=== PATIENT | female | born 1990 | race Caucasian/White ===

== ENCOUNTER 2017-01-25 11:33 | Emergency (ER) | payer OTHER ==
[~2017-01-25] VITALS: Ht 167.6 cm; Wt 68.2 kg
[~2017-01-25 11:33] MED LIST: HYDR-5688 PO; IBUP-1428 PO
[2017-01-25 11:34] VITALS: TEMP 36.7; Ht 167.6 cm; Wt 68.2 kg
[2017-01-25] MEDS ORDERED: OXYC1TAB3 PO (12:01)
[2017-01-25] MEDS ORDERED: CLIN300C2 PO (12:01)
[2017-01-25] MEDS ORDERED: BCPILLS PO (12:06)
--- NOTE | 2017-01-25 12:09 | EMERGENCY ROOM VISIT NOTE ---
History First contact with patient: 11:38 Chief Complaint: DENTAL PAIN Stated Complaint: INFECTION IN UPPER BACK TOOTH Nursing Triage Summary: pt c/o L upper dental pain, appt with dentist, pt states she was given pcn but she was allergic to it so she didnt take it, pt told she needs an abx prior to the tooth being extracted History of Present Illness The patient is a 26 year old female who presents to the Emergency Room with complaints of persistent left upper dental pain. The patient reports she has an appointment Tuesday for a dental extraction. She was seen by her dentist yesterday and provided a prescription for penicillin, although they confirmed in the office that she has an appointment for penicillin. When she tried to call the office today, there was no answer, therefore she came to the emergency department for a new antibiotic prescription. She is also requesting additional pain medication for the next few nights until the antibiotics start to work. She has chronic left upper dental pain in the service after an [facility] dentist accidentally drilled into the tooth. She has had 2 root canals with an option for a third. She has elected to have the tooth extracted. She denies any fevers or chills, sinus congestion or headache. She rates her discomfort an 8 out of 10. Review of Systems 10 system review was performed and was negative except for pertinent positives and negatives as indicated in history of present illness Past Medical/Surgical History Medical Problems: (1) Abdominal pain (2) Acute bacterial conjunctivitis (3) Anxiety (4) Bipolar 1 disorder (5) Bipolar depression (6) Conjunctivitis (7) Conjunctivitis (8) Dehydration (9) Dehydration (10) Depression (11) Herpes genitalia (12) Herpes genitalis in women (13) Herpes labialis (14) Odontalgia (15) Pain, dental (16) Pain, dental (17) Pain, dental (18) Pelvic inflammatory disease (19) Post-operative pain (20) Prescription refill (21) Sore throat (22) Thoracic back pain (23) Thoracic myofascial strain Surgical Problems: (1) H/O wisdom tooth extraction (2) [place] teeth removed Family History FH: heart disease FH: hypertension Hypotension FATHER SISTER Social History Smoking Status: Current Every Day Smoker Alcohol Use: none Drug Use: none Marital Status: Housing Status: lives with significant other Occupation Status: employed Current/Historical Medications Scheduled Clindamycin Hcl (Cleocin), 300 MG PO QID Ibuprofen (Motrin), 800 MG PO Q8H Scheduled PRN Hydrocodone/Acetaminophen 5MG/325MG ([place] 5MG/325MG), 2 TABLETS PO Q4 PRN for Pain Oxycodone Ir (Roxicodone Ir), 1-2 TAB PO Q4H PRN for Pain Physical Exam Vital Signs Date Time Temp Pulse Resp B/P (MAP) Pulse Ox O2 Delivery O2 Flow Rate FiO2 01/25/17 11:34 36.7 74 18 126/81 97 Room Air Physical Exam CONSTITUTIONAL: Healthy and well nourished. Alert and oriented X 3 with positive affect. HEENT: Normocephalic, atraumatic. Pupils equal, round and reactive. No facial edema or erythema noted. OROPHARYNX: No gingival erythema, fluctuance or pointing. The patient has several dental nares. NECK: Full active range of motion without discomfort. INTEGUMENTARY: No rash or other significant dermatologic conditions noted. NEUROLOGIC: Facial sensations are intact. Medical Decision & Procedures ED Course Patient history and physical exam were performed. Nurse's notes were reviewed. Vital signs were reviewed and normal. The patient was provided prescriptions for Cleocin and OxyIR 5 mg. She was also encouraged to alternate ibuprofen and Tylenol for baseline pain relief. She was instructed to follow-up with her dentist for further definitive treatment. The patient was advised that the emergency department does not provide dental services, referrals or chronic dental pain management. The patient was happy with plan of care, voiced understanding of all discharge instructions, refused any analgesics while in the emergency department, and rated her pain a 6 out of 10 at the time of discharge. Medical Decision [place] Drug Monitoring Program Search Results: patient reviewed within database, no issues identified Medication Reconcilliation Current Medication List: was personally reviewed by nc Blood Pressure Screening Patient's blood pressure: Normal blood pressure Impression Primary Impression: Pain, dental Departure Information Dispostion Home / Self-Care Prescriptions Oxycodone Ir (Roxicodone Ir) 5 Mg Tab 1-2 TAB PO Q4H Y for Pain, #15 TAB For Initial Treatment Prov: Leroy Middleton PA 01/25/17 Clindamycin Hcl (CLEOCIN) 300 Mg Cap 300 MG PO QID for 7 Days, #28 CAP Prov: Leroy Middleton PA 01/25/17 Forms HOME CARE DOCUMENTATION FORM, IMPORTANT VISIT INFORMATION Patient Instructions My [facility] Additional Instructions Complete all clindamycin antibiotics as prescribed. Ibuprofen 800 mg and/or Tylenol 1000 mg every 8 hours. You may also alternate these medications for more effective pain relief: Ibuprofen --4 HRS--> Tylenol --4 HRS--> ibuprofen --4 HRS--> Tylenol .... OxyIR if needed for worse pain. Do not drink alcohol or drive while taking OxyIR. Follow-up with your dentist for further management.
[2017-01-25 12:10] VITALS: BP 126/81; PULSE 74; O2SAT 97
== END 2017-01-25 12:10 | disposition home or self-care (01) ==
LOC: C.EDB 11:34 → C.EDD 12:10
DX: K08.89 Other specified disorders of teeth and supporting structures (principal); F17.200 Nicotine dependence, unspecified, uncomplicated; F41.9 Anxiety disorder, unspecified; F31.9 Bipolar disorder, unspecified; Z79.899 Other long term (current) drug therapy

== ENCOUNTER 2017-02-21 13:34 | Emergency (ER) | payer OTHER ==
[~2017-02-21] VITALS: Ht 167.6 cm; Wt 67.5 kg
[~2017-02-21 13:34] MED LIST changes: +BCPILLS PO; -HYDR-5688 PO; +OXYC1TAB3 PO
[2017-02-21 13:39] VITALS: BP 125/79; PULSE 65; TEMP 36.7; O2SAT 99; Ht 167.6 cm; Wt 67.5 kg
== END 2017-02-21 14:05 | disposition left against medical advice (07) ==
LOC: C.EDB 13:36
DX: R10.9 Unspecified abdominal pain (principal)

== ENCOUNTER → 2017-02-22 | Outpatient (CLI) | payer OTHER ==
[~2017-02-22] MED LIST changes: +AMOX875T PO; +HYDR-5688 PO; +PRDXLUD MT
--- NOTE | 2017-02-22 14:09 | DIAGNOSTIC IMAGING REPORT ---
ABDOMEN 2VIEW W/PA CHEST RTN HISTORY: 26 years-old Female Right upper quadrant abdominal pain of unknown etiology COMPARISON: CT abdomen and pelvis 06/26/2013 TECHNIQUE: Frontal view of the chest with erect and supine views of the abdomen FINDINGS: Cardiomediastinal and hilar silhouettes are within normal limits. No pneumothorax, pleural effusion or focal airspace consolidation. Bones of the chest are grossly intact. Radiopaque foci noted within the colon. Bowel gas pattern is nonobstructive. There is mild to moderate stool burden. No urolithiasis identified. Probable phleboliths are seen within the pelvis. No pneumoperitoneum. IMPRESSION: 1. No acute cardiopulmonary process. 2. No bowel obstruction or pneumoperitoneum. 3. Mild to moderate stool burden. The above report was generated using voice recognition software. It may contain grammatical, syntax or spelling errors. Electronically signed by: Neil Peguero M.D. 02/22/2017 2:08 PM Dictated Date/Time: 02/22/2017 2:06 PM
== END | disposition home or self-care (01) ==
LOC: C.RADPV 13:45
PROVIDERS: ATTEND Family Medicine
DX: R10.11 Right upper quadrant pain (principal)

== ENCOUNTER 2017-04-02 08:21 | Emergency (ER) | payer OTHER ==
[~2017-04-02] VITALS: Ht 167.6 cm; Wt 65.5 kg
[~2017-04-02 08:21] MED LIST changes: -AMOX875T PO; -HYDR-5688 PO; -PRDXLUD MT
[2017-04-02 08:26] VITALS: BP 118/74; PULSE 71; TEMP 37; O2SAT 98; Ht 167.6 cm; Wt 65.5 kg
[2017-04-02] MEDS ORDERED: AMOX875T PO (08:53)
[2017-04-02] MEDS ORDERED: PRDXLUD MT (08:53)
[2017-04-02] MEDS ORDERED: HYDR-5688 PO (08:53)
--- NOTE | 2017-04-02 16:11 | EMERGENCY ROOM VISIT NOTE ---
ED Visit Note First contact with patient: 08:30 CHIEF COMPLAINT: Left upper Dental pain HISTORY OF PRESENT ILLNESS: This 26-year-old white female patient has had a progressive toothache for over a month. She denies any trauma. The pain is now steady and severe and radiates to the left cheek. She was previously seen in [place] and had her wisdom teeth extracted. She states that the adjacent molar was damaged and was also removed. Her maxilla require bone grafting. She states it did well until the last month. She now feels as though there is something protruding from the inner aspect of her gumline. It is firm and painful. She has been unable to see a dentist. 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 She has applied through the online portal with the [employer], but has not heard anything back about an upcoming appointment. Denies facial swelling, chills, sweats, or fever. No nausea or vomiting. No foul taste. Pain is 9/10. She has been using ibuprofen without success. REVIEW OF SYSTEMS: Head: No headache, injury or neck pain. Throat: No sore throat, dysphagia, or hoarseness. Neck: No stiffness, or swelling. Respiratory: No cough, change in sputum, wheezes, hemoptysis, shortness of breath, or stridor. PMH: Supplemental sheet was reviewed and signed. Previous Surgeries: [place] tooth extraction and dental bone grafting for the left maxilla Medical history: Significant for anxiety, bipolar disorder, depression, history of bronchitis Family history: Noncontributory. Parents are living. Current medications: Ibuprofen Allergies: Clonazepam, morphine, penicillin, tramadol. She has taken amoxicillin without issue in the past. SOCIAL HISTORY: Patient lives at home with her boyfriend. Employed in the [employer]. Positive tobacco use. No EtOH use. PHYSICAL EXAM: Vital Signs: Afebrile. Reviewed and filed in patient's chart. General: Well-developed, well-nourished, young white female, in no acute distress. She appears in some discomfort. She is sitting on a bed. Alert and oriented. Skin: Warm and dry with good turgor. No rashes or lesions. No ecchymosis or erythema. The patient is not diaphoretic. No abrasions. HEENT : Normocephalic atraumatic. Eyes PERRLA, EOMI. No conjunctiva or scleral injection. Nares patent bilaterally without turbinate enlargement. No significant drainage. No epistaxis. Oropharynx without erythema or exudate. Uvula midline, oral mucosa moist. No lesions present. Teeth #15 and 16 are missing. She has a small firm nodule starting to protrude from the mucosa of the hard palate. It has not erupted through the mucosa yet. It is very tender to touch. Mild edema but no pointing. It is nonfluctuant. Surrounding teeth are not loose. There is no facial swelling, cervical or submandibular lymphadenopathy. DIAGNOSIS: Dental pain DISCHARGE INSTRUCTIONS & TREATMENT: The patient was educated regarding today's findings. Conservative care measures were discussed. I did call Dr. Thurman to discuss the case. He agreed to see the patient in the office this week for further examination. [employer] 5mg every 6 hours if needed for pain. Driving precautions were given. Augmentin 875 mg 2 times a day for 10 days. Add Peridex solution gargles 2 times a day. Continue with ibuprofen 600 mg every 6 hours as needed for discomfort. Saltwater gargles after every meal. Toothache handout was provided. Return to the ED for any other concerns. Avoid smoking if possible. Problem List Medical Problems: (1) Abdominal pain Status: Resolved (2) Acute bacterial conjunctivitis Status: Resolved (3) Anxiety Status: Chronic (4) Bipolar 1 disorder Status: Chronic (5) Bipolar depression Status: Chronic (6) Conjunctivitis Status: Resolved (7) Conjunctivitis Status: Resolved (8) Dehydration Status: Resolved (9) Dehydration Status: Resolved (10) Depression Status: Chronic (11) Herpes genitalia Status: Resolved (12) Herpes genitalis in women Status: Chronic (13) Herpes labialis Status: Chronic (14) Odontalgia Status: Resolved (15) Pain, dental Status: Resolved (16) Pain, dental Status: Resolved (17) Pain, dental Status: Resolved (18) Pelvic inflammatory disease Status: Resolved (19) Post-operative pain Status: Resolved (20) Prescription refill Status: Resolved (21) Sore throat Status: Resolved (22) Thoracic back pain Status: Resolved (23) Thoracic myofascial strain Status: Resolved Surgical Problems: (1) H/O wisdom tooth extraction Status: Resolved (2) [place] teeth removed Status: Resolved Current/Historical Medications Scheduled Amoxicillin & Pot Clavulanate (Augmentin 875-125 mg), 1 TAB PO BID Control Pills ( Control Pills), 1 TAB PO DAILY Chlorhexidine Gluconate (Peridex Oral Soln), 5 ML MT BID Ibuprofen (Motrin), 800 MG PO Q8H Scheduled PRN Hydrocodone/Acetaminophen 5MG/325MG ([employer] 5MG/325MG), 1-2 TABLETS PO Q6 PRN for Pain Allergies Coded Allergies: Penicillins (Verified Allergy, Unknown, itchy, red, 04/02/17) Morphine (Verified Adverse Reaction, Severe, pt reports halluncinations, 04/02/17) Tramadol (Verified Adverse Reaction, Intermediate, SEVERE [place]ENBERG, 04/02/17) Clonazepam (Verified Adverse Reaction, Unknown, BLACK OUTS, 04/02/17) Vital Signs Date Time Temp Pulse Resp B/P (MAP) Pulse Ox O2 Delivery O2 Flow Rate FiO2 04/02/17 08:26 37.0 71 18 118/74 98 Room Air Departure Information Impression Primary Impression: Pain, dental Dispostion Home / Self-Care Condition GOOD Prescriptions Hydrocodone/Acetaminophen 5MG/325MG ([employer] 5MG/325MG) Tab 1-2 TABLETS PO Q6 Y for Pain, #15 TAB PRN PAIN Prov: Ney Wilhelm,P.A. 04/02/17 Chlorhexidine Gluconate (PERIDEX ORAL SOLN) 480 Ml Soln 5 ML MT BID, #1 BTL Prov: Ney Wilhelm,P.A. 04/02/17 Amoxicillin & Pot Clavulanate (Augmentin 875-125 mg) 1 Tab Tab 1 TAB PO BID, #20 TAB Prov: Ney Wilhelm,P.A. 04/02/17 Referrals Chandra Thurman D.D.SZane No Doctor, Assigned Forms HOME CARE DOCUMENTATION FORM, SPECIAL NARCOTICS INSTRUCTIONS, MOTRIN USE, TYLENOL USE, IMPORTANT VISIT INFORMATION Patient Instructions My [facility] Additional Instructions Call Dr. Thurman on Tuesday for follow-up this week Augmentin 1 pill twice a day 10 days Peridex solution-rinse twice a day Tylenol and Motrin every 6 hours as needed for mild to moderate discomfort Substitute [employer] 5 mg every 6 hours as needed for severe pain-no driving Return to the ED for any other concerns
== END 2017-04-02 09:00 | disposition home or self-care (01) ==
LOC: C.EDB 08:23 → C.EDA 09:00
DX: K08.89 Other specified disorders of teeth and supporting structures (principal); F41.9 Anxiety disorder, unspecified; F31.9 Bipolar disorder, unspecified; F32.9 Major depressive disorder, single episode, unspecified; Z72.0 Tobacco use

== ENCOUNTER → 2017-04-19 | Outpatient (CLI) | payer OTHER ==
[~2017-04-19] MED LIST changes: +HYDR-5688 PO; -OXYC1TAB3 PO; +PRDXLUD MT
[2017-04-21 15:03] LABS: CHLAMYDIA TRACH RNA*** NOT DETECTED (NOT DETECTED); GC (NEIS GONORRHOEAE)RNA** NOT DETECTED (NOT DETECTED)
== END | disposition home or self-care (01) ==
LOC: C.LABPVFM 12:39
PROVIDERS: ATTEND Family Medicine
DX: R10.2 Pelvic and perineal pain (principal)

== ENCOUNTER 2017-05-21 08:47 | Emergency (ER) | payer OTHER ==
[~2017-05-21] VITALS: Ht 167.6 cm; Wt 66.5 kg
[2017-05-21 08:50] VITALS: TEMP 36.8; Ht 167.6 cm; Wt 66.5 kg
[2017-05-21] MEDS ORDERED: CLINDAMYCIN HCL 150 MG CAP PO STA (09:19)
--- NOTE | 2017-05-21 09:21 | EMERGENCY ROOM VISIT NOTE ---
History Report prepared by Marilouibjenna: Vidya Arias Under the Supervision of: Dr. Doug Mata M.D. First contact with patient: 09:10 Chief Complaint: DENTAL PAIN Stated Complaint: THROBBING IN GUMS Nursing Triage Summary: left upper dental pain has hx of bone graft there. pain started 3 days ago. has to go through i cannot get appt until jul 04 History of Present Illness The patient is a 26 year old female who presents to the Emergency Room with complaints of persistent dental pain for the past 3 days. She rates her discomfort as an 8/10 in severity. Ibuprofen has provided minimal relief. She notes she has a history of a left upper bone graft that was performed while she was in [employer]. The bone graft was performed at [facility]. The patient states due to insurance issues, and her medical appointments being made through [facility], she cannot get in to see her dentist until July 04, 2017. She also admits to some sinus congestion. Source of History: patient Onset: 3 days EQUIP TECH Position: jaw (left upper dental area) Symptom Intensity: 8/10 Timing: other (persistent) Modifying Factors (Relieving): ibuprofen Note: The patient also complains of sinus congestion. Review of Systems See HPI for pertinent positives & negatives. A total of 10 systems reviewed and were otherwise negative. Past Medical & Surgical Medical Problems: (1) Abdominal pain (2) Acute bacterial conjunctivitis (3) Anxiety (4) Bipolar 1 disorder (5) Bipolar depression (6) Conjunctivitis (7) Conjunctivitis (8) Dehydration (9) Dehydration (10) Depression (11) Herpes genitalia (12) Herpes genitalis in women (13) Herpes labialis (14) Odontalgia (15) Pain, dental (16) Pain, dental (17) Pain, dental (18) Pelvic inflammatory disease (19) Post-operative pain (20) Prescription refill (21) Sore throat (22) Thoracic back pain (23) Thoracic myofascial strain Surgical Problems: (1) H/O wisdom tooth extraction (2) [place] teeth removed Family History FH: heart disease FH: hypertension Hypotension FATHER SISTER Social History Smoking Status: Current Every Day Smoker Alcohol Use: none Drug Use: none Marital Status: Housing Status: lives with significant other Occupation Status: employed Current/Historical Medications Scheduled Control Pills ( Control Pills), 1 TAB PO DAILY Chlorhexidine Gluconate (Peridex Oral Soln), 5 ML MT BID Clindamycin Hcl (Cleocin), 300 MG PO QID Ibuprofen (Motrin), 800 MG PO Q8H Scheduled PRN Oxycodone/Acetaminophen 5MG/325MG (Percocet 5MG/325MG), 1-2 TAB PO Q4H PRN for Pain Allergies Coded Allergies: Penicillins (Verified Allergy, Unknown, itchy, red, 04/02/17) Morphine (Verified Adverse Reaction, Severe, pt reports halluncinations, 05/21/17) Tramadol (Verified Adverse Reaction, Intermediate, [place], 05/21/17) Clonazepam (Verified Adverse Reaction, Unknown, BLACK OUTS, 05/21/17) Physical Exam Vital Signs Date Time Temp Pulse Resp B/P (MAP) Pulse Ox O2 Delivery O2 Flow Rate FiO2 05/21/17 09:40 75 18 131/96 100 05/21/17 08:50 36.8 98 18 127/76 100 Room Air Physical Exam GENERAL: Patient is a healthy-appearing well-nourished 26 year old female. HEAD: Normocephalic atraumatic EYES: Ocular movements intact pupils equal and react to light OROPHARYNX: No evidence of abscess or infection. Tender to the left upper jaw bone. No maxillary tenderness. No evidence of facial cellulitis. No evidence of Jono's angina. Mucous membranes are moist, no exudates present, no erythema or edema present NECK: Supple no nuchal rigidity CHEST: Good equal expansion LUNGS: Clear and equal to auscultation CARDIAC: Normal S1 and S2 ABDOMEN: Soft nontender no guarding BACK: No CVA tenderness EXTREMITIES: No pain upon palpation normal muscle strength in all groups no clubbing cyanosis or edema NEURO: Patient is following commands and answering questions appropriately. Alert and oriented x3 Cranial Nerves 2-12 grossly intact Medical Decision & Procedures Medications Administered Medications (Trade) Dose Ordered Sig/Randy Route Start Time Stop Time Status Last Admin Dose Admin Clindamycin HCl (Cleocin Cap) 300 mg NOW STAT PO 05/21/17 09:19 05/21/17 09:23 DC 05/21/17 09:47 300 MG ED Course 912: Past medical records reviewed. The patient was evaluated in room A2. A complete history and physical examination was performed. 918: Cleocin 300 mg PO. 0930: Percocet 5-325 mg 2 tab PO. 0935: I reevaluated the patient. She is feeling well and resting comfortably. I discussed her discharge instructions and she verbalized complete understanding and agreement. Medical Decision Prior records/ancillary studies reviewed. Triage Nursing notes reviewed. Differential diagnosis: Etiologies such as Jono's angina, tooth abscess, periapical abscess, dental pain and sinusitis. This is a 26-year-old female who presents emergency department complaining of left-sided facial pain. The patient has a history of bone graft and is concerned that there is infection at this point. There is no evidence of facial cellulitis or Jono's angina or abscess on examination. I will place the patient on clindamycin however I stressed the need for follow-up with oral surgery. For this reason I did get case management involved to see if they could assist the patient with her insurance. Patient will return if she develops severe facial pain or fevers. Medication Reconcilliation Current Medication List: was personally reviewed by me Blood Pressure Screening Patient's blood pressure: Normal blood pressure Blood pressure disposition: Did not require urgent referral Impression Primary Impression: Pain, dental Scribe Attestation The scribe's documentation has been prepared under my direction and personally reviewed by me in its entirety. I confirm that the note above accurately reflects all work, treatment, procedures, and medical decision making performed by me. Departure Information Dispostion Home / Self-Care Prescriptions Oxycodone/Acetaminophen 5MG/325MG (PERCOCET 5MG/325MG) Tab 1-2 TAB PO Q4H Y for Pain, #14 TAB Prov: Doug Mata MD 05/21/17 Clindamycin Hcl (CLEOCIN) 150 Mg Cap 300 MG PO QID for 10 Days, #80 CAP Prov: Doug Mata MD 05/21/17 Referrals Reta Mckenzie M.D. (PCP) Patient Instructions ED Tooth Pain, My [facility] [address] Additional Instructions Need follow up with Dentist Return if you develop severe headaches or fevers You received narcotic or benzodiazepene medication while in the emergency room today. This is an addictive medication that may cause drowziness as well as constipation. Do not drive, operate heavy machinery, or drink alcohol under the influence of this medication. Take 800 mg Ibuprofen every 8 hours Take Percocet for breakthrough pain You have been examined and treated today on an emergency basis only. This is not a substitute for, or an effort to provide, complete comprehensive medical care. It is impossible to recognize and treat all injuries or illnesses in a single emergency department visit. It is therefore important that you follow up closely with Dr Mckenzie. Call as soon as possible for an appointment. Thank you for your time and consideration. I look forward to speaking with you again soon. Please don't hesitate to call us if you have any questions.
[2017-05-21] MEDS ORDERED: CLIN150C PO (09:29)
[2017-05-21] MEDS ORDERED: OXYC-57 PO (09:29)
[2017-05-21] MEDS ORDERED: OXYCODONE/ACETAMINOPHEN 5-325 TAB PO ONE (09:30)
[2017-05-21 09:40] VITALS: BP 131/96; PULSE 75; O2SAT 100
== END 2017-05-21 09:45 | disposition home or self-care (01) ==
LOC: C.EDB 08:48 → C.EDA 09:45
DX: K08.89 Other specified disorders of teeth and supporting structures (principal); F17.200 Nicotine dependence, unspecified, uncomplicated; Z98.818 Other dental procedure status; Z98.890 Other specified postprocedural states; Z82.49 Family history of ischemic heart disease and other diseases of the circulatory system

== ENCOUNTER 2017-08-19 12:56 | Emergency (ER) | payer OTHER ==
[~2017-08-19] VITALS: Ht 167.6 cm; Wt 65.0 kg
[~2017-08-19 12:56] MED LIST changes: -HYDR-5688 PO; +OXYC-57 PO
[2017-08-19 13:05] VITALS: BP 136/82; PULSE 77; TEMP 36.7; O2SAT 97; Ht 167.6 cm; Wt 65.0 kg
[2017-08-19] MEDS ORDERED: HYDR-5688 PO (13:29)
[2017-08-19] MEDS ORDERED: PENI500T2 PO (13:29)
--- NOTE | 2017-08-19 20:01 | EMERGENCY ROOM VISIT NOTE ---
ED Visit Note First contact with patient: 13:05 CHIEF COMPLAINT: Gum and tooth pain. HISTORY OF PRESENT ILLNESS: Ms. Sotelo is a 27-year-old white female who ambulates into the ED complaining of maxillary dental pain. Patient reports she is in the . Approximately 1 month ago she had a left maxillary tooth removed. She reports during this procedure she sustained a maxillary bone injury. Since that time she has had 2 grafting surgeries to the area. She reports approximately a week ago she was on leave in the local area and went to see a local oral surgeon who reported a second tooth needed to be removed. That tooth was extricated off the right maxillary area to. Since that time she has been having growing pain over the right maxillary area. She was once again seen by the specialist and reported that she had tooth fragments left in the area of her maxillary fracture. A follow-up appointment with possible surgery was scheduled for the end of August. She reports a progressive dental pain for 3 days over the right maxilla. She reports initially the pain was mild but has gradually increased in severity. She reports it is most severe at nighttime. She describes a combination of sharp and throbbing pain. She currently rates her discomfort mandible. 8/10. She does report her pain initially was controlled with ibuprofen or acetaminophen but over the last 24 hours it was not. Her pain does radiate to the left preauricular area. Her pain worsens with palpation of the right maxilla and with chewing. She has not identified any alleviating factors related to the pain over the last 24 hours the pain is now steady and severe and radiates to the face. Associated with her pain she reports she has been having difficulty sleeping and reports some mild left-sided facial swelling. She denies fevers, chills, sweats, skin eruptions, skin color changes, upper respiratory tract symptoms, sore throat, difficulty swallowing, hearing changes , ear drainage, voice changes, painful talking, drooling, inability to swallow, decreased appetite, nausea/vomiting. REVIEW OF SYSTEMS: As noted above in History of Present Illness. 8 body systems were reviewed with this patient and found to be negative unless noted above otherwise. PMH: As previously noted. CURRENT MEDICATION: control. ALLERGIES TO MEDICATION: Morphine, tramadol, clonazepam. SOCIAL HISTORY: Patient is currently employed; she feels safe in her home environment; she admits to tobacco use and denies alcohol use. PHYSICAL EXAM: Vital Signs: Date Time Temp Pulse Resp B/P (MAP) Pulse Ox O2 Delivery O2 Flow Rate FiO2 08/19/17 13:05 36.7 77 20 136/82 97 Room Air General: 27 year-old female in mild distress due to pain, nontoxic appearing, afebrile and hemodynamically stable. Neurological: Awake, alert and oriented to person, place and time. Answering questions appropriately and following commands. Skin: Warm, dry and pink. HEENT: Atraumatic and normocephalic. Face: Mild swelling over the left maxilla/ mandible area. There is no erythema or warmth in this area. None of the skin appears cellulitic. Oral cavity is moist and pink. Airway is patent. Uvula is midline and no abscesses are seen. Speech is normal. No intraoral trauma is noted. There is mild erythema of the gingiva and the surrounding tissues of her pain with what appears to be tooth fragments. I do not palpate any obvious abscesses. No cervical or submandibular lymphadenopathy. ED COURSE: Patient is assessed as noted above. Patient is educated about her findings and instructed on her treatment plan; she verbalizes understanding and agreement with this plan. CLINIC IMPRESSION: Dental pain. DISPOSITION: Patient discharged home in stable condition; prior to departure she was reassessed and subjectively reported she was feeling better and rated her discomfort 5/10. PLAN: Patient was prescribed Pen-Vee K 500 mg 4 times a day for 10 days. Patient was placed on a sliding pain medication scale of ibuprofen, acetaminophen and Martin; her name was checked on state database and no red flags were noted and she was given instructions for appropriate narcotic precautions. Patient was encouraged to follow-up with her dentistry department for follow-up care and recheck. Patient was encouraged to return to the ED for worsening/uncontrolled pain, fevers, worsening facial swelling or any new/concerning symptoms.
== END 2017-08-19 13:35 | disposition home or self-care (01) ==
LOC: C.EDB 12:57 → C.EDD 13:35
DX: K08.89 Other specified disorders of teeth and supporting structures (principal); Z98.818 Other dental procedure status; Z79.3 Long term (current) use of hormonal contraceptives; Z88.5 Allergy status to narcotic agent; Z88.8 Allergy status to other drugs, medicaments and biological substances; Z72.0 Tobacco use

== ENCOUNTER 2017-09-13 09:33 | Emergency (ER) | payer OTHER ==
[~2017-09-13] VITALS: Ht 167.6 cm; Wt 67.1 kg
[~2017-09-13 09:33] MED LIST changes: +HYDR-5688 PO; -IBUP-1428 PO; -OXYC-57 PO; -PRDXLUD MT
[2017-09-13 09:38] VITALS: TEMP 36.8; Ht 167.6 cm; Wt 67.1 kg
[2017-09-13] MEDS ORDERED: OXYC1TAB3 PO (10:24)
[2017-09-13] MEDS ORDERED: AMOX500C3 PO (10:24)
--- NOTE | 2017-09-13 10:33 | EMERGENCY ROOM VISIT NOTE ---
History Report prepared by Nancie: Narciso Childers Under the Supervision of: Dr. Alo Cueva M.D. First contact with patient: 10:10 Chief Complaint: FACIAL PAIN/INJURY Stated Complaint: BONE SPLINTERS IN MOUTH AND SWELLING History of Present Illness The patient is a 27 year old female who presents to the Emergency Room with complaints of worsening left sided facial pain and swelling beginning a month ago. 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 She states that she can feel three bone splinters on her upper left jaw which appear to be growing in size. She also complains of occasional shortness of breath (but feels this may be related to smoking). The patient denies any fevers or abdominal pain. She denies difficulty swallowing. She denies chance of . Source of History: patient Onset: A month ago Position: head (left face) Quality: other (pain and swelling) Timing: worsening Associated Symptoms: + SOB (occasional), No fevers, No abdominal pain Review of Systems See HPI for pertinent positives & negatives. A total of 10 systems reviewed and were otherwise negative. Past Medical & Surgical Medical Problems: (1) Abdominal pain (2) Acute bacterial conjunctivitis (3) Anxiety (4) Bipolar 1 disorder (5) Bipolar depression (6) Conjunctivitis (7) Conjunctivitis (8) Dehydration (9) Dehydration (10) Depression (11) Herpes genitalia (12) Herpes genitalis in women (13) Herpes labialis (14) Odontalgia (15) Pain, dental (16) Pain, dental (17) Pain, dental (18) Pelvic inflammatory disease (19) Post-operative pain (20) Prescription refill (21) Sore throat (22) Thoracic back pain (23) Thoracic myofascial strain Surgical Problems: (1) H/O wisdom tooth extraction (2) [place] teeth removed Old medical records were reviewed. Nurse's notes were reviewed and I agree with. Family History FH: heart disease FH: hypertension Hypotension FATHER SISTER Social History Smoking Status: Current Every Day Smoker Alcohol Use: none Drug Use: none Marital Status: Housing Status: lives with significant other Occupation Status: employed Current/Historical Medications Scheduled Amoxicillin (Amoxil), 500 MG PO TID Control Pills ( Control Pills), 1 TAB PO DAILY Scheduled PRN Hydrocodone/Acetaminophen 5MG/325MG ([place] 5MG/325MG), 1-2 TABLET PO Q6H PRN for Pain Oxycodone Immediate Rel Tab (Roxicodone Ir), 1-2 TAB PO Q4H PRN for Severe Pain Allergies Coded Allergies: Penicillins (Verified Allergy, Unknown, itchy, red, 04/02/17) Morphine (Verified Adverse Reaction, Severe, pt reports halluncinations, ) Tramadol (Verified Adverse Reaction, Intermediate, SEVERE ROSENBERG, 08/19/17) Clonazepam (Verified Adverse Reaction, Unknown, BLACK OUTS, 08/19/17) Physical Exam Vital Signs Date Time Temp Pulse Resp B/P (MAP) Pulse Ox O2 Delivery O2 Flow Rate FiO2 09/13/17 10:48 78 16 124/72 98 09/13/17 09:38 36.8 79 20 128/69 100 Room Air Physical Exam General: Non-ill appearing young female in no acute distress. HEENT: Normal cephalic atraumatic. No facial swelling. Mild tenderness to the left upper jaw where teeth have been removed. No fluctuance or abscess. Two small bumps felt. Oropharynx is pink with moist mucous membranes. No swelling of the mouth lips or tongue. Pupils are equal round and reactive to light. Extraocular movements are intact. Neck: Supple with a midline trachea. No meningeal signs or stiffness, no JVD or bruits. No Stridor. Chest: Clear to auscultation bilaterally. No wheezes or rhonchi. No increased work of breathing. Heart: regular rate and rhythm. Abdomen: Soft nontender, nondistended without rebound guarding or rigidity. Extremities: No cyanosis clubbing or edema. No calf tenderness or assymetry Spine/Back. Non tender to palpation. No CVA tenderness Skin: Good turgor without rashes. Neurologic exam: Cranial nerves two through 12 are intact. Motor and sensation are intact and symmetrical throughout. Medical Decision & Procedures ED Course 1011: Past medical records reviewed. The patient was evaluated in room C4, and a complete history and physical examination were performed. 1025: Upon reevaluation, the patient is resting comfortably. I discussed the results and treatment plan with her. She verbalized agreement of the treatment plan. The patient was discharged home. Medical Decision Differentials include, but are not limited to; abscess, tooth ache, and jaw pain. Patient comes in as described above she has been having left jaw pain t she has some chronic issues with this after having a fracture and reconstructive surgery . she scheduled to see a oral facial surgeon in the near future. On exam, she is afebrile and has no evidence to suggest abscess or Jono's angina. At this point, I think she needs antibiotics and pain management. She has no evidence of any airway compromise. Her father is at the bedside and driving. She was given amoxicillin 500 mg 3 times a day as well as a small prescription for OxyIR to get her through until she can see the oral facial surgeon. She should return if: increasing pain, worsening of symptoms, fever chills, any new problems or concerns. She is happy the plan and discharged to home. [place] Drug Monitoring Program Search Results: patient reviewed within database, no issues identified Medication Reconcilliation Current Medication List: was personally reviewed by me Blood Pressure Screening Patient's blood pressure: Normal blood pressure Blood pressure disposition: Did not require urgent referral Impression Primary Impression: Jaw pain Scribe Attestation The scribe's documentation has been prepared under my direction and personally reviewed by me in its entirety. I confirm that the note above accurately reflects all work, treatment, procedures, and medical decision making performed by me. Departure Information Dispostion Home / Self-Care Prescriptions Oxycodone Immediate Rel Tab (ROXICODONE IR) 5 Mg Tab 1-2 TAB PO Q4H Y for Severe Pain, #24 TAB Prov: Alo Cueva M.D. 09/13/17 Amoxicillin (AMOXIL) 500 Mg Cap 500 MG PO TID, #30 CAP Prov: Alo Cueva M.D. 09/13/17 Referrals Reta Mckenzie M.D. (PCP) Forms HOME CARE DOCUMENTATION FORM, IMPORTANT VISIT INFORMATION Patient Instructions My [facility] Additional Instructions Rest. Drink plenty of fluids. Use amoxicillin 500 mg 3 times a day for 10 daysantibiotic For pain, use ibuprofen 400 mg every 6 hours, take with food For more severe pain, may use OxyIR 5 mg, 1 or 2 pills every 4-6 hours as needed OxyIR may make you drowsy do not take before drinking, driving, working Return if: Increasing pain, facial swelling, fever or chills, worsening symptoms , any new problems or concerns Up with the oral surgeon this week for recheck and definitive care
[2017-09-13 10:48] VITALS: BP 124/72; PULSE 78; O2SAT 98
== END 2017-09-13 10:48 | disposition home or self-care (01) ==
LOC: C.EDB 09:35 → C.EDC 10:48
DX: R68.84 Jaw pain (principal); F17.210 Nicotine dependence, cigarettes, uncomplicated; Z88.0 Allergy status to penicillin; Z88.8 Allergy status to other drugs, medicaments and biological substances; Z87.81 Personal history of (healed) traumatic fracture

== ENCOUNTER 2017-11-11 07:19 | Emergency (ER) | payer OTHER ==
[~2017-11-11] VITALS: Ht 167.6 cm; Wt 68.1 kg
[~2017-11-11 07:19] MED LIST changes: +OXYC1TAB3 PO
[2017-11-11 07:20] VITALS: BP 109/66; PULSE 71; TEMP 36.7; O2SAT 98; Ht 167.6 cm; Wt 68.1 kg
[2017-11-11] MEDS ORDERED: OXYC1TAB3 PO (07:36)
[2017-11-11] MEDS ORDERED: CEPH500C2 PO (07:36)
--- NOTE | 2017-11-11 07:43 | EMERGENCY ROOM VISIT NOTE ---
History Report prepared by Nancie: Singh Morgan Under the Supervision of: Dr. Phani Alba D.O. First contact with patient: 07:26 Chief Complaint: FACIAL PAIN/INJURY Stated Complaint: PAIN IN MOUTH,POSSIBLY INFECTED,HAD SOME SWELLING History of Present Illness The patient is a 27 year old female who presents to the Emergency Room with complaints of worsening pain in the left side of her face. She describes the sensation as "a golf ball throbbing" in her face. The patient has a history of complications to the right side of the face/mouth. 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 Since the fracture she has had 2 bone grafts, and two additional surgery in the past month. She is currently following with Facial Surgery at [place] who has told her that she has " bone" in the cheek that needs to be removed. She is currently in the process of setting this appointment up, but notes that the pain has acutely worsened over the past day. The patient is an everyday smoker Source of History: patient Onset: Past day Position: head (Left face) Quality: other (Throbbing) Timing: worsening Note: Patient notes swelling. Review of Systems See HPI for pertinent positives & negatives. A total of 10 systems reviewed and were otherwise negative. Past Medical & Surgical Medical Problems: (1) Abdominal pain (2) Acute bacterial conjunctivitis (3) Anxiety (4) Bipolar 1 disorder (5) Bipolar depression (6) Conjunctivitis (7) Conjunctivitis (8) Dehydration (9) Dehydration (10) Depression (11) Herpes genitalia (12) Herpes genitalis in women (13) Herpes labialis (14) Odontalgia (15) Pain, dental (16) Pain, dental (17) Pain, dental (18) Pelvic inflammatory disease (19) Post-operative pain (20) Prescription refill (21) Sore throat (22) Thoracic back pain (23) Thoracic myofascial strain Surgical Problems: (1) H/O wisdom tooth extraction (2) [place] teeth removed Family History FH: heart disease FH: hypertension Hypotension FATHER SISTER Social History Smoking Status: Current Every Day Smoker Alcohol Use: none Drug Use: none Marital Status: Housing Status: lives with significant other Occupation Status: employed Current/Historical Medications Scheduled Control Pills ( Control Pills), 1 TAB PO DAILY Cephalexin Monohydrate (Keflex), 500 MG PO QID Scheduled PRN Oxycodone Immediate Rel Tab (Roxicodone Ir), 1-2 TAB PO Q4H PRN for Severe Pain Allergies Coded Allergies: Penicillins (Verified Allergy, Unknown, itchy, red, 11/11/17) Morphine (Verified Adverse Reaction, Severe, pt reports halluncinations, ) Tramadol (Verified Adverse Reaction, Intermediate, SEVERE ROSENBERG, 11/11/17) Clonazepam (Verified Adverse Reaction, Unknown, BLACK OUTS, 11/11/17) Physical Exam Vital Signs Date Time Temp Pulse Resp B/P (MAP) Pulse Ox O2 Delivery O2 Flow Rate FiO2 11/11/17 07:20 36.7 71 18 109/66 98 Room Air Physical Exam GENERAL: Patient is awake, alert, and in no acute distress. Patient is resting comfortably and showing no signs of anxiety EYES: The conjunctivae are clear. The pupils are round and reactive. EARS, NOSE, MOUTH AND THROAT: The nose is without any evidence of any deformity. Mucous membranes are moist tongue is midline. There is no trismus. There is mild swelling and tenderness over the left cheek. No erythema appreciated. There was left upper gumline tenderness and a site of previous extraction. No drainage, fluctuance, or erythema noted. NECK: The neck is nontender and supple. RESPIRATORY: Normal respiratory effort is noted there is no evidence of wheezing rhonchi or rales CARDIOVASCULAR: Regular rate and rhythm noted there no murmurs rubs or gallops normal S1 normal S2 GASTROINTESTINAL: The abdomen is soft. Bowel sounds are present in all quadrants. Abdomen is nontender MUSCULOSKELETAL/EXTREMITIES: There is no evidence of gross deformity full range of motion is noted in the hips and shoulders SKIN: There is no obvious evidence of any rash. There are no petechiae, pallor or cyanosis noted. NEUROLOGIC: Patient is awake alert and oriented x3 strength is symmetric patellar reflexes are 2+ bilaterally Medical Decision & Procedures ED Course 728: The patient was evaluated in room B2. A complete history and physical examination were performed. After discussion with the patient at bedside, she is in agreement with the treatment plan. The patient will be discharged home. Medical Decision Differential Diagnosis includes; dental abscess, dental infection, dental carries, post operative infection, facial cellulitis as well as others were entertained. Nursing notes reviewed. The patient is a 27-year-old female who presented to the emergency department for an evaluation of facial pain. The patient has a history of a previous surgery which she states has known to have some failure because of bone grafting in the left cheek. She does have a follow-up appointment with her oral surgeon. She started having pain at the end of her shift last evening and came to the emergency department for an evaluation. The patient has had similar episodes in the past. I discussed follow-up with the patient and recommended that she call her oral surgeon today. She has no trismus she has no fever she does not have significant swelling over the area. She does have an area of a previous extraction which could have retained roots but there is no area that appeared to be consistent with an abscess at this time. The patient was encouraged to continue using Motrin and Tylenol for pain. She is also encouraged to follow-up with her oral surgeon as soon as possible. She was also encouraged to return the emergency department immediately if symptoms change worsen or the need arises. Medication Reconcilliation Current Medication List: was personally reviewed by me Blood Pressure Screening Patient's blood pressure: Normal blood pressure Impression Primary Impression: Pain, dental Additional Impression: Dental infection Scribe Attestation The scribe's documentation has been prepared under my direction and personally reviewed by me in its entirety. I confirm that the note above accurately reflects all work, treatment, procedures, and medical decision making performed by me. Departure Information Dispostion Home / Self-Care Prescriptions Cephalexin Monohydrate (KEFLEX) 500 Mg Cap 500 MG PO QID, #28 CAP Prov: Phani Alba, 11/11/17 Oxycodone Immediate Rel Tab (ROXICODONE IR) 5 Mg Tab 1-2 TAB PO Q4H Y for Severe Pain, #20 TAB Prov: Phani Alba, 11/11/17 Referrals No Doctor, Assigned (PCP) Forms HOME CARE DOCUMENTATION FORM, IMPORTANT VISIT INFORMATION Patient Instructions My [facility] Additional Instructions Call your oral surgeon today to schedule a follow-up appointment for within the next 5 days. Continue all medications as prescribed. Continue using Motrin and Tylenol as directed for mild pain. Return to the emergency department immediately if symptoms change worsen or the need arises. Problem Qualifiers
== END 2017-11-11 07:51 | disposition home or self-care (01) ==
LOC: C.EDB 07:20
DX: K08.89 Other specified disorders of teeth and supporting structures (principal); K04.7 Periapical abscess without sinus; F31.9 Bipolar disorder, unspecified; F41.9 Anxiety disorder, unspecified; F32.9 Major depressive disorder, single episode, unspecified; F17.200 Nicotine dependence, unspecified, uncomplicated; Z88.0 Allergy status to penicillin; Z88.5 Allergy status to narcotic agent; Z88.8 Allergy status to other drugs, medicaments and biological substances

== ENCOUNTER 2018-02-19 09:24 | Emergency (ER) | payer SELFPAY ==
[~2018-02-19] VITALS: Ht 167.6 cm; Wt 63.0 kg
[~2018-02-19 09:24] MED LIST changes: +AMOX500T PO; -BCPILLS PO; -HYDR-5688 PO; +IBUP-1428 PO; +OXYC-737 PO; -OXYC1TAB3 PO
[2018-02-19 09:31] VITALS: Ht 167.6 cm; Wt 63.0 kg
[2018-02-19 09:42] VITALS: TEMP 36.5
[2018-02-19] MEDS ORDERED: ONDANSETRON INJ 2 MG/ML 2 ML VIAL IV STA ×2 (09:53→10:54)
[2018-02-19] MEDS ORDERED: ONDANSETRON INJ 2 MG/ML 2 ML VIAL ONE (09:55)
[2018-02-19] MEDS ORDERED: SODIUM CHLORIDE 0.9% 1000ML 1,000 ML IV ONE (10:04)
[2018-02-19] MEDS ORDERED: SODIUM CHLORIDE 0.9% 1000ML 1,000 ML IV STA ×2 (10:04→11:39)
--- NOTE | 2018-02-19 10:04 | EMERGENCY ROOM VISIT NOTE ---
History Report prepared by Nancie: Nallely Fischer Under the Supervision of: Dr. Alo Cueva M.D. First contact with patient: 09:58 Chief Complaint: VOMITING Stated Complaint: THROWING UP FOR 6 HOURS Nursing Triage Summary: Pt reports nausea and vomiting since 1230. Pt took 4mg zofran otd at 0730 without relief. Pt states that she doesn't remember what she had for dinner last night. History of Present Illness The patient is a 27 year old female who presents to the Emergency Room with complaints of persistent vomiting beginning at 0030 this morning. She approximates that she has vomited 50 times and she notes that her vomit has been a yellow mucus. She states that she's "uncomfortable all together," noting that she believes her symptoms to be from a sinus infection. The patient states the she also has had SOB and a cough lately. She also complains of being thirsty , and notes that she has abdominal pain when vomiting. She denies any diarrhea, dysuria, hematuria, fever, and chest pain. The patient takes no regular medication, and she denies any chance of . The patient has no known sick contacts. Source of History: patient Onset: 1230 Position: abdomen Quality: other (vomiting) Timing: other (persistant) Associated Symptoms: + cough, + SOB, + abdominal pain, No fevers, No chest pain, No diarrhea, No urinary symptoms Note: The patient also complains of being thirsty. Review of Systems As above. All other systems reviewed were negative unless otherwise stated in history. At least 10 were reviewed Past Medical & Surgical Medical Problems: (1) Abdominal pain (2) Acute bacterial conjunctivitis (3) Anxiety (4) Bipolar 1 disorder (5) Bipolar depression (6) Conjunctivitis (7) Conjunctivitis (8) Dehydration (9) Dehydration (10) Depression (11) Herpes genitalia (12) Herpes genitalis in women (13) Herpes labialis (14) Odontalgia (15) Pain, dental (16) Pain, dental (17) Pain, dental (18) Pelvic inflammatory disease (19) Post-operative pain (20) Prescription refill (21) Sore throat (22) Thoracic back pain (23) Thoracic myofascial strain Surgical Problems: (1) H/O wisdom tooth extraction (2) [place] teeth removed Old medical records were reviewed. Nurse's notes were reviewed and I agree with. Family History FH: heart disease FH: hypertension Hypotension FATHER SISTER Social History Smoking Status: Current Every Day Smoker Alcohol Use: none Drug Use: none Marital Status: Housing Status: lives with family Occupation Status: employed Current/Historical Medications Scheduled Control Pills ( Control Pills), 1 TAB PO DAILY Ondasetron Odt (Zofran Odt), 4 MG SL Q6H Allergies Coded Allergies: Penicillins (Verified Allergy, Unknown, itchy, red, 01/13/18) Morphine (Verified Adverse Reaction, Severe, pt reports halluncinations, ) Tramadol (Verified Adverse Reaction, Intermediate, SEVERE [place]EN[place], 01/13/18) Clonazepam (Verified Adverse Reaction, Unknown, BLACK OUTS, 01/13/18) Physical Exam Vital Signs Date Time Temp Pulse Resp B/P (MAP) Pulse Ox O2 Delivery O2 Flow Rate FiO2 02/19/18 14:37 67 14 96/61 100 Room Air 02/19/18 12:32 65 22 101/59 99 Room Air 02/19/18 10:59 57 16 96/53 99 Room Air 02/19/18 09:50 76 02/19/18 09:42 36.5 02/19/18 09:31 73 20 117/81 100 Room Air Physical Exam General: Mildly ill appearing young female in no acute distress. Complains of feeling nauseous. HEENT: Normal cephalic atraumatic. Pupils are equal round and reactive to light. Extraocular movements are intact. Oropharynx is pink with moist mucous membranes. No swelling of the mouth lips or tongue. Neck: Supple with a midline trachea. No meningeal signs or stiffness, no JVD or bruits. No Stridor. Chest: Clear to auscultation bilaterally. No wheezes or rhonchi. No increased work of breathing. Heart: regular rate and rhythm. Abdomen: Soft nontender, nondistended without rebound guarding or rigidity. Extremities: No cyanosis clubbing or edema. No calf tenderness or assymetry Spine/Back. Non tender to palpation. No CVA tenderness Skin: Good turgor without rashes. Neurologic exam: Cranial nerves two through 12 are intact. Motor and sensation are intact and symmetrical throughout. Medical Decision & Procedures ER Provider Diagnostic Interpretation: Radiology results as stated below per my review and radiologist interpretation: ABDOMEN AND PELVIS CT WITH IV CONTRAST CT DOSE: 279.36 mGy.cm HISTORY: Acute generalized abdominal pain with nausea and vomiting eval for obst, intraabd pathology TECHNIQUE: Multiaxial CT images of the abdomen and pelvis were performed following the use of intravenous contrast. A dose lowering technique was utilized adhering to the principles of ALARA. COMPARISON STUDY: CT abdomen and pelvis 06/26/2013 FINDINGS: Testicular motion limits evaluation of the lung bases. Lung bases appear generally clear. No pneumatosis or pneumoperitoneum. Study is mildly motion degraded. Imaged inferior cardiac chambers are unremarkable. Mild periportal edema. Liver is otherwise unremarkable. No intrahepatic biliary ductal dilation. The gallbladder, spleen, pancreas and adrenal glands are unremarkable. Kidneys, ureters and bladder are unremarkable. Uterus and right adnexum are within normal limits. Peripherally enhancing cystic focus about the left adnexum measures 1.9 x 1.3 cm. Mild left adnexal and dependent pelvis free fluid. Aorta and IVC are within normal limits. Patent portal vein. No pathologically enlarged lymph nodes. No bowel obstruction or focal bowel wall thickening identified. Visualized appendix appears unremarkable. Tubular structure within the abdominal right lower quadrant which is partially air-filled suggests a normal appendix, not definitively seen into the entirety. No right lower quadrant inflammatory changes identified. Soft tissues are within normal limits. Subcentimeter bone mild of the right femoral head. Incomplete bony fusion involves the posterior elements of S1. IMPRESSION: 1. Involuting follicle of the left ovary measures 1.9 cm. Mild left adnexal and dependent free pelvic fluid is likely reactive. 2. No bowel obstruction or focal bowel wall thickening. No definite evidence of acute appendicitis. 3. Mildly motion degraded exam. Electronically signed by: Neil Peguero M.D. 02/19/2018 1:19 PM CHEST ONE VIEW PORTABLE HISTORY: 27 years-old Female CHEST PAIN acute atypical chest pain COMPARISON: Acute abdominal series radiographs 02/22/2017 TECHNIQUE: Portable AP view of the chest FINDINGS: The cardiomediastinal and hilar silhouettes are within normal limits. No pneumothorax, pleural effusion, focal airspace consolidation or overt pulmonary edema. Bones of the chest appear grossly intact. IMPRESSION: No acute process. The above report was generated using voice recognition software. It may contain grammatical, syntax or spelling errors. Electronically signed by: Neil Peguero M.D. 02/19/2018 10:43 AM Laboratory Results 02/19/18 09:43 Red Blood Count 5.20, Mean Corpuscular Volume 90.0, Mean Corpuscular Hemoglobin 32.1, Mean Corpuscular Hemoglobin Concent 35.7, Mean Platelet Volume 11.5, Neutrophils (%) (Auto) 88.9, Lymphocytes (%) (Auto) 5.4, Monocytes (%) (Auto) 5.3, Eosinophils (%) (Auto) 0.0, Basophils (%) (Auto) 0.2, Neutrophils # (Auto) 11.09, Lymphocytes # (Auto) 0.67, Monocytes # (Auto) 0.66, Eosinophils # (Auto) 0.00, Basophils # (Auto) 0.02 02/19/18 09:43 Test 02/19/18 09:43 02/19/18 13:10 White Blood Count 12.46 K/uL (4.8-10.8) Red Blood Count 5.20 M/uL (4.2-5.4) Hemoglobin 16.7 g/dL (12.0-16.0) Hematocrit 46.8 % (37-47) Mean Corpuscular Volume 90.0 fL (80-100) Mean Corpuscular Hemoglobin 32.1 pg (25-34) Mean Corpuscular Hemoglobin Concent 35.7 g/dl (32-36) Platelet Count 256 K/uL (130-400) Mean Platelet Volume 11.5 fL (7.4-10.4) Neutrophils (%) (Auto) 88.9 % Lymphocytes (%) (Auto) 5.4 % Monocytes (%) (Auto) 5.3 % Eosinophils (%) (Auto) 0.0 % Basophils (%) (Auto) 0.2 % Neutrophils # (Auto) 11.09 K/uL (1.4-6.5) Lymphocytes # (Auto) 0.67 K/uL (1.2-3.4) Monocytes # (Auto) 0.66 K/uL (0.11-0.59) Eosinophils # (Auto) 0.00 K/uL (0-0.5) Basophils # (Auto) 0.02 K/uL (0-0.2) RDW Standard Deviation 41.3 fL (36.4-46.3) RDW Coefficient of Variation 12.6 % (11.5-14.5) Immature Granulocyte % (Auto) 0.2 % Immature Granulocyte # (Auto) 0.02 K/uL (0.00-0.02) Anion Gap 11.0 mmol/L (3-11) Est Creatinine Clear Calc Drug Dose 66.5 ml/min Estimated GFR () 72.2 Estimated GFR (Non- 62.3 BUN/Creatinine Ratio 14.3 (10-20) Calcium Level 9.7 mg/dl (8.5-10.1) Total Bilirubin 1.2 mg/dl (0.2-1) Direct Bilirubin 0.3 mg/dl (0-0.2) Aspartate Amino Transf (AST/SGOT) 38 U/L (15-37) Alanine Aminotransferase (ALT/SGPT) 45 U/L (12-78) Alkaline Phosphatase 53 U/L (45-117) Total Protein 9.2 gm/dl (6.4-8.2) Albumin 4.9 gm/dl (3.4-5.0) Lipase 80 U/L (73-393) Human Chorionic Gonadotropin, Qual NEG (NEG) Urine Color YELLOW Urine Appearance CLEAR (CLEAR) Urine pH 6.5 (4.5-7.5) Urine Specific [place] 1.023 (1.000-1.030) Urine Protein TRACE (NEG) Urine Glucose (UA) NEG (NEG) Urine Ketones 2+ (NEG) Urine Occult Blood NEG (NEG) Urine Nitrite NEG (NEG) Urine Bilirubin NEG (NEG) Urine Urobilinogen NEG (NEG) Urine Leukocyte Esterase NEG (NEG) Urine WBC (Auto) 0 /hpf (0-5) Urine RBC (Auto) 0-4 /hpf (0-4) Urine Hyaline Casts (Auto) 1-5 /lpf (0-5) Urine Epithelial Cells (Auto) 10-20 /lpf (0-5) Urine Bacteria (Auto) NEG (NEG) Laboratory studies as stated above per my review. Medications Administered Medications (Trade) Dose Ordered Sig/Randy Route Start Time Stop Time Status Last Admin Dose Admin Ondansetron HCl (Zofran Inj) 4 mg STK-MED ONCE .ROUTE 02/19/18 09:55 02/19/18 09:56 DC 02/19/18 09:56 4 MG Sodium Chloride 1,000 ml @ 999 mls/hr Q1H1M STAT IV 02/19/18 10:04 02/19/18 11:04 DC 02/19/18 10:15 999 MLS/HR Sodium Chloride 1,000 ml @ 200 mls/hr Q5H ONCE IV 02/19/18 10:04 02/19/18 15:03 DC 02/19/18 11:30 999 MLS/HR Ondansetron HCl (Zofran Inj) 4 mg NOW STAT IV 02/19/18 10:54 02/19/18 10:55 DC 02/19/18 10:57 4 MG Sodium Chloride 1,000 ml @ 999 mls/hr Q1H1M STAT IV 02/19/18 11:39 02/19/18 12:39 DC 02/19/18 12:47 999 MLS/HR Ketorolac Tromethamine (Toradol Inj) 30 mg NOW STAT IV 02/19/18 12:38 02/19/18 12:39 DC 02/19/18 12:47 30 MG Promethazine HCl 12.5 mg/Sodium Chloride 50.5 ml @ 204 mls/hr NOW STAT IV 02/19/18 12:38 02/19/18 12:52 DC 02/19/18 13:12 204 MLS/HR Promethazine HCl (Phenergan Inj) 12.5 mg NOW STAT IM 02/19/18 14:23 02/19/18 14:25 DC 02/19/18 14:29 12.5 MG ECG Per My Interpretation Indication: vomiting Rate (beats per minute): 58 Rhythm: sinus bradycardia Findings: other (Nonspecific T wave, short GA) Comparison ECG Date: no prior available ED Course 0958: Past medical records reviewed. The patient was evaluated in room B4, and a complete history and physical examination were performed. 0955: Ondansetron HCl 4mg IV. 1004: Sodium Chloride 1000 ml @ 200 mls/hour IV x2 1054: Zofran 4 mg IV 1139: Sodium Chloride 1000 ml @ 999 mls/hr, IV 1238: Promethazine HCl 12.5/Sodium Chloride 50.5 ml @ 204 mls/hr IV, Toradol 30 mg IV 1423: Phenergan 12.5mg IM 1139: I reevaluated the patient. Her abdomen is minimally diffusely tender, and denies a CT scan. 1241: I rechecked the patient. She was vomiting again. I orders more medications and a CT scan. 1422: I reevaluated and updated the patient. She looks better. Her CT scan was unremarkable. 1544: I reevaluated the patient. She still feels nauseated, but she is good enough to go home. I offered for her to stay, but she declines. 1545: Ondansetron HCl 1 homepack PO Medical Decision Differential Diagnoses Include: Dehydration, electrolyte or metabolic abnormality, infection, cardiac disease, . This patient comes in as described above. She has had multiple episodes of vomiting since midnight or so. She appears mildly ill but nontoxic she has stable vital signs. Her abdomen is benign. She has no headache meningeal signs or stiffness. She is in no respiratory distress. IV access established she was given IV Zofran as well as IV fluids multiple blood testing was obtained she was reassessed frequently. She received over 2 L IV normal saline. She received several doses of Zofran as well as 2 doses of Phenergan and IV Toradol. She said she was feeling better and would have intermittent nausea still, I did do a CAT scan of her abdomen it was unremarkable for any acute findings her test is negative. She has no significant electrolyte or metabolic abnormalities. She has nothing to suggest pancreatitis. There is nothing surgical at this point. She does use marijuana recreationally and it could be related to that potentially. She wants to go home. I offered her admission but she declined. she feels she is okay to go home. I gave her Zofran home pack as well as a small prescription. She was encouraged to return the ER if worsening symptoms, fever chills, not tolerating fluids, any new problems or concerns. He is happy the plan and discharged home and she should o follow-up with her doctor this week. Medication Reconcilliation Current Medication List: was personally reviewed by me Blood Pressure Screening Patient's blood pressure: Normal blood pressure Blood pressure disposition: Did not require urgent referral Impression Primary Impression: Vomiting Scribe Attestation The scribe's documentation has been prepared under my direction and personally reviewed by me in its entirety. I confirm that the note above accurately reflects all work, treatment, procedures, and medical decision making performed by me. Departure Information Dispostion Home / Self-Care Prescriptions Ondasetron Odt (ZOFRAN ODT) 4 Mg Tab 4 MG SL Q6H for Nausea, #10 TAB Prov: Alo Cueva M.D. 02/19/18 Referrals Reta Mckenzie M.D. (PCP) Forms HOME CARE DOCUMENTATION FORM, IMPORTANT VISIT INFORMATION Patient Instructions My [facility] Additional Instructions Rest Drink plenty of fluids. Mild diet. Slowly advance. For nausea or vomiting, may use Zofran 4 mg every 6 hours Return if: Worsening of symptoms, fever or chills, increasing pain, any new problems or concerns
[2018-02-19 10:22] LABS: BASO % 0.2 %; BASO ABS # 0.02 K/uL (0-0.2); HEMATOCRIT 46.8 % (37-47); HEMOGLOBIN 16.7 g/dL (12.0-16.0); IG# 0.02 K/uL (0.00-0.02); LYMPH % 5.4 %; LYMPH ABS # 0.67 K/uL (1.2-3.4); MEAN CORPUSCULAR HEMOGLOBIN 32.1 pg (25-34); MEAN CORPUSCULAR HGB CONC 35.7 g/dl (32-36); MEAN PLATELET VOLUME 11.5 fL (7.4-10.4); MONO % 5.3 %; MONO ABS # 0.66 K/uL (0.11-0.59); NEUT % 88.9 %; NEUT ABS # 11.09 K/uL (1.4-6.5); PLATELET COUNT 256 K/uL (130-400); RED CELL DISTRIBUTION WIDTH CV 12.6 % (11.5-14.5); RED CELL DISTRIBUTION WIDTH SD 41.3 fL (36.4-46.3); WHITE BLOOD COUNT 12.46 K/uL (4.8-10.8)
[2018-02-19 10:32] LABS: ALBUMIN 4.9 gm/dl (3.4-5.0); CALCIUM 9.7 mg/dl (8.5-10.1); CREATININE 1.2 mg/dl (0.60-1.20); TOTAL PROTEIN 9.2 gm/dl (6.4-8.2)
[2018-02-19] MEDS ORDERED: BCPILLS PO (10:43)
--- NOTE | 2018-02-19 10:44 | DIAGNOSTIC IMAGING REPORT ---
CHEST ONE VIEW PORTABLE HISTORY: 27 years-old Female CHEST PAIN acute atypical chest pain COMPARISON: Acute abdominal series radiographs 02/22/2017 TECHNIQUE: Portable AP view of the chest FINDINGS: The cardiomediastinal and hilar silhouettes are within normal limits. No pneumothorax, pleural effusion, focal airspace consolidation or overt pulmonary edema. Bones of the chest appear grossly intact. IMPRESSION: No acute process. The above report was generated using voice recognition software. It may contain grammatical, syntax or spelling errors. Electronically signed by: Neil Peguero M.D. 02/19/2018 10:43 AM Dictated Date/Time: 02/19/2018 10:42 AM
[2018-02-19] MEDS ORDERED: KETOROLAC TROMETHAMINE 30 MG/ML VIAL IV STA (12:38)
[2018-02-19] MEDS ORDERED: PROMETHAZINE HCL INJ 12.5 MG in SODIUM CHLORIDE 0.9% 50ML 50 ML IV STA (12:38)
[2018-02-19] MEDS ORDERED: OPTIRAY 320 IV PRN (12:45)
--- NOTE | 2018-02-19 13:21 | DIAGNOSTIC IMAGING REPORT ---
ABDOMEN AND PELVIS CT WITH IV CONTRAST CT DOSE: 279.36 mGy.cm HISTORY: Acute generalized abdominal pain with nausea and vomiting eval for obst, intraabd pathology TECHNIQUE: Multiaxial CT images of the abdomen and pelvis were performed following the use of intravenous contrast. A dose lowering technique was utilized adhering to the principles of ALARA. COMPARISON STUDY: CT abdomen and pelvis 06/26/2013 FINDINGS: Testicular motion limits evaluation of the lung bases. Lung bases appear generally clear. No pneumatosis or pneumoperitoneum. Study is mildly motion degraded. Imaged inferior cardiac chambers are unremarkable. Mild periportal edema. Liver is otherwise unremarkable. No intrahepatic biliary ductal dilation. The gallbladder, spleen, pancreas and adrenal glands are unremarkable. Kidneys, ureters and bladder are unremarkable. Uterus and right adnexum are within normal limits. Peripherally enhancing cystic focus about the left adnexum measures 1.9 x 1.3 cm. Mild left adnexal and dependent pelvis free fluid. Aorta and IVC are within normal limits. Patent portal vein. No pathologically enlarged lymph nodes. No bowel obstruction or focal bowel wall thickening identified. Visualized appendix appears unremarkable. Tubular structure within the abdominal right lower quadrant which is partially air-filled suggests a normal appendix, not definitively seen into the entirety. No right lower quadrant inflammatory changes identified. Soft tissues are within normal limits. Subcentimeter bone mild of the right femoral head. Incomplete bony fusion involves the posterior elements of S1. IMPRESSION: 1. Involuting follicle of the left ovary measures 1.9 cm. Mild left adnexal and dependent free pelvic fluid is likely reactive. 2. No bowel obstruction or focal bowel wall thickening. No definite evidence of acute appendicitis. 3. Mildly motion degraded exam. Electronically signed by: Neil Peguero M.D. 02/19/2018 1:19 PM Dictated Date/Time: 02/19/2018 1:12 PM
[2018-02-19] MEDS ORDERED: PROMETHAZINE HCL INJ 25 MG/ML 1 ML VIAL IM STA (14:23)
[2018-02-19] MEDS ORDERED: ONDANSETRON HOME PACK 4MG OD TAB PO ONE (15:45)
[2018-02-19] MEDS ORDERED: ONDA4TAB10 SL (15:46)
[2018-02-19 16:35] VITALS: BP 104/67; PULSE 55; O2SAT 99
== END 2018-02-19 16:35 | disposition home or self-care (01) ==
LOC: C.EDB 09:27
DX: R11.2 Nausea with vomiting, unspecified (principal); Z79.3 Long term (current) use of hormonal contraceptives; F17.200 Nicotine dependence, unspecified, uncomplicated; Z88.0 Allergy status to penicillin; Z88.5 Allergy status to narcotic agent; Z88.6 Allergy status to analgesic agent; Z88.8 Allergy status to other drugs, medicaments and biological substances

== ENCOUNTER 2023-05-16 13:25 | Inpatient (IN) ==
[2023-05-16] MEDS ORDERED: OXYTOCIN 30 UNITS/NSS 30 UNITS/500 ML BAG IV PRN ×2 (14:34→20:08)
[2023-05-16] MEDS ORDERED: LIDOCAINE 1% LOCAL 20 ML VIAL INFIL PRN (14:34)
[2023-05-16] MEDS ORDERED: miSOPROStoL 50 MCG TAB PO ONE (14:39)
--- NOTE | 2023-05-16 14:45 | Obstetrical Progress Note ---
Date of Service May 16, 2023 Assessment & Plan (1) PROM (premature rupture of membranes): Plan: 32 yo g1 at 39.6 weeks seen in office today for PNC pt reported ?SROM on Tuesday. On arrival to L&d, there is no gross pooling. neg Nitrazine, AmniSure is however +ve FHR; CAT1 Ctx; Minimal Bedside sono; Vt V:. No gross pooling, cervix is th/cl/post EFW; 8lbs Plan: admit and start labor augmentation Results & Data Vital Signs (Past 12 Hours) Vital Signs Temp Pulse Resp BP 05/16/23 13:32 36.7 C 83 16 120/73 05/16/23 13:31 83 120/73
[2023-05-16 15:23] LABS: Hematocrit (blood only) 30.4 % (37.0-47.0); Hemoglobin 10.1 g/dl (12.0-16.0); Mean Corpuscular Hemoglobin 35.7 pg (25.0-34.0); Mean Corpuscular Hgb Conc 33.2 g/dL (32.0-36.0); Mean Corpuscular Volume 107.4 fL (80.0-100.0); Mean Platelet Volume 11.8 fL (9.4-12.4); Platelet Count 264 K/uL (130-400); RDW Coefficient of Variation 14.3 % (11.5-14.5); RDW Standard Deviation 55.7 fL (36.4-46.3); Red Blood Count 2.83 M/uL (4.20-5.40); White Blood Count 11.58 K/ul (4.8-10.8)
[2023-05-16] MEDS: LACTATED RINGER'S 1,000 ML IV PRN ×2 (19:30→20:41)
--- OUTSIDE RECORDS SUMMARY | 2023-05-16 19:45 | External Medical Summary ---
Author Name Unknown Address Unknown Organization [id number] [address] [place] [id number] Laboratory Report Ordering Provider Test Date Status ORAL MCINTYRE 05/16/2023 12:08:14 Final Observation Date Value Abnormality Reference (Units ) Status Premature Rupture Membrane risk 05/16/2023 12:08:14 Positive Abnormal Negative Final Performing Location [facility] [address] [place] [id number]
--- OUTSIDE RECORDS SUMMARY | 2023-05-16 19:45 | External Medical Summary | Summary of Care ---
Author Name Unknown Organization [facility] Address [address] [place] [address] Phone [phone] Care Team Providers Care Lining Stitcher Name Role Phone Unavailable Primary Care Provider Unavailabl e Encounter Details Date Type Department Care Team (Late st Contact Info) Description 05/13/2023 10:00 AM EST Nurse Only Gynecology/Obstetrics [facility] 132 [facility] [place] [address] Gw, Nurse Obgyn Injection 132 [place] [address] Allergies Active Allergy Reactions Criticality Noted Date Comments Clonazepam Other (Please comment) 12/12/2014 Patient has syncopey from medication Morphine Other (Please comment) 12/12/2014 Patient state she Hallucinates when taking the medication Tramadol Other (Please comment) 12/12/2014 Migrans documented as of this encounter (statuses as of 05/13/2023) Medications Medication Sig Dispensed Refills Start Date End Date Status /Folic Acid Oral Tablet Take by mouth. 0 Active Vitamin B-12 1000 MCG Sublingual Tablet SublingualIndications: Antepartum anemia complicating Place 1 Tablet under the tongue in the morning. 90 Tablet 3 03/25/2023 Active documented as of this encounter (statuses as of 05/13/2023) Active Problems Problem Noted Date Diagnosed Date Health counseling 04/19/2023 Overview: Problem Action Taken Date entered Entered by Date resolved Current needs or questions Patient denies having any current needs or questions 04/19/2023 Martha Villegas RN 04/19/23 Problem Action Taken Date entered Entered by Date resolved Current needs or questions Patient denies having any current needs or questions 04/26/2023 Geraldine Gonzalez RN 04/26/2023 Problem Action Taken Date entered Entered by Date resolved Current needs or questions Patient denies having any current needs or questions 05/10/2023 Martha Villegas RN 05/10/2023 Antepartum anemia complicating 023 Overview: Hgb 11.2 at 28w, added oral iron. Hgb 9.8 at 32w. Blood management referral Per blood management- not candidate for IV iron d/t elevated ferritin. Recommend hematology referral, placed. Medical marijuana use 03/08/2023 Overview: Not with Supervision of other normal , antepartu m 10/05/2022 Last Assessment & Plan: Problem Action Taken Date entered Entered by Date resolved Current needs or questions Has baby supplies. Getting room ready Patient denies having any current needs or questions 04/05/2023 Martha Villegas RN 04/05/2023 Asthma with severity to be determined 01/22/2008 Overview: ICD-10 update of inactive term ADVANCE DIRECTIVE INFORMATION 04/23/2005 Overview: Not applicable (under age of 18) Estimated Date of Delivery Comme nts Yes 05/17/2023 Based on last me nstrual period of 08/10/2022 documented as of this encounter (statuses as of 05/13/2023) Immunizations Name Administration Dates Next Due HPV Vaccine, 4-Valent 01/22/2008,10/23/2007 PPD 04/15/2015 SEASONAL INFLUENZA, PF, 6 M & Above, IM , (FLULAVAL or FLUZONE) 03/08/2023 TDAP (age 10 and older)(Boostrix) 02/22/2023 documented as of this encounter Social History Tobacco Use Types Packs/Day Years Used Date Smoking Tobacco: Former Vaporizer Comments:1 pack of cigarette s a day for about 3 in half years. Stopped smoking cigarettes in May 2022, has cut back from 5% nicotine vaping to 1.8%. Alcohol Use Standard Drinks/Week Comments No 0 (1 standard drink = 0.6 oz pur e alcohol) Hunger Vital Sign Answer Date Recorded Within the past 12 months, y ou worried that your food would run out before you got the money to buy more. Never true 01/19/20 Within the past 12 months, t he food you bought just didn't last and you didn't have money to get more. Never true 01/18/2023 [place] Depression Scale Answer Date Recorded [place] Depression Scale Total 0 03/28/2023 The thought of harming myself has occurred to me . Never 03/28/2023 Estimated Date of Delivery Comme nts Yes 05/17/2023 Based on last me nstrual period of 08/10/2022 Sex and Gender Information Value Date Recorded Sex Assigned at Female 10/05/2022 1:32 PM EDT Gender Identity Female 10/05/2022 1:32 PM EDT Sexual Orientation Straight 10/05/2022 1: 32 PM EDT Job Start Date Occupation Industry Not on file Not on file Not on file documented as of this encounter Last Filed Vital Signs Vital Sign Reading Time Taken Comments Blood Pressure 110/78 05/13/2023 9:57 AM EST Pulse - - Temperature - - Respiratory Rate - - Oxygen Saturation - - Inhaled Oxygen Concentration - - Weight 88.8 kg (195 lb 11.2 oz) 05/13/2023 9:57 AM EST Height - - Body Mass Index 31.59 05/03/2023 8:44 AM EST documented in this encounter Nursing Notes * Geraldine Gonzalez RN - 05/13/2023 9:51 AM EST Patient here for nurse BP check and Urine dip. Patient has b/l LE swelling Slight ROSENBERG No blurry vision No RUQ pain + FM Urine negative Patient BP normal. Swelling is releived if she elevated legs at home. Advised patient to call in with any new / worsening symptoms, DFM. Given labor sx precautions as well. documented in this encounter Miscellaneous Notes * Addendum Note - Geraldine Gonzalez RN - 05/13/2023 12:25 PM ESTAddended by: GERALDINE GONZALEZ on: 05/13/2023 12:25 PM Modules accepted: Orders documented in this encounter Plan of Treatment Upcoming Encounters Date Type Department Care Team (Late st Contact Info) Description 05/17/2023 8:00 AM EST Office Visit Gynecology/Obstetrics [facility] [address] [place] [address] Kiya Crocker CRNP [address] [place] [address] 06/02/2023 8:00 AM EST Laboratory Laboratory, [facility] [place] [phone] [facility] [address] [place] [address] 06/08/2023 10:30 AM EST Telemedicine Gynecology/Obstetrics [facility] [address] [place] [address] Gillian Jalloh CRNP [address] [place] [address] 06/09/2023 4:30 PM EST Telemedicine Hematology/Oncology [facility] 200 [facility] [address] Chloé Salgado CRNP [address] [place] [address] 06/28/2023 10:30 AM EST Office Visit Gynecology/Obstetrics [facility] [address] [place] [address] Vanessa Barbosa, [facility] [address] [place] [address] Health Maintenance Due Date Last Done Comments Hepatitis B (1 of 3 - 3-dose series) 1991 Pneumococcal Vaccine: Pediatrics (0 to 5 Years) and At-Risk Patients (6 to 64 Years) (1 - PCV) 1997 Depression Screening 2003 GARDASIL-HPV IMMUNIZATION SERIES (3 - 3-dose series) 04/23/2008 01/22/2008, 10/23/2007 Pap Smear 2012 Cervical Cancer Screening 2021 HPV/Co-Test 2021 COVID-19 Vaccine (2 - 2022-2 4 season) 2023 05/27/2021 DTaP,Tdap,and Td Vaccines (2 - Td or Tdap) 02/22/2033 02/22/2023 MENINGOCOCCAL (MENACTRA/MENVEO) Aged Out 04/23/2016 No longer eligible b ased on patient's age to complete this topic Influenza Vaccine (FLU shot) Completed 05/2023, 08/17/2017, 04/23/2016 documented as of this encounter Medical Devices Not on filedocumented as of this encounter Procedures Procedure Name Priority Date/Time Associated Diagnosis Comments URINALYSIS, POINT OF CARE (ENTER/EDIT) Routine 05/13/2023 Headache in documented in this encounter Results * URINALYSIS, POINT OF CARE (ENTER/EDIT) (05/13/2023) Color, Urine Yellow Yellow or Light Yellow Clarity, Urine Clear Clear Glucose, Urine Negative Negative mg/dL Bilirubin, Urine Negative Negative Ketone, Urine Negative Negative mg/dL Specific [place], Urine 1.010 1.003 - 1.030 Blood, Urine Negative Negative pH, Urine 7.0 5.0 - 7.5 units Protein, Urine Negative Negative mg/dL Urobilinogen, Urine 0.2 0.2 - 1.0 mg/dL Nitrite, Urine Negative Negative Esterase, Urine Negative Negative Urine 05/13/2023 Pk Reza MD LAB POINT OF CARE TE ST ENTER/EDIT ORDERABLES documented in this encounter Visit Diagnoses Diagnosis Headache in - Primary Other specified complication of , unspecified as to episode of care documented in this encounter
--- OUTSIDE RECORDS SUMMARY | 2023-05-16 19:45 | External Medical Summary | Summary of Care ---
Author Name Unknown Organization [facility] Address [address] [place] [address] Phone [phone] Care Team Providers Care Manager Training Name Role Phone Unavailable Primary Care Provider Unavailabl e Encounter Details Date Type Department Care Team (Late st Contact Info) Description 05/13/2023 10:00 AM EST Nurse Only Gynecology/Obstetrics [facility] 132 [facility] [place] [address] Gw, Nurse Obgyn Injection 132 [place] [address] Arrived Allergies Active Allergy Reactions Criticality Noted Date [...] having any current needs or questions 04/26/2023 Brianna Gonzalez RN 04/26/2023 Problem Action Taken Date [...] money to get more. Never true 01/18/2023 [place] Depression Scale Answer Date Recorded [place] Depression Scale Total 0 03/28/2023 The thought [...] documented in this encounter Nursing Notes * Brianna Gonzalez RN - 05/13/2023 9:51 AM EST [...] precautions as well. documented in this encounter Plan of Treatment Upcoming Encounters Date Type Department Care Team (Late st Contact Info) Description 05/17/2023 8:00 AM EST Office Visit Gynecology/Obstetrics [facility] [address] [facility] [place] [address] Kiya Crocker CRNP [address] [place] [address] 06/02/2023 8:00 AM EST Laboratory Laboratory, [facility] 132 [facility] [place] [phone] [facility] [address] [facility] [place] [address] 06/08/2023 10:30 AM EST Telemedicine Gynecology/Obstetrics [facility] [address] [facility] [place] [address] Gillian Jalloh CRNP [address] [place] [address] 06/09/2023 4:30 PM EST Telemedicine Hematology/Oncology [facility] 200 [place] [address] Chloé Salgado CRNP [address] [place] [address] [place] [address] 06/28/2023 10:30 AM EST Office Visit Gynecology/Obstetrics [facility] 132 [facility] [place] [address] Vanessa Barbosa CNM [address] [place] [address] Health Maintenance Due Date Last Done Comments [...]
--- OUTSIDE RECORDS SUMMARY | 2023-05-16 19:46 | External Medical Summary | Summary of Care ---
Author Name Unknown Organization [facility] Address [address] [place] [address] Phone [phone] Care Team Providers Care Scorer Helper Name Role Phone Unavailable Primary Care Provider Unavailabl e Reason for Visit * Reason Comments Return Visit Encounter Details Date Type Department Care Team (Late st Contact Info) Description 05/10/2023 8:00 AM EST Office Visit Gynecology/Obstetric s [facility] [address] [place] [address] Kiya Crocker CRNP [address] [place] [address] Supervision of other normal , antepartum*; Antepartum anemia complicating ; Health counseling Allergies Active Allergy Reactions Criticality Noted Date Comments Clonazepam Other (Please comment) 12/12/2014 Patient has syncopey from medication Morphine Other (Please comment) 12/12/2014 Patient state she Hallucinates when taking the medication Tramadol Other (Please comment) 12/12/2014 Migrans documented as of this encounter (statuses as of 05/10/2023) Medications Medication Sig Dispensed Refills Start Date End Date Status /Folic Acid Oral Tablet Take by mouth. 0 Active Vitamin B-12 1000 MCG Sublingual Tablet SublingualIndications: Antepartum anemia complicating Place 1 Tablet under the tongue in the morning. 90 Tablet 3 03/25/2023 Active documented as of this encounter (statuses as of 05/10/2023) Active Problems Problem Noted Date Diagnosed Date Health counseling 04/19/2023 Overview: Problem Action Taken Date entered Entered by Date resolved Current needs or questions Patient denies having any current needs or questions 04/19/2023 Martha Villegas RN 04/19/23 Problem Action Taken Date entered Entered by Date resolved Current needs or questions Patient denies having any current needs or questions 04/26/2023 Brianna Gonzalez RN 04/26/2023 Antepartum anemia complicating 023 Overview: Hgb 11.2 [...] as of this encounter (statuses as of 05/10/2023) Immunizations Name Administration Dates Next Due HPV [...] money to buy more. Never true 01/19/20 23 Within the past 12 months, t he food you bought just didn't last and you didn't have money to get more. Never true 01/18/2023 [place] Depression Scale Answer Date Recorded [place] Depression Scale Total 0 03/28/2023 The thought [...] Sign Reading Time Taken Comments Blood Pressure 108/64 05/10/2023 7:54 AM EST Pulse - - Temperature - - Respiratory Rate - - Oxygen Saturation - - Inhaled Oxygen Concentration - - Weight 88.7 kg (195 lb 9.6 oz) 05/10/2023 7:54 A M EST Height - - Body Mass Index 31.57 05/03/2023 8:44 AM EST documented in this encounter Progress Notes * Kiya Crocker CRNP - 05/10/2023 8:16 AM EST 39w Noticed some spotting with wiping at 0300 today, none since. ?BH contractions, nothing timeable. Baby is active. No LOF. IOL scheduled, only reasonable day available with her EDC is 05/20. Nuclear Auxiliary Operator Documentation Provider requested high school learning support teacher. Name of high school learning support teacher: Dea documented in this encounter Nursing Notes * Martha Villegas, RN - 05/10/2023 7:55 AM EST Cramping overnight. Char[place] spotting overnight. Nothing further. No intercourse. C/o right arm pain for past 3 weeks. Tried heat/ massage/ tylenol with no relief documented in this encounter Plan of Treatment Upcoming Encounters Date Type Department Care Team (Late st Contact Info) Description 05/10/2023 8:40 AM EST Laboratory Laboratory, [facility] [address] [place] [phone] Jonah Adams [address] [place] [address] Antepartum anemia complicating 05/17/2023 8:00 AM EST Office Visit Gynecology/Obstetric s [facility] [address] [place] [address] Kiya Crocker CRNP [address] [place] [address] 06/02/2023 8:00 AM EST Laboratory Laboratory, [facility] [address] [place] [phone] Jonah Adams [address] [place] [address] 06/08/2023 10:30 AM EST Telemedicine Gynecology/Obstetric s [facility] [address] [place] [address] Gillian Jalloh CRNP [address] [place] [address] 06/09/2023 4:30 PM EST Telemedicine Hematology/Oncology [facility] 200 [facility], [place] [address] Chloé Salgado CRNP [address] [place] [address] 06/28/2023 10:30 AM EST Office Visit Gynecology/Obstetric s [facility] 132 [facility] [place] [address] Vanessa Barbosa CNM [address] [place] [address] Health Maintenance Due Date Last Done Comments [...] Not on filedocumented as of this encounter Visit Diagnoses Diagnosis Supervision of other normal , antepartum- Primary Antepartum anemia complicating Anemia, antepartum Health counseling Other specified counseling Antepartum anemia complicating Anemia, antepartum documented in this encounter
--- OUTSIDE RECORDS SUMMARY | 2023-05-16 19:46 | External Medical Summary ---
Author Name Unknown Address Unknown Organization [facility] [place] [address] Laboratory Report Ordering Provider Test Date Status DOV GUERRERO 04/26/2023 08:36:08 Final Observation Date Value Abnormality Reference (Units ) Status SYNC LEUKOCYTES IN BLOOD BY AUTOMATED COUNT 04/26/2023 08:36:08 11.35 Above high normal 4.00-10.80 (K/uL) Final Segs 04/26/2023 08:36:08 74.7 40.0-75.0 (%) Final Lymphs % 04/26/2023 08:36:08 17.7 Below low normal 18.0-42.0 (%) Final Monos 04/26/2023 08:36:08 6.3 1.0-11.0 (%) Final Eosinophils 04/26/2023 08:36:08 1.0 0.0-6.0 (%) Final Basos 04/26/2023 08:36:08 0.3 0.0-2.0 (%) Final Absolute Segs 04/26/2023 08:36:08 8.48 Above high normal 1.80-7.70 (K/uL) Final Lymphs, absolute 04/26/2023 08:36:08 2.01 1.00-4.80 (K/ul) Final Monos, Abs 04/26/2023 08:36:08 0.72 0.00-1.10 (K/uL) Final Eos, Abs 04/26/2023 08:36:08 0.11 0.00-0.70 (K/uL) Final Basos, Abs 04/26/2023 08:36:08 0.03 0.00-0.20 (K/uL) Final Performing Location [facility] [address] - [address] [place] [address]
--- OUTSIDE RECORDS SUMMARY | 2023-05-16 19:46 | External Medical Summary ---
Author Name Unknown Address Unknown Organization [facility] [address] [place] [address] Laboratory Report Ordering Provider Test Date Status YOLANDADOV 04/26/2023 08:36:08 Final Observation Date Value Abnormality Reference (Units ) Status Haptoglobin 04/26/2023 08:36:08 93 30-200 ( mg/dL) Final Performing Location [facility] - [address] [place] [address]
--- OUTSIDE RECORDS SUMMARY | 2023-05-16 19:46 | External Medical Summary ---
Author Name Unknown Address Unknown Organization [facility] [address] [place] [address] Laboratory Report Ordering Provider Test Date Status YOLANDA,DOV 04/26/2023 08:36:08 Final Observation Date Value Abnormality Reference (Units ) Status Ferritin 04/26/2023 08:36:08 214 Above high normal 13 -150 (ng/mL) Final Performing Location [facility] - [address] [place] [address]
--- OUTSIDE RECORDS SUMMARY | 2023-05-16 19:46 | External Medical Summary | Summary of Care ---
Author Name Unknown Organization [facility] Address [address] [place] [address] Phone [phone] Care Team Providers Care Product Tester Fiberglass Name Role Phone Unavailable Primary Care Provider Unavailabl e Reason for Visit * Reason Comments Return Visit Encounter Details Date Type Department Care Team (Late st Contact Info) Description 05/10/2023 8:00 AM EST Office Visit Gynecology/Obstetric s [facility] [address] [place] [address] Kiya Crocker CRNP [address] [facility] [place] [address] Supervision of other normal , antepartum*; Antepartum [...] any current needs or questions 04/05/2023 Martha iVllegas RN 04/05/2023 Asthma with severity to be [...] money to get more. Never true 01/18/2023 [place] Depression Scale Answer Date Recorded [place] Depression Scale Total 0 03/28/2023 The thought [...] day available with her EDC is 05/20. Network Project Manager Documentation Provider requested trade economist. Name of trade economist: Dea documented in this encounter Nursing Notes * Martha Villegas RN - 05/10/2023 8:52 AM EST Patient seen by [facility]ister Doffer. * Martha Villegas RN - 05/10/2023 7:55 AM EST Cramping overnight. [place] spotting overnight. Nothing further. No intercourse. C/o right arm pain for past 3 weeks. Tried heat/ massage/ tylenol with no relief documented in this encounter Plan of Treatment Upcoming Encounters Date Type Department Care Team (Late st Contact Info) Description 05/17/2023 8:00 AM EST Office Visit [facility]necology[facility] [address] [place] [address] Kiya Crocker CRNP [address] [place] [address] 06/02/2023 8:00 AM EST [facility] [address] [place] [phone] [facility] [address] [place] [address] 06/08/2023 10:30 AM EST Telemedicine Gynecology/Obstetrics [facility] [address] [place] [address] [place], RAMONA Pace [address] [place] [address] 06/09/2023 4:30 PM EST Telemedicine Hematology/Oncology Tory Villegas [place] [address] [facility] [place] [address] Chloé Salgado CRNP [address] [place] [phone] 06/28/2023 10:30 AM EST Office Visit Gynecology/Obstetrics [facility] [address] [facility] [place] [address] Vanessa Barbosa CNM [address] [place] [phone] Health Maintenance Due Date Last Done Comments [...] Anemia, antepartum Health counseling Other specified counseling documented in this encounter
--- OUTSIDE RECORDS SUMMARY | 2023-05-16 19:46 | External Medical Summary | Summary of Care ---
Author Name Unknown Organization [facility] Address [address] [place] [address] Phone [phone] Care Team Providers Care Refrigerator Repairman Name Role Phone Unavailable Primary Care Provider Unavailabl e Reason for Visit * Reason Comments Return Visit Encounter Details Date Type Department Care Team (Late st Contact Info) Description 05/03/2023 8:45 AM EST Office Visit Gynecology/[facility]stetric s [facility] [place] [address] Pk Reza MD [address] [place] [address] Supervision of other normal , antepartum*; Antepartum anemia complicating ; Health counseling Allergies Active Allergy Reactions Criticality Noted Date Comments Clonazepam Other (Please comment) 12/12/2014 Patient has syncopey from medication Morphine Other (Please comment) 12/12/2014 Patient state she Hallucinates when taking the medication Tramadol Other (Please comment) 12/12/2014 Migrans documented as of this encounter (statuses as of 05/08/2023) Medications Medication Sig Dispensed Refills Start Date End Date Status /Folic Acid Oral Tablet Take by mouth. 0 Active Vitamin B-12 1000 MCG Sublingual Tablet SublingualIndicatio ns:Antepartum anemia complicating Place 1 Tablet under the tongue in the morning. 90 Tablet 3 03/25/2023 Active Ferrous Sulfate 325 (65 Fe) MG Oral Tablet (Feosol) Take 1 Tablet by mouth in the morning. 30 Tablet 12 02/23/2023 05/03/2023 Discontinued (Medication List Clean Up) documented as of this encounter (statuses as of 05/08/2023) Active Problems Problem Noted Date Diagnosed Date [...] as of this encounter (statuses as of 05/08/2023) Immunizations Name Administration Dates Next Due HPV [...] money to get more. Never true 01/18/2023 [place] Depression Scale Answer Date Recorded [place] Depression Scale Total 0 03/28/2023 The thought [...] Reading Time Taken Comments Blood Pressure 108/64 05/03/2023 8:44 AM EST Pulse - - Temperature - - Respiratory Rate - - Oxygen Saturation - - Inhaled Oxygen Concentration - - Weight 87.1 kg (192 lb) 05/03/2023 8:44 AM EST Height 167.6 cm (5' 6") 05/03/2023 8:44 AM EST Body Mass Index 30.99 05/03/2023 8:44 AM EST documented in this encounter Progress Notes * Pk Reza MD - 05/03/2023 8:53 AM EST Pt doing well No comaplaints VE; ft/thick/post * Pat Howe LPN - 05/03/2023 8:44 AM EST 38w0d Would like cervix checked documented in this encounter Plan of Treatment Upcoming Encounters Date Type Department Care Team (Late st Contact Info) Description 05/10/2023 8:00 AM EST Office Visit Gynecology/Obstetrics [facility] [address] [place] [address] Kiya Crocker CRNP [address] [place], [place] [address] 05/17/2023 8:00 AM EST Office Visit Gynecology/Obstetrics [facility] [address] [place] [address] Kiya Crocker CRNP [address] [place], [place] [address] 06/02/2023 8:00 AM EST Laboratory Laboratory, [facility] [place], [place] [address] [facility] [address] [place] [address] 06/08/2023 10:30 AM EST Telemedicine Gynecology/Obstetrics [facility] [address] [place], [place] [address] Gillian Jalloh CRNP [address] [place], [place] [address] 06/09/2023 4:30 PM EST Telemedicine Hematology/Oncology [facility] [address] [place] [address] Chloé Salgado CRNP [address] [place] [address] [place] [address] 06/28/2023 10:30 AM EST Office Visit Gynecology/Obstetrics [facility] [address] [place] [address] Vanessa Barbosa CNM [address] [place] [phone] Health Maintenance Due Date Last Done Comments [...] (2 - Td or Tdap) 02/22/2033 02/22/2023 Influenza Vaccine (FLU shot) Completed 05/2023, 08/17/2017, 04/23/2016 MENINGOCOCCAL (MENACTRA/MENVEO) Aged Out No longer eligible b ased on patient's age to complete this topic documented as of this encounter Medical Devices Not on filedocumented as of this encounter Visit Diagnoses Diagnosis Supervision of other normal , antepartum- Primary Antepartum anemia complicating Anemia, antepartum Health counseling Other specified counseling documented in this encounter
--- OUTSIDE RECORDS SUMMARY | 2023-05-16 19:46 | External Medical Summary | Summary of Care ---
Author Name Unknown Organization [facility] Address [address] [place] [address] Phone [phone] Care Team Providers Care Working Manager Name Role Phone Unavailable Primary Care Provider Unavailabl e Reason for Visit * Reason Comments Outpatient Testing Encounter Details Date Type Department Care Team (Late st Contact Info) Description 05/10/2023 8:40 AM EST Laboratory [facility], [facility] [address] [place] [phone] [facility] [address] [place] [address] Antepartum anemia complicating Allergies Active Allergy Reactions Criticality Noted Date [...] money to get more. Never true 01/18/2023 [place] Depression Scale Answer Date Recorded [place] Depression Scale Total 0 03/28/2023 The thought [...] on file documented as of this encounter Plan of Treatment Upcoming Encounters Date Type Department Care Team (Late st Contact Info) Description 05/17/2023 8:00 AM EST Office Visit Gynecology/Obstetrics [facility] [place] [address] Kiya Crocker CRNP 132 [facility] [place] [address] 06/02/2023 8:00 AM EST Laboratory Laboratory, [facility] [address] [place] [phone] [facility] [address] [place] [address] 06/08/2023 10:30 AM EST Telemedicine Gynecology/Obstetrics [facility] [address] [place] [address] Gillian Jalloh CRNP [address] [place] [address] 06/09/2023 4:30 PM EST Telemedicine [facility]ology[facility] [address] [facility], [place] [address] Chloé Salgado CRNP [address] [place], [place] [id number] 06/28/2023 10:30 AM EST Office Visit Gynecology/Obstetrics [facility] [address] [place] [address] Vanessa Barbosa CNM [address] [place] [address] Pending Results Name Type Priority Associated Diagnoses Date /Time FERRITIN Lab STAT Antepartum anemia complicating 05/10/2023 8:27 AM EST IRON SCREEN, INCLUDING TIBC Lab STAT Antepartum anemia complicating 05/10/2023 8:27 AM EST CBC WITH WBC DIFFERENTIAL Lab STAT Antepartum anemia complicating 05/10/2023 8:27 AM EST RETICULOCYTE PANEL Lab STAT Antepartum anemia complicating 05/10/2023 8:27 AM EST CBC Lab STAT Antepartum anemia complicating 05/10/2023 8:27 AM EST DIFFERENTIAL, AUTOMATED Lab STAT Antepartum anemia complicating 05/10/2023 8:27 AM EST Health Maintenance Due Date Last Done Comments [...] as of this encounter Visit Diagnoses Diagnosis Antepartum anemia complicating Anemia, antepartum documented in this encounter
--- OUTSIDE RECORDS SUMMARY | 2023-05-16 19:46 | External Medical Summary | Summary of Care ---
Author Name Unknown Organization [facility] Address [address] [place] [address] Phone [phone] Care Team Providers Care Grocery Manager Name Role Phone Unavailable Primary Care Provider Unavailabl e Encounter Details Date Type Department Care Team (Late st Contact Info) Description 04/26/2023 Orders Only Hematology/Oncology [facility] [place] 200 [facility] [place] [address] Chloé Salgado CRNP [address] [place] [address] Antepartum anemia complicating * Allergies Active Allergy Reactions Criticality Noted Date Comments Clonazepam Other (Please comment) 12/12/2014 Patient has syncopey from medication Morphine Other (Please comment) 12/12/2014 Patient state she Hallucinates when taking the medication Tramadol Other (Please comment) 12/12/2014 Migrans documented as of this encounter (statuses as of 04/26/2023) Medications Medication Sig Dispensed Refills Start Date End Date Status /Folic Acid Oral Tablet Take by mouth. 0 Active Ferrous Sulfate 325 (65 Fe) MG Oral Tablet (Feosol) Take 1 Tablet by mouth in the morning. 30 Tablet 12 02/23/2023 Active Vitamin B-12 1000 MCG Sublingual Tablet SublingualIndications: Antepartum anemia complicating Place 1 Tablet under the tongue in the morning. 90 Tablet 3 03/25/2023 Active documented as of this encounter (statuses as of 04/26/2023) Active Problems Problem Noted Date Diagnosed Date [...] as of this encounter (statuses as of 04/26/2023) Immunizations Name Administration Dates Next Due HPV [...] money to get more. Never true 01/18/2023 [place] Depression Scale Answer Date Recorded [place] Depression Scale Total 0 03/28/2023 The thought [...] Care Team (Late st Contact Info) Description 04/26/2023 5:00 PM EDT Telemedicine Hematology/Oncology [facility]legas [place] [address] [facility] [address] Chloé Salgado CRNP [address] [place] [address] 05/03/2023 8:45 AM EST Office Visit Gynecology/Obstetrics [facility] [address] [place] [address] Pk Reza MD 132 [place] [address] 05/10/2023 8:00 AM EST Office Visit Gynecology/Obstetrics [facility] [address] [facility] [place] [address] Kiya Crocker CRNP [address] [place] [address] 05/17/2023 8:00 AM EST Office Visit Gynecology/Obstetrics [facility] [address] [facility] [place], [place] [address] Kiya Crocker CRNP [address] [place], [place] [address] 06/08/2023 10:30 AM EST Telemedicine Gynecology/Obstetrics [facility] [address] [facility] [place], [place] [address] Gillian Jalloh CRNP [address] [place], [place] [address] 06/28/2023 10:30 AM EST Office Visit Gynecology/Obstetrics [facility] 132 [facility] [place], [place] [address] Vanessa Barbosa, [address] [address] Pending Results Name Type Priority Associated Diagnoses Date /Time HAPTOGLOBIN Lab STAT Antepartum anemia complicating 04/26/2023 8:36 AM EDT LD Lab STAT Antepartum anemia complicating 04/26/2023 8:36 AM EDT Health Maintenance Due Date Last Done Comments Hepatitis B (1 of 3 - 3-dose series) 1991 Pneumococcal Vaccine: Pediatrics (0 to 5 Years) and At-Risk Patients (6 to 64 Years) (1 - PCV) 1997 Depression Screening 2003 GARDASIL-HPV IMMUNIZATION SERIES (3 - 3-dose series) 04/23/2008 01/22/2008, 10/23/2007 Pap Smear 2012 Cervical Cancer Screening 2021 HPV/Co-Test 2021 COVID-19 Vaccine (2022-2 4 season) 2023 05/27/2021 DTaP,Tdap,and Td Vaccines (2 - Td or Tdap) 02/22/2033 02/22/2023 Influenza Vaccine (FLU shot) Completed 05/2023, 08/17/2017, 04/23/2016 MENINGOCOCCAL (MENACTRA/MENVEO) Aged Out No longer eligible b ased on patient's age to complete this topic documented as of this encounter Medical Devices Not on filedocumented as of this encounter Visit Diagnoses Diagnosis Antepartum anemia complicating - Primary Anemia, antepartum documented in this encounter
--- OUTSIDE RECORDS SUMMARY | 2023-05-16 19:46 | External Medical Summary ---
Author Name Unknown Address Unknown Organization [id number]:[facility] - [address] [place] [address] Laboratory Report Ordering Provider Test Date Status DOV GUERRERO 05/10/2023 08:27:37 Final Observation Date Value Abnormality Reference (Units ) Status WBC, Total 05/10/2023 08:27:37 10.76 4.00-10.8 0 (K/uL) Final RBC 05/10/2023 08:27:37 2.93 3.85-5.15 (M/uL) Final Hemoglobin 05/10/2023 08:27:37 10.3 Below low normal 12 .0-15.3 (g/dL) Final HCT 05/10/2023 08:27:37 32.3 Below low normal 36. 0-45.2 (%) Final MCV 05/10/2023 08:27:37 110.2 81.5-97.5 (fL) Final MCH 05/10/2023 08:27:37 35.2 27.0-34.0 (pg) Final MCHC 05/10/2023 08:27:37 31.9 32.0-36.0 (g/dL) Final RDW 05/10/2023 08:27:37 14.9 11.5-15.5 (%) Final Platelets 05/10/2023 08:27:37 299 140-400 (K /uL) Final MPV 05/10/2023 08:27:37 11.4 6.6-11.1 ( fL) Final Performing Location [facility] 0 - [address] [place] [address]
--- OUTSIDE RECORDS SUMMARY | 2023-05-16 19:46 | External Medical Summary ---
Author Name Unknown Address Unknown Organization K01:[facility] [address] [place] [address] Laboratory Report Ordering Provider Test Date Status DOV GUERRERO 04/26/2023 08:36:08 Final Observation Date Value Abnormality Reference (Units ) Status LDH 04/26/2023 08:36:08 232 <=250 (U/L ) Final Performing Location [facility] - [address] [place] [address]
--- OUTSIDE RECORDS SUMMARY | 2023-05-16 19:46 | External Medical Summary ---
Author Name Unknown Address Unknown Organization [id number]:[facility] - [address] [place] [address] Laboratory Report Ordering Provider Test Date Status DOV GUERRERO 05/10/2023 08:27:37 Final Observation Date Value Abnormality Reference (Units ) Status SYNC LEUKOCYTES IN BLOOD BY AUTOMATED COUNT 05/10/2023 08:27:37 10.76 4.00-10.80 (K/uL) Final Segs 05/10/2023 08:27:37 70.2 40.0-75.0 (%) Final Lymphs % 05/10/2023 08:27:37 20.4 18.0-42.0 (%) Final Monos 05/10/2023 08:27:37 7.4 1.0-11.0 (%) Final Eosinophils 05/10/2023 08:27:37 1.7 0.0-6.0 (%) Final Basos 05/10/2023 08:27:37 0.3 0.0-2.0 (%) Final Absolute Segs 05/10/2023 08:27:37 7.55 1.80-7.70 (K/uL) Final Lymphs, absolute 05/10/2023 08:27:37 2.20 1.00-4.80 (K/ul) Final Monos, Abs 05/10/2023 08:27:37 0.80 0.00-1.10 (K/uL) Final Eos, Abs 05/10/2023 08:27:37 0.18 0.00-0.70 (K/uL) Final Basos, Abs 05/10/2023 08:27:37 0.03 0.00-0.20 (K/uL) Final Performing Location [facility] 0 - [address] [place] [address]
--- OUTSIDE RECORDS SUMMARY | 2023-05-16 19:46 | External Medical Summary | Summary of Care ---
Author Name Unknown Organization [facility] Address [address] [place] [address] Phone [phone] Care Team Providers Care Scout Sniper Name Role Phone Unavailable Primary Care Provider Unavailabl e Reason for Visit * Reason Comments Return Visit Encounter Details Date Type Department Care Team (Late st Contact Info) Description 04/26/2023 9:00 AM EDT Office Visit Gynecology/Obstetric s [facility] [address] [place] [address] Kiay Crocker CRNP [address] [place] [address] Supervision of other normal , antepartum*; Antepartum [...] money to get more. Never true 01/18/2023 [place] Depression Scale Answer Date Recorded [place] Depression Scale Total 0 03/28/2023 The thought [...] Sign Reading Time Taken Comments Blood Pressure 112/68 04/26/2023 8:38 AM EDT Pulse - - Temperature - - Respiratory Rate - - Oxygen Saturation - - Inhaled Oxygen Concentration - - Weight 86.5 kg (190 lb 9.6 oz) 04/26/2023 8:38 A M EDT Height - - Body Mass Index 30.76 04/19/2023 7:48 AM EDT documented in this encounter Progress Notes * Kiya Crocker CRNP - 04/26/2023 8:54 AM EDT 37w0d Complaints: none Feeling well overall. Decreased her hours at work, sitting more at work and feeling a bit better. Has f/u with hematology regarding her anemia. Good FM. No contractions, bleeding, or LOF. Would like cervical check today. Instructional Interventionist Documentation Provider requested thread singer. Name of thread singer: RAMONA Johnson * Marlene Delgado LPN - 04/26/2023 8:38 AM EDT 37w0d Denies vaginal bleeding/rom + movement Having some contractions and cramping- nothing consistent Requesting cervical check today No new concerns documented in this encounter Nursing Notes * Brianna Gonzalez RN - 04/26/2023 8:43 AM EDT Patient seen by [facility] Towel Inspector. Patient denies any questions or concerns. documented in this encounter Plan of Treatment Upcoming Encounters Date Type Department Care Team (Late st Contact Info) Description 04/26/2023 5:00 PM EDT Telemedicine Hematology/Oncology [facility] [place] [address] [facility] [address] Chloé Salgado CRNP [address] [facility] [place] [address] 05/03/2023 8:45 AM EST Office Visit Gynecology/Obstetrics [facility] [place] [address] [place] [address] Pk Reza MD [address] [place] [address] 05/10/2023 8:00 AM EST Office Visit Gynecology/Obstetrics [facility] [place] [address] [place] [address] Kiya Crocker CRNP [address] [place] [address] 05/17/2023 8:00 AM EST Office Visit Gynecology/Obstetrics [facility] [address] [place], [place] [address] Kiya Crocker CRNP [address] [place] [address] 06/08/2023 10:30 AM EST Office Visit Gynecology/Obstetrics [facility] [address] [place] [address] Gillian Jalloh CRNP [address] [place] [address] 06/28/2023 10:30 AM EST Office Visit Gynecology/Obstetrics [facility] 132 [facility], [place] [address] Vanessa Barbosa, [address] [place] [address] Health Maintenance Due Date Last Done Comments [...]
--- OUTSIDE RECORDS SUMMARY | 2023-05-16 19:46 | External Medical Summary ---
Author Name Unknown Address Unknown Organization K01:[facility] - [address] [place] [address] Laboratory Report Ordering Provider Test Date Status YOLANDA,DOV 05/10/2023 08:27:37 Final Observation Date Value Abnormality Reference (Units ) Status Ferritin 05/10/2023 08:27:37 176 Above high normal 13 -150 (ng/mL) Final Performing Location [facility] - [address] [place] [address]
--- OUTSIDE RECORDS SUMMARY | 2023-05-16 19:46 | External Medical Summary | Summary of Care ---
Author Name Unknown Organization [facility] Address [address] [place] [address] Phone [phone] Care Team Providers Care University Controller Name Role Phone Unavailable Primary Care Provider Unavailabl e Reason for Visit * Reason Comments Outpatient Testing Encounter Details Date Type Department Care Team (Late st Contact Info) Description 04/26/2023 8:40 AM EDT Laboratory Laboratory, [facility] [address] [place] [address] [facility] [address] [place] [address] Antepartum anemia complicating Allergies Active Allergy Reactions [...] money to get more. Never true 01/18/2023 [place] Depression Scale Answer Date Recorded [place] Depression Scale Total 0 03/28/2023 The thought [...] Visit Gynecology/Obstetric s [facility] [address] [place] [address] Kiya Crocker CRNP [address] [place] [address] Supervision of other normal , antepartum*; Antepartum anemia complicating ; Health counseling 04/26/2023 5:00 PM EDT Telemedicine Hematology/Oncology [facility] Villegas [place] 200 [facility] [place] [address] Chloé Salgado CRNP [address] [place] [address] 05/03/2023 8:45 AM EST Office Visit Gynecology/Obstetric s [facility] [address] [place] [address] Pk Reza MD [address] [place] [address] 05/10/2023 8:00 AM EST Office Visit Gynecology/Obstetric [facility] [address] [place] [address] Kiya Crocker CRNP [address] [place] [address] 05/17/2023 8:00 AM EST Office Visit Gynecology/Obstetric [facility] [address] [place] [address] Kiya Crocker CRNP [address] [place] [address] 06/08/2023 10:30 AM EST Office Visit Gynecology/Obstetric [facility] [address] [place] [address] Gillian Jalloh CRNP [address] [place] [address] 06/28/2023 10:30 AM EST Office Visit Gynecology/Obstetric [facility] [address] [place] [address] Vanessa Barbosa, [address] [place] [address] Pending Results Name Type Priority Associated Diagnoses Date /Time FERRITIN Lab STAT Antepartum anemia complicating 04/26/2023 8:36 AM EDT IRON SCREEN, INCLUDING TIBC Lab STAT Antepartum anemia complicating 04/26/2023 8:36 AM EDT RETICULOCYTE PANEL Lab STAT Antepartum anemia complicating 04/26/2023 8:36 [...] Procedure Name Priority Date/Time Associated Diagnosis Comments DIFFERENTIAL, AUTOMATED STAT 04/26/2023 8:36 AM EDT Antepartum anemia complicating CBC STAT 04/26/2023 8:36 AM EDT Antepartum anemia complicating CBC STAT 04/26/2023 8:36 AM EDT Antepartum anemia complicating documented in this encounter Results * (ABNORMAL) DIFFERENTIAL, AUTOMATED (04/26/2023 8:36 AM EDT) WBC 11.35(H) 4.00 - 10.80 K/uL 04/26/2023 8:40 AM EDT [facility] [place] [facility] Neutrophils % 74.7 40.0 - 75.0 % 04/26/2023 8:40 AM EDT [facility] [place] [facility] Lymphocytes % 17.7(L) 18.0 - 42.0 % 04/26/2023 8:40 AM EDT [facility] [place] [facility] Monocytes % 6.3 1.0 - 11.0 % 04/26/2023 8:40 AM EDT [facility] [place] [facility] Eosinophils % 1.0 0.0 - 6.0 % 04/26/2023 8:40 AM EDT [facility] [place] [facility] Basophils % 0.3 0.0 - 2.0 % 04/26/2023 8:40 AM EDT [facility] [place] [facility] Absolute Neutrophils 8.48(H) 1.80 - 7.70 K/uL 04/26/2023 8:40 AM EDT [facility] [place] [facility] Absolute Lymphocytes 2.01 1.00 - 4.80 K/ul 04/26/2023 8:40 AM EDT [facility] [place] [facility] Absolute Monocytes 0.72 0.00 - 1.10 K/uL 04/26/2023 8:40 AM EDT [facility] [place] [facility] Absolute Eosinophils 0.11 0.00 - 0.70 K/uL 04/26/2023 8:40 AM EDT [facility] [place] [facility] Absolute Basophils 0.03 0.00 - 0.20 K/uL 04/26/2023 8:40 AM EDT [facility] [place] [facility] Blood Venous blood specimen / Unknown Venipuncture / Unknown 04/26/2023 8:36 AM EDT 04/26/2023 8:36 AM EDT Chloé GREENE LAB BLOOD ORDER [facility] [place] [facility] [place] [address] * (ABNORMAL) CBC (04/26/2023 8:36 AM EDT) WBC 11.35(H) 4.00 - 10.80 K/uL 04/26/2023 8:40 AM EDT [facility] [place] [facility] RBC 2.77 3.85 - 5.15 M/uL 04/26/2023 8:40 AM EDT [facility] [place] [facility] HGB 9.8(L) 12.0 - 15.3 g/dL 04/26/2023 8:40 AM EDT [facility] [place] [facility] HCT 30.6(L) 36.0 - 45.2 % 04/26/2023 8:40 AM EDT [facility] [place] [facility] MCV 110.5 81.5 - 97.5 fL 04/26/2023 8:40 AM EDT [facility] [place] [facility] MCH 35.4 27.0 - 34.0 pg 04/26/2023 8:40 AM EDT [facility] [place] [facility] MCHC 32.0 32.0 - 36.0 g/dL 04/26/2023 8:40 AM EDT [facility] [place] [facility] RDW 15.2 11.5 - 15.5 % 04/26/2023 8:40 AM EDT [facility] [place] [facility] PLT 287 140 - 400 K/uL 04/26/2023 8:40 AM EDT [facility] [place] [facility] MPV 10.8 6.6 - 11.1 fL 04/26/2023 8:40 AM EDT [facility] [place] [facility] Blood Venous blood specimen / Unknown Venipuncture / Unknown 04/26/2023 8:36 AM EDT 04/26/2023 8:36 AM EDT Chloé GREENE LAB BLOOD ORDER [place] [facility] [place] [facility] [place] [address] documented in this encounter Visit Diagnoses Diagnosis Supervision of other normal , antepartum- Primary Antepartum anemia complicating Anemia, antepartum Health counseling Other specified counseling Antepartum anemia complicating Anemia, antepartum documented in this encounter
--- OUTSIDE RECORDS SUMMARY | 2023-05-16 19:46 | External Medical Summary ---
Author Name Unknown Address Unknown Organization [id number]:[facility] [address] [facility] [address] Laboratory Report Ordering Provider Test Date Status DOV GUERRERO 05/10/2023 08:27:37 Final Observation Date Value Abnormality Reference (Units ) Status Retic, % (auto) 05/10/2023 08:27:37 10.30 Above high normal 0.80-1.90 (%) Final Reticulocytes, Absolute 05/10/2023 08:27:37 298.7 Above high normal 31.3-100.1 (K/uL) Final Reticulocyte fraction, immature 05/10/2023 08:27:37 39.2 Above high normal 2.5-20.6 (%) Final Reticulocyte HGB 05/10/2023 08:27:37 35.5 29.7-37.4 (pg) Final Performing Location [facility] [address] [facility] [address]
--- OUTSIDE RECORDS SUMMARY | 2023-05-16 19:46 | External Medical Summary ---
Author Name Unknown Address Unknown Organization [id number]:LABORATORY [facility] [place] - [address] [place] [address] Laboratory Report Ordering Provider Test Date Status DOV GUERRERO 04/26/2023 08:36:08 Final Observation Date Value Abnormality Reference (Units ) Status Retic, % (auto) 04/26/2023 08:36:08 12.07 Above high normal 0.80-1.90 (%) Final Reticulocytes, Absolute 04/26/2023 08:36:08 339.2 Above high normal 31.3-100.1 (K/uL) Final Reticulocyte fraction, immature 04/26/2023 08:36:08 38.1 Above high normal 2.5-20.6 (%) Final Reticulocyte HGB 04/26/2023 08:36:08 35.6 29.7-37.4 (pg) Final Performing Location LABORATORY [facility] - [address] [place] [address]
--- OUTSIDE RECORDS SUMMARY | 2023-05-16 19:46 | External Medical Summary ---
Author Name Unknown Address Unknown Organization [id number]:LABORATORY [place] [facility] - [address] [place] [address] Laboratory Report Ordering Provider Test Date Status DOV GUERRERO 04/26/2023 08:36:08 Final Observation Date Value Abnormality Reference (Units ) Status WBC, Total 04/26/2023 08:36:08 11.35 Above high normal 4 .00-10.80 (K/uL) Final RBC 04/26/2023 08:36:08 2.77 3.85-5.15 (M/uL) Final Hemoglobin 04/26/2023 08:36:08 9.8 Below low normal 12 .0-15.3 (g/dL) Final HCT 04/26/2023 08:36:08 30.6 Below low normal 36. 0-45.2 (%) Final MCV 04/26/2023 08:36:08 110.5 81.5-97.5 (fL) Final MCH 04/26/2023 08:36:08 35.4 27.0-34.0 (pg) Final MCHC 04/26/2023 08:36:08 32.0 32.0-36.0 (g/dL) Final RDW 04/26/2023 08:36:08 15.2 11.5-15.5 (%) Final Platelets 04/26/2023 08:36:08 287 140-400 (K /uL) Final MPV 04/26/2023 08:36:08 10.8 6.6-11.1 ( fL) Final Performing Location LAB[facility]ATORY [place] [facility] 0 - [address] [place] [address]
--- OUTSIDE RECORDS SUMMARY | 2023-05-16 19:47 | External Medical Summary | Summary of Care ---
Author Name Unknown Organization [facility] Address [address] [place] [address] Phone [phone] Care Team Providers Care Top Spotter Name Role Phone Unavailable Primary Care Provider Unavailabl e Reason for Visit * Reason Comments Outpatient Testing Encounter Details Date Type Department Care Team Description 04/12/2023 Laboratory Laboratory, [facility] [address] [place] [id number] [facility] [address] [place] [address] Antepartum anemia complicating Allergies Active Allergy Reactions Severity Noted Date Comments Clonazepam Other (Please comment) 12/12/2014 Patient has syncopey from medication Morphine Other (Please comment) 12/12/2014 Patient state she Hallucinates when taking the medication Tramadol Other (Please comment) 12/12/2014 Migrans documented as of this encounter (statuses as of 04/12/2023) Medications Medication Sig Dispensed Refills Start Date [...] as of this encounter (statuses as of 04/12/2023) Active Problems Problem Noted Date Antepartum anemia complicating 03/22/2023 Overview: Hgb 11.2 at 28w, added oral iron. Hgb 9.8 at 32w. Blood management referral Per blood management- not candidate for IV iron d/t elevated ferritin. Recommend hematology referral, placed. Medical marijuana use 03/08/2023 Overview: Not with Supervision of other normal , a ntepartum 10/05/2022 Last Assessment & Plan: Problem Action Taken Date entered Entered by Date resolved Current needs or questions Has baby supplies. Getting room ready Patient denies having any current needs or questions 04/05/2023 Martha Villegas RN 04/05/2023 Asthma with severity to be determined Overview: ICD-10 update of inactive term ADVANCE DIRECTIVE INFORMATION 04/23/2005 Overview: Not applicable (under age of 18) Estimated Date of Delivery Comme nts Yes 05/17/2023 Based on last me nstrual period of 08/10/2022 documented as of this encounter (statuses as of 04/12/2023) Immunizations Name Administration Dates Next Due HPV [...] drink = 0.6 oz pur e alcohol) Food Insecurity Answer Date Recorded Within the past 12 months, y ou worried that your food would run out before you got money to buy more. Never true 01/18/2023 Within the past 12 months, t he food you bought just didn't last and you didn't have money to get more. Never true 01/18/2023 Estimated Date of Delivery Comme nts Yes 05/17/2023 Based on last me nstrual period of 08/10/2022 Sex Assigned at Date Recorded Female 10/05/2022 1:32 PM E DT Job Start Date Occupation Industry Not on file Not on file Not on file documented as of this encounter Plan of Treatment Upcoming Encounters Date Type Specialty Care Team Description 04/19/2023 Office Visit Gynecology Obstetrics Kiya Crocker CRNP [address] [place] [address] 04/26/2023 Office Visit Gynecology Obstetrics Kiya Crocker CRNP [address] [address] 04/29/2023 Office Visit Hematology Oncology Chloé Salgado CRNP [address] [place] [address] 05/03/2023 Office Visit Gynecology Obstetrics Pk Reza MD [address] [place] [address] 05/10/2023 Office Visit Gynecology Obstetrics Kiya Crocker CRNP [address] [place] [address] 05/17/2023 Office Visit Gynecology Obstetrics Kiya Crocker CRNP [address] [place] [address] Pending Results Name Type Priority Associated Diagnoses Date /Time FERRITIN Lab STAT Antepartum anemia complicating 04/12/2023 10:22 AM EDT IRON SCREEN, INCLUDING TIBC Lab STAT Antepartum anemia complicating 04/12/2023 10:22 AM EDT RETICULOCYTE PANEL Lab STAT Antepartum anemia complicating 04/12/2023 10:22 AM EDT Health Maintenance Due Date Last Done Comments Hepatitis B (1 of 3 - 3-dose series) 1991 Pneumococcal Vaccine: Pediatrics (0 to 5 Years) and At-Risk Patients (6 to 64 Years) (1 - PCV) 1997 Depression Screening 2003 GARDASIL-HPV IMMUNIZATION SERIES (3 - 3-dose series) 05/24/2008 01/22/2008, 10/23/2007 Pap Smear 2012 Cervical Cancer [...] Date/Time Associated Diagnosis Comments DIFFERENTIAL, AUTOMATED STAT 04/12/2023 10:22 AM EDT Antepartum anemia complicating CBC STAT 04/12/2023 10:22 AM EDT Antepartum anemia complicating CBC STAT 04/12/2023 10:22 AM EDT Antepartum anemia complicating documented in this encounter Results * (ABNORMAL) DIFFERENTIAL, AUTOMATED (04/12/2023 10:22 AM EDT) WBC 10.34 4.00 - 10.80 K/uL 04/12/2023 10:32 AM EDT LAB[facility] [place] [facility] Neutrophils % 78.1(H) 40.0 - 75.0 % 04/12/2023 10:32 AM EDT LAB[facility] [place] [facility] Lymphocytes % 13.9(L) 18.0 - 42.0 % 04/12/2023 10:32 AM EDT LAB[facility] [place] [facility] Monocytes % 6.7 1.0 - 11.0 % 04/12/2023 10:32 AM EDT LAB[facility] [place] [facility] Eosinophils % 1.0 0.0 - 6.0 % 04/12/2023 10:32 AM EDT LAB[facility] [place] [facility] Basophils % 0.3 0.0 - 2.0 % 04/12/2023 10:32 AM EDT LAB[facility] [place] [facility] Absolute Neutrophils 8.08(H) 1.80 - 7.70 K/uL 04/12/2023 10:32 AM EDT LAB[facility] [place] [facility] Absolute Lymphocytes 1.44 1.00 - 4.80 K/ul 04/12/2023 10:32 AM EDT LAB[facility] [place] [facility] Absolute Monocytes 0.69 0.00 - 1.10 K/uL 04/12/2023 10:32 AM EDT [facility] [place] [facility] Absolute Eosinophils 0.10 0.00 - 0.70 K/uL 04/12/2023 10:32 AM EDT [facility] [place] [facility] Absolute Basophils 0.03 0.00 - 0.20 K/uL 04/12/2023 10:32 AM EDT LAB[facility] [place] [facility] Blood Venous blood specimen / Unknown Venipuncture / Unknown 04/12/2023 10:22 AM EDT 04/12/2023 10:22 AM EDT Chloé GREENE LAB BLOOD ORDER [facility]NE LAB[facility] [place] [facility] [address] [place] [address] * (ABNORMAL) CBC (04/12/2023 10:22 AM EDT) [facility] WBC 10.34 4.00 - 10.80 K/uL 04/12/2023 10:32 AM EDT LAB[facility] [place] [facility] RBC 2.76 3.85 - 5.15 M/uL 04/12/2023 10:32 AM EDT LAB[facility] [place] [facility] HGB 9.8(L) 12.0 - 15.3 g/dL 04/12/2023 10:32 AM EDT [facility] [place] [facility] HCT 29.5(L) 36.0 - 45.2 % 04/12/2023 10:32 AM EDT [facility] [place] [facility] MCV 106.9 81.5 - 97.5 fL 04/12/2023 10:32 AM EDT [facility] [place] [facility] MCH 35.5 27.0 - 34.0 pg 04/12/2023 10:32 AM EDT LAB[facility] [place] [facility] MCHC 33.2 32.0 - 36.0 g/dL 04/12/2023 10:32 AM EDT LAB[facility]ORY [facility] [place] [facility] RDW 14.6 11.5 - 15.5 % 04/12/2023 10:32 AM EDT [facility] [place] [facility] PLT 289 140 - 400 K/uL 04/12/2023 10:32 AM EDT LAB[facility] [place] [facility] MPV 10.1 6.6 - 11.1 fL 04/12/2023 10:32 AM EDT LAB[facility] [place] [facility] Blood Venous blood specimen / Unknown Venipuncture / Unknown 04/12/2023 10:22 AM EDT 04/12/2023 10:22 AM EDT Chloé GREENE LAB BLOOD ORDER SHYANNE [facility] [place] [facility] [address] [facility] [place] [address] documented in this encounter Visit Diagnoses Diagnosis Antepartum anemia complicating Anemia, antepartum documented in this encounter
--- OUTSIDE RECORDS SUMMARY | 2023-05-16 19:47 | External Medical Summary | Summary of Care ---
Author Name Unknown Organization [facility] Address [address] [place] [address] Phone [phone] Care Team Providers Care Associate Field Service Engineer Name Role Phone Unavailable Primary Care Provider Unavailabl e Reason for Visit * Reason Comments Return Visit Encounter Details Date Type Department Care Team (Late st Contact Info) Description 04/19/2023 8:00 AM EDT Office Visit Gynecology/Obstetric s Emmett Hiness [address] [facility] [place] [address] Kiya Crocker CRNP [address] [facility] [place] [address] Supervision of other normal , antepartum*; Antepartum anemia complicating Allergies Active Allergy Reactions Criticality Noted Date Comments Clonazepam Other (Please comment) 12/12/2014 Patient has syncopey from medication Morphine Other (Please comment) 12/12/2014 Patient state she Hallucinates when taking the medication Tramadol Other (Please comment) 12/12/2014 Migrans documented as of this encounter (statuses as of 04/19/2023) Medications Medication Sig Dispensed Refills Start Date [...] as of this encounter (statuses as of 04/19/2023) Active Problems Problem Noted Date Diagnosed Date Antepartum anemia complicating 023 Overview: Hgb 11.2 [...] as of this encounter (statuses as of 04/19/2023) Immunizations Name Administration Dates Next Due HPV [...] money to get more. Never true 01/18/2023 [place] Depression Scale Answer Date Recorded [place] Depression Scale Total 0 03/28/2023 The thought [...] Sign Reading Time Taken Comments Blood Pressure 108/70 04/19/2023 7:48 AM EDT Pulse - - Temperature - - Respiratory Rate - - Oxygen Saturation - - Inhaled Oxygen Concentration - - Weight 84.9 kg (187 lb 3.2 oz) 04/19/2023 7:48 A M EDT Height 167.6 cm (5' 6") 04/19/2023 7:48 AM EDT Body Mass Index 30.21 04/19/2023 7:48 AM EDT documented in this encounter Progress Notes * RAMONA Brannon - 04/19/2023 8:09 AM EDT 36w No concerns. Baby is active. No contractions or bleeding, no LOF. Trace pedal edema. GBS today. Demolition Specialist Documentation Provider requested train driver. Name of train driver: Dea * Dea Murray LPN - 04/19/2023 7:54 AM EDT 36w0d GBS today, pt denies any concerns. Desires cervical check today documented in this encounter Plan of Treatment Upcoming Encounters Date Type Department Care Team (Late st Contact Info) Description 04/26/2023 9:00 AM EDT Office Visit Gynecology/Obstetrics [facility] [address] [place] [address] Kiya Crocker CRNP [address] [place] [address] 04/29/2023 3:00 PM EDT Office Visit Hematology/Oncology [facility] [address] [place] [address] Chloé Salgado CRNP [address] [place] [address] 05/03/2023 8:45 AM EST [facility] [address] [place] [address] Pk Reza MD [address] [place] [address] 05/10/2023 8:00 AM EST [facility] [address] [place] [address] Kiya Crocker CRNP [address] [place] [address] 05/17/2023 8:00 AM EST [facility] [address] [place] [address] Kiya Crocker CRNP [address] [place] [address] Pending Results Name Type Priority Associated Diagnoses Date /Time GROUP B STREP CULTURE/PCR Lab Routine Supervision of other normal , antepartum 04/19/2023 8:13 AM EDT Health Maintenance Due Date Last [...] antepartum- Primary Antepartum anemia complicating Anemia, antepartum documented in this encounter
--- OUTSIDE RECORDS SUMMARY | 2023-05-16 19:47 | External Medical Summary | Summary of Care ---
Author Name Unknown Organization [facility] Address [address] [place] [address] Phone [phone] Care Team Providers Care Solid Waste Disposal Manager Name Role Phone Unavailable Primary Care Provider Unavailabl e Reason for Visit * Reason Comments Outpatient Testing Encounter Details Date Type Department Care Team Description 03/25/2023 Laboratory Laboratory [address] [place] [address] [place] [id number] [place], Lab [facility]en[facility] [address] [place] [address] Antepartum anemia complicating Allergies Active Allergy Reactions Severity Noted Date Comments Clonazepam Other (Please comment) 12/12/2014 Patient has syncopey from medication Morphine Other (Please comment) 12/12/2014 Patient state she Hallucinates when taking the medication Tramadol Other (Please comment) 12/12/2014 Migrans documented as of this encounter (statuses as of 03/25/2023) Medications Medication Sig Dispensed Refills Start Date [...] as of this encounter (statuses as of 03/25/2023) Active Problems Problem Noted Date Antepartum anemia complicating 03/22/2023 Overview: Hgb 11.2 at 28w, added oral iron. Hgb 9.8 at 32w. Blood management referral Per blood management- not candidate for IV iron d/t elevated ferritin. Recommend hematology referral, placed. Medical marijuana use 03/08/2023 Overview: Not with Supervision of other normal , a ntepartum 10/05/2022 Asthma with severity to be determined Overview: ICD-10 update of inactive term ADVANCE DIRECTIVE INFORMATION 04/23/2005 Overview: Not applicable (under age of 18) Estimated Date of Delivery Comme nts Yes 05/17/2023 Based on last me nstrual period of 08/10/2022 documented as of this encounter (statuses as of 03/25/2023) Immunizations Name Administration Dates Next Due HPV [...] Encounters Date Type Specialty Care Team Description 04/05/2023 Office Visit Gynecology Obstetrics Kiya Crocker CRNP [address] [place] [address] 04/19/2023 Office Visit Gynecology Obstetrics Kiya Crocker CRNP [address] [place] [address] 04/26/2023 Office Visit Gynecology Obstetrics Kiya Crocker CRNP [address] [place] [address] 04/29/2023 Office Visit Hematology Oncology Chloé Salgado CRNP [address] [place], [place] [address] [address] 05/03/2023 Office Visit Gynecology Obstetrics Pk Reza MD [address] [place] [address] 05/10/2023 Office Visit Gynecology Obstetrics Kiya Crocker CRNP [address] [place] [address] 05/17/2023 Office Visit Gynecology Obstetrics Kiya Crocker CRNP [address] [place] [address] Pending Results Name Type Priority Associated Diagnoses Date /Time CBC WITH WBC DIFFERENTIAL Lab Routine Antepartum anemia complicating 03/25/2023 1:31 PM EDT COMPREHENSIVE METABOLIC PANEL Lab Routine Antepartum anemia complicating 03/25/2023 1:31 PM EDT RETICULOCYTE PANEL Lab Routine Antepartum anemia complicating 03/25/2023 1:31 PM EDT LD Lab Routine Antepartum anemia complicating 03/25/2023 1:31 PM EDT HAPTOGLOBIN Lab Routine Antepartum anemia complicating 03/25/2023 1:31 PM EDT DIRECT TOMÁS Lab Routine Antepartum anemia complicating 03/25/2023 1:31 PM EDT CBC Lab Routine Antepartum anemia complicating 03/25/2023 1:31 PM EDT DIFFERENTIAL, AUTOMATED Lab Routine Antepartum anemia complicating 03/25/2023 1:31 PM EDT Health Maintenance Due Date Last Done Comments Hepatitis B (1 of 3 - 3-dose series) 1991 Pneumococcal Vaccine: Pediatrics (0 to 5 Years) and At-Risk Patients (6 to 64 Years) (1 - PCV) 1997 Depression Screening 2003 GARDASIL-HPV IMMUNIZATION SERIES (3 - 3-dose series) 05/24/2008 01/22/2008, 10/23/2007 Pap Smear 2012 COVID-19 Vaccine (2 - Pfizer series) 07/22/2021 05/27/2021 Cervical Cancer Screening 2021 HPV/Co-Test 2021 DTaP,Tdap,and Td Vaccines (2 - Td or [...]
--- OUTSIDE RECORDS SUMMARY | 2023-05-16 19:47 | External Medical Summary ---
Author Name Unknown Address Unknown Organization [id number]:[facility] - [address] [place] [address] Laboratory Report Ordering Provider Test Date Status DOV GUERRERO 04/05/2023 07:08:20 Final Observation Date Value Abnormality Reference (Units ) Status Ferritin 04/05/2023 07:08:20 162 Above high normal 13 -150 (ng/mL) Final Performing Location [facility] - [address] [place] [address]
--- OUTSIDE RECORDS SUMMARY | 2023-05-16 19:47 | External Medical Summary ---
Author Name Unknown Address Unknown Organization [id number]:LABORATORY [facility] [place] - [address] [facility] [address] Laboratory Report Ordering Provider Test Date Status DOV GUERRERO 04/19/2023 07:22:50 Final Observation Date Value Abnormality Reference (Units ) Status Retic, % (auto) 04/19/2023 07:22:50 10.70 Above high normal 0.80-1.90 (%) Final Reticulocytes, Absolute 04/19/2023 07:22:50 292.1 Above high normal 31.3-100.1 (K/uL) Final Reticulocyte fraction, immature 04/19/2023 07:22:50 37.7 Above high normal 2.5-20.6 (%) Final Reticulocyte HGB 04/19/2023 07:22:50 33.2 29.7-37.4 (pg) Final Performing Location LABORATORY [facility] - [address] [facility] [address]
--- OUTSIDE RECORDS SUMMARY | 2023-05-16 19:47 | External Medical Summary ---
Author Name Unknown Address Unknown Organization [id number]:LABORATORY [place] [facility] - [address] [place] [address] Laboratory Report Ordering Provider Test Date Status DOV GUERRERO 04/12/2023 10:22:45 Final Observation Date Value Abnormality Reference (Units ) Status SYNC LEUKOCYTES IN BLOOD BY AUTOMATED COUNT 04/12/2023 10:22:45 10.34 4.00-10.80 (K/uL) Final Segs 04/12/2023 10:22:45 78.1 Above high normal 40.0-75.0 (%) Final Lymphs % 04/12/2023 10:22:45 13.9 Below low normal 18.0-42.0 (%) Final Monos 04/12/2023 10:22:45 6.7 1.0-11.0 (%) Final Eosinophils 04/12/2023 10:22:45 1.0 0.0-6.0 (%) Final Basos 04/12/2023 10:22:45 0.3 0.0-2.0 (%) Final Absolute Segs 04/12/2023 10:22:45 8.08 Above high normal 1.80-7.70 (K/uL) Final Lymphs, absolute 04/12/2023 10:22:45 1.44 1.00-4.80 (K/ul) Final Monos, Abs 04/12/2023 10:22:45 0.69 0.00-1.10 (K/uL) Final Eos, Abs 04/12/2023 10:22:45 0.10 0.00-0.70 (K/uL) Final Basos, Abs 04/12/2023 10:22:45 0.03 0.00-0.20 (K/uL) Final Performing Location LABORATORY [place] [facility] 0 - [address] [place] [address]
--- OUTSIDE RECORDS SUMMARY | 2023-05-16 19:47 | External Medical Summary ---
Author Name Unknown Address Unknown Organization [id number]:[facility] - [address] [place] [address] Laboratory Report Ordering Provider Test Date Status YOLANDADOV 04/12/2023 10:22:45 Final Observation Date Value Abnormality Reference (Units ) Status Ferritin 04/12/2023 10:22:45 206 Above high normal 13 -150 (ng/mL) Final Performing Location [facility] - [address] [place] [address]
--- OUTSIDE RECORDS SUMMARY | 2023-05-16 19:47 | External Medical Summary | Summary of Care ---
Author Name Unknown Organization [facility] Address [address] [place] [address] Phone [phone] Care Team Providers Care Developer Prover Upholstering Name Role Phone Unavailable Primary Care Provider Unavailabl e Reason for Visit * Reason Comments Outpatient Testing Encounter Details Date Type Department Care Team (Late st Contact Info) Description 04/19/2023 7:20 AM EDT Laboratory Laboratory, [facility] [address] [place] [id number] [facility] [address] [place] [address] Antepartum anemia complicating Allergies Active Allergy Reactions Criticality Noted Date Comments Clonazepam Other (Please comment) 12/12/2014 Patient has syncopey from medication Morphine Other (Please comment) 12/12/2014 Patient state she Hallucinates when taking the medication Tramadol Other (Please comment) 12/12/2014 Migrans documented as of this encounter (statuses as of 04/20/2023) Medications Medication Sig Dispensed Refills Start Date [...] as of this encounter (statuses as of 04/20/2023) Active Problems Problem Noted Date Diagnosed Date Health counseling 04/19/2023 Overview: Problem Action Taken Date entered Entered by Date resolved Current needs or questions Patient denies having any current needs or questions 04/19/2023 Martha Villegas RN 04/19/23 Antepartum anemia complicating 023 Overview: Hgb 11.2 [...] as of this encounter (statuses as of 04/20/2023) Immunizations Name Administration Dates Next Due HPV [...] money to get more. Never true 01/18/2023 [place] Depression Scale Answer Date Recorded [place] Depression Scale Total 0 03/28/2023 The thought [...] 9:00 AM EDT Office Visit Gynecology/Obstetrics V[facility]ith [facility] [address] [place] [address] Kiya Crocker CRNP [address] [facility] [place] [address] 04/29/2023 3:00 PM EDT Office Visit Hematology/Oncology Tory [facility]legas [place] [facility] [address] Chloé Salgado CRNP [address] [place] [address] 05/03/2023 8:45 AM EST [facility] [place] [address] Pk Reza MD [address] [place] [address] 05/10/2023 8:00 AM EST Office Visit Gynecology/Obstetrics [facility] [address] [place] [address] Kiya Crocker CRNP [address] [place] [address] 05/17/2023 8:00 AM EST Office Visit Gynecology/Obstetrics [facility] [address] [place] [address] Kiya Crocker CRNP [address] [place] [address] Pending Results Name Type Priority Associated Diagnoses Date /Time SCHISTOCYTES, TECHNOLOGIST REVIEW Lab Routine Antepartum anemia complicating 04/19/2023 7:23 AM EDT SCHISTOCYTES, TECHNOLOGIST REVIEW Lab Routine Antepartum anemia complicating 04/19/2023 7:23 AM EDT DIFFERENTIAL, AUTOMATED Lab Routine Antepartum anemia complicating 04/19/2023 7:23 AM EDT Health Maintenance Due Date Last [...] Procedure Name Priority Date/Time Associated Diagnosis Comments CBC Routine 04/19/2023 7:23 AM EDT Antepartum anemia complicating DIFFERENTIAL, AUTOMATED STAT 04/19/2023 7:22 AM EDT Antepartum anemia complicating RETICULOCYTE PANEL STAT 04/19/2023 7: 22 AM EDT Antepartum anemia complicating IRON SCREEN, INCLUDING TIBC STAT 04/19/2023 7:22 AM EDT Antepartum anemia complicating CBC STAT 04/19/2023 7:22 AM EDT Antepartum anemia complicating CBC STAT 04/19/2023 7:22 AM EDT Antepartum anemia complicating FERRITIN STAT 04/19/2023 7:22 AM EDT Antepartum anemia complicating documented in this encounter Results * (ABNORMAL) CBC (04/19/2023 7:23 AM EDT) WBC 9.99 4.00 - 10.80 K/uL 04/19/2023 7:47 AM EDT [facility] [place] 57-10 RBC 2.70 3.85 - 5.15 M/uL 04/19/2023 7:47 AM EDT [facility] [place] 57-10 HGB 9.5(L) 12.0 - 15.3 g/dL 04/19/2023 7:47 AM EDT [facility] [place] 57[facility]10 HCT 29.7(L) 36.0 - 45.2 % 04/19/2023 7:47 AM EDT [facility] [place] 57-10 MCV 110.0 81.5 - 97.5 fL 04/19/2023 7:47 AM EDT [facility] [place] 57[facility]10 MCH 35.2 27.0 - 34.0 pg 04/19/2023 7:47 AM EDT LAB[facility] [place] 57-10 MCHC 32.0 32.0 - 36.0 g/dL 04/19/2023 7:47 AM EDT [facility] [place] 57-10 RDW 15.1 11.5 - 15.5 % 04/19/2023 7:47 AM EDT LAB[facility] [place] 57-10 PLT 285 140 - 400 K/uL 04/19/2023 7:47 AM EDT [facility] [place] 57-10 MPV 10.8 6.6 - 11.1 fL 04/19/2023 7:47 AM EDT [facility] Blood Venous blood specimen / Unknown Venipuncture / Unknown 04/19/2023 7:23 AM EDT 04/19/2023 7:23 AM EDT Chloé GREENE LAB BLOOD ORDER [place] Performing Organization Address City/State/[facility] Co de Phone Number LAB[facility]ATORY [facility] [place] [address] [place] [address] * (ABNORMAL) RETICULOCYTE PANEL (04/19/2023 7:22 AM EDT) Pathologist [facility] Reticulocyte Percent 10.70(H) 0.80 - 1.90 % 04/19/2023 12:32 PM EDT [facility] Absolute Reticulocyte 292.1(H) 31.3 - 100.1 K/uL 04/19/2023 12:32 PM EDT [facility] Immature Reticuloctye Fraction 37.7(H) 2.5 - 20.6 % 04/19/2023 12:32 PM EDT [facility] Reticulocyte Hemoglobin 33.2 29.7 - 37.4 pg 04/19/2023 12:32 PM EDT [facility] Blood Venous blood specimen / Unknown Venipuncture / Unknown 04/19/2023 7:22 AM EDT 04/19/2023 7:22 AM EDT Chloé GREENE LAB BLOOD ORDER SHYANNE LAB[facility]ATORY [facility] [address] [place] [address] * DIFFERENTIAL, AUTOMATED (04/19/2023 7:22 AM EDT) WBC 9.99 4.00 - 10.80 K/uL 04/19/2023 7:33 AM EDT [facility] [place] 57-10 Neutrophils % 73.7 40.0 - 75.0 % 04/19/2023 7:33 AM EDT [facility] [place] 57-10 Lymphocytes % 18.4 18.0 - 42.0 % 04/19/2023 7:33 AM EDT [facility] [place] 57[facility]10 Monocytes % 6.2 1.0 - 11.0 % 04/19/2023 7:33 AM EDT [facility] [place] 57[facility]10 Eosinophils % 1.5 0.0 - 6.0 % 04/19/2023 7:33 AM EDT [facility] [place] 57-10 Basophils % 0.2 0.0 - 2.0 % 04/19/2023 7:33 AM EDT [facility] [place] 57-10 Absolute Neutrophils 7.36 1.80 - 7.70 K/uL 04/19/2023 7:33 AM EDT [facility] [place] 57[facility]10 Absolute Lymphocytes 1.84 1.00 - 4.80 K/ul 04/19/2023 7:33 AM EDT [facility] [place] 57[facility]10 Absolute Monocytes 0.62 0.00 - 1.10 K/uL 04/19/2023 7:33 AM EDT [facility] [place] 57-10 Absolute Eosinophils 0.15 0.00 - 0.70 K/uL 04/19/2023 7:33 AM EDT [facility] [place] 57[facility]10 Absolute Basophils 0.02 0.00 - 0.20 K/uL 04/19/2023 7:33 AM EDT [facility] [place] 57-10 Blood Venous blood specimen / Unknown Venipuncture / Unknown 04/19/2023 7:22 AM EDT 04/19/2023 7:22 AM EDT Chloé GREENE LAB BLOOD ORDER SHYANNE [facility] [place] 57[facility]10 [address] [place] [address] * (ABNORMAL) CBC (04/19/2023 7:22 AM EDT) [facility] WBC 9.99 4.00 - 10.80 K/uL 04/19/2023 7:33 AM EDT [facility] [place] [facility]10 RBC 2.70 3.85 - 5.15 M/uL 04/19/2023 7:33 AM EDT [facility] [place] 57[facility]10 HGB 9.5(L) 12.0 - 15.3 g/dL 04/19/2023 7:33 AM EDT [facility] [place] 57[facility]10 HCT 29.7(L) 36.0 - 45.2 % 04/19/2023 7:33 AM EDT [facility] [place] 57[facility]10 MCV 110.0 81.5 - 97.5 fL 04/19/2023 7:33 AM EDT [facility] [place] 57[facility]10 MCH 35.2 27.0 - 34.0 pg 04/19/2023 7:33 AM EDT [facility] [place] 57[facility]10 MCHC 32.0 32.0 - 36.0 g/dL 04/19/2023 7:33 AM EDT [facility] [place] 57[facility]10 RDW 15.1 11.5 - 15.5 % 04/19/2023 7:33 AM EDT [facility] [place] 57[facility]10 PLT 285 140 - 400 K/uL 04/19/2023 7:33 AM EDT [facility] [place] 57[facility]10 MPV 10.8 6.6 - 11.1 fL 04/19/2023 7:33 AM EDT [facility] [place] 57-10 Blood Venous blood specimen / Unknown Venipuncture / Unknown 04/19/2023 7:22 AM EDT 04/19/2023 7:22 AM EDT Chloé GREENE LAB BLOOD ORDER SHYANNE [facility] [place] [facility]10 [address] [place] [address] * (ABNORMAL) IRON SCREEN, INCLUDING TIBC (04/19/2023 7:22 AM EDT) Iron 356(H) 33 - 151 ug/dL 04/19/2023 12:31 PM EDT [facility] Iron Binding Capacity 405 250 - 425 ug/dL 04/19/2023 12:31 PM EDT [facility] Transferrin Saturation Percent 88(H) 15 - 55 % 04/19/2023 12:31 PM EDT [facility] Blood Venous blood specimen / Unknown Venipuncture / Unknown 04/19/2023 7:22 AM EDT 04/19/2023 7:22 AM EDT Chloé GREENE LAB BLOOD ORDER SHYANNE Performing Organization Address City/[facility]/ZIP Co de Phone Number LABORATORY [facility] [address] [place] [address] * (ABNORMAL) FERRITIN (04/19/2023 7:22 AM EDT) Ferritin 212(H) 13 - 150 ng/mL 04/19/2023 1:04 PM EDT [facility] Blood Venous blood specimen / Unknown Venipuncture / Unknown 04/19/2023 7:22 AM EDT 04/19/2023 7:22 AM EDT Chloé GREENE LAB BLOOD ORDER SHYANNE [facility] [address] [place] [address] documented in this encounter Visit Diagnoses Diagnosis Antepartum anemia complicating Anemia, antepartum documented in this encounter
--- OUTSIDE RECORDS SUMMARY | 2023-05-16 19:47 | External Medical Summary | Summary of Care ---
Author Name Unknown Organization [facility] Address [address] [place] [address] Phone [phone] Care Team Providers Care Canteen Attendant Name Role Phone Unavailable Primary Care Provider Unavailabl e Reason for Visit * Reason Comments Return Visit Encounter Details Date Type Department Care Team (Late st Contact Info) Description 04/19/2023 8:00 AM EDT Office Visit Gynecology/Obstetric s Emmett Hiness [address] [place] [address] Kiya Crocker CRNP [address] [facility] [place] [address] Supervision of other normal , antepartum*; Antepartum [...] money to get more. Never true 01/18/2023 [place] Depression Scale Answer Date Recorded [place] Depression Scale Total 0 03/28/2023 The thought [...] no LOF. Trace pedal edema. GBS today. Chief Librarian Work With Blind Documentation Provider requested bridal consultant. Name of bridal consultant: Dea * Dea Murray LPN - 04/19/2023 7:54 AM EDT 36w0d GBS today, pt denies any concerns. Desires cervical check today documented in this encounter Plan of Treatment Upcoming Encounters Date Type Department Care Team (Late st Contact Info) Description 04/26/2023 9:00 AM EDT Office Visit Gynecology/Obstetrics [facility] [address] [place] [address] Kiya Crocker CRNP [address] [place] [address] 04/29/2023 3:00 PM EDT Office Visit Hematology/Oncology [facility] [place] [address] [place] [address] Chloé Salgado CRNP [address] [place] [address] 05/03/2023 8:45 AM EST [facility] [address] [place] [address] Pk Reza MD [address] [place] [address] 05/10/2023 8:00 AM EST [facility] [address] [place] [address] Kiya Crocker CRNP [address] [place] [address] 05/17/2023 8:00 AM EST [facility] [address] [place] [address] Kiya Crocker CRNP [address] [place] [address] Pending Results Name Type Priority Associated Diagnoses [...]
--- OUTSIDE RECORDS SUMMARY | 2023-05-16 19:47 | External Medical Summary | Summary of Care ---
Author Name Unknown Organization [facility] Address [address] [place] [address] Phone [phone] Care Team Providers Care Dust Collector Treater Name Role Phone Unavailable Primary Care Provider Unavailabl e Reason for Visit * Reason Comments Return Visit Encounter Details Date Type Department Care Team Description 04/05/2023 Office Visit Gynecology/Obstetrics [facility] [address] [facility] [place] [address] Kiya Crocker CRNP [address] [place] [address] Supervision of other normal , antepartum*; Antepartum anemia complicating Allergies Active Allergy Reactions Severity Noted Date Comments Clonazepam Other (Please comment) 12/12/2014 Patient has syncopey from medication Morphine Other (Please comment) 12/12/2014 Patient state she Hallucinates when taking the medication Tramadol Other (Please comment) 12/12/2014 Migrans documented as of this encounter (statuses as of 04/05/2023) Medications Medication Sig Dispensed Refills Start Date [...] as of this encounter (statuses as of 04/05/2023) Active Problems Problem Noted Date Antepartum anemia [...] as of this encounter (statuses as of 04/05/2023) Immunizations Name Administration Dates Next Due HPV [...] Sign Reading Time Taken Comments Blood Pressure 100/60 04/05/2023 7:43 AM EDT Pulse - - Temperature - - Respiratory Rate - - Oxygen Saturation - - Inhaled Oxygen Concentration - - Weight 83 kg (183 lb) 04/05/2023 7:43 AM EDT Height 167.6 cm (5' 6") 04/05/2023 7:43 AM EDT Body Mass Index 29.54 04/05/2023 7:43 AM EDT documented in this encounter Progress Notes * RAMONA Brannon - 04/05/2023 8:10 AM EDT 34w No concerns. Following with hematology for anemia, had labs drawn in follow up this morning. Takingmeds as prescribed. Baby is moving well. Occasional contractions, nothing regular or timeable. No bleeding or LOF. Growth u/s ordered. RAMONA Brannon * Dea Murray LPN - 04/05/2023 7:49 AM EDT 34w0d Labor instructions given. Pt denies any concerns. documented in this encounter Miscellaneous Notes * Assessment & Plan Note - Martha Villegas RN - 04/05/2023 8:03 AM EDTAssociated Problem(s): Supervision of other normal , antepartum Problem Action Taken Date entered Entered by Date resolved Current needs or questions Has baby supplies. Getting room ready Patient denies having any current needs or questions 04/05/2023 Martha Villegas RN 04/05/2023 documented in this encounter Plan of Treatment Upcoming Encounters Date Type Specialty Care Team Description 04/12/2023 Imaging Radiology 04/19/2023 Office Visit Gynecology Obstetrics Kiya Crocker CRNP [address] [place] [address] 04/26/2023 Office Visit Gynecology Obstetrics Kiya Crocker CRNP [address] [place] [address] 04/29/2023 Office Visit Hematology Oncology Chloé Salgado CRNP [address] [place] [address] 05/03/2023 Office Visit Gynecology Obstetrics Pk Reza MD [address] [place] [address] 05/10/2023 Office Visit Gynecology Obstetrics Kiya Crocker CRNP [address] [place] [address] 05/17/2023 Office Visit Gynecology Obstetrics Kiya Crocker CRNP [address] [place] [address] Scheduled Orders Name Type Priority Associated Diagnoses Orde r Schedule US PREG FOLLOW-UP EACH FETUS Medical Imaging Routine Supervision of other normal , antepartum Antepartum anemia complicating Expected: 04/05/2023 (Approximate), Expires: 05/06/2024 Health Maintenance Due Date Last Done Comments [...]
--- OUTSIDE RECORDS SUMMARY | 2023-05-16 19:47 | External Medical Summary ---
Author Name Unknown Address Unknown Organization [id number]:[facility] [place] [facility] - [address] [place] [address] Laboratory Report Ordering Provider Test Date Status DOV GUERRERO 04/05/2023 07:08:20 Final Observation Date Value Abnormality Reference (Units ) Status SYNC LEUKOCYTES IN BLOOD BY AUTOMATED COUNT 04/05/2023 07:08:20 10.48 4.00-10.80 (K/uL) Final Segs 04/05/2023 07:08:20 76.2 Above high normal 40.0-75.0 (%) Final Lymphs % 04/05/2023 07:08:20 16.6 Below low normal 18.0-42.0 (%) Final Monos 04/05/2023 07:08:20 5.6 1.0-11.0 (%) Final Eosinophils 04/05/2023 07:08:20 1.4 0.0-6.0 (%) Final Basos 04/05/2023 07:08:20 0.2 0.0-2.0 (%) Final Absolute Segs 04/05/2023 07:08:20 7.98 Above high normal 1.80-7.70 (K/uL) Final Lymphs, absolute 04/05/2023 07:08:20 1.74 1.00-4.80 (K/ul) Final Monos, Abs 04/05/2023 07:08:20 0.59 0.00-1.10 (K/uL) Final Eos, Abs 04/05/2023 07:08:20 0.15 0.00-0.70 (K/uL) Final Basos, Abs 04/05/2023 07:08:20 0.02 0.00-0.20 (K/uL) Final Performing Location [facility]1 0 - [address] [place] [address]
--- OUTSIDE RECORDS SUMMARY | 2023-05-16 19:47 | External Medical Summary ---
Author Name Unknown Address Unknown Organization [id number]:[facility] [place] 56-02 - [address] [place] [address] Laboratory Report Ordering Provider Test Date Status DOV GUERRERO 03/25/2023 13:31:21 Final Observation Date Value Abnormality Reference (Units ) Status BUN 03/25/2023 13:31:21 9 6-20 (mg/dL) Final Creatinine 03/25/2023 13:31:21 0.8 0.5-1.0 (mg/dL) Final Glomerular filtration rate/1.73 sq M.predicted [Volume Rate/Area] in Serum, Plasma or Blood by Creatinine-based formula (CKD-EPI) 03/25/2023 13:31:21 >90 >=60 (mL/min) Final eGFR is calculated based on the CKD-EPI 2020 equation SODIUM 03/25/2023 13:31:21 138 135-146 (m mol/L) Final Potassium 03/25/2023 13:31:21 4.3 3.5-5.1 (m mol/L) Final Cl 03/25/2023 13:31:21 103 98-107 (mm ol/L) Final CO2 03/25/2023 13:31:21 25 22-32 (mmo l/L) Final Anion gap 03/25/2023 13:31:21 10 7-15 (mmol /L) Final Glucose 03/25/2023 13:31:21 76 70-120 (mg /dL) Final Albumin 03/25/2023 13:31:21 3.8 3.8-5.0 (g /dL) Final AST (Aspartate aminotransferase) 03/25/2023 13:31:21 21 10-35 (U/L) Final Alk Phos 03/25/2023 13:31:21 76 35-130 (U/ L) Final Bilirubin, Total 03/25/2023 13:31:21 0.7 <=1 .2 (mg/dL) Final Calcium 03/25/2023 13:31:21 9.1 8.4-10.2 ( mg/dL) Final Protein 03/25/2023 13:31:21 6.0 6.0-8.3 (g /dL) Final ALT (Alanine aminotransferase) 03/25/2023 13:31:21 23 10-35 (U/L) Final Performing Location [facility] [place] [facility] [place] [address]
--- OUTSIDE RECORDS SUMMARY | 2023-05-16 19:47 | External Medical Summary ---
Author Name Unknown Address Unknown Organization [id number]:[facility] [place] 57-10 - [address] [place] [address] Laboratory Report Ordering Provider Test Date Status DOV GUERRERO 04/19/2023 07:23:00 Correction Please assess for any RBC ab normalities of hemolysis. Observation Date Value Abnormality Reference (Units ) Status WBC, Total 04/19/2023 07:23:00 9.99 4.00-10.8 0 (K/uL) Final RBC 04/19/2023 07:23:00 2.70 3.85-5.15 (M/uL) Final Hemoglobin 04/19/2023 07:23:00 9.5 Below low normal 12 .0-15.3 (g/dL) Final HCT 04/19/2023 07:23:00 29.7 Below low normal 36. 0-45.2 (%) Final MCV 04/19/2023 07:23:00 110.0 81.5-97.5 (fL) Final MCH 04/19/2023 07:23:00 35.2 27.0-34.0 (pg) Final MCHC 04/19/2023 07:23:00 32.0 32.0-36.0 (g/dL) Final RDW 04/19/2023 07:23:00 15.1 11.5-15.5 (%) Final Platelets 04/19/2023 07:23:00 285 140-400 (K /uL) Final MPV 04/19/2023 07:23:00 10.8 6.6-11.1 ( fL) Final Performing Location [facility] 0 - [address] [place] [address]
--- OUTSIDE RECORDS SUMMARY | 2023-05-16 19:47 | External Medical Summary ---
Author Name Unknown Address Unknown Organization [id number]:[facility]ATORY [facility] [place] - [address] [place] [address] Laboratory Report Ordering Provider Test Date Status DOV GUERRERO 04/05/2023 07:08:20 Final Observation Date Value Abnormality Reference (Units ) Status Iron 04/05/2023 07:08:20 208 Above high normal 33-151 (ug/dL) Final Iron-binding capacity 04/05/2023 07:08:20 431 Above high normal 250-425 (ug/dL) Final Transferrin Sat % 04/05/2023 07:08:20 48 15-55 (%) Final Performing Location [facility]ORY [facility] [place] - [address] [place] [address]
--- OUTSIDE RECORDS SUMMARY | 2023-05-16 19:47 | External Medical Summary ---
Author Name Unknown Address Unknown Organization [id number]:[facility]ATORY [facility] [place] - [address] [place] [id number] Laboratory Report Ordering Provider Test Date Status CARLOS DIALLO 03/28/2023 12:41:33 Final Observation Date Value Abnormality Reference (Units) Status Bacteria identified in Specimen by Culture 03/28/2023 12:41:33 No significant growth Final Test: Culture, Urine, Quanti tative
Specimen Source: Urine, Clean Catch
Specimen Type: Urine
Specimen Date: 03/28/2023 12:41 PM
Result Date: 03/29/2023 12:37 PM
Result Status: Final result
Resulting Lab: [facility]
[address]
[place] [address]

CULTURE

No significant growth

null Performing Location [facility]ATORY [facility] [place] - [address] [facility] [address]
--- OUTSIDE RECORDS SUMMARY | 2023-05-16 19:47 | External Medical Summary ---
Author Name Unknown Address Unknown Organization [id number]:LABORATORY [facility] [place] - [address] [facility] [address] Laboratory Report Ordering Provider Test Date Status LEENA KUMAR 04/19/2023 08:13:09 Final Observation Date Value Abnormality Reference (Units ) Status Streptococcus agalactiae DNA [Presence] in Specimen by DAYO with probe detection 04/19/2023 08:13:09 Negative Negative Final No Group B Streptococcus det ected by culture-enhanced PCR (amplified probe).
The collection of vaginal/rectal swab specimen combinations (FDA approved specimen type) is optimal for the detection of Group B Streptococcus. Single source collection (vaginal only or rectal only) or alternate specimen sources may lead to false negative results. Performing Location LABORATORY [facility] - [address] [place] [address]
--- OUTSIDE RECORDS SUMMARY | 2023-05-16 19:47 | External Medical Summary ---
Author Name Unknown Address Unknown Organization K01:[facility] - [address] [place] [address] Laboratory Report Ordering Provider Test Date Status YOLANDA,DOV 04/19/2023 07:22:28 Final Observation Date Value Abnormality Reference (Units ) Status Ferritin 04/19/2023 07:22:28 212 Above high normal 13 -150 (ng/mL) Final Performing Location [facility] - [address] [place] [address]
--- OUTSIDE RECORDS SUMMARY | 2023-05-16 19:47 | External Medical Summary | Summary of Care ---
Author Name Unknown Organization [facility] Address [address] [place] [address] Phone [phone] Care Team Providers Care Cable Testers Helper Name Role Phone Unavailable Primary Care Provider Unavailabl e Reason for Visit * Reason Comments Outpatient Testing Encounter Details Date Type Department Care Team (Late st Contact Info) Description 04/19/2023 7:20 AM EDT Laboratory Laboratory, [facility] [address] [place] [phone] [facility] [address] [place] [address] Antepartum anemia complicating Allergies Active Allergy Reactions [...] money to get more. Never true 01/18/2023 [place] Depression Scale Answer Date Recorded [place] Depression Scale Total 0 03/28/2023 The [...] Description 04/19/2023 8:00 AM EDT Office Visit Gynecology/Obstetrics [facility] [address] [place] [address] Kiya Crocker CRNP [address] [place] [address] Arrived 04/26/2023 9:00 AM EDT Office Visit Gynecology/Obstetrics [facility] [address] [place] [address] Kiya Crocker CRNP [address] [place] [address] 04/29/2023 3:00 PM EDT Office Visit Hematology/Oncology Tory Villegas [place] [address] [facility] [address] Chloé Salgado CRNP [address] [place] [address] 05/03/2023 8:45 AM EST Office Visit Gynecology/Obstetrics [facility] [address] [place] [address] Pk Reza MD [address] [place] [address] 05/10/2023 8:00 AM EST Office Visit Gynecology/Obstetrics [facility] [address] [place] [address] Kiya Crocker CRNP [address] [place] [address] 05/17/2023 8:00 AM EST Office Visit Gynecology/Obstetrics [facility] [address] [place] [address] Kiya Crocker CRNP [address] [place] [address] Pending Results Name Type Priority Associated Diagnoses Date /Time FERRITIN Lab STAT Antepartum anemia complicating 04/19/2023 7:22 AM EDT IRON SCREEN, INCLUDING TIBC Lab STAT Antepartum anemia complicating 04/19/2023 7:22 AM EDT RETICULOCYTE PANEL Lab STAT Antepartum anemia complicating 04/19/2023 7:22 AM EDT SCHISTOCYTES, TECHNOLOGIST REVIEW Lab Routine Antepartum anemia complicating 04/19/2023 7:23 AM EDT SCHISTOCYTES, TECHNOLOGIST REVIEW Lab Routine Antepartum anemia complicating 04/19/2023 7:23 AM EDT CBC Lab Routine Antepartum anemia complicating 04/19/2023 7:23 [...] Date/Time Associated Diagnosis Comments DIFFERENTIAL, AUTOMATED STAT 04/19/2023 7:22 AM EDT Antepartum anemia complicating CBC STAT 04/19/2023 7:22 AM EDT Antepartum anemia complicating CBC STAT 04/19/2023 7:22 AM EDT Antepartum anemia complicating documented in this encounter Results * DIFFERENTIAL, AUTOMATED (04/19/2023 7:22 AM EDT) [...] 7.70 K/uL 04/19/2023 7:33 AM EDT [facility] Absolute Lymphocytes 1.84 1.00 - 4.80 K/ul 04/19/2023 7:33 AM EDT LAB[facility]ATORY [facility] 57-10 Absolute Monocytes 0.62 0.00 - 1.10 K/uL 04/19/2023 7:33 AM EDT LAB[facility]ATORY [facility] 57-10 Absolute Eosinophils 0.15 0.00 - 0.70 K/uL 04/19/2023 7:33 AM EDT LABORATORY [facility] 57-10 Absolute Basophils 0.02 0.00 - 0.20 K/uL 04/19/2023 7:33 AM EDT LABORATORY [facility] 57-10 Blood Venous blood specimen / Unknown Venipuncture / Unknown 04/19/2023 7:22 AM EDT 04/19/2023 7:22 AM EDT Chloé GREENE LAB BLOOD ORDER SHYANNE LABORATORY [facility] 57-10 [address] [place] [address] * (ABNORMAL) CBC (04/19/2023 7:22 AM EDT) WBC 9.99 4.00 - 10.80 K/uL 04/19/2023 7:33 AM EDT LABORATORY [facility] 57-10 RBC 2.70 3.85 - 5.15 M/uL 04/19/2023 7:33 AM EDT LABORATORY [facility] 57-10 HGB 9.5(L) 12.0 - 15.3 g/dL 04/19/2023 7:33 AM EDT LABORATORY [facility] 57-10 HCT 29.7(L) 36.0 - 45.2 % 04/19/2023 7:33 AM EDT LABORATORY [facility] 57-10 MCV 110.0 81.5 - 97.5 fL 04/19/2023 7:33 AM EDT LABORATORY [facility] 57-10 MCH 35.2 27.0 - 34.0 pg 04/19/2023 7:33 AM EDT LABORATORY [facility] 57-10 MCHC 32.0 32.0 - 36.0 g/dL 04/19/2023 7:33 AM EDT [facility]10 RDW 15.1 11.5 - 15.5 % 04/19/2023 7:33 AM EDT [facility]10 PLT 285 140 - 400 K/uL 04/19/2023 7:33 AM EDT [facility]10 MPV 10.8 6.6 - 11.1 fL 04/19/2023 7:33 AM EDT [facility]10 Blood Venous blood specimen / Unknown Venipuncture / Unknown 04/19/2023 7:22 AM EDT 04/19/2023 7:22 AM EDT Chloé GREENE LAB BLOOD ORDER SHYANNE LABORATORY [facility] 57-10 132 [facility] [place] [address] documented in this encounter Visit Diagnoses Diagnosis Antepartum anemia complicating Anemia, antepartum documented in this encounter
--- OUTSIDE RECORDS SUMMARY | 2023-05-16 19:47 | External Medical Summary ---
Author Name Unknown Address Unknown Organization [id number]:LABORATORY [facility] 57-10 - [address] [place] [address] Laboratory Report Ordering Provider Test Date Status DOV GUERRERO 04/19/2023 07:22:28 Final Observation Date Value Abnormality Reference (Units ) Status WBC, Total 04/19/2023 07:22:28 9.99 4.00-10.8 0 (K/uL) Final RBC 04/19/2023 07:22:28 2.70 3.85-5.15 (M/uL) Final Hemoglobin 04/19/2023 07:22:28 9.5 Below low normal 12 .0-15.3 (g/dL) Final HCT 04/19/2023 07:22:28 29.7 Below low normal 36. 0-45.2 (%) Final MCV 04/19/2023 07:22:28 110.0 81.5-97.5 (fL) Final MCH 04/19/2023 07:22:28 35.2 27.0-34.0 (pg) Final MCHC 04/19/2023 07:22:28 32.0 32.0-36.0 (g/dL) Final RDW 04/19/2023 07:22:28 15.1 11.5-15.5 (%) Final Platelets 04/19/2023 07:22:28 285 140-400 (K /uL) Final MPV 04/19/2023 07:22:28 10.8 6.6-11.1 ( fL) Final Performing Location LABORATORY [facility] 57-1 0 - [address] [place] [address]
--- OUTSIDE RECORDS SUMMARY | 2023-05-16 19:47 | External Medical Summary | Summary of Care ---
Author Name Unknown Organization [facility] Address [address] [place] [address] Phone [phone] Care Team Providers Care Technician Test Systems Name Role Phone Unavailable Primary Care Provider Unavailabl e Reason for Visit * Reason Comments Outpatient Testing Encounter Details Date Type Department Care Team (Late st Contact Info) Description 04/19/2023 7:20 AM EDT Laboratory Laboratory, [facility] [address] [place] [phone] [facility] [address] [place] [address] Antepartum anemia complicating Allergies Active Allergy Reactions [...] money to get more. Never true 01/18/2023 [place] Depression Scale Answer Date Recorded [place] Depression Scale Total 0 03/28/2023 The thought [...] Gynecology/Obstetrics Vinnykeith Adams [address] [place] [address] Kiya Crocker CRNP 132 [facility] [place] [address] 04/29/2023 3:00 PM EDT Office Visit Hematology/Oncology Tory Villegas [place] 200 [facility] [address] Chloé Salgado CRNP [address] [place] [address] 05/03/2023 8:45 AM EST [facility] [address] [facility] [place] [address] Pk Reza MD [address] [place] [address] 05/10/2023 8:00 AM EST Office Visit Gynecology/Obstetrics [facility] [address] [place] [address] Kiya Crocker CRNP [address] [place] [address] 05/17/2023 8:00 AM EST Office Visit Gynecology/Obstetrics [facility] [address] [place] [address] Kiya Crocker CRNP [address] [place] [address] Pending Results Name Type Priority Associated Diagnoses [...] documented in this encounter Results * (ABNORMAL) RETICULOCYTE PANEL (04/19/2023 7:22 AM EDT) Reticulocyte Percent 10.70(H) 0.80 - 1.90 % [...] AM EDT 04/19/2023 7:22 AM EDT Chloé Greenmaria alejandra GREENE LAB BLOOD ORDER SHYANNE LABORATORY [facility] [address] [place] [address] * DIFFERENTIAL, AUTOMATED (04/19/2023 7:22 AM EDT) [facility] WBC 9.99 4.00 - 10.80 K/uL 04/19/2023 [...] LAB BLOOD ORDER SHYANNE Performing Organization Address City/State/[facility] Co de Phone Number LABORATORY [facility] 57-10 [address] [place] [address] * (ABNORMAL) CBC (04/19/2023 7:22 AM EDT) [...] Chloé GREENE LAB BLOOD ORDER SHYANNE [facility]10 [address] [place] [address] * (ABNORMAL) IRON SCREEN, INCLUDING TIBC (04/19/2023 [...] LAB BLOOD ORDER SHYANNE Performing Organization Address City/[facility]/ZIP Co de Phone Number [facility]ORY [facility] [address] [place] [address] * (ABNORMAL) FERRITIN (04/19/2023 7:22 AM EDT) Ferritin 212(H) 13 - 150 ng/mL 04/19/2023 1:04 PM EDT [facility]ORY [facility] Blood Venous blood specimen / Unknown Venipuncture / Unknown 04/19/2023 7:22 AM EDT 04/19/2023 7:22 AM EDT Chloé GREENE LAB BLOOD ORDER SHYANNE LAB[facility] [address] [place] [address] documented in this encounter Visit Diagnoses Diagnosis Antepartum anemia complicating Anemia, antepartum documented in this encounter
--- OUTSIDE RECORDS SUMMARY | 2023-05-16 19:47 | External Medical Summary ---
Author Name Unknown Address Unknown Organization [id number]:LABORATORY [place] 57-10 - [address] [facility] [address] Laboratory Report Ordering Provider Test Date Status DOV GUERRERO 04/19/2023 07:23:00 Correction Please assess for any RBC ab normalities of hemolysis.

This is a modified report. Previous result was Auto diff on 04/19/2023 at 0747 EDT Observation Date Value Abnormality Reference (Units ) Status SYNC LEUKOCYTES IN BLOOD BY AUTOMATED COUNT 04/19/2023 07:23:00 9.99 4.00-10.80 (K/uL) Final Segs 04/19/2023 07:23:00 73.7 40.0-75.0 (%) Final Lymphs % 04/19/2023 07:23:00 18.4 18.0-42.0 (%) Final Monos 04/19/2023 07:23:00 6.2 1.0-11.0 (%) Final Eosinophils 04/19/2023 07:23:00 1.5 0.0-6.0 (%) Final Basos 04/19/2023 07:23:00 0.2 0.0-2.0 (%) Final Absolute Segs 04/19/2023 07:23:00 7.36 1.80-7.70 (K/uL) Final Lymphs, absolute 04/19/2023 07:23:00 1.84 1.00-4.80 (K/ul) Final Monos, Abs 04/19/2023 07:23:00 0.62 0.00-1.10 (K/uL) Final Eos, Abs 04/19/2023 07:23:00 0.15 0.00-0.70 (K/uL) Final Basos, Abs 04/19/2023 07:23:00 0.02 0.00-0.20 (K/uL) Final Performing Location LABORATORY [place] 57-1 0 - [address] [facility] [address]
--- OUTSIDE RECORDS SUMMARY | 2023-05-16 19:47 | External Medical Summary ---
Author Name Unknown Address Unknown Organization [id number]:LABORATORY [facility] - [address] [place] [facility] [place] [address] Laboratory Report Ordering Provider Test Date Status DOV GUERRERO 03/25/2023 13:31:21 Final Observation Date Value Abnormality Reference (Units ) Status SYNC LEUKOCYTES IN BLOOD BY AUTOMATED COUNT 03/25/2023 13:31:21 12.00 Above high normal 4.00-10.80 (K/uL) Final Segs 03/25/2023 13:31:21 76.3 Above high normal 40.0-75.0 (%) Final Lymphs % 03/25/2023 13:31:21 13.7 Below low normal 18.0-42.0 (%) Final Monos 03/25/2023 13:31:21 7.8 1.0-11.0 (%) Final Eosinophils 03/25/2023 13:31:21 1.0 0.0-6.0 (%) Final Basos 03/25/2023 13:31:21 0.3 0.0-2.0 (%) Final Immature Granulocyte, Percent 03/25/2023 13:31:21 0.9 0.0-2.0 (%) Final Absolute Segs 03/25/2023 13:31:21 9.17 Above high normal 1.80-7.70 (K/uL) Final Lymphs, absolute 03/25/2023 13:31:21 1.64 1.00-4.80 (K/ul) Final Monos, Abs 03/25/2023 13:31:21 0.93 0.00-1.10 (K/uL) Final Eos, Abs 03/25/2023 13:31:21 0.12 0.00-0.70 (K/uL) Final Basos, Abs 03/25/2023 13:31:21 0.03 0.00-0.20 (K/uL) Final Immature Granulocytes, Number 03/25/2023 13:31:21 0.11 0.00-0.20 (K/uL) Final Performing Location LABORATORY [facility] - [facility] [place] [address]
--- OUTSIDE RECORDS SUMMARY | 2023-05-16 19:47 | External Medical Summary | Summary of Care ---
Author Name Unknown Organization [facility] Address [address] [place] [address] Phone [phone] Care Team Providers Care Email Marketer Name Role Phone Unavailable Primary Care Provider Unavailabl e Reason for Visit * Reason Comments Outpatient Testing Encounter Details Date Type Department Care Team Description 04/05/2023 Laboratory Laboratory, [facility] 132 [place] [phone] [facility] 132 [place] [address] Antepartum anemia complicating Allergies Active Allergy Reactions [...] Crocker CRNP [address] [place] [address] Arrived 04/19/2023 Office Visit Gynecology Obstetrics Kiya Crocker CRNP [address] [place] [address] 04/26/2023 Office Visit Gynecology Obstetrics Kiya Crocker CRNP [address] [place] [address] 04/29/2023 Office Visit Hematology Oncology Chloé Salgado CRNP [address] [place] [address] 05/03/2023 Office Visit Gynecology Obstetrics Pk Reza MD [address] [place] [address] 05/10/2023 Office Visit Gynecology Obstetrics Kiya Crocker CRNP [address] [place] [address] 05/17/2023 Office Visit Gynecology Obstetrics Kiya Crocker CRNP [address] [place] [address] Pending Results Name Type Priority Associated Diagnoses Date /Time FERRITIN Lab STAT Antepartum anemia complicating 04/05/2023 7:08 AM EDT IRON SCREEN, INCLUDING TIBC Lab STAT Antepartum anemia complicating 04/05/2023 7:08 AM EDT Health Maintenance Due Date Last [...] Date/Time Associated Diagnosis Comments DIFFERENTIAL, AUTOMATED STAT 04/05/2023 7:08 AM EDT Antepartum anemia complicating CBC STAT 04/05/2023 7:08 AM EDT Antepartum anemia complicating CBC STAT 04/05/2023 7:08 AM EDT Antepartum anemia complicating documented in this encounter Results * (ABNORMAL) DIFFERENTIAL, AUTOMATED (04/05/2023 7:08 AM EDT) WBC 10.48 4.00 - 10.80 K/uL 04/05/2023 7:22 AM EDT LABORATORY [facility] 57-10 Neutrophils % 76.2(H) 40.0 - 75.0 % 04/05/2023 7:22 AM EDT LAB[facility]ATORY [place] [facility] 57-10 Lymphocytes % 16.6(L) 18.0 - 42.0 % 04/05/2023 7:22 AM EDT LAB[facility]ORY [facility] 57-10 Monocytes % 5.6 1.0 - 11.0 % 04/05/2023 7:22 AM EDT LAB[facility]ORY [facility] 57-10 Eosinophils % 1.4 0.0 - 6.0 % 04/05/2023 7:22 AM EDT LAB[facility]ORY [facility] 57-10 Basophils % 0.2 0.0 - 2.0 % 04/05/2023 7:22 AM EDT LAB[facility]ORY [facility] 57-10 Absolute Neutrophils 7.98(H) 1.80 - 7.70 K/uL 04/05/2023 7:22 AM EDT LAB[facility]ORY [facility] 57-10 Absolute Lymphocytes 1.74 1.00 - 4.80 K/ul 04/05/2023 7:22 AM EDT LAB[facility]ORY [facility] 57-10 Absolute Monocytes 0.59 0.00 - 1.10 K/uL 04/05/2023 7:22 AM EDT LAB[facility]ORY [facility] 57-10 Absolute Eosinophils 0.15 0.00 - 0.70 K/uL 04/05/2023 7:22 AM EDT LAB[facility]ORY [facility] 57-10 Absolute Basophils 0.02 0.00 - 0.20 K/uL 04/05/2023 7:22 AM EDT LAB[facility]ORY [facility] 57-10 Blood Venous blood specimen / Unknown Venipuncture / Unknown 04/05/2023 7:08 AM EDT 04/05/2023 7:08 AM EDT Chloé GREENE LAB BLOOD ORDER SHAYNNE LABORATORY [facility] 57-[address] [place] [address] * (ABNORMAL) CBC (04/05/2023 7:08 AM EDT) [facility] Signature WBC 10.48 4.00 - 10.80 K/uL 04/05/2023 7:22 AM EDT LABORATORY [facility] 57-10 RBC 2.72 3.85 - 5.15 M/uL 04/05/2023 7:22 AM EDT LAB[facility]ORY [facility] 57-10 HGB 9.4(L) 12.0 - 15.3 g/dL 04/05/2023 7:22 AM EDT LABORATORY [facility] 57-10 HCT 28.8(L) 36.0 - 45.2 % 04/05/2023 7:22 AM EDT [facility]10 MCV 105.9 81.5 - 97.5 fL 04/05/2023 7:22 AM EDT LABORATORY [facility] 57-10 MCH 34.6 27.0 - 34.0 pg 04/05/2023 7:22 AM EDT [facility] MCHC 32.6 32.0 - 36.0 g/dL 04/05/2023 7:22 AM EDT [facility]ORY [facility] 57[facility]10 RDW 15.0 11.5 - 15.5 % 04/05/2023 7:22 AM EDT [facility] 57[facility]10 PLT 268 140 - 400 K/uL 04/05/2023 7:22 AM EDT LABORATORY [facility] 57-10 MPV 10.2 6.6 - 11.1 fL 04/05/2023 7:22 AM EDT [facility]10 Blood Venous blood specimen / Unknown Venipuncture / Unknown 04/05/2023 7:08 AM EDT 04/05/2023 7:08 AM EDT Chloé GREENE LAB BLOOD ORDER SHYANNE LAB[facility]ORY [facility]-[address] [place] [address] [place] [address] documented in this encounter Visit Diagnoses Diagnosis Antepartum anemia complicating Anemia, antepartum documented in this encounter
--- OUTSIDE RECORDS SUMMARY | 2023-05-16 19:47 | External Medical Summary ---
Author Name Unknown Address Unknown Organization [id number]:LABORATORY [facility] - [address] [facility] [address] Laboratory Report Ordering Provider Test Date Status DOV GUERRERO 04/19/2023 07:23:00 Final Please assess for any RBC ab normalities of hemolysis. Observation Date Value Abnormality Reference (Units) Status Pathologist review of results 04/19/2023 07:23:00 Blood smear: Final Pathologist review of results 04/19/2023 07:23:00 - Macrocytic anemia with moderate polychromasia. Final Pathologist review of results 04/19/2023 07:23:00 Final Pathologist review of results 04/19/2023 07:23:00 COMMENT: Macrocytic anemia can be due to certain drugs, nutritional deficiencies (e.g. vitamin B12, folate, copper), alcohol use, toxic exposures, liver disease, hypothyroidism and bone marrow disorders among other causes. However, the reticulocyte production index is consistent with a hyperproliferative anemia, which may suggest peripheral consumption with appropriate marrow response. Clinical correlation required. Final Pathologist review of results 04/19/2023 07:23:00 Final Pathologist review of results 04/19/2023 07:23:00 RBC MORPHOLOGY: decreased in number; macrocytic including moderate polychromasia; no significant anisopoikilocytosis. No schistocytosis. Final Pathologist review of results 04/19/2023 07:23:00 WBC MORPHOLOGY: normal total white blood cell count; normal white blood cell morphology. Final Pathologist review of results 04/19/2023 07:23:00 PLT MORPHOLOGY: adequate in number; occasional large platelets. Final Performing Location [facility]ATORY [facility] - [address] [facility] [address]
--- OUTSIDE RECORDS SUMMARY | 2023-05-16 19:47 | External Medical Summary | Summary of Care ---
Author Name Unknown Organization [facility] Address [address] [place] [address] Phone [phone] Care Team Providers Care Associate Professor Of Musicology Name Role Phone Unavailable Primary Care Provider Unavailabl e Reason for Visit * Reason Comments Outpatient Testing Encounter Details Date Type Department Care Team (Late st Contact Info) Description 04/19/2023 7:20 AM EDT Laboratory Laboratory, [facility] [address] [place] [address] [facility] [address] [place] [address] Antepartum anemia complicating Allergies Active Allergy Reactions [...] money to get more. Never true 01/18/2023 [place] Depression Scale Answer Date Recorded [place] Depression Scale Total 0 03/28/2023 The thought [...] Gynecology/Obstetrics Vinnykeith Adams [address] [place] [address] Kiya Crocker CRNP 132 [facility] [place] [address] 04/29/2023 3:00 PM EDT Office Visit Hematology/Oncology Tory Villegas [place] [facility] [address] Chloé Salgado CRNP [address] [place] [address] 05/03/2023 8:45 AM EST [facility] 132 [facility] [place] [address] Pk Reza MD [address] [place] [address] 05/10/2023 8:00 AM EST Office Visit Gynecology/Obstetrics [facility] [address] [place] [address] Kiya Crocker CRNP [address] [place] [address] 05/17/2023 8:00 AM EST Office Visit Gynecology/Obstetrics [facility] [address] [place] [address] Kiya Crocker CRNP [address] [place] [address] Pending Results Name Type Priority Associated Diagnoses [...] alejandra GREENE LAB BLOOD ORDER SHYANNE LABORATORY [facility] 100 [place] [address] * DIFFERENTIAL, AUTOMATED (04/19/2023 7:22 AM EDT) [facility] WBC 9.99 4.00 - 10.80 K/uL [...] LAB BLOOD ORDER SHYANNE Performing Organization Address City/State/[facility] Co de Phone Number LABORATORY [place] 57-10 [address] [place] [address] * (ABNORMAL) CBC (04/19/2023 7:22 AM EDT) [...] Chloé GREENE LAB BLOOD ORDER SHYANNE [facility]10 [address] [place] [address] * (ABNORMAL) IRON SCREEN, INCLUDING TIBC (04/19/2023 [...] LAB BLOOD ORDER SHYANNE Performing Organization Address City/[facility]/ZIP Co de Phone Number LAB[facility]ATORY [facility] [address] [place] [address] * (ABNORMAL) FERRITIN (04/19/2023 7:22 AM EDT) Ferritin 212(H) 13 - 150 ng/mL 04/19/2023 1:04 PM EDT LAB[facility]ORY [facility] Blood Venous blood specimen / Unknown Venipuncture / Unknown 04/19/2023 7:22 AM EDT 04/19/2023 7:22 AM EDT Chloé GREENE LAB BLOOD ORDER SHYANNE LABORATORY [facility] [address] [place] [address] documented in this encounter Visit Diagnoses Diagnosis Antepartum anemia complicating Anemia, antepartum documented in this encounter
--- OUTSIDE RECORDS SUMMARY | 2023-05-16 19:47 | External Medical Summary ---
Author Name Unknown Address Unknown Organization [id number]:LABORATORY [facility] - [address] [place] [address] Laboratory Report Ordering Provider Test Date Status DOV GUERRERO 04/12/2023 10:22:45 Final Observation Date Value Abnormality Reference (Units ) Status Iron 04/12/2023 10:22:45 279 Above high normal 33-151 (ug/dL) Final Iron-binding capacity 04/12/2023 10:22:45 419 250-425 (ug/dL) Final Transferrin Sat % 04/12/2023 10:22:45 67 Above high normal 15-55 (%) Final Performing Location LABORATORY C - [address] [place] [address]
--- OUTSIDE RECORDS SUMMARY | 2023-05-16 19:47 | External Medical Summary | Summary of Care ---
Author Name Unknown Organization [facility] Address [address] [place] [address] Phone [phone] Care Team Providers Care Traffic Supervisor Name Role Phone Unavailable Primary Care Provider Unavailabl e Reason for Visit * Reason Comments Return Visit Encounter Details Date Type Department Care Team Description 03/28/2023 Office Visit Gynecology/Obstetrics [facility] [address] [place] [address] Vanessa Barbosa, [facility] [address] [place] [address] Supervision of other normal , antepartum*; Antepartum anemia complicating Allergies Active Allergy Reactions Severity Noted Date Comments Clonazepam Other (Please comment) 12/12/2014 Patient has syncopey from medication Morphine Other (Please comment) 12/12/2014 Patient state she Hallucinates when taking the medication Tramadol Other (Please comment) 12/12/2014 Migrans documented as of this encounter (statuses as of 03/28/2023) Medications Medication Sig Dispensed Refills Start Date [...] as of this encounter (statuses as of 03/28/2023) Active Problems Problem Noted Date Antepartum anemia [...] as of this encounter (statuses as of 03/28/2023) Immunizations Name Administration Dates Next Due HPV [...] Sign Reading Time Taken Comments Blood Pressure 100/62 03/28/2023 11:39 AM EDT Pulse - - Temperature - - Respiratory Rate - - Oxygen Saturation - - Inhaled Oxygen Concentration - - Weight 83 kg (183 lb) 03/28/2023 11:39 AM EDT Height - - Body Mass Index 29.54 03/25/2023 12:53 PM EDT documented in this encounter Progress Notes * Brianna Gonzalez RN - 03/28/2023 12:23 PM EDT Patient here to enroll in the [employer] program. Forms completed and intake assessment form completed. have you cut down with your smokingyes have you quit yes have you seen a bar manager no have you seen a dialysis social worker no are you receiving counseling no have you received dental care during your no are you enrolled in WIC yes do you receive food stamps or lipscomb assistance yes Brianna Gonzalez RN * Vanessa Barbosa CNM - 03/28/2023 11:54 AM EDT Candelaria Fall is a 32 year old female here for an acute OB appointment at 32w6d Her Estimated Date of Delivery: 05/17/23 REVIEW OF SYSTEMS: She affirms movement. Denies fevers, chills, vaginal bleeding, LOF, contractions, N/V, headaches, vision changes, and RUQpain. She had one episode of severe back and abdominal pain on Tuesday03/27/23 at 9:00am lasting about 1 minute. Pain resolved after hydrating and laying on her left side. She was seen at [facility] and states they noted uterine irritability. States she was discharged after 45 minutes and states she did not see a provider. Records unavailable. She has had no more contractions or abdominal pain since then. Feels slight low back pain at this time but not as strong as yesterday. Lives [place] [address] from [facility]. She has a headache this morning and took tylenol before her appointment. Drinks 6-7 water bottles daily. 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 Patient denies marijuana use at this time. PHYSICAL EXAM: Filed Vitals: 03/28/23 1139 BP: 100/62 Weight: 83 kg (183 lb) +FHT 140-150bpm Fundal height: 32cm No CVA tenderness noted. ASSESSMENT/PLAN: (O99.019) Antepartum anemia complicating Plan: -Managed by hematology -Patient to begin vitamin B12 per hematology and follow up with filer and sander regarding whether she should continue iron supplementation (Z34.80) Supervision of other normal , antepartum (primary encounter diagnosis) Plan: CULTURE, URINE, QUANTITATIVE - urine culture collected to rule out UTI - encouraged hydration - patient to notify provider if ongoing contractions, back pain, or headaches - labor precautions and kick counts reviewed - RTO in 1 week as scheduled Vanessa Barbosa CNM documented in this encounter Nursing Notes * Becky Maldonado LPN - 03/28/2023 11:34 AM EDT Pt is currently 32w6d with an Estimated Date of Delivery: 05/17/23 - Saw hematology due to anemia not being iron deficient. Questions if she should cont iron, has not heard from hematology yet. Pt on L&D over the weekend due to pain and ? Contractions. Told she had uterine irritability and should follow up with us in the office this week. Pain is in the back, feels contraction like and is coming and going since the end of last week. Occurs 5 or so times a day. Does a lot walking for work. documented in this encounter Plan of Treatment Upcoming Encounters Date Type Specialty Care Team Description 04/05/2023 Office Visit Gynecology Obstetrics Kiya Crocker CRNP [address] [place], [place] [address] 04/19/2023 Office Visit Gynecology Obstetrics Kiya Crocker CRNP [address] [place], [place] [address] 04/26/2023 Office Visit Gynecology Obstetrics Kiya Crocker CRNP [address] [place] [address] 04/29/2023 Office Visit Hematology Oncology Chloé Salgado CRNP [address] [place] [address] [place] [address] 05/03/2023 Office Visit Gynecology Obstetrics Pk Reza MD [address] [place], [place] [address] 05/10/2023 Office Visit Gynecology Obstetrics Kiya Crocker CRNP [address] [place], [place] [address] 05/17/2023 Office Visit Gynecology Obstetrics Kiya Crocker CRNP [address] [place], [place] [address] Pending Results Name Type Priority Associated Diagnoses Date /Time CULTURE, URINE, QUANTITATIVE Lab Routine Supervision of other normal , antepartum 03/28/2023 12:41 PM EDT Health Maintenance Due Date Last [...]
--- OUTSIDE RECORDS SUMMARY | 2023-05-16 19:47 | External Medical Summary ---
Author Name Unknown Address Unknown Organization [id number][place] [place] [address] [facility] [address] Laboratory Report Ordering Provider Test Date Status DOV GUERRERO 04/12/2023 10:22:45 Final Observation Date Value Abnormality Reference (Units ) Status Retic, % (auto) 04/12/2023 10:22:45 10.75 Above high normal 0.80-1.90 (%) Final Reticulocytes, Absolute 04/12/2023 10:22:45 298.9 Above high normal 31.3-100.1 (K/uL) Final Reticulocyte fraction, immature 04/12/2023 10:22:45 35.7 Above high normal 2.5-20.6 (%) Final Reticulocyte HGB 04/12/2023 10:22:45 36.7 29.7-37.4 (pg) Final Performing Location [facility] [place] [address] [facility] [address]
--- OUTSIDE RECORDS SUMMARY | 2023-05-16 19:47 | External Medical Summary ---
Author Name Unknown Address Unknown Organization [id number]:[facility] [place] [address] [place] [address] Laboratory Report Ordering Provider Test Date Status DOV GUERRERO 04/19/2023 07:22:28 Final Observation Date Value Abnormality Reference (Units ) Status Iron 04/19/2023 07:22:28 356 Above high normal 33-151 (ug/dL) Final Iron-binding capacity 04/19/2023 07:22:28 405 250-425 (ug/dL) Final Transferrin Sat % 04/19/2023 07:22:28 88 Above high normal 15-55 (%) Final Performing Location LAB[facility]ATORY C - [address] [place] [address]
--- OUTSIDE RECORDS SUMMARY | 2023-05-16 19:47 | External Medical Summary | Summary of Care ---
Author Name Unknown Organization [facility] Address [address] [place] [address] Phone [phone] Care Team Providers Care Progressive Assembler And Fitter Name Role Phone Unavailable Primary Care Provider Unavailabl e Reason for Visit * Reason Comments Return Visit Encounter Details Date Type Department Care Team (Late st Contact Info) Description 04/19/2023 8:00 AM EDT Office Visit Gynecology/Obstetric s Emmett Hiness [address] [facility] [place] [address] Kiya Crocker CRNP [address] [place] [address] Supervision of other normal , antepartum*; Antepartum [...] money to get more. Never true 01/18/2023 Lucas Depression Scale Answer Date Recorded Lucas Depression Scale Total 0 03/28/2023 The thought [...] no LOF. Trace pedal edema. GBS today. Float Tender Documentation Provider requested elevator repair mechanic. Name of elevator repair mechanic: Dea * Dea Murray LPN - 04/19/2023 7:54 AM EDT 36w0d GBS today, pt denies any concerns. Desires cervical check today documented in this encounter Plan of Treatment Upcoming Encounters Date Type Department Care Team (Late st Contact Info) Description 04/26/2023 9:00 AM EDT Office Visit Gynecology/Obstetrics [facility] [address] [place] [address] Kiya Crocker CRNP [address] [place] [address] 04/29/2023 3:00 PM EDT Office Visit Hematology/Oncology [facility] [address] [facility], [place] [address] Chloé Salgado CRNP [address] [place] [address] 05/03/2023 8:45 AM EST Office Visit Gynecology/Obstetrics [facility] [address] [place], [place] [address] Pk Reza MD [address] [place] [address] 05/10/2023 8:00 AM EST Office Visit Gynecology/Obstetrics [facility] [address] [place] [address] Kiya Crocker CRNP [address] [place] [address] 05/17/2023 8:00 AM EST Office Visit Gynecology/Obstetrics [facility] [address] [place] [address] Kiya Crocker CRNP [address] [place], [place] [address] Pending Results Name Type Priority Associated Diagnoses [...]
--- OUTSIDE RECORDS SUMMARY | 2023-05-16 19:47 | External Medical Summary ---
Author Name Unknown Address Unknown Organization K0G:[facility] - [address] [place] [address] Laboratory Report Ordering Provider Test Date Status DOV GUERRERO 04/12/2023 10:22:45 Final Observation Date Value Abnormality Reference (Units ) Status WBC, Total 04/12/2023 10:22:45 10.34 4.00-10.8 0 (K/uL) Final RBC 04/12/2023 10:22:45 2.76 3.85-5.15 (M/uL) Final Hemoglobin 04/12/2023 10:22:45 9.8 Below low normal 12 .0-15.3 (g/dL) Final HCT 04/12/2023 10:22:45 29.5 Below low normal 36. 0-45.2 (%) Final MCV 04/12/2023 10:22:45 106.9 81.5-97.5 (fL) Final MCH 04/12/2023 10:22:45 35.5 27.0-34.0 (pg) Final MCHC 04/12/2023 10:22:45 33.2 32.0-36.0 (g/dL) Final RDW 04/12/2023 10:22:45 14.6 11.5-15.5 (%) Final Platelets 04/12/2023 10:22:45 289 140-400 (K /uL) Final MPV 04/12/2023 10:22:45 10.1 6.6-11.1 ( fL) Final Performing Location [facility] [place] - [address] [place] [address]
--- OUTSIDE RECORDS SUMMARY | 2023-05-16 19:47 | External Medical Summary | Summary of Care ---
Author Name Unknown Organization [facility] Address [address] [place] [address] Phone [phone] Care Team Providers Care Underwriting Sales Representative Name Role Phone Unavailable Primary Care Provider Unavailabl e Reason for Visit * Reason Comments Consultation Anemia * Evaluate & Treat - Unlimited Visits (Within 10 days (routine)) - Authorized Specialty Diagnoses / Procedures Referred By Nico wayne Referred To Contact Hematology/Oncology / Hematology Oncology Diagnoses Antepartum anemia complicating Kiya Crocker CRNP [address] [place] [address] Referral ID Status Reason Start Date Expiration Date Visits Requested Visits Authorized [id number] Authorized Specialty Services Required 03/24/2023 999 999 Encounter Details Date Type Department Care Team Description 03/25/2023 Office Visit [facility]ematology/Oncology [place] [facility] [place] [facility] [address] Chloé Salgado CRNP [address] [place] [address] Antepartum anemia complicating * Allergies Active Allergy Reactions Severity Noted Date Comments Clonazepam Other (Please comment) 12/12/2014 Patient has syncopey from medication Morphine Other (Please comment) 12/12/2014 Patient state she Hallucinates when taking the medication Tramadol Other (Please comment) 12/12/2014 Migrans documented as of this encounter (statuses as of 04/01/2023) Medications Medication Sig Dispensed Refills Start Date [...] as of this encounter (statuses as of 04/01/2023) Active Problems Problem Noted Date Antepartum anemia [...] as of this encounter (statuses as of 04/01/2023) Immunizations Name Administration Dates Next Due HPV Vaccine, 4-Valent 01/22/2008,10/23/2007 PPD 04/15/2015 SEASONAL INFLUENZA, PF, 6 M & Above, IM , (FLULAVAL or FLUZONE) 03/08/2023 TDAP (age 10 and older)(Boostrix) 02/22/2023 documented as of this encounter Social History Tobacco Use Types Packs/Day Years Used Date Smoking Tobacco: Former Vaporizer Tobacco Cessation:Counseling Given: Not Answered Comments:1 pack of cigarettes a day for about 3 in half [...] Sign Reading Time Taken Comments Blood Pressure 106/69 03/25/2023 12:53 PM EDT Pulse 99 03/25/2023 12:53 PM EDT Temperature 37.1 C (98.7 F) 03/25/2023 12:53 PM E DT Respiratory Rate 16 03/25/2023 12:53 PM EDT Oxygen Saturation 98% 03/25/2023 12:53 PM EDT Inhaled Oxygen Concentration - - Weight 82.2 kg (181 lb 4.8 oz) 03/25/2023 12:53 PM EDT Height 167.6 cm (5' 6") 03/25/2023 12:53 PM EDT Body Mass Index 29.26 03/25/2023 12:53 PM EDT documented in this encounter Progress Notes * RAMONA Mcmahon - 03/25/2023 12:54 PM EDT Hematology/Oncology Outpatient Clinic note [facility] [address] [place] [address] [place] [address] Name: Candelaria Fall Date: 03/25/2023 REFERRED BY: RAMONA Brannon CHIEF COMPLAINT: Candelaria Fall is a 32 year old female here today for new consultation for anemia in . HISTORY OF PRESENT ILLNESS: Currently 32 weeks SILVA 05/17/23 Component Latest Ref Rng 10/05/2022 02/22/2023 03/22/2023 WBC 4.00 - 10.80 K/uL 8.82 9.67 10.46 RBC 3.85 - 5.15 M/uL 4.41 3.38 2.87 HGB 12.0 - 15.3 g/dL 13.5 11.2 (L) 9.8 (L) HCT 36.0 - 45.2 % 40.6 35.2 (L) 29.5 (L) MCV 81.5 - 97.5 fL 92.1 104.1 102.8 MCH 27.0 - 34.0 pg 30.6 33.1 34.1 MCHC 32.0 - 36.0 g/dL 33.3 31.8 33.2 RDW 11.5 - 15.5 % 12.4 13.8 14.5 PLT 140 - 400 K/uL 286 285 280 MPV 6.6 - 11.1 fL 11.4 11.0 10.3 Patient's biggest complaint is fatigue today. Getting worse since about 28-29 weeks. Feels weaker than her normal. Gets leg cramps at times. Denies any signs of blood loss. Had a couple dizzy spells but this is not frequent. Is getting SOB when she is walking. Does not take long into her work day, 30 min, will have to stopand take a break to catch her breath. Stamina is poor. Will recover after about 10 minutes. Works at [employer] for [employer]. Tasking PNV and iron supplement once a day. No issues with her BP. No swelling in her lower extremities. Sister has a vitamin b12 deficiency. Patient's past medical history, social history, and family history were reviewed and updated. Past Medical History: Diagnosis Date Anxiety Asthma, allergic Medical marijuana use 03/08/2023 Not with PTSD (post-traumatic stress disorder) Family History Problem Relation Age of Onset Stroke Father X3 Supraventricular tachycardia Sister Breast Cancer Grandmother (Paternal) 84 Colon cancer Grandfather (Paternal) 86 Social History Socioeconomic History Marital status: Spouse name: Not on file Number of children: Not on file Years of education: Not on file Highest education level: Not on file Occupational History Not on file Tobacco Use Smoking status: Former Types: Vaporizer Smokeless tobacco: Not on file Tobacco comments: 1 pack of cigarettes a day for about 3 in half years. Stopped smoking cigarettes in May 2022, has cut back from 5% nicotine vaping to 1.8%. Vaping Use Vaping Use: Former Substance and Sexual Activity Alcohol use: No Drug use: Not Currently Types: Marijuana Comment: medical marujuana, not currently using Sexual activity: Yes Partners: Male Other Topics Concern Not on file Social History Narrative Not on file Social Determinants of Health Financial Resource Strain: Not on file Food Insecurity: No Food Insecurity Worried About Running Out of Food in the Last Year: Never true Ran Out of Food in the Last Year: Never true Transportation Needs: Not on file Physical Activity: Not on file Stress: Not on file Social Connections: Not on file Intimate Partner Violence: Not on file Housing Stability: Not on file Review of patient's allergies indicates: Allergen Reactions Clonazepam Other (Please comment) Patient has syncopey from medication Morphine Other (Please comment) Patient state she Hallucinates when taking the medication Tramadol Other (Please comment) Migrans Current Outpatient Medications Medication Sig Dispense Refill /Folic Acid Oral Tablet Take by mouth. Ferrous Sulfate 325 (65 Fe) MG Oral Tablet (Feosol) Take 1 Tablet by mouth in the morning. 30 Tablet 12 No current facility-administered medications for this visit. REVIEW OF SYSTEMS: SEE HPI - otherwise negative OBJECTIVE: Filed Vitals: 03/25/23 1253 BP: 106/69 Pulse: 99 Resp: 16 Temp: 37.1 C (98.7 F) TempSrc: Tympanic SpO2: 98% Weight: 82.2 kg (181 lb 4.8 oz) Height: 1.676 m (5' 6") Wt Readings from Last 5 Encounters: 03/25/23 82.2 kg (181 lb 4.8 oz) 03/22/23 81.5 kg (179 lb 9.6 oz) 03/08/23 79.4 kg (175 lb) 02/22/23 77.6 kg (171 lb) 02/01/23 75.3 kg (166 lb) PHYSICAL EXAM: Constitutional: no acute distress Neuro: alert, oriented to person, place, and time, gait normal HEENT: normal: normocephalic, atraumatic; neck with no masses or tenderness; no cervical/supraclavicular lymphadenopathy CV: normal rate and rhythm, no murmur Chest: normal respiratory effort, lungs clear to auscultation Extremities: no edema Skin: warm and dry LABS: Results for orders placed or performed in visit on 03/23/23 FERRITIN Result Value Ref Range Ferritin 168 (H) 13 - 150 ng/mL IMPRESSION: Anemia in : Currently 32 weeks SILVA 05/17/23 First noted to be anemic one month prior with Hgb of 11.2 Repeated one month later on 03/22/23 and Hgb had dropped to 9.8. Macrocytic indices noted. No abnormalities in other cell lines. No iron or folic acid deficiency noted on chart review. Vitamin B12 at low end of normal at 371. TSH WNL. Normal renal function. Patient's biggest complaint is fatigue today. Getting worse since about 28-29 weeks. Feels weaker than her normal. Gets leg cramps at times. Denies any signs of blood loss. Had a couple dizzy spells but this is not frequent. Is getting SOB when she is walking. Does not take long into her work day, 30 min, will have to stopand take a break to catch her breath. Stamina is poor. Will recover after about 10 minutes. Works at [employer] for [employer]. Tasking PNV and iron supplement once a day. No issues with her BP. No swelling in her lower extremities. Sister has a vitamin b12 deficiency. PLAN: Etiology of anemia currently unclear. More than would be expected for dilutional anemia related to . Will rule out hemolysis with cbc/diff, CMP, retic panel, ldh, haptoglobin, and direct dian. Recommended patient start sublingual vitamin b12 1,000 mcg daily. Prescription sent. Continue PNV and ferrous sulfate one tablet daily as currently taking. Further recommendations based on results of above. RTC in 4 weeks with provider with cbc/diff RAMONA Mccormack documented in this encounter Nursing Notes * Brenda Rojo CMA - 03/25/2023 12:54 PM EDT Patient identifed by name and birthdate Do you have any concerns about pain management for today's visit? No Living Will or Advance Directive for Health Care as noted on the problem list. [facility] is a way you can talk to your provider on line through e-mail. Would you like to sign up? I can activate it for you? ALREADY ACTIVE Filed Vitals: 03/25/23 1253 BP: 106/69 Pulse: 99 Resp: 16 Temp: 37.1 C (98.7 F) TempSrc: Tympanic SpO2: 98% Weight: 82.2 kg (181 lb 4.8 oz) Height: 1.676 m (5' 6") Patient was instructed to not get up on the exam table/exam chair until directed and assisted by their provider; patient is to remain seated in the chair/ wheelchair/ exam table/ exam chair for fall prevention and safety reasons. Patient is aware to have assistance to step down off exam table/exam chair with personnel. Patient voiced full comprehension of instructions. documented in this encounter Plan of Treatment Upcoming Encounters Date Type Specialty Care Team Description 04/05/2023 Laboratory Laboratory [facility] [address] [place] [place] [address] 04/05/2023 Office Visit Gynecology Obstetrics Kiya Crocker CRNP [address] [place] [address] 04/19/2023 Office Visit Gynecology Obstetrics Kiya Crocker CRNP [address] [place] [address] 04/26/2023 Office Visit Gynecology Obstetrics Kiya Crocker CRNP [address] [place] [address] 04/29/2023 Office Visit Hematology Oncology Damian, RAMONA Melgoza [address] [place] [address] 05/03/2023 Office Visit Gynecology Obstetrics Pk Reza MD [address] [place] [address] 05/10/2023 Office Visit Gynecology Obstetrics Kiya Crocker CRNP [address] [place] [address] 05/17/2023 Office Visit Gynecology Obstetrics Kiya Crocker CRNP [address] [place] [address] Health Maintenance Due Date Last Done Comments [...] Not on filedocumented as of this encounter Results * DIRECT DIAN (03/25/2023 1:31 PM EDT) Pathologist [facility] [place] Direct Dian Negative 03/25/2023 10:26 PM EDT [facility] [place] [facility] Blood Venous blood specimen / Unknown Venipuncture / Unknown 03/25/2023 1:31 PM EDT 03/25/2023 1:31 PM EDT Chloé GREENE LAB BLOOD BANK TEST ORDERABLES [facility] [address] [place] [address] * HAPTOGLOBIN (03/25/2023 1:31 PM EDT) [facility] Haptoglobin 80 30 - 200 mg/dL 03/26/2023 3:05 PM EDT [facility] Blood Venous blood specimen / Unknown Venipuncture / Unknown 03/25/2023 1:31 PM EDT 03/25/2023 1:31 PM EDT Chloé GREENE LAB BLOOD ORDER SHYANNE Performing Organization Address City/[facility]/ZIP Co de Phone Number [facility] [address] [place] [address] * LD (03/25/2023 1:31 PM EDT) [facility] LD 217 <=250 U/L 03/26/2023 7:1 0 AM EDT [facility] Blood Venous blood specimen / Unknown Venipuncture / Unknown 03/25/2023 1:31 PM EDT 03/25/2023 1:31 PM EDT Chloé GREENE LAB BLOOD ORDER SHYANNE Performing Organization Address City/[facility]/ZIP Co de Phone Number [facility] [address] [place] [address] * (ABNORMAL) RETICULOCYTE PANEL (03/25/2023 1:31 PM EDT) Pathologist [facility] [place] Reticulocyte Percent 8.68(H) 0.80 - 1.90 % 03/25/2023 11:43 PM EDT [facility] Absolute Reticulocyte 243.0(H) 31.3 - 100.1 K/uL 03/25/2023 11:43 PM EDT [facility] Immature Reticuloctye Fraction 36.1(H) 2.5 - 20.6 % 03/25/2023 11:43 PM EDT [facility] Reticulocyte Hemoglobin 35.7 29.7 - 37.4 pg 03/25/2023 11:43 PM EDT [facility] Blood Venous blood specimen / Unknown Venipuncture / Unknown 03/25/2023 1:31 PM EDT 03/25/2023 1:31 PM EDT Chloé GREENE LAB BLOOD ORDER SHYANNE [facility] [address] [place] [address] * COMPREHENSIVE METABOLIC PANEL (03/25/2023 1:31 PM EDT) [facility] BUN 9 6 - 20 mg/dL 03/25/2023 2:27 PM EDT [facility] 56 Creatinine 0.8 0.5 - 1.0 mg/dL 03/25/2023 2:27 PM EDT [facility] 56 Estimated Glomerular Filtration Rate >90 >=60 mL/min 03/25/2023 2:27 PM EDT [facility] 56- Comment:eGFR is calculated b ased on the CKD-EPI 2020 equation Sodium 138 135 - 146 mmol/L 03/25/2023 2:27 PM EDT [facility] 56- Potassium 4.3 3.5 - 5.1 mmol/L 03/25/2023 2:27 PM EDT [facility] 56- Chloride 103 98 - 107 mmol/L 03/25/2023 2:27 PM EDT [facility] 56- CO2 25 22 - 32 mmol/L 03/25/2023 2:27 PM EDT [facility] 56- Anion Gap 10 7 - 15 mmol/L 03/25/2023 2:27 PM EDT [facility] 56- Glucose 76 70 - 120 mg/dL 03/25/2023 2:27 PM EDT [facility] 56- Albumin 3.8 3.8 - 5.0 g/dL 03/25/2023 2:27 PM EDT [facility] 56- AST 21 10 - 35 U/L 03/25/2023 2:27 PM EDT [facility] 56 Alkaline Phosphatase 76 35 - 130 U/L 03/25/2023 2:27 PM EDT [facility] 56 Bilirubin, Total 0.7 <=1.2 mg/dL 03/25/2023 2:27 PM EDT [facility] 56 Calcium 9.1 8.4 - 10.2 mg/dL 03/25/2023 2:27 PM EDT [facility] 56 Protein 6.0 6.0 - 8.3 g/dL 03/25/2023 2:27 PM EDT [facility] 56 ALT 23 10 - 35 U/L 03/25/2023 2:27 PM EDT [facility] 56 Blood Venous blood specimen / Unknown Venipuncture / Unknown 03/25/2023 1:31 PM EDT 03/25/2023 1:31 PM EDT Chloé GREENE LAB BLOOD ORDER SHYANNE [facility] 56- [address] [place] [address] documented in this encounter Visit Diagnoses Diagnosis Antepartum anemia complicating - Primary Anemia, antepartum documented in this encounter
--- OUTSIDE RECORDS SUMMARY | 2023-05-16 19:48 | External Medical Summary ---
Author Name Unknown Address Unknown Organization [id number]:[facility] [address] [place] [address] Laboratory Report Ordering Provider Test Date Status YOLANDADOV 03/25/2023 13:31:21 Final Observation Date Value Abnormality Reference (Units ) Status Haptoglobin 03/25/2023 13:31:21 80 30-200 ( mg/dL) Final Performing Location [facility] [address] [place] [address]
--- OUTSIDE RECORDS SUMMARY | 2023-05-16 19:48 | External Medical Summary ---
Author Name Unknown Address Unknown Organization [id number]:[facility] [place] [address] [address] Laboratory Report Ordering Provider Test Date Status DOV GUERRERO 03/25/2023 13:31:21 Final Observation Date Value Abnormality Reference (Units ) Status Retic, % (auto) 03/25/2023 13:31:21 8.68 Above high normal 0.80-1.90 (%) Final Reticulocytes, Absolute 03/25/2023 13:31:21 243.0 Above high normal 31.3-100.1 (K/uL) Final Reticulocyte fraction, immature 03/25/2023 13:31:21 36.1 Above high normal 2.5-20.6 (%) Final Reticulocyte HGB 03/25/2023 13:31:21 35.7 29.7-37.4 (pg) Final Performing Location [facility] [place] [address] [address]
--- OUTSIDE RECORDS SUMMARY | 2023-05-16 19:48 | External Medical Summary | Summary of Care ---
Author Name Unknown Organization [facility] Address [address] [place] [address] Phone [phone] Care Team Providers Care Wildlife Conservationist Name Role Phone Unavailable Primary Care Provider Unavailabl e Reason for Visit * Reason Onset Date Comments Return Visit Medication Administration 03/08/2023 Flu an d/or Pneumo Inj Encounter Details Date Type Department Care Team Description 03/08/2023 Office Visit Gynecology/Obstetrics [facility] [address] [place] [address] Gillian Jalloh CRNP [address] [facility] [place] [address] Supervision of other normal , antepartum*; Need for prophylactic vaccination and inoculation against influenza Allergies Active Allergy Reactions Severity Noted Date Comments Clonazepam Other (Please comment) 12/12/2014 Patient has syncopey from medication Morphine Other (Please comment) 12/12/2014 Patient state she Hallucinates when taking the medication Tramadol Other (Please comment) 12/12/2014 Migrans documented as of this encounter (statuses as of 03/08/2023) Medications Medication Sig Dispensed Refills Start Date End Date Status /Folic Acid Oral Tablet Take by mouth. 0 Active Ferrous Sulfate 325 (65 Fe) MG Oral Tablet (Feosol) Take 1 Tablet by mouth in the morning. 30 Tablet 12 02/23/2023 Active Albuterol Sulfate HFA 108 (90 Base) MCG/ACT Inhalation Aerosol Solution Inhale 2 Puffs by mouth every 4 hours as needed. 0 08/21/2021 03/08/2023 Discontinued( Medication List Clean Up) documented as of this encounter (statuses as of 03/08/2023) Active Problems Problem Noted Date Medical marijuana use 03/08/2023 Overview: Not with Supervision of other normal , a ntepartum 10/05/2022 Asthma with severity to be determined Overview: ICD-10 update of inactive term ADVANCE DIRECTIVE INFORMATION 04/23/2005 Overview: Not applicable (under age of 18) Estimated Date of Delivery Comme nts Yes 05/17/2023 Based on last me nstrual period of 08/10/2022 documented as of this encounter (statuses as of 03/08/2023) Immunizations Name Administration Dates Next Due HPV Vaccine, 4-Valent 01/22/2008,10/23/2007 PPD 04/15/2015 Seasonal Influenza, PF, 6 mo ns & Above, IM , (Flulaval) 03/08/2023 TDAP (age 10 and older)(Boostrix) 02/22/2023 [...] Sign Reading Time Taken Comments Blood Pressure 104/62 03/08/2023 2:20 PM EDT Pulse - - Temperature - - Respiratory Rate - - Oxygen Saturation - - Inhaled Oxygen Concentration - - Weight 79.4 kg (175 lb) 03/08/2023 2:20 PM EDT Height 167.6 cm (5' 6") 03/08/2023 2:20 PM EDT Body Mass Index 28.25 03/08/2023 2:20 PM EDT documented in this encounter Progress Notes * Ligia Tinoco LPN - 03/08/2023 2:23 PM EDT 30w0d Denies concerns. * RAMONA Mendez - 03/08/2023 2:23 PM EDT 30 wks No concerns. Baby is moving well. No ctx/leaking/bleeding. Discussed choosing peds. Tolerating iron supplement, feeling more energetic. Will repeat CBC at next visit. Flu shot today. 2 week return. RAMONA Nash documented in this encounter Nursing Notes * Ligia Tinoco LPN - 03/08/2023 2:33 PM EDT Patient here for flu injection. Patient doing well no complaints. Injection given IM as ordered. Patient tolerated well. Patient to follow up as directed. Patient instructed to call if any complications. Patient verbalized understanding of instructions given and her follow up appt for JUNI. Injection site: Left Deltoid Medication Source: Dispensed stock medication documented in this encounter Plan of Treatment Upcoming Encounters Date Type Specialty Care Team Description 03/22/2023 [facility] [address] [place] [address] 04/05/2023 Office Visit Gynecology Obstetrics [place] RAMONA Poon [address] [place] [address] 04/19/2023 Office Visit Gynecology Obstetrics [place] RAMONA Poon [address] [place] [address] 04/26/2023 Office Visit Gynecology Obstetrics [place] RAMONA Poon [address] [place] [address] 05/03/2023 Office Visit Gynecology Obstetrics Pk Reza MD [address] [place] [address] 05/10/2023 Office Visit Gynecology Obstetrics [place] RAMONA Poon [address] [place] [address] 05/17/2023 Office Visit Gynecology Obstetrics [place] RAMONA Poon [address] [place] [address] Health Maintenance Due Date Last Done Comments [...] (2 - Td or Tdap) 02/22/2033 02/22/2023 Hepatitis C Screening Completed 10/05/2022 , 10/05/2022, 10/05/2022 Influenza Vaccine (FLU shot) Completed 05/2023, 08/17/2017, 04/23/2016 MENINGOCOCCAL (MENACTRA/MENVEO) Aged Out No longer eligible b ased on patient's age to complete this topic documented as of this encounter Medical Devices Not on filedocumented as of this encounter Visit Diagnoses Diagnosis Supervision of other normal , antepartum- Primary Need for prophylactic vaccination and inoculation against influenza documented in this encounter
--- OUTSIDE RECORDS SUMMARY | 2023-05-16 19:48 | External Medical Summary ---
Author Name Unknown Address Unknown Organization [id number]:[facility] [address] [place] [address] Laboratory Report Ordering Provider Test Date Status LEENA KUMAR 03/23/2023 10:54:33 Final Observation Date Value Abnormality Reference (Units ) Status Ferritin 03/23/2023 10:54:33 168 Above high normal 13 -150 (ng/mL) Final Performing Location [facility] - [address] [place] [address]
--- OUTSIDE RECORDS SUMMARY | 2023-05-16 19:48 | External Medical Summary ---
Author Name Unknown Address Unknown Organization [id number]:[facility] - [address] [place] [address] Laboratory Report Ordering Provider Test Date Status LEENA KUMAR 03/22/2023 09:16:07 Final Observation Date Value Abnormality Reference (Units ) Status WBC, Total 03/22/2023 09:16:07 10.46 4.00-10.8 0 (K/uL) Final RBC 03/22/2023 09:16:07 2.87 3.85-5.15 (M/uL) Final Hemoglobin 03/22/2023 09:16:07 9.8 Below low normal 12 .0-15.3 (g/dL) Final HCT 03/22/2023 09:16:07 29.5 Below low normal 36. 0-45.2 (%) Final MCV 03/22/2023 09:16:07 102.8 81.5-97.5 (fL) Final MCH 03/22/2023 09:16:07 34.1 27.0-34.0 (pg) Final MCHC 03/22/2023 09:16:07 33.2 32.0-36.0 (g/dL) Final RDW 03/22/2023 09:16:07 14.5 11.5-15.5 (%) Final Platelets 03/22/2023 09:16:07 280 140-400 (K /uL) Final MPV 03/22/2023 09:16:07 10.3 6.6-11.1 ( fL) Final Performing Location [facility] [place] [facility] [address] [place] [address]
--- OUTSIDE RECORDS SUMMARY | 2023-05-16 19:48 | External Medical Summary | Summary of Care ---
Author Name Unknown Organization [facility] Address [address] [place] [address] Phone [phone] Care Team Providers Care Picker Operator Name Role Phone Unavailable Primary Care Provider Unavailabl e Reason for Visit * Reason Comments Return Visit Encounter Details Date Type Department Care Team Description 03/22/2023 Office Visit Gynecology/Obstetrics [facility] [address] [facility] [address] Kiya Crocker CRNP [address] [place] [address] Supervision of other normal , antepartum*; Antepartum anemia complicating Allergies Active Allergy Reactions Severity Noted Date Comments Clonazepam Other (Please comment) 12/12/2014 Patient has syncopey from medication Morphine Other (Please comment) 12/12/2014 Patient state she Hallucinates when taking the medication Tramadol Other (Please comment) 12/12/2014 Migrans documented as of this encounter (statuses as of 03/22/2023) Medications Medication Sig Dispensed Refills Start Date End Date Status /Folic Acid Oral Tablet Take by mouth. 0 Active Ferrous Sulfate 325 (65 Fe) MG Oral Tablet (Feosol) Take 1 Tablet by mouth in the morning. 30 Tablet 12 02/23/2023 Active documented as of this encounter (statuses as of 03/22/2023) Active Problems Problem Noted Date Medical marijuana [...] as of this encounter (statuses as of 03/22/2023) Immunizations Name Administration Dates Next Due HPV [...] Reading Time Taken Comments Blood Pressure 100/62 03/22/2023 8:38 AM EDT Pulse - - Temperature - - Respiratory Rate - - Oxygen Saturation - - Inhaled Oxygen Concentration - - Weight 81.5 kg (179 lb 9.6 oz) 03/22/2023 8:38 A M EDT Height 167.6 cm (5' 6") 03/22/2023 8:38 AM EDT Body Mass Index 28.99 03/22/2023 8:38 AM EDT documented in this encounter Progress Notes * RAMONA Brannon - 03/22/2023 9:01 AM EDT 32w No concerns. Taking iron as directed, feeling more energy. Will repeat CBC today. Some BH contractions, not regular, less than 4 a day. No bleeding or LOF. RAMONA Brannon * Dea Murray LPN - 03/22/2023 8:42 AM EDT 32w0d Pt denies any concerns. documented in this encounter Plan of Treatment Upcoming Encounters Date Type Specialty Care Team Description 03/22/2023 Laboratory Laboratory Jonah Adams [address] [place] [address] Antepartum anemia complicating 04/05/2023 Office Visit Gynecology Obstetrics Kiya Crocker CRNP [address] [place] [address] 04/19/2023 Office Visit Gynecology Obstetrics Kiya Crocker CRNP [address] [place] [address] 04/26/2023 Office Visit Gynecology Obstetrics Kiya Crocker CRNP [address] [place] [address] 05/03/2023 Office Visit Gynecology Obstetrics Pk Reza MD [address] [place] [address] 05/10/2023 Office Visit Gynecology Obstetrics Kiya Crocker CRNP [address] [place] [address] 05/17/2023 Office Visit Gynecology Obstetrics Kiya Crocker CRNP [address] [place] [address] Pending Results Name Type Priority Associated Diagnoses Date /Time CBC Lab Routine Antepartum anemia complicating 03/22/2023 9:16 AM EDT Scheduled Orders Name Type Priority Associated Diagnoses Orde r Schedule CBC Lab Routine Antepartum anemia complicating Expected: 03/22/2023 (Approximate), Expires: 03/22/2024 Health Maintenance Due Date Last Done Comments [...] antepartum- Primary Antepartum anemia complicating Anemia, antepartum Antepartum anemia complicating Anemia, antepartum documented in this encounter
--- OUTSIDE RECORDS SUMMARY | 2023-05-16 19:48 | External Medical Summary | Summary of Care ---
Author Name Unknown Organization [facility] Address [address] [place] [address] Phone [phone] Care Team Providers Care Supervisor Dog License Officer Name Role Phone Unavailable Primary Care Provider Unavailabl e Reason for Referral * (Within 10 days (routine)) Specialty Diagnoses / Procedures Referred By Nico wayne Referred To Contact Kiya Crocker CRNP [address] [place] [address] Referral ID Status Reason Start Date Expiration Date Visits Re quested Visits Authorized Question Answer Referral Priority Within 10 days (routine) Encounter Details Date Type Department Care Team Description 03/22/2023 Telephone Gynecology/Obstetrics [facility] [address] [facility] [place] [address] Kiya Crocker CRNP [address] [place] [address] Allergies Active Allergy Reactions Severity Noted Date [...] of 03/22/2023) Active Problems Problem Noted Date Antepartum anemia complicating 03/22/2023 Overview: Hgb 11.2 at 28w, added oral iron. Hgb 9.8 at 32w. Blood management referral Medical marijuana use 03/08/2023 Overview: Not with [...] on file documented as of this encounter Miscellaneous Notes * Telephone Encounter - Becky Maldonado LPN - 03/22/2023 12:51 PM EDT Patient notified and agreeable * Telephone Encounter - RAMONA Brannon - 03/22/2023 12:46 PM EDT Per blood management, need a ferritin level. Can't give IV iron with ferritin >100. She needs tohold her iron supplements for 24 hours before getting it drawn. I placed an order. * Telephone Encounter - RAMONA Brannon - 03/22/2023 10:47 AM EDT Referral placed. * Telephone Encounter - Becky Maldonado LPN - 03/22/2023 10:21 AM EDT Pt agreeable. * Telephone Encounter - RAMONA Brannon - 03/22/2023 10:11 AM EDT Hgb down to 9.8. recommend referral to blood management. If agreeable, please route back and I'll place referral. They will likely need additional labs as well, but I did not place these yet. documented in this encounter Plan of Treatment Upcoming Encounters Date Type Specialty Care Team Description 04/05/2023 Office Visit Gynecology Obstetrics Kiya Crocker CRNP [address] [place] [address] 04/19/2023 Office Visit Gynecology Obstetrics Kiya Crocker CRNP [address] [place] [address] 04/26/2023 Office Visit Gynecology Obstetrics Kiya Crocker CRNP [address] [place] [address] 05/03/2023 Office Visit Gynecology Obstetrics Pk Reza MD [address] [place] [address] 05/10/2023 Office Visit Gynecology Obstetrics Kiya Crocker CRNP [address] [place] [address] 05/17/2023 Office Visit Gynecology Obstetrics Kiya Crocker CRNP [address] [place] [address] Scheduled Orders Name Type Priority Associated Diagnoses Orde r Schedule FERRITIN Lab Routine Antepartum anemia complicating Expected: 03/23/2023 (Approximate), Expires: 03/22/2024 Scheduled Referrals Name Type Priority Associated Diagnoses Orde r Schedule BLOOD MANAGEMENT REFERRAL Referral Within 10 days (routine) Antepartum anemia complicating Ordered: 03/22/2023 Health Maintenance Due Date Last Done Comments [...]
--- OUTSIDE RECORDS SUMMARY | 2023-05-16 19:48 | External Medical Summary ---
Author Name Unknown Address Unknown Organization K01:[facility] [address] [place] [address] Laboratory Report Ordering Provider Test Date Status DOV GUERRERO 03/25/2023 13:31:21 Final Observation Date Value Abnormality Reference (Units ) Status LDH 03/25/2023 13:31:21 217 <=250 (U/L ) Final Performing Location [facility] - [address] [place] [address]
--- OUTSIDE RECORDS SUMMARY | 2023-05-16 19:48 | External Medical Summary | Summary of Care ---
Author Name Unknown Organization [facility] Address [address] [place] [address] Phone [phone] Care Team Providers Care Disc Pad Plate Filler Name Role Phone Unavailable Primary Care Provider Unavailabl e Reason for Visit * Reason Comments Outpatient Testing Encounter Details Date Type Department Care Team Description 02/22/2023 Laboratory Laboratory, [facility] [address] [place] [address] [facility] [address] [place] [address] Supervision of other normal , antepartum Allergies Active Allergy Reactions Severity Noted Date Comments Clonazepam Other (Please comment) 12/12/2014 Patient has syncopey from medication Morphine Other (Please comment) 12/12/2014 Patient state she Hallucinates when taking the medication Tramadol Other (Please comment) 12/12/2014 Migrans documented as of this encounter (statuses as of 02/22/2023) Medications Medication Sig Dispensed Refills Start Date End Date Status /Folic Acid Oral Tablet Take by mouth. 0 Active Albuterol Sulfate HFA 108 (90 Base) MCG/ACT Inhalation Aerosol Solution Inhale 2 Puffs by mouth every 4 hours as needed. 0 08/21/2021 08/21/2023 Active documented as of this encounter (statuses as of 02/22/2023) Active Problems Problem Noted Date Supervision of other normal , a ntepartum 10/05/2022 Asthma with severity to be determined Overview: ICD-10 update of inactive term ADVANCE DIRECTIVE INFORMATION 04/23/2005 Overview: Not applicable (under age of 18) Estimated Date of Delivery Comme nts Yes 05/17/2023 Based on last me nstrual period of 08/10/2022 documented as of this encounter (statuses as of 02/22/2023) Immunizations Name Administration Dates Next Due HPV Vaccine, 4-Valent 01/22/2008,10/23/2007 PPD 04/15/2015 TDAP (age 10 and older)(Boostrix) 02/22/2023 documented [...] Encounters Date Type Specialty Care Team Description 03/08/2023 Office Visit Gynecology Obstetrics Gillian Jalloh CRNP [address] [place] [address] 03/22/2023 Office Visit Gynecology Obstetrics Kiya Crocker CRNP [address] [place] [address] 04/05/2023 Office Visit Gynecology Obstetrics Valerie Crockerdy DenniseRAMONA [address] [place] [address] 04/19/2023 Office Visit Gynecology Obstetrics Lizzette RAMONA Poon [address] [place] [address] 04/26/2023 Office Visit Gynecology Obstetrics Lizzette RAMONA Poon [address] [place] [address] 05/03/2023 Office Visit Gynecology Obstetrics Pk Reza MD [address] [place] [address] 05/10/2023 Office Visit Gynecology Obstetrics Valerie CrockerRAMONA Floyd [address] [place] [address] 05/17/2023 [facility] [address] [place] [address] Pending Results Name Type Priority Associated Diagnoses Date /Time SYPHILIS ANTIBODY SCREEN WITH REFLEX TO RPR Lab Routine Supervision of other normal , antepartum 02/22/2023 9:18 AM EDT CBC WITH WBC DIFFERENTIAL AND ANEMIA REFLEX WORKUP Lab Routine Supervision of other normal , antepartum 02/22/2023 9:18 AM EDT 50-G GESTATIONAL GLUCOSE, 1 HOUR Lab Routine Supervision of other normal , antepartum 02/22/2023 9:18 AM EDT SYPHILIS ANTIBODY SCREEN Lab Routine Supervision of other normal , antepartum 02/22/2023 9:18 AM EDT ANEMIA CBC Lab Routine Supervision of other normal , antepartum 02/22/2023 9:18 AM EDT DIFFERENTIAL, AUTOMATED Lab Routine Supervision of other normal , antepartum 02/22/2023 9:18 AM EDT ANEMIA REFLEX CHEMISTRY HOLD Lab Routine Supervision of other normal , antepartum 02/22/2023 9:18 AM EDT Health Maintenance Due Date Last Done Comments Hepatitis B (1 of 3 - 3-dose series) 1991 Pneumococcal Vaccine: Pediatrics (0 to 5 Years) and At-Risk Patients (6 to 64 Years) (1 - PCV) 1997 Depression Screening, Annual for Pts 12 and Over 2003 GARDASIL-HPV IMMUNIZATION SERIES (3 - 3-dose series) 05/24/2008 01/22/2008, 10/23/2007 Pap Smear 2012 COVID-19 Vaccine (2 - Pfizer series) 07/22/2021 05/27/2021 Cervical Cancer Screening 2021 HPV/Co-Test 2021 Influenza Vaccine (FLU shot) (#1) 2023 08/17/2017, 04/23/2016 DTaP,Tdap,and Td Vaccines (2 - Td or Tdap) 02/22/2033 02/22/2023 Hepatitis C Screening Completed 10/05/2022 , 10/05/2022, 10/05/2022 MENINGOCOCCAL (MENACTRA/MENVEO) Aged Out No longer eligible b ased on patient's age to complete this topic documented as of this encounter Medical Devices Not on filedocumented as of this encounter Visit Diagnoses Diagnosis Supervision of other normal , antepartum documented in this encounter
--- OUTSIDE RECORDS SUMMARY | 2023-05-16 19:48 | External Medical Summary | Summary of Care ---
Author Name Unknown Organization [facility] Address [address] [place] [address] Phone [phone] Care Team Providers Care Car Shunter Name Role Phone Unavailable Primary Care Provider Unavailabl e Reason for Visit * Reason Comments Outpatient Testing Encounter Details Date Type Department Care Team Description 03/22/2023 Laboratory Laboratory, [facility] [address] [place] [address] [facility] [address] [place] [address] Antepartum anemia complicating Allergies Active Allergy Reactions [...] Crocker CRNP [address] [place] [address] 04/19/2023 Office Visit Gynecology Obstetrics Kiya Crocker CRNP [address] [place] [address] 04/26/2023 Office Visit Gynecology Obstetrics Kiya Crocker CRNP [address] [place] [address] 05/03/2023 Office Visit Gynecology Obstetrics Pk Reza MD [address] [place] [address] 05/10/2023 Office Visit Gynecology Obstetrics Kiya Crocker CRNP [address] [place] [address] 05/17/2023 Office Visit Gynecology Obstetrics Kiya Crocker CRNP [address] [place] [address] Health Maintenance Due Date Last Done Comments [...] Priority Date/Time Associated Diagnosis Comments CBC Routine 03/22/2023 9:16 AM EDT Antepartum anemia complicating documented in this encounter Results * (ABNORMAL) CBC (03/22/2023 9:16 AM EDT) WBC 10.46 4.00 - 10.80 K/uL 03/22/2023 9:30 AM EDT [facility] [place] [facility]10 RBC 2.87 3.85 - 5.15 M/uL 03/22/2023 9:30 AM EDT [facility] [place] 57-10 HGB 9.8(L) 12.0 - 15.3 g/dL 03/22/2023 9:30 AM EDT [facility] [place] 57-10 HCT 29.5(L) 36.0 - 45.2 % 03/22/2023 9:30 AM EDT [facility] [place] 57-10 MCV 102.8 81.5 - 97.5 fL 03/22/2023 9:30 AM EDT [facility] [place] 57-10 MCH 34.1 27.0 - 34.0 pg 03/22/2023 9:30 AM EDT [facility] [place] 57-10 MCHC 33.2 32.0 - 36.0 g/dL 03/22/2023 9:30 AM EDT [facility] [place] [facility]-10 RDW 14.5 11.5 - 15.5 % 03/22/2023 9:30 AM EDT [facility] [place] 57-10 PLT 280 140 - 400 K/uL 03/22/2023 9:30 AM EDT [facility] [place] 57[facility]10 MPV 10.3 6.6 - 11.1 fL 03/22/2023 9:30 AM EDT [facility] [place] 57-10 Blood Venous blood specimen / Unknown Venipuncture / Unknown 03/22/2023 9:16 AM EDT 03/22/2023 9:16 AM EDT Kiya L McHail PROTECTIVE SIGNAL REPAIRER LAB BLOOD ORDERABLES [facility]10 [address] [facility] [place] [address] documented in this encounter Visit Diagnoses Diagnosis Antepartum anemia complicating Anemia, antepartum documented in this encounter
--- OUTSIDE RECORDS SUMMARY | 2023-05-16 19:48 | External Medical Summary | Summary of Care ---
Author Name Unknown Organization [facility] Address [address] [place] [address] Phone [phone] Care Team Providers Care Fire Crew Specialist Name Role Phone Unavailable Primary Care Provider Unavailabl e Reason for Visit * Reason Onset Date Comments NEW PATIENT 03/24/2023 FOSTER SEEN SOONER Encounter Details Date Type Department Care Team Description 03/24/2023 Telephone Hematology/Oncology [facility] [address] [place] [address] Chloé Salgado CRNP [address] [place] [address] NEW PATIENT (FOSTER SEEN SOONER) Allergies Active Allergy Reactions Severity Noted Date Comments Clonazepam Other (Please comment) 12/12/2014 Patient has syncopey from medication Morphine Other (Please comment) 12/12/2014 Patient state she Hallucinates when taking the medication Tramadol Other (Please comment) 12/12/2014 Migrans documented as of this encounter (statuses as of 03/24/2023) Medications Medication Sig Dispensed Refills Start Date End Date Status /Folic Acid Oral Tablet Take by mouth. 0 Active Ferrous Sulfate 325 (65 Fe) MG Oral Tablet (Feosol) Take 1 Tablet by mouth in the morning. 30 Tablet 12 02/23/2023 Active documented as of this encounter (statuses as of 03/24/2023) Active Problems Problem Noted Date Antepartum anemia [...] as of this encounter (statuses as of 03/24/2023) Immunizations Name Administration Dates Next Due HPV [...] encounter Miscellaneous Notes * Telephone Encounter - Brenda Rojo CMA - 03/24/2023 1:24 PM EDT Referral received for patient to be seen for New Hematology Consult due to Hemoglobin 9.8. Called patient cell could not leave message stated voicemail was full. Scheduled patient for 03/25 at 1pm with RAMONA Mensah Sent [employer] patient portal message with the above information and advised to contact our office as soon as possible to confirm or reschedule. documented in this encounter Plan of Treatment Upcoming Encounters Date Type Specialty Care Team Description 03/25/2023 Office Visit Hematology Oncology Chloé Salgado CRNP [address] [place] [address] [place] [address] 04/05/2023 Office Visit Gynecology Obstetrics Kiya Crocker CRNP [address] [place] [address] 04/19/2023 Office Visit Gynecology Obstetrics Kiya Crocker CRNP [address] [place] [address] 04/26/2023 Office Visit Gynecology Obstetrics Kiya Crocker CRNP [address] [place] [address] 05/03/2023 Office Visit Gynecology Obstetrics Pk Reza MD [address] [place] [address] 05/10/2023 Office Visit Gynecology Obstetrics Kiya Crocker CRNP [address] [place] [address] 05/17/2023 Office Visit Gynecology Obstetrics Kiya Crocker CRNP [address] [place] [address] Health Maintenance Due Date Last Done Comments [...]
--- OUTSIDE RECORDS SUMMARY | 2023-05-16 19:48 | External Medical Summary | Summary of Care ---
Author Name Unknown Organization [facility] Address [address] [place] [address] Phone [phone] Care Team Providers Care Respiratory Equipment Assistant Name Role Phone Unavailable Primary Care Provider Unavailabl e Encounter Details Date Type Department Care Team Description 03/08/2023 Telephone Gynecology/Obstetrics [facility] [address] [place] [address] Kiya Crocker CRNP [address] [place] [address] Allergies Active Allergy Reactions Severity Noted Date [...] encounter Miscellaneous Notes * Telephone Encounter - Dea Murray LPN - 03/08/2023 2:50 PM EDT Breast pump order signed by provider, faxed, placed in scan bin. documented in this encounter Plan of Treatment Upcoming Encounters Date Type Specialty Care Team Description 03/22/2023 Office Visit Gynecology Obstetrics Kiya Crocker CRNP [address] [place], [place] [address] 04/05/2023 Office Visit Gynecology Obstetrics Kiya Crocker CRNP [address] [place] [address] 04/19/2023 Office Visit Gynecology Obstetrics Kiya Crocker CRNP [address] [place] [address] 04/26/2023 Office Visit Gynecology Obstetrics Kiya Crocker CRNP [address] [place] [address] 05/03/2023 Office Visit Gynecology Obstetrics Pk Reza MD [address] [place] [address] 05/10/2023 Office Visit Gynecology Obstetrics Kiya Crocker CRNP [address] [place] [address] 05/17/2023 Office Visit Gynecology Obstetrics Kiya Crocker CRNP [address] [place] [address] Health Maintenance Due Date Last Done Comments [...]
--- OUTSIDE RECORDS SUMMARY | 2023-05-16 19:48 | External Medical Summary | Summary of Care ---
Author Name Unknown Organization [facility] Address [address] [place] [address] Phone [phone] Care Team Providers Care Supervisor Coin Machine Name Role Phone Unavailable Primary Care Provider Unavailabl e Reason for Visit * Reason Comments Outpatient Testing Encounter Details Date Type Department Care Team Description 03/23/2023 Laboratory Laboratory, [facility] [address] [place] [address] [facility] [address] [place] [address] Antepartum anemia complicating Allergies Active Allergy Reactions Severity Noted Date Comments Clonazepam Other (Please comment) 12/12/2014 Patient has syncopey from medication Morphine Other (Please comment) 12/12/2014 Patient state she Hallucinates when taking the medication Tramadol Other (Please comment) 12/12/2014 Migrans documented as of this encounter (statuses as of 03/23/2023) Medications Medication Sig Dispensed Refills Start Date End Date Status /Folic Acid Oral Tablet Take by mouth. 0 Active Ferrous Sulfate 325 (65 Fe) MG Oral Tablet (Feosol) Take 1 Tablet by mouth in the morning. 30 Tablet 12 02/23/2023 Active documented as of this encounter (statuses as of 03/23/2023) Active Problems Problem Noted Date Antepartum anemia [...] as of this encounter (statuses as of 03/23/2023) Immunizations Name Administration Dates Next Due HPV [...] Obstetrics Kiya Crocker CRNP [address] [place] [address] 04/19/2023 Office Visit Gynecology Obstetrics Kiya Crocker CRNP [address] [place] [address] 04/26/2023 Office Visit Gynecology Obstetrics Kiya Crocker CRNP [address] [place] [address] 05/03/2023 Office Visit Gynecology Obstetrics Pk Reza MD [address] [place] [address] 05/10/2023 Office Visit Gynecology Obstetrics Kiya Crocker CRNP [address] [place] [address] 05/17/2023 Office Visit Gynecology Obstetrics Kiya Crocker CRNP [address] [place] [address] Pending Results Name Type Priority Associated Diagnoses Date /Time FERRITIN Lab Routine Antepartum anemia complicating 03/23/2023 10:54 AM EDT Health Maintenance Due Date Last [...]
--- OUTSIDE RECORDS SUMMARY | 2023-05-16 19:48 | External Medical Summary ---
Author Name Unknown Address Unknown Organization K01:[facility] [place] [facility] [address] [facility] [address] Laboratory Report Ordering Provider Test Date Status DOV GUERRERO 03/25/2023 13:31:21 Final Observation Date Value Abnormality Reference (Units ) Status WBC, Total 03/25/2023 13:31:21 12.00 Above high normal 4.00-10.80 (K/uL) Final RBC 03/25/2023 13:31:21 2.80 3.85-5.15 (M/uL) Final Hemoglobin 03/25/2023 13:31:21 9.6 Below low normal 12.0-15.3 (g/dL) Final HCT 03/25/2023 13:31:21 30.7 Below low normal 36.0-45.2 (%) Final MCV 03/25/2023 13:31:21 109.6 81.5-97.5 (fL) Final MCH 03/25/2023 13:31:21 34.3 27.0-34.0 (pg) Final MCHC 03/25/2023 13:31:21 31.3 32.0-36.0 (g/dL) Final RDW 03/25/2023 13:31:21 14.4 11.5-15.5 (%) Final Platelets 03/25/2023 13:31:21 306 140-400 (K/uL) Final MPV 03/25/2023 13:31:21 11.0 6.6-11.1 (fL) Final Nucleated erythrocytes/100 leukocytes [Ratio] in Blood by Automated count 03/25/2023 13:31:21 0 <=0 (/100 WBCs) Final Performing Location [facility] [place] - [address] [facility] [address]
--- OUTSIDE RECORDS SUMMARY | 2023-05-16 19:48 | External Medical Summary | Summary of Care ---
Author Name Unknown Organization [facility] Address [address] [place] [address] Phone [phone] Care Team Providers Care Business Performance Specialist Name Role Phone Unavailable Primary Care Provider Unavailabl e Encounter Details Date Type Department Care Team Description 03/22/2023 Documentation Patient Blood Management, [place] [address] [place] [id number] Joni Wheeler RN Allergies Active Allergy Reactions Severity Noted Date [...] on file documented as of this encounter Progress Notes * Joni Wheeler RN - 03/22/2023 11:44 AM EDT REFERRAL - Patient Blood Management Name: Candelaria Cassie Fall REQUESTING SERVICE: Mary Ann Adams OB REASON FOR REFERRAL: new evaluation outpatient, anemia in [place]: 05/17/23 Anemia Evaluation: Latest Reference Range & Units 02/22/23 09:18 03/22/23 09:16 HGB 12.0 - 15.3 g/dL 11.2 (L) 9.8 (L) HCT 36.0 - 45.2 % 35.2 (L) 29.5 (L) Iron 33 - 151 ug/dL 153 (H) Iron Binding Capacity 250 - 425 ug/dL 482 (H) Transferrin Saturation Percent 15 - 55 % 32 Ferritin 13 - 150 ng/mL 112 Vitamin B12 232 - 1,245 pg/mL 371 Folic Acid >4.5 ng/mL >20.0 Immature Reticuloctye Fraction 2.5 - 20.6 % 31.9 (H) Reticulocyte Hemoglobin 29.7 - 37.4 pg 36.0 (L): Data is abnormally low (H): Data is abnormally high Current Patient Medications: Medications that may impair hemostasis: none Medications that may impair iron absorption: none Patient Refused Blood Transfusion? (e.g. Presybeterian): no Possible Contributing Factors: iron deficiency Treatment Recommendations: Recheck ferritin If ferritin < 100 IV iron per OB MTM protocol 03/22 - need ferritin redraw. OB referring provider made aware. 03/24 - Latest Reference Range & Units 03/23/23 10:54 Ferritin 13 - 150 ng/mL 168 (H) (H): Data is abnormally high Recommend Heme referral. Patient and provider aware. Thank you for allowing Blood Management to participate in the care of this patient. documented in this encounter Plan of Treatment Upcoming Encounters Date Type Specialty Care Team Description 04/05/2023 Office Visit Gynecology Obstetrics Kiya Crocker CRNP [address] [place] [phone] 04/19/2023 Office Visit Gynecology Obstetrics Kiya Crocker CRNP [address] [place] [address] 04/26/2023 Office Visit Gynecology Obstetrics Kiya Crocker CRNP [address] [place] [address] 05/03/2023 Office Visit Gynecology Obstetrics Pk Reza MD [address] [place] [address] 05/10/2023 Office Visit Gynecology Obstetrics Kiya Crocker CRNP [address] [place] [address] 05/17/2023 Office Visit Gynecology Obstetrics Kiya Crocker CRNP [address] [place] [address] Health Maintenance Due Date Last Done Comments [...]
--- OUTSIDE RECORDS SUMMARY | 2023-05-16 19:48 | External Medical Summary ---
Author Name Unknown Address Unknown Organization [id number]:LABORATORY [facility] [place] [facility] - [address] [place] [address] Laboratory Report Ordering Provider Test Date Status DOV GUERRERO 03/25/2023 13:31:21 Final Observation Date Value Abnormality Reference (Units ) Status DIRECT TOMÁS 03/25/2023 13:31:21 Negative Final Performing Location LABORATORY [facility] - [address] [place] [address]
--- OUTSIDE RECORDS SUMMARY | 2023-05-16 19:49 | External Medical Summary ---
Author Name Unknown Address Unknown Organization [id number]:LABORATORY [facility] [place] - [address] [facility] [address] Laboratory Report Ordering Provider Test Date Status NAMAN DUBON 12/11/2022 08:51:20 Final For PreSurgery, Procedure, O B Admit, or Surveillance testing - Nasal Turbinate source preferred.

For Symptomatic testing - Nasopharyngeal source preferred.
null Observation Date Value Abnormality Reference (Units ) Status SARS Coronavirus 2 12/11/2022 08:51:20 Negative N egative Final 2018 Novel Coronavirus not d etected.

This automated test was developed and its performance characteristics determined by [facility]. It has not been cleared or approved by the U.S. Food and Drug Administration (FDA). FDA does not require this test to go thru premarket FDA review. This test is used for clinical purposes. It should not be regarded as investigational or for research. This laboratory is certified under the Clinical Laboratory Improvement Amendments (CLIA) as qualified to perform high complexity clinical laboratory testing.

This test is a nucleic acid amplification test (NAAT), a reverse transcriptase polymerase chain reaction (RT-PCR) test, or a Centers for Disease Control-acceptable equivalent. The test is performed in a high complexity Clinical Laboratory Improvement Amendments-(CLIA) certified laboratory. The test is acceptable for SARS-CoV-2 diagnosis, surveillance, and travel within the [place] and to most countries. Please check with local testing authorities about requirements before travel. Performing Location LABORATORY [facility] [place] - [address] [facility] [address]
--- OUTSIDE RECORDS SUMMARY | 2023-05-16 19:49 | External Medical Summary | Summary of Care ---
Author Name Unknown Organization [facility] Address [address] [place] [address] Phone [phone] Care Team Providers Care Vamp Cut Out Worker Name Role Phone Unavailable Primary Care Provider Unavailabl e Reason for Visit * Reason Comments Flu Encounter Details Date Type Department Care Team Description 12/11/2022 Convenient Care Visit [facility] [address] [address] Marilyn Zelaya PA-C [address] [phone] Viral respiratory illness* Allergies Active Allergy Reactions Severity Noted Date Comments Clonazepam Other (Please comment) 12/12/2014 Patient has syncopey from medication Morphine Other (Please comment) 12/12/2014 Patient state she Hallucinates when taking the medication Tramadol Other (Please comment) 12/12/2014 Migrans documented as of this encounter (statuses as of 12/11/2022) Medications Medication Sig Dispensed Refills Start Date End Date Status /Folic Acid Oral Tablet Take by mouth. 0 Active Ondansetron HCl 8 MG Oral Tablet Take 1 Tablet by mouth in the morning and 1 Tablet at noon and 1 Tablet before bedtime. 20 Tablet 2 10/28/2022 Active Docusate Sodium 100 MG Oral Capsule Take 1 Capsule by mouth in the morning and 1 Capsule before bedtime. 0 Active Albuterol Sulfate HFA 108 (90 Base) MCG/ACT Inhalation Aerosol Solution Inhale 2 Puffs by mouth every 4 hours as needed. 0 08/21/2021 08/21/2023 Active documented as of this encounter (statuses as of 12/11/2022) Active Problems Problem Noted Date Supervision of other normal , a ntepartum 10/05/2022 Asthma with severity to be determined Overview: ICD-10 update of inactive term ADVANCE DIRECTIVE INFORMATION 04/23/2005 Overview: Not applicable (under age of 18) Estimated Date of Delivery Comme nts Yes 05/17/2023 Based on last me nstrual period of 08/10/2022 documented as of this encounter (statuses as of 12/11/2022) Immunizations Name Administration Dates Next Due HPV Vaccine, 4-Valent 01/22/2008,10/23/2007 PPD 04/15/2015 documented as of this encounter Social History [...] got money to buy more. Never true 10/05/2022 Within the past 12 months, t he food you bought just didn't last and you didn't have money to get more. Never true 10/05/2022 Estimated Date of Delivery Comme nts Yes 05/17/2023 Based on last me nstrual period of 08/10/2022 Sex Assigned at Date Recorded Female 10/05/2022 1:32 PM E DT Job Start Date Occupation Industry Not on file Not on file Not on file documented as of this encounter Last Filed Vital Signs Vital Sign Reading Time Taken Comments Blood Pressure 104/52 12/11/2022 8:26 AM EDT Pulse 78 12/11/2022 8:26 AM EDT Temperature 36.1 C (97 F) 12/11/2022 8:26 AM EDT Respiratory Rate 16 12/11/2022 8:26 AM EDT Oxygen Saturation 99% 12/11/2022 8:26 AM EDT Inhaled Oxygen Concentration - - Weight - - Height - - Body Mass Index - - documented in this encounter Progress Notes * Marilyn Zelaya PA-C - 12/11/2022 8:30 AM EDT Candelaria Fall is a 32 year old female who presents with: Nursing Notes: Chloécaro Marin, VINITA 12/11/22 0828 Sign at exiting of workspace Candelaria Fall is a 32 year old female who presents to walk-in clinic today complaining of Chief Complaint Patient presents with Flu Main Symptoms:2 days go she had a bad headache, yesterday she woke up with a sore throat, fatigue. This morning she still had a sore throat, fatigue. Had to call off work today. Also started with a dry last night. No known fever. Cause: unknown How lon days Tried: albuterol inhaler, sudafed PE Pt accompanied by: self Patient is currently . HPI Pt here c/o sore throat, fatigue, ROSENBERG and cough. Started 2 days ago with a bad ROSENBERG. [place] like it was a Migraine. Yesterday had fatigue and sore throat. Last night started with some cough, dry. She is asthmatic. Using her albuterol inhaler some. Pt is currently . Called off work today. She was able to bring mucus out of her throat today and throat is feeling improved some now. Left ear was feeling clogged previously, improved currently. Not much head congestion. [place] feverish yesterday, none today. Body aches yesterday, not as much today. Denies NVD. Severity of Symptoms: Moderate Modifying Factors (what was done since onset of symptoms): albuterol, sudafed PE ROS See HPI for pertinent positives and negatives. Patient denies addtional complaints. HISTORY Past Medical History: Diagnosis Date Anxiety Asthma, allergic PTSD (post-traumatic stress disorder) No past surgical history on file. Social History Tobacco Use Smoking status: Former Types: Vaporizer Smokeless tobacco: Not on file Tobacco comments: 1 pack of cigarettes a day for about 3 in half years. Stopped smoking cigarettes in May 2022, has cut back from 5% nicotine vaping to 1.8%. Substance Use Topics Alcohol use: No Vaping/E-Cigarette Use Vaping/E-Cigarette Use Former User Vaping/E-Cigarette Substances Vaping/E-Cigarette Devices Current Outpatient Medications Medication Sig Dispense Refill /Folic Acid Oral Tablet Take by mouth. Ondansetron HCl 8 MG Oral Tablet Take 1 Tablet by mouth in the morning and 1 Tablet at noon and1 Tablet before bedtime. 20 Tablet 2 Docusate Sodium 100 MG Oral Capsule Take 1 Capsule by mouth in the morning and 1 Capsule beforebedtime. Albuterol Sulfate HFA 108 (90 Base) MCG/ACT Inhalation Aerosol Solution Inhale 2 Puffs by mouthevery 4 hours as needed. No current facility-administered medications for this visit. Review of patient's allergies indicates: Allergen Reactions Clonazepam Other (Please comment) Patient has syncopey from medication Morphine Other (Please comment) Patient state she Hallucinates when taking the medication Tramadol Other (Please comment) Migrans OBJECTIVE BP 104/52 | Pulse 78 | Temp 36.1 C (97 F) (Tympanic) | Resp 16 | LMP 08/10/2022 | SpO2 99% Wt Readings from Last 1 Encounters: 12/01/22 67.9 kg (149 lb 9.6 oz) General Appearance: awake, alert, no apparent distress HEENT: perrl and eomi TMs intact clear, normal light reflex, no erythema oral pharynx clear, mucus membranes moist No sinus tenderness or facial pain to percussion Very minimal clear nasal discharge noted. No turbinate engorgement. Neck: normal, supple, no adenopathy Respiratory: clear to auscultation, no rhonchi, no wheezes and no crackles Heart: regular rate, regular rhythm, no murmurs , no rubs and no gallops Skin: skin color, texture, turgor are normal, no rashes or significant lesions ASSESSMENT AND PLAN Viral respiratory illness (Primary) - SARS-COV-2 (COVID-19), NAAT - RETURN TO WORK OR SCHOOL Likely acute viral URI. Less likely influenza. COVID testing done, can give results via myG once finalized. Deferred strep testing today given exam, discussed can consider if symptoms worsen or fail to improve. Pt agreeable. Pt currently . Discussed supportive measures as reviewed. Rest, fluids, vaporizer, salt water gargles, tylenol. Follow up with PCP for failure to improve or acute worsening. Patient goals for plan of care were discussed Marilyn Zelaya PA-C [address] [place] [address] documented in this encounter Nursing Notes * Chloé Marin LPN - 12/11/2022 8:23 AM EDT Candelaria Fall is a 32 year old female who presents to walk-in clinic today complaining of Chief Complaint Patient presents with Flu Main Symptoms:2 days go she had a bad headache, yesterday she woke up with a sore throat, fatigue. This morning she still had a sore throat, fatigue. Had to call off work today. Also started with a dry last night. No known fever. Cause: unknown How lon days Tried: albuterol inhaler, sudafed PE Pt accompanied by: self Patient is currently . documented in this encounter Plan of Treatment Upcoming Encounters Date Type Specialty Care Team Description 12/31/2022 Imaging Radiology 12/31/2022 Office Visit Gynecology Obstetrics Kiya Crocker CRNP [address] [place] [address] Pending Results Name Type Priority Associated Diagnoses Date /Time SARS-COV-2 (COVID-19), NAAT Lab Routine Viral respiratory illness 12/11/2022 8:51 AM EDT Health Maintenance Due Date Last Done Comments DISCUSS TOBACCO CESSATION (REFER TO SMARTSET #2666) 1991 Hepatitis B (1 of 3 - 3-dose series) 1991 Pneumococcal Vaccine: Pediatrics (0 to 5 Years) and At-Risk Patients (6 to 64 Years) (1 - PCV) 1997 Depression Screening, Annual for Pts 12 and Over 2003 GARDASIL-HPV IMMUNIZATION SERIES (3 - 3-dose series) 05/24/2008 01/22/2008, 10/23/2007 DTaP,Tdap,and Td Vaccines (1 - Tdap) 2010 COVID-19 Vaccine (2 - Pfizer series) 07/22/2021 05/27/2021 Pap Smear 2021 Influenza Vaccine (FLU shot) (Season Ended) 2023 08/17/2017, 04/23/2016 Hepatitis C Screening Completed 10/05/2022 , 10/05/2022, 10/05/2022 MENINGOCOCCAL (MENACTRA/MENVEO) Aged Out No longer eligible b ased on patient's age to complete this topic documented as of this encounter Medical Devices Not on filedocumented as of this encounter Visit Diagnoses Diagnosis Viral respiratory illness- Primary Unspecified viral infection, in conditions classified elsewhere and of unspecified site documented in this encounter"
--- OUTSIDE RECORDS SUMMARY | 2023-05-16 19:49 | External Medical Summary | Summary of Care ---
Author Name Unknown Organization [facility] Address [address] [place] [address] Phone [phone] Care Team Providers Care Supervisor Dumping Name Role Phone Unavailable Primary Care Provider Unavailabl e Reason for Visit * Reason Onset Date Comments Medication Refill 01/08/2023 Encounter Details Date Type Department Care Team Description 01/08/2023 Telephone Family Practice [facility] [address] [place] [address] Latasha Angulo PA-C [address] [place] [address] Medication Refill Allergies Active Allergy Reactions Severity Noted Date Comments Clonazepam Other (Please comment) 12/12/2014 Patient has syncopey from medication Morphine Other (Please comment) 12/12/2014 Patient state she Hallucinates when taking the medication Tramadol Other (Please comment) 12/12/2014 Migrans documented as of this encounter (statuses as of 01/11/2023) Medications Medication Sig Dispensed Refills Start Date [...] hours as needed. 0 08/21/2021 08/21/2023 Active Levocetirizine Dihydrochloride 5 MG Oral Tablet (Xyzal Allergy 24HR)Indications:Dysf unction of both eustachian tubes Take 1 Tablet by mouth every evening. 30 Tablet 5 12/13/2022 Active Triamcinolone Acetonide 55 MCG/ACT Nasal Aerosol (Nasacort Allergy 24HR)Indications:Dysf unction of both eustachian tubes Administer 2 Sprays into each nostril in the morning. 6.8 mL 5 12/13/2022 Active Fluticasone-Salmetero l 250-50 MCG/ACT Inhalation Aerosol Powder Breath Activated (Advair Diskus) Inhale 1 Puff by mouth in the morning and 1 Puff before bedtime. 60 Each 1 12/14/2022 Active documented as of this encounter (statuses as of 01/11/2023) Active Problems Problem Noted Date Supervision of other normal , a ntepartum 10/05/2022 Asthma with severity to be determined Overview: ICD-10 update of inactive term ADVANCE DIRECTIVE INFORMATION 04/23/2005 Overview: Not applicable (under age of 18) Estimated Date of Delivery Comme nts Yes 05/17/2023 Based on last me nstrual period of 08/10/2022 documented as of this encounter (statuses as of 01/11/2023) Immunizations Name Administration Dates Next Due HPV [...] encounter Miscellaneous Notes * Telephone Encounter - Chloé Marin LPN - 01/11/2023 9:05 AM EDT Provider to address: n/a Reason for Call: Medication Refill Contact: Telephone Call Contact Type: Medication Outcome: please see encounter dated 12/13/22. Medication was switched to Advair. Total Time including non face to face (minutes): 5 * Telephone Encounter - JONO Gonzalez - 01/08/2023 11:03 AM EDT Received request from Pharmacy for Dulera [id number] Not on med list Needs prior authorization is required Ref [id number] documented in this encounter Plan of Treatment Upcoming Encounters Date Type Specialty Care Team Description 01/14/2023 Imaging Radiology 02/01/2023 Office Visit Gynecology Obstetrics Kiya Crocker CRNP [address] [place] [phone] 03/01/2023 Office Visit Gynecology Obstetrics Vanessa Barbosa CNM [address] [facility] [place] [address] Health Maintenance Due Date Last Done Comments [...] Pap Smear 2021 Influenza Vaccine (FLU shot) (#1) 2023 08/17/2017, 04/23/2016 Hepatitis C Screening Completed 10/05/2022 , 10/05/2022, 10/05/2022 MENINGOCOCCAL (MENACTRA/MENVEO) Aged Out No longer eligible b ased on patient's age to complete this topic documented as of this encounter Medical Devices Not on filedocumented as of this encounter
--- OUTSIDE RECORDS SUMMARY | 2023-05-16 19:49 | External Medical Summary ---
Author Name Unknown Address Unknown Organization K01:[facility]ORY [facility] [place] [address] [place] [address] Laboratory Report Ordering Provider Test Date Status RANDAL KUMARISABELA 02/22/2023 09:18:28 Final Observation Date Value Abnormality Reference (Units ) Status Retic, % (auto) 02/22/2023 09:18:28 5.81 Above high normal 0.80-1.90 (%) Final Reticulocytes, Absolute 02/22/2023 09:18:28 192.3 Above high normal 31.3-100.1 (K/uL) Final Reticulocyte fraction, immature 02/22/2023 09:18:28 31.9 Above high normal 2.5-20.6 (%) Final Reticulocyte HGB 02/22/2023 09:18:28 36.0 29.7-37.4 (pg) Final Performing Location [facility] [place] [facility] [address] [facility] [address]
--- OUTSIDE RECORDS SUMMARY | 2023-05-16 19:49 | External Medical Summary ---
Author Name Unknown Address Unknown Organization K01:LABORATORY [facility] - [address] [place] [address] Laboratory Report Ordering Provider Test Date Status LEENA KUMAR 02/22/2023 09:18:28 Final Observation Date Value Abnormality Reference (Units ) Status Vitamin B12 02/22/2023 09:18:28 [phone] (pg/mL) Final Performing Location LABORATORY [facility] - [address] [place] [address]
--- OUTSIDE RECORDS SUMMARY | 2023-05-16 19:49 | External Medical Summary | Summary of Care ---
Author Name Unknown Organization [facility] Address [address] [place] [address] Phone [phone] Care Team Providers Care Crew Boat Operator Name Role Phone Unavailable Primary Care Provider Unavailabl e Reason for Visit * Reason Comments Flu Encounter Details Date Type Department Care Team Description 12/11/2022 Convenient Care Visit [facility] [address] [address] Marilyn Zelaya PA-C [address] [phone] Viral respiratory illness* Allergies Active Allergy Reactions [...] documented in this encounter Progress Notes * Mairlyn Zelaya PA-C - 12/11/2022 8:30 AM EDT [...] 2 days ago with a bad ROSENBERG. [place] like it was a Migraine. Yesterday had [...] previously, improved currently. Not much head congestion. [place] feverish yesterday, none today. Body aches yesterday, [...] of care were discussed Marilyn Zelaya PA-C [address] [place] [address] documented in this encounter Nursing Notes * [...] Kiya Crocker CRNP [address] [place] [address] Pending Results Name Type Priority Associated Diagnoses Date /Time SARS-COV-2 (COVID-19), NAAT Lab Routine Viral respiratory illness 12/11/2022 8:51 AM EDT Health Maintenance Due Date Last Done Comments DISCUSS TOBACCO CESSATION (REFER TO SMARTSET #1834) 1991 Hepatitis B (1 of 3 - [...]
--- OUTSIDE RECORDS SUMMARY | 2023-05-16 19:49 | External Medical Summary ---
Author Name Unknown Address Unknown Organization K01:LABORATORY [facility] [place] - [address] [place] [facility] [place] [address] Laboratory Report Ordering Provider Test Date Status LEENA KUMAR 02/22/2023 09:18:28 Final Observation Date Value Abnormality Reference (Units ) Status SYNC LEUKOCYTES IN BLOOD BY AUTOMATED COUNT 02/22/2023 09:18:28 9.67 4.00-10.80 (K/uL) Final Segs 02/22/2023 09:18:28 73.4 40.0-75.0 (%) Final Lymphs % 02/22/2023 09:18:28 16.1 Below low normal 18.0-42.0 (%) Final Monos 02/22/2023 09:18:28 7.4 1.0-11.0 (%) Final Eosinophils 02/22/2023 09:18:28 1.9 0.0-6.0 (%) Final Basos 02/22/2023 09:18:28 0.4 0.0-2.0 (%) Final Immature Granulocyte, Percent 02/22/2023 09:18:28 0.8 0.0-2.0 (%) Final Absolute Segs 02/22/2023 09:18:28 7.09 1.80-7.70 (K/uL) Final Lymphs, absolute 02/22/2023 09:18:28 1.56 1.00-4.80 (K/ul) Final Monos, Abs 02/22/2023 09:18:28 0.72 0.00-1.10 (K/uL) Final Eos, Abs 02/22/2023 09:18:28 0.18 0.00-0.70 (K/uL) Final Basos, Abs 02/22/2023 09:18:28 0.04 0.00-0.20 (K/uL) Final Immature Granulocytes, Number 02/22/2023 09:18:28 0.08 0.00-0.20 (K/uL) Final Performing Location LABORATORY [facility] [place] - [address] [facility] [address]
--- OUTSIDE RECORDS SUMMARY | 2023-05-16 19:49 | External Medical Summary ---
Author Name Unknown Address Unknown Organization : Laboratory Report Ordering Provider Test Date Status LEENA KUMAR 12/01/2022 11:10:31 Final Observation Date Value Abnormality Reference (Units ) Status INTERPRETATION 12/01/2022 11:10:31 SEE BELOW Final Screen negative for open NTD . RISK FOR ONTD 12/01/2022 11:10:31 <1:5000 Final CALC'D GESTATIONAL AGE 0612/01/2022 11:10:31 16.1 Final AFP, SERUM 12/01/2022 11:10:31 35.4 (ng/mL) Final AFP MOM 12/01/2022 11:10:31 1.03 Final Reference Range:
NTD < 2.50
IDD <1.90
TWINS <4.00
TWINS IDD <3.50
TRIPLETS <4.50
The AFP test result indicates that this patient is
screen negative for open NTD. It should be noted
that normal test results can never guarantee the
of a normal baby and that 2-3% of newborns
have some type of physical or mental defect, many
of which are undetectable through any known
diagnostic technique.
This is a screening test, not a diagnostic test.
This risk assessment report is based in part on
demographic data provided by the ordering
physician. Please notify the laboratory promptly
if any data are incorrect. For assistance with
recalculations, please call your local [facility] laboratory. For assistance with
interpretation of these results, please contact
your Local [facility] genetic counselor or
call [phone] ([phone]).
Interpretive Cutoffs
Screen Positive for Open NTD:
> or = 2.50 adjusted MOM
> or = 1.90 adjusted MOM for insulin- dependent diabetics
> or = 4.00 adjusted MOM for twins
> or = 3.50 adjusted MOM for twins insulin-dependent diabetics
> or = 4.50 adjusted MOM for triplets
For additional information, please refer to
[email or web address]/[email or web address]
(This link is being provided for
informational/educational purposes only.) DATE OF 12/01/2022 11:10:31 1990 Final COLLECTION DATE 12/01/2022 11:10:31 12/01/2022 Final MATERNAL WEIGHT 12/01/2022 11:10:31 149 (lbs ) Final EST'D DATE OF DELIVERY 12/01/2022 11:10:31 05/17/2023 Final SILVA DETERMINED BY 12/01/2022 11:10:31 LMP Final MOTHER'S ETHNIC ORIGIN 12/01/2022 11:10:31 WHITE Final NUMBER OF FETUSES 12/01/2022 11:10:31 1 Final INSULIN DEPEND DIABETIC 12/01/2022 11:10:31 NO Final REPEAT SPECIMEN 12/01/2022 11:10:31 NO Final HX OF NEURAL TUBE DEFECTS 12/01/2022 11:10:31 NO Final PREV DOWN SYND 12/01/2022 11:10:31 NO Final DONOR EGG 12/01/2022 11:10:31 NO Final DONOR AGE: EGG RETRIEVAL 12/01/2022 11:10:31 NOT GIVEN Final Test performed by [facility]
[address],
[place] [address]

Patient Support Tech: Lottie Moya MD,PHD,SHABBIR
[facility] by [facility],
[facility],
[address] [place], [place]
Jaden Mo M.D., Ph.D., Director of Laboratories
, CLIA [id number] Performing Location
--- OUTSIDE RECORDS SUMMARY | 2023-05-16 19:49 | External Medical Summary ---
Author Name Unknown Address Unknown Organization K01:[facility] [address] [place] [address] Laboratory Report Ordering Provider Test Date Status LEENA KUMAR 02/22/2023 09:18:28 Final Observation Date Value Abnormality Reference (Units ) Status Ferritin 02/22/2023 09:18:28 112 13-150 (ng /mL) Final Performing Location [facility] [address] [place] [address]
--- OUTSIDE RECORDS SUMMARY | 2023-05-16 19:49 | External Medical Summary ---
Author Name Unknown Address Unknown Organization K01:[facility] [address] [place] [address] Laboratory Report Ordering Provider Test Date Status LEENA KUMAR 02/22/2023 09:18:28 Final Observation Date Value Abnormality Reference (Units ) Status Folic Acid 02/22/2023 09:18:28 >20.0 >4.5 (ng/ mL) Final Performing Location [facility] [address] [place] [address]
--- OUTSIDE RECORDS SUMMARY | 2023-05-16 19:49 | External Medical Summary ---
Author Name Unknown Address Unknown Organization K01:[facility] [address] [place] [address] Laboratory Report Ordering Provider Test Date Status LEENA KUMAR 02/22/2023 09:18:28 Final Observation Date Value Abnormality Reference (Units ) Status TSH 02/22/2023 09:18:28 1.73 0.27-4.20 (uIU/mL) Final Performing Location [facility] - [address] [place] [address]
--- OUTSIDE RECORDS SUMMARY | 2023-05-16 19:49 | External Medical Summary ---
Author Name Unknown Address Unknown Organization K01:[facility] - [address] [place] [address] Laboratory Report Ordering Provider Test Date Status LEENA KUMAR 02/22/2023 09:18:28 Final Observation Date Value Abnormality Reference (Units ) Status Iron 02/22/2023 09:18:28 153 Above high normal 33-151 (ug/dL) Final Iron-binding capacity 02/22/2023 09:18:28 482 Above high normal 250-425 (ug/dL) Final Transferrin Sat % 02/22/2023 09:18:28 32 15-55 (%) Final Performing Location LAB[facility]ATORY [facility] - [address] [place] [address]
--- OUTSIDE RECORDS SUMMARY | 2023-05-16 19:49 | External Medical Summary | Summary of Care ---
Author Name Unknown Organization [facility] Address [address] [place] [address] Phone [phone] Care Team Providers Care Agitator Operator Name Role Phone Unavailable Primary Care Provider Unavailabl e Reason for Visit * Reason Comments Return Visit Encounter Details Date Type Department Care Team Description 02/22/2023 Office Visit Gynecology/Obstetrics [facility] [address] [facility] [place] [address] Gillian Jalloh CRNP [address] [facility] [place] [address] Supervision of other normal , antepartum*; Need for prophylactic vaccination with combined jjdqvrwypz-axfekfv-xvo tussis (DTP) vaccine Allergies Active Allergy Reactions Severity Noted Date [...] every 4 hours as needed. 0 08/21/2021 4 Active Ondansetron HCl 8 MG Oral Tablet Take 1 Tablet by mouth in the morning and 1 Tablet at noon and 1 Tablet before bedtime. 20 Tablet 2 10/28/2022 3 Discontinue d(Medicatio n List Clean Up) Docusate Sodium 100 MG Oral Capsule Take 1 Capsule by mouth in the morning and 1 Capsule before bedtime. 0 3 Discontinue d(Medicatio n List Clean Up) Levocetirizine Dihydrochloride 5 MG Oral Tablet (Xyzal Allergy 24HR)Indications:Dys function of both eustachian tubes Take 1 Tablet by mouth every evening. 30 Tablet 5 12/13/2022 3 Discontinue d(Medicatio n List Clean Up) Triamcinolone Acetonide 55 MCG/ACT Nasal Aerosol (Nasacort Allergy 24HR)Indications:Dys function of both eustachian tubes Administer 2 Sprays into each nostril in the morning. 6.8 mL 5 12/13/2022 3 Discontinue d(Medicatio n List Clean Up) Fluticasone-Salmeter ol 250-50 MCG/ACT Inhalation Aerosol Powder Breath Activated (Advair Diskus) Inhale 1 Puff by mouth in the morning and 1 Puff before bedtime. 60 Each 1 12/14/2022 3 Discontinue d(Medicatio n List Clean Up) documented as of this [...] Sign Reading Time Taken Comments Blood Pressure 102/58 02/22/2023 8:21 AM EDT Pulse - - Temperature - - Respiratory Rate - - Oxygen Saturation - - Inhaled Oxygen Concentration - - Weight 77.6 kg (171 lb) 02/22/2023 8:21 AM EDT Height - - Body Mass Index 27.6 02/01/2023 1:34 PM EDT documented in this encounter Patient Instructions * Patient Instructions* RAMONA Mendez - 02/22/2023 8:36 AM EDT Round Ligament Pain: Causes and Treatment Round ligament pain is most common during the 2nd and 3rd trimesters. Women may have a sharp pain in their abdomen or hip area that is either on one side or both. Some women even report pain that extends into the groin area. Round ligament pain is considered a normal part of as your body goes through many different changes. What causes round ligament pain? The round ligament supports the uterus and stretches during . It connects the front portion of the uterus to the groin. These ligaments contract and relax like muscles, but much more slowly. Any movement (including going from a sitting to standing position quickly, laughing, or coughing) that stretches these ligaments by making them contract quickly, can cause a woman to experience pain.Round ligament pain should only last for a few seconds. Stretching is the best way to loosen things up and prevent round ligament pain. Here are our top round ligament pain stretches to get you started: #1 CAT-COW Start on your hands and knees, shoulders above wrists and hips above knees. Breathe in and drop your stomach down, arching your back and looking upward. Then, breathe out and round your upper back toward the ceiling, allowing your head to drop and face your stomach. #2 HIP FLEXOR STRETCH In all fours position with your arm resting on a chair or birthing ball, bring the right leg forward while extending/straightening the left leg back until you feel a stretch in the front of the left thigh. Hold the position for 5-10 seconds. Repeat on the opposite side. #3 SIDE LYING SAVASANA Lie on your left side in a position, tuck your left arm beneath your head, and place a pillowbetween your legs to relieve pressure on your lower back. Flex your hips and remain in this position for several minutes. Inhale deeply as you stretch. #4 THE PELVIC CLOCK Sit on a birthing ball or chair with your feet flat on the floor. Bring your hands to your hips so you can feel the movement in your pelvis as you stretch. Now, imagine a clock resting on your pelvis--with your navel at 12 oclock and pubic bone at 6 oclock. Engage your abs and lengthen your spine. Inhale and tilt your pelvis toward a 3 oclock position. Continue on the inhale and move around the clock, creating a small arch in your lower back. Exhale and bring your pelvis to 9 oclock. Continue your exhale until you reach a neutral 12 oclock position. #5 BUTTERFLY STRETCH Sit upright on a firm surface. Place the soles of your feet together and pulse your legs up and down, like the wings of a butterfly. You should feel a stretch in your inner thighs. For an even deeperstretch, place your hands on your knees for resistance. Other Ways to Relieve Round Ligament Pain While round ligament pain stretches are the best way to reduce pain, there are a few other things you can try to alleviate the discomfort : A belly band to give your bump some extra support Hydration to improve circulation to your growing tissue Rest to allow your muscles to recover from any movement Massage to give that area some extra TLC Acetaminophen to get some medicated pain relief documented in this encounter Progress Notes * RAMONA Mendez - 02/22/2023 8:28 AM EDT 28 wks Labs and Tdap today. + movement. No ctx, leaking, bleeding. Requested a breast pump through insurance; given Juliana Rae's contact info for BF classes. Discussed [facility] and to call with decreased FM, <10 movements in 2 hrs. 2 week return RAMONA Nash * Marlene Delgado LPN - 02/22/2023 8:23 AM EDT 28w0d Denies vaginal bleeding/rom + movement Lower back pain documented in this encounter Nursing Notes * Marlene Delgado LPN - 02/22/2023 9:05 AM EDT Patient here for tdap injection. Patient doing well no complaints. Injection given IM as ordered. Patient tolerated well. Patient to follow up as directed. Patient instructed to call if any complications. Patient verbalized understanding of instructions given. Injection site: Left Deltoid Medication Source: Dispensed stock medication documented in this encounter Plan of Treatment Upcoming Encounters Date Type Specialty Care Team Description 03/22/2023 Office Visit Gynecology Obstetrics Kiya Crocker CRNP [address] [place] [id number] 04/05/2023 Office Visit Gynecology Obstetrics Kiya Crocker CRNP [address] [place] [address] 04/19/2023 Office Visit Gynecology Obstetrics Kiya Crocker CRNP [address] [place] [address] 04/26/2023 Office Visit Gynecology Obstetrics Kiya Crocker CRNP [address] [place] [address] 05/03/2023 Office Visit Gynecology Obstetrics Pk Reza MD [address] [place] [address] 05/10/2023 Office Visit Gynecology Obstetrics Kiya Crocker CRNP [address] [place] [address] 05/17/2023 Office Visit Gynecology Obstetrics Kiya Crocker CRNP [address] [place] [address] Health Maintenance Due Date Last Done Comments [...] , antepartum- Primary Need for prophylactic vaccination with combined fduzwffjwr-orodgvo-urnnjrpsd (DTP) vaccine documented in this encounter
--- OUTSIDE RECORDS SUMMARY | 2023-05-16 19:49 | External Medical Summary | Summary of Care ---
Author Name Unknown Organization [facility] Address [address] [place] [address] Phone [phone] Care Team Providers Care Director Of Workforce Development Name Role Phone Unavailable Primary Care Provider Unavailabl e Reason for Visit * Reason Comments Return Visit Encounter Details Date Type Department Care Team Description 12/01/2022 Office Visit Gynecology/Obstetrics [facility] [address] [place] [address] Kiya Crocker CRNP [address] [facility] [place] [address] Supervision of other normal , antepartum* Allergies Active Allergy Reactions Severity Noted Date Comments Clonazepam Other (Please comment) 12/12/2014 Patient has syncopey from medication Morphine Other (Please comment) 12/12/2014 Patient state she Hallucinates when taking the medication Tramadol Other (Please comment) 12/12/2014 Migrans documented as of this encounter (statuses as of 12/01/2022) Medications Medication Sig Dispensed Refills Start Date End Date Status /Folic Acid Oral Tablet Take by mouth. 0 Active Ondansetron HCl 8 MG Oral Tablet Take 1 Tablet by mouth in the morning and 1 Tablet at noon and 1 Tablet before bedtime. 20 Tablet 2 10/28/2022 Active Additional Information Patient not taking.Reported on 12/01/2022 Docusate Sodium 100 MG Oral Capsule (Stool Softener) Take 1 Capsule by mouth in the morning and 1 Capsule before bedtime. 0 Active documented as of this encounter (statuses as of 12/01/2022) Active Problems Problem Noted Date Supervision of other normal , a ntepartum 10/05/2022 Asthma with severity to be determined Overview: ICD-10 update of inactive term ADVANCE DIRECTIVE INFORMATION 04/23/2005 Overview: Not applicable (under age of 18) Estimated Date of Delivery Comme nts Yes 05/17/2023 Based on last me nstrual period of 08/10/2022 documented as of this encounter (statuses as of 12/01/2022) Immunizations Name Administration Dates Next Due HPV Vaccine, 4-Valent 01/22/2008,10/23/2007 PPD 04/15/2015 documented as of this encounter Social History Tobacco Use Types Packs/Day Years Used Date Smoking Tobacco: Some Days Vaporizer Comments:1 pack of cigarette s a [...] Sign Reading Time Taken Comments Blood Pressure 98/50 12/01/2022 10:36 AM EDT Pulse - - Temperature - - Respiratory Rate - - Oxygen Saturation - - Inhaled Oxygen Concentration - - Weight 67.9 kg (149 lb 9.6 oz) 12/01/2022 10:36 AM EDT Height 167.6 cm (5' 6") 12/01/2022 10:36 AM EDT Body Mass Index 24.15 12/01/2022 10:36 AM EDT documented in this encounter Progress Notes * RAMONA Brannon - 12/01/2022 10:55 AM EDT 16w1d Reports constipation. No other concerns. Low risk Qnatal, desires MSAFP today. Anatomy u/s with next visit. RAMONA Brannon documented in this encounter Nursing Notes * GERARDO Lee - 12/01/2022 10:40 AM EDT 16w1d Pt denies any concerns documented in this encounter Plan of Treatment Upcoming Encounters Date Type Specialty Care Team Description 12/01/2022 Laboratory [facility] [address] [place] [address] Arrived 12/31/2022 Imaging Radiology 12/31/2022 Office Visit Gynecology Obstetrics Kiya Crocker CRNP [address] [place] [phone] Pending Results Name Type Priority Associated Diagnoses Date /Time MATERNAL SERUM AFP Lab Routine Supervision of other normal , antepartum 12/01/2022 11:10 AM EDT Scheduled Orders Name Type Priority Associated Diagnoses Orde r Schedule US PREG SINGLE/1ST GEST, 14 WEEKS OR LATER Medical Imaging Routine Supervision of other normal , antepartum Expected: 12/31/2022 (Approximate), Expires: 01/01/2024 Health Maintenance Due Date Last Done Comments DISCUSS TOBACCO CESSATION (REFER TO SMARTSET #[id number]) 1991 Hepatitis B (1 of 3 - 3-dose series) 1991 Pneumococcal Vaccine: Pediatrics (0 to 5 Years) and At-Risk Patients (6 to 64 Years) (1 - PCV) 1997 Depression Screening, Annual for Pts 12 and Over 2003 DTaP,Tdap,and Td Vaccines (1 - Tdap) 2010 COVID-19 Vaccine (2 - Pfizer series) 07/22/2021 05/27/2021 Pap Smear 2021 Influenza Vaccine (FLU shot) (Season Ended) 2023 08/17/2017, 04/23/2016 GARDASIL-HPV IMMUNIZATION SERIES Aged Out 01/22/2008, 10/23/2007 No longer eligible based on patient's age to complete this topic Hepatitis C Screening Completed 10/05/2022 , 10/05/2022, 10/05/2022 MENINGOCOCCAL (MENACTRA/MENVEO) Aged Out No longer eligible b ased on patient's age to complete this topic documented as of this encounter Medical Devices Not on filedocumented as of this encounter Visit Diagnoses Diagnosis Supervision of other normal , antepartum- Primary documented in this encounter
--- OUTSIDE RECORDS SUMMARY | 2023-05-16 19:49 | External Medical Summary | Summary of Care ---
Author Name Unknown Organization [facility] Address [address] [place] [address] Phone [phone] Care Team Providers Care Public Relations Supervisor Name Role Phone Unavailable Primary Care Provider Unavailabl e Reason for Visit * Reason Onset Date Comments Medication Pre-auth 12/13/2022 Mometasone F uro-Formoterol Fum 100-5 MCG/ACT Inhalation Aerosol (Dulera) Encounter Details Date Type Department Care Team Description 12/13/2022 Refill Family Practice [facility] [address] [facility] [place] [address] Latasha Angulo PA-C [address] [facility] [place] [address] Allergies Active Allergy Reactions Severity Noted Date Comments Clonazepam Other (Please comment) 12/12/2014 Patient has syncopey from medication Morphine Other (Please comment) 12/12/2014 Patient state she Hallucinates when taking the medication Tramadol Other (Please comment) 12/12/2014 Migrans documented as of this encounter (statuses as of 12/14/2022) Medications Medication Sig Dispensed Refills Start Date End Date Status /Folic Acid Oral Tablet Take by mouth. 0 Active Ondansetron HCl 8 MG Oral Tablet Take 1 Tablet by mouth in the morning and 1 Tablet at noon and 1 Tablet before bedtime. 20 Tablet 2 3 Active Docusate Sodium 100 MG Oral Capsule Take 1 Capsule by mouth in the morning and 1 Capsule before bedtime. 0 Active Albuterol Sulfate HFA 108 (90 Base) MCG/ACT Inhalation Aerosol Solution Inhale 2 Puffs by mouth every 4 hours as needed. 0 2 08/21/19 24 Active Levocetirizine Dihydrochloride 5 MG Oral Tablet (Xyzal Allergy 24HR)Indications:Dys function of both eustachian tubes Take 1 Tablet by mouth every evening. 30 Tablet 5 3 Active Triamcinolone Acetonide 55 MCG/ACT Nasal Aerosol (Nasacort Allergy 24HR)Indications:Dys function of both eustachian tubes Administer 2 Sprays into each nostril in the morning. 6.8 mL 5 3 Active Budesonide-Formotero l Fumarate 160-4.5 MCG/ACT Inhalation Aerosol (Symbicort) Inhale 2 Puffs by mouth in the morning and 2 Puffs before bedtime. 10.2 g 1 3 Active Mometasone Furo-Formoterol Fum 100-5 MCG/ACT Inhalation Aerosol (Dulera)Indications: Exacerbation of asthma, unspecified asthma severity, unspecified whether persistent Inhale 2 Puffs by mouth in the morning and 2 Puffs before bedtime. 13 g 1 3 12/14/19 23 Discontinued documented as of this encounter (statuses as of 12/14/2022) Active Problems Problem Noted Date Supervision of other normal , a ntepartum 10/05/2022 Asthma with severity to be determined Overview: ICD-10 update of inactive term ADVANCE DIRECTIVE INFORMATION 04/23/2005 Overview: Not applicable (under age of 18) Estimated Date of Delivery Comme nts Yes 05/17/2023 Based on last me nstrual period of 08/10/2022 documented as of this encounter (statuses as of 12/14/2022) Immunizations Name Administration Dates Next Due HPV [...] as of this encounter Miscellaneous Notes * Addendum Note - Irina Joe RPh - 12/14/2022 10:33 AM EDTAddended by: IRINA JOE on: 12/14/2022 10:33 AM Modules accepted: Orders * Telephone Encounter - Irina Joe RPh - 12/14/2022 10:29 AM EDT Pt sent myG message regarding Symbicort that was sent as alternate. Hi Al the simbicort sent to the pharmacy for me yesterday by Latasha Angulo is way out of my jenkins range its even $100 is there anything more affordable for me that can be sent in? PC to [facility] and pharmacist confirmed symbicort was $94 on insurance. Other alternative covered would be Breo or Advair. Pharmacist ran test claim for Advair and copay came back as $34. Rx pended Pending Prescriptions: Disp Refills Fluticasone-Salmeterol 250-50 MCG/ACT Inh*60 Each1 Sig: Inhale 1 Puff by mouth in the morning and 1 Puff before bedtime. Please approve if appropriate to change due to high copay on Symbicort and Dulera not on formulary Thanks, Irina Scavone, PharmD Clinical Pharmacist [facility] ([facility]) (formerly [employer]) [phone] 12/14/2022 10:32 AM * Telephone Encounter - Irina Joe [facility] - 12/13/2022 3:00 PM EDT PC to patient to advise of medication change MB full. Sent myG to advise of change Irina Brizuela PharmD Clinical Pharmacist [facility] ([facility]) (formerly [employer]) [phone] 12/13/2022 3:03 PM * Telephone Encounter - Latasha Angulo PA-C - 12/13/2022 2:56 PM EDT Signed Prescriptions: Disp Refills Budesonide-Formoterol Fumarate 160-4.5 MCG*10.2 g 1 Sig: Inhale 2 Puffs by mouth in the morning and 2 Puffs before bedtime. Authorizing Provider: LATASHA ANGULO * Telephone Encounter - Irina Joe RP - 12/13/2022 12:28 PM EDT Rx is pended for alternative medication that is covered (insurance does not cover DULERA). Please sign if agreeable and route back to me so I can advise patient. Pending Prescriptions: Disp Refills Budesonide-Formoterol Fumarate 160-4.5 MC*10.2 g 1 Sig: Inhale 2 Puffs by mouth in the morning and 2 Puffs before bedtime. Thanks, Irina Joe, PharmD Clinical Pharmacist [facility] ([facility]) (formerly [facility]) [phone] 12/13/2022 12:29 PM * Telephone Encounter - Arthur Ureña CPhT - 12/13/2022 11:44 AM EDT This is a new [place] request. Upon review of this prior authorization request, I verified this request is appropriate. This is prescribed by a department for which [facility] is authorized to review prior authorizations This is not a duplicate encounter regarding the same prior authorization The patient is planning to use insurance The insurance information listed in previous note is correct and the plan that is requiring prior authorization The insurance does not cover either brand or generic forms of this script as written without prior authorization The insurance does not cover any NDCs of this script without prior authorization Pharmacy benefits are not in chart (unable to verify coverage via RX Estimate tool) Of note, there is nothing currently pending in [facility] for this request. Please advise how to proceed. Thank you, Eliazar Ureña ([facility]) Asbestos Brake Lining Finisher III [facility] ([facility]) (formerly [facility]) 12/13/2022, 11:44 AM * Telephone Encounter - Sandra Hancock CPhT - 12/13/2022 11:04 AM EDT Pharmacy calling to inform doctor that the patient's insurance will not pay for this medication without a completed prior authorization. Did confirm this information with the pharmacy. Pt's current insurance information is as follows: Patient name: Candelaria Fall ID number: [id number] BIN number: [id number] PCN number: ADV Group number: [id number] Subscriber name: Candelaria Fall Primary or Secondary Insurance:Primary Medication: Mometasone Furo-Formoterol Fum 100-5 MCG/ACT Inhalation Aerosol (Dulera) Reason for Request: not on formulary Pharmacy and phone number: [facility] [phone] Rx plan and phone number: darek bobo What alternative medications does the pharmacy have in stock?: Symbicort, advair, breo Requesting high priority as this was sent for acute issue. Thank you, Sandra Hancock Product Distribution Specialist [facility] ([facility]) (Formerly [facility]) 12/13/2022,11:05 AM documented in this encounter Plan of Treatment Upcoming Encounters Date Type Specialty Care Team Description 12/31/2022 Imaging Radiology 12/31/2022 Office Visit Gynecology Obstetrics Kiya Crocker CRNP [address] [place] [address] Health Maintenance Due Date Last Done Comments [...]
--- OUTSIDE RECORDS SUMMARY | 2023-05-16 19:49 | External Medical Summary ---
Author Name Unknown Address Unknown Organization K01:LAB[facility]ATORY [facility] [place] - [facility] [address] [address] Laboratory Report Ordering Provider Test Date Status LEENA KUMAR 02/22/2023 09:18:28 Final Observation Date Value Abnormality Reference (Units ) Status Creatinine 02/22/2023 09:18:28 0.6 0.5-1.0 (mg/dL) Final Glomerular filtration rate/1.73 sq M.predicted [Volume Rate/Area] in Serum, Plasma or Blood by Creatinine-based formula (CKD-EPI) 02/22/2023 09:18:28 >90 >=60 (mL/min) Final eGFR is calculated based on the CKD-EPI 2020 equation Performing Location LABORATORY [facility] - [address] [address]
--- OUTSIDE RECORDS SUMMARY | 2023-05-16 19:49 | External Medical Summary ---
Author Name Unknown Address Unknown Organization K01:[facility] [place] [address] [address] Laboratory Report Ordering Provider Test Date Status STACYLEENA 02/22/2023 09:18:28 Final Observation Date Value Abnormality Reference (Units ) Status Glucose [Moles/volume] in Serum or Plasma --1 hour post 50 g glucose PO 02/22/2023 09:18:28 79 70-129 (mg/dL) Final Performing Location [facility] [place] [address] [address]
--- OUTSIDE RECORDS SUMMARY | 2023-05-16 19:49 | External Medical Summary | Summary of Care ---
Author Name Unknown Organization [facility] Address [address] [place] [address] Phone [phone] Care Team Providers Care Scalp Treatment Operator Name Role Phone Unavailable Primary Care Provider Unavailabl e Reason for Visit * Reason Comments Outpatient Testing Encounter Details Date Type Department Care Team Description 12/01/2022 Laboratory Laboratory, [facility] [address] [place] [address] [facility] [address] [place] [address] Arrived Allergies Active Allergy Reactions Severity Noted Date [...] Crocker CRNP [address] [place] [phone] Health Maintenance Due Date Last Done Comments DISCUSS TOBACCO CESSATION (REFER TO SMARTSET #2611) 1990 Hepatitis B (1 of 3 - [...]
--- OUTSIDE RECORDS SUMMARY | 2023-05-16 19:49 | External Medical Summary ---
Author Name Unknown Address Unknown Organization K01:[facility] [place] [address] [place] [address] Laboratory Report Ordering Provider Test Date Status LEENA KUMAR 02/22/2023 09:18:28 Final Observation Date Value Abnormality Reference (Units ) Status Treponema pallidum Ab [Presence] in Serum by Immunoassay 02/22/2023 09:18:28 Nonreactive Nonreactive Final No serologic evidence of syp hilis. No additional testing clinicially indicated at this time. Consider repeat testing in 2-4 weeks if acute or primary syphilis is suspected. Performing Location LABORATORY [facility] - [address] [place] [address]
--- OUTSIDE RECORDS SUMMARY | 2023-05-16 19:49 | External Medical Summary | Summary of Care ---
Author Name Unknown Organization [facility] Address [address] [place] [address] Phone [phone] Care Team Providers Care Fashion Styling Intern Name Role Phone Unavailable Primary Care Provider Unavailabl e Reason for Visit * Reason Onset Date Comments Medication Pre-auth 12/13/2022 Mometasone F uro-Formoterol Fum 100-5 MCG/ACT Inhalation Aerosol (Dulera) Encounter Details Date Type Department Care Team Description 12/13/2022 Refill Family Practice [facility] [address] [facility] [place] [address] Mary Angulo PA-C [address] [facility] [place] [address] Allergies Active Allergy Reactions Severity Noted Date Comments Clonazepam Other (Please comment) 12/12/2014 Patient has syncopey from medication Morphine Other (Please comment) 12/12/2014 Patient state she Hallucinates when taking the medication Tramadol Other (Please comment) 12/12/2014 Migrans documented as of this encounter (statuses as of 12/13/2022) Medications Medication Sig Dispensed Refills Start Date [...] as of this encounter (statuses as of 12/13/2022) Active Problems Problem Noted Date Supervision of other normal , a ntepartum 10/05/2022 Asthma with severity to be determined Overview: ICD-10 update of inactive term ADVANCE DIRECTIVE INFORMATION 04/23/2005 Overview: Not applicable (under age of 18) Estimated Date of Delivery Comme nts Yes 05/17/2023 Based on last me nstrual period of 08/10/2022 documented as of this encounter (statuses as of 12/13/2022) Immunizations Name Administration Dates Next Due HPV [...] encounter Miscellaneous Notes * Telephone Encounter - Latasha Joe RPh - 12/13/2022 3:00 PM EDT PC to patient to advise of medication change MB full. Sent myG to advise of change Latasha Brizuela, PharmD Clinical Pharmacist [facility] ([facility]) (formerly [facility]) [phone] 12/13/2022 3:03 PM * Telephone Encounter - Mary Angulo PA-C - 12/13/2022 2:56 PM EDT Signed Prescriptions: Disp Refills Budesonide-Formoterol Fumarate 160-4.5 MCG*10.2 g 1 Sig: Inhale 2 Puffs by mouth in the morning and 2 Puffs before bedtime. Authorizing Provider: MARY ANGULO * Telephone Encounter - Latasha Joe RP - 12/13/2022 12:28 PM EDT Rx is pended for alternative medication that is covered (insurance does not cover DULERA). Please sign if agreeable and route back to me so I can advise patient. Pending Prescriptions: Disp Refills Budesonide-Formoterol Fumarate 160-4.5 MC*10.2 g 1 Sig: Inhale 2 Puffs by mouth in the morning and 2 Puffs before bedtime. Thanks, Latasha Joe, PharmD Clinical Pharmacist [facility] ([facility]) (formerly [facility]) [phone] 12/13/2022 12:29 PM * Telephone Encounter - Arthur Ureña CPhT - 12/13/2022 11:44 AM EDT This is a new [place] request. Upon review of this prior authorization request, I verified this request is appropriate. This is prescribed by a department for which [facility] is authorized to review prior authorizations This [...] note, there is nothing currently pending in [facility] for this request. Please advise how to proceed. Thank you, Eliazar Ureña ([facility]) Dental Hygiene Professor III [facility] ([facility]) (formerly [facility]) 12/13/2022, 11:44 AM * Telephone Encounter - Sandra Hancock CPhT - 12/13/2022 11:04 AM EDT Pharmacy calling to inform doctor that the patient's insurance will not pay for this medication without a completed prior authorization. Did confirm this information with the pharmacy. Pt's current insurance information is as follows: Patient name: Candelaria Fall ID number: [id number] BIN number: [id number] PCN number: ADV Group number: [id number] Subscriber name: Candelaria Fall Primary or Secondary Insurance:Primary Medication: Mometasone Furo-Formoterol Fum 100-5 MCG/ACT Inhalation Aerosol (Dulera) Reason for Request: not on formulary Pharmacy and phone number: [facility] [address] [place] Rx plan and phone number: darek bobo What alternative medications does the pharmacy have in stock?: Symbicort, advair, breo Requesting high priority as this was sent for acute issue. Thank you, Sandra Hancock Group Fitness Instructor [facility] ([facility]) (Formerly [facility]) 12/13/2022,11:05 AM documented in this encounter Plan of Treatment Upcoming Encounters Date Type Specialty Care Team Description 12/31/2022 Imaging Radiology 12/31/2022 Office Visit Gynecology Obstetrics Kiya Crocker CRNP [address] [place] [address] Health Maintenance Due Date Last Done Comments [...]
--- OUTSIDE RECORDS SUMMARY | 2023-05-16 19:49 | External Medical Summary | Summary of Care ---
Author Name Unknown Organization [facility] Address [address] [place] [address] Phone [phone] Care Team Providers Care Technical Service Rep Name Role Phone Unavailable Primary Care Provider Unavailabl e Reason for Visit * Reason Onset Date Comments Medication Pre-auth 12/13/2022 Mometasone F uro-Formoterol Fum 100-5 MCG/ACT Inhalation Aerosol (Dulera) Encounter Details Date Type Department Care Team Description 12/13/2022 Refill Family Practice [facility] [address] [place] [address] Mary Angulo PA-C [address] [facility] [place] [address] Allergies Active Allergy Reactions Severity Noted Date [...] Dihydrochloride 5 MG Oral Tablet (Xyzal Allergy 24HR)Indications:Dy sfunction of both eustachian tubes Take 1 Tablet by mouth every evening. 30 Tablet 5 3 Active Triamcinolone Acetonide 55 MCG/ACT Nasal Aerosol (Nasacort Allergy 24HR)Indications:Dy sfunction of both eustachian tubes Administer 2 Sprays into each nostril in the morning. 6.8 mL 5 3 Active Fluticasone-Salmete rol 250-50 MCG/ACT Inhalation Aerosol Powder Breath Activated (Advair Diskus) Inhale 1 Puff by mouth in the morning and 1 Puff before bedtime. 60 Each 1 3 Active Mometasone Furo-Formoterol Fum 100-5 MCG/ACT Inhalation Aerosol (Dulera)Indications :Exacerbation of asthma, unspecified asthma severity, unspecified whether persistent Inhale 2 Puffs by mouth in the morning and 2 Puffs before bedtime. 13 g 1 3 12/14/19 23 Discontinued Budesonide-Formoter ol Fumarate 160-4.5 MCG/ACT Inhalation Aerosol (Symbicort) Inhale 2 Puffs by mouth in the morning and 2 Puffs before bedtime. 10.2 g 1 3 12/15/19 23 Discontinued(Fo rmulary/Cost) documented as of this encounter (statuses as [...] Note - Irina Joe RPh - 12/14/2022 11:11 AM EDTAddended by: IRINA JOE on: 12/14/2022 11:11 AM Modules accepted: Orders * Telephone Encounter - Mary Angulo PA-C - 12/14/2022 10:59 AM EDT Signed Prescriptions: Disp Refills Budesonide-Formoterol Fumarate 160-4.5 MCG*10.2 g 1 Sig: Inhale2 Puffs by mouth in the morning and 2 Puffs before bedtime.Authorizing Provider: MARY ANGULO Fluticasone-Salmeterol 250-50 MCG/ACT Inha*60 Each1 Sig: Inhale 1 Puff by mouth in the morning and 1 Puff before bedtime.Authorizing Provider: MARY ANGULO * Addendum Note - Irina Joe [facility] - 12/14/2022 10:33 AM EDTAddended by: IRINA JOE on: 12/14/2022 10:33 AM Modules accepted: Orders * Telephone Encounter - Irina Joe [facility] - 12/14/2022 10:29 AM EDT Pt sent myG message regarding Symbicort that was sent as alternate. Hi Al the simbicort sent to the pharmacy for me yesterday by Mary Angulo is way out of my jenkins range its even $100 is there anything more affordable for me that can be sent in? PC to [facility] and pharmacist confirmed symbicort was $94 on [...] and Dulera not on formulary Thanks, Irina Joe, PharmD Clinical Pharmacist [facility] ([facility]) ([facility] [phone] 12/14/2022 10:32 AM * Telephone Encounter - Irina Joe RPh - 12/13/2022 3:00 PM EDT PC to patient to advise of medication change MB full. Sent myG to advise of change Thanks, Irina Joe PharmD Clinical Pharmacist [facility] ([facility]) (formerly [employer]) [phone] 12/13/2022 3:03 PM * Telephone Encounter - Mary Angulo PA-C - 12/13/2022 2:56 PM EDT Signed Prescriptions: Disp Refills Budesonide-Formoterol Fumarate 160-4.5 MCG*10.2 g 1 Sig: Inhale 2 Puffs by mouth in the morning and 2 Puffs before bedtime. Authorizing Provider: MARY ANGULO * Telephone Encounter - Irina Joe RPh - 12/13/2022 12:28 PM EDT Rx is pended for alternative medication that is covered (insurance does not cover DULERA). Please sign if agreeable and route back to me so I can advise patient. Pending Prescriptions: Disp Refills Budesonide-Formoterol Fumarate 160-4.5 MC*10.2 g 1 Sig: Inhale 2 Puffs by mouth in the morning and 2 Puffs before bedtime. Thanks, Irina Joe PharmD Clinical Pharmacist [facility] ([facility]) (formerly [employer]) [phone] 12/13/2022 12:29 PM * Telephone Encounter - Arthur Ureña CPhT - 12/13/2022 11:44 AM EDT This is a new [place] request. Upon review of this prior authorization request, I verified this request is appropriate. This is prescribed by a department for which [facility] is authorized to review prior authorizations This [...] is nothing currently pending in [facility] for this request. Please advise how to proceed. Thank you, Eliazar Ureña ([facility]) House Mover Helper III [facility] ([facility]) (formerly [facility]) 12/13/2022, 11:44 AM * Telephone Encounter - Sandra Hancock CPhT - 12/13/2022 11:04 AM EDT Pharmacy calling to inform doctor that the patient's insurance will not pay for this medication without a completed prior authorization. Did confirm this information with the pharmacy. Pt's current insurance information is as follows: Patient name: Candelaria Fall ID number: [id number] BIN number: [id number] PCN number: ADV Group number: [id number] Subscriber name: Candelaria Fall Primary or Secondary Insurance:Primary Medication: Mometasone Furo-Formoterol Fum 100-5 MCG/ACT Inhalation Aerosol (Dulera) Reason for Request: not on formulary Pharmacy and phone number: [facility] [address] Rx plan and phone number: darek bobo What alternative medications does the pharmacy have in stock?: Symbicort, advair, breo Requesting high priority as this was sent for acute issue. Thank you, Sandra Hancock Gas Appliance Mechanic [facility] ([facility]) (Formerly [facility]) 12/13/2022,11:05 AM documented in this encounter Plan of Treatment Upcoming Encounters Date Type Specialty Care Team Description 12/31/2022 Imaging Radiology 12/31/2022 Office Visit Gynecology Obstetrics Kiya Crocker CRNP [address] [place] [address] Health Maintenance Due Date Last Done Comments [...]
--- OUTSIDE RECORDS SUMMARY | 2023-05-16 19:49 | External Medical Summary ---
Author Name Unknown Address Unknown Organization K01:LABORATORY [facility] [place] - [address] [place] [address] Laboratory Report Ordering Provider Test Date Status RANDAL KUMARAIL 02/22/2023 09:18:28 Final Observation Date Value Abnormality Reference (Units ) Status WBC, Total 02/22/2023 09:18:28 9.67 4.00-10.8 0 (K/uL) Final RBC 02/22/2023 09:18:28 3.38 3.85-5.15 (M/uL) Final Hemoglobin 02/22/2023 09:18:28 11.2 Below low normal 12 .0-15.3 (g/dL) Final Anemia reflex testing trigge rs on a HGB < 12.0 for Females and HGB < 13.0 for Males in accordance with the WHO Anemia Guidelines
Anemia reflex testing triggers on a HGB < 12.0 for Females and HGB < 13.0 for Males in accordance with the WHO Anemia Guidelines HCT 02/22/2023 09:18:28 35.2 Below low normal 36. 0-45.2 (%) Final MCV 02/22/2023 09:18:28 104.1 81.5-97.5 (fL) Final MCH 02/22/2023 09:18:28 33.1 27.0-34.0 (pg) Final MCHC 02/22/2023 09:18:28 31.8 32.0-36.0 (g/dL) Final RDW 02/22/2023 09:18:28 13.8 11.5-15.5 (%) Final Platelets 02/22/2023 09:18:28 285 140-400 (K /uL) Final MPV 02/22/2023 09:18:28 11.0 6.6-11.1 ( fL) Final Nucleated erythrocytes/100 leukocytes [Ratio] in Blood by Automated count 02/22/2023 09:18:28 0 <=0 (/100 WBCs) [facility] Performing Location LABORATORY [facility] - [address] [facility] [address]
--- OUTSIDE RECORDS SUMMARY | 2023-05-16 19:49 | External Medical Summary | Summary of Care ---
Author Name Unknown Organization [facility] Address [address] [facility] [place] [address] Phone [phone] Care Team Providers Care Dinkey Driver Name Role Phone Unavailable Primary Care Provider Unavailabl e Reason for Visit * Reason Comments Return Visit Encounter Details Date Type Department Care Team Description 02/01/2023 Office Visit Gynecology/Obstetrics [facility] [address] [place] [id number] Kiya Crocker CRNP [address] [place] [id number] Supervision of other normal , antepartum* Allergies Active Allergy Reactions Severity Noted Date Comments Clonazepam Other (Please comment) 12/12/2014 Patient has syncopey from medication Morphine Other (Please comment) 12/12/2014 Patient state she Hallucinates when taking the medication Tramadol Other (Please comment) 12/12/2014 Migrans documented as of this encounter (statuses as of 02/01/2023) Medications Medication Sig Dispensed Refills Start Date [...] as of this encounter (statuses as of 02/01/2023) Active Problems Problem Noted Date Supervision of other normal , a ntepartum 10/05/2022 Asthma with severity to be determined Overview: ICD-10 update of inactive term ADVANCE DIRECTIVE INFORMATION 04/23/2005 Overview: Not applicable (under age of 18) Estimated Date of Delivery Comme nts Yes 05/17/2023 Based on last me nstrual period of 08/10/2022 documented as of this encounter (statuses as of 02/01/2023) Immunizations Name Administration Dates Next Due HPV [...] Sign Reading Time Taken Comments Blood Pressure 100/52 02/01/2023 1:34 PM EDT Pulse - - Temperature - - Respiratory Rate - - Oxygen Saturation - - Inhaled Oxygen Concentration - - Weight 75.3 kg (166 lb) 02/01/2023 1:34 PM EDT Height 167.6 cm (5' 6") 02/01/2023 1:34 PM EDT Body Mass Index 26.79 02/01/2023 1:34 PM EDT documented in this encounter Progress Notes * RAMONA Brannon - 02/01/2023 2:14 PM EDT 25w Fell about 2 weeks ago, went to hospital for evaluation and was OK. Started a new job, walking about 6 miles a day. Feeling good walking this much. Stopped using her vape, no more nicotine. Congratulated her on this. Baby moving a lot. No bleeding or LOF. Glucola with next visit. RAMONA Brannon documented in this encounter Nursing Notes * GERARDO Lee - 02/01/2023 1:52 PM EDT 25w0d Pt had fall about 2 weeks ago, was seen in ER for lower right back pain, ER said it was sciatic pain, pt reports wearing back brace at works seems to help. 28wk packet provided documented in this encounter Plan of Treatment Upcoming Encounters Date Type Specialty Care Team Description 02/22/2023 Laboratory Laboratory [facility] [address] [place] [id number] 02/22/2023 Office Visit Gynecology Obstetrics Backer, Gillian CatesRAMONA uriarte [address] [place] [phone] Scheduled Orders Name Type Priority Associated Diagnoses Orde r Schedule SYPHILIS ANTIBODY SCREEN WITH REFLEX TO RPR Lab Routine Supervision of other normal , antepartum Expected: 03/04/2023 (Approximate), Expires: 02/02/2024 CBC WITH WBC DIFFERENTIAL AND ANEMIA REFLEX WORKUP Lab Routine Supervision of other normal , antepartum Expected: 03/04/2023 (Approximate), Expires: 02/02/2024 50-G GESTATIONAL GLUCOSE, 1 HOUR Lab Routine Supervision of other normal , antepartum Expected: 03/04/2023 (Approximate), Expires: 02/02/2024 Health Maintenance Due Date Last Done Comments Hepatitis B (1 of 3 - 3-dose series) 1991 Pneumococcal Vaccine: Pediatrics (0 to 5 Years) and At-Risk Patients (6 to 64 Years) (1 - PCV) 1997 Depression Screening, Annual for Pts 12 and Over 2003 GARDASIL-HPV IMMUNIZATION SERIES (3 - 3-dose series) 05/24/2008 01/22/2008, 10/23/2007 DTaP,Tdap,and Td Vaccines (1 - Tdap) 2010 Pap Smear 2012 COVID-19 Vaccine (2 - [...]
--- OUTSIDE RECORDS SUMMARY | 2023-05-16 19:49 | External Medical Summary | Summary of Care ---
Author Name Unknown Organization [facility] Address [address] [place] [address] Phone [phone] Care Team Providers Care Sanding Machine Tender Name Role Phone Unavailable Primary Care Provider Unavailabl e Reason for Visit * Reason Comments Acute The pt stated she parker s had a sore throat and sinus congestion since last 12/09/2022. Encounter Details Date Type Department Care Team Description 12/13/2022 Office Visit Family Practice [facility] [address] [facility] [place] [address] Latasha Angulo PA-C [address] [facility] [place] [address] Exacerbation of asthma, unspecified asthma severity, unspecified whether persistent*; Dysfunction of both eustachian tubes Allergies Active Allergy Reactions Severity Noted Date [...] hours as needed. 0 08/21/2021 08/21/2023 Active Mometasone Furo-Formoterol Fum 100-5 MCG/ACT Inhalation Aerosol (Dulera)Indications:E xacerbation of asthma, unspecified asthma severity, unspecified whether persistent Inhale 2 Puffs by mouth in the morning and 2 Puffs before bedtime. 13 g 1 12/13/2022 Active Levocetirizine Dihydrochloride 5 MG Oral Tablet (Xyzal Allergy 24HR)Indications:Dysf unction of both eustachian tubes Take 1 Tablet by mouth every evening. 30 Tablet 5 12/13/2022 Active Triamcinolone Acetonide 55 MCG/ACT Nasal Aerosol (Nasacort Allergy 24HR)Indications:Dysf unction of both eustachian tubes Administer 2 Sprays into each nostril in the morning. 6.8 mL 5 12/13/2022 Active documented as of this encounter (statuses [...] Sign Reading Time Taken Comments Blood Pressure 102/64 12/13/2022 8:51 AM EDT Pulse 80 12/13/2022 8:51 AM EDT Temperature 36.7 C (98 F) 12/13/2022 8:51 AM EDT Respiratory Rate - - Oxygen Saturation 99% 12/13/2022 8:51 AM EDT Inhaled Oxygen Concentration - - Weight 68.9 kg (151 lb 12.8 oz) 12/13/2022 8:51 AM EDT Height - - Body Mass Index 24.5 12/01/2022 10:36 AM EDT documented in this encounter Patient Instructions * Patient Instructions* Latasha Angulo PA-C - 12/13/2022 9:20 AM EDT Mucinex (plain) Delsym (plain) Benadryl OR Unisom Guaiphenesin Dextromethorphan Diphenhydramine OR doxylamine AVOID PHENYLEPHRINE AND PSEUDOEPHEDRINE documented in this encounter Progress Notes * Latasha Angulo PA-C - 12/13/2022 9:54 AM EDT Subjective Candelaria Fall is a 32 year old female that presents for Acute (The pt stated she has had a sorethroat and sinus congestion since last 12/09/2022.) Pt presents c/o congestion, cough, chest tightness x 5 days. Pt [facility], told it was viral. She is 18 weeks and started taking OTC Sudafed PE to help with symptoms. She has a hx of asthma and has been using her rescue inhaler, which provides minimal relief.Had COVID test and it was negative. She notes overall doesn't feel well and wants to make sure she doesn't need any other medication. She denies fevers, chills, chest pain, nausea, vomiting, diarrhea. Allergies and medications reviewed. Objective BP 102/64 | Pulse 80 | Temp 36.7 C (98 F) | Wt 68.9 kg (151 lb 12.8 oz) | LMP 08/10/2022 | FiB840% | BMI 24.50 kg/m | BSA 1.79 m Body mass index is 24.5 kg/m. BP Readings from Last 3 Encounters: 12/13/22 102/64 12/11/22 104/52 12/01/22 98/50 Wt Readings from Last 3 Encounters: 12/13/22 68.9 kg (151 lb 12.8 oz) 12/01/22 67.9 kg (149 lb 9.6 oz) 11/03/22 65.4 kg (144 lb 3.2 oz) Physical Exam Vitals and nursing note reviewed. Constitutional: General: She is not in acute distress. Appearance: Normal appearance. HENT: Head: Normocephalic and atraumatic. Right Ear: Ear canal and external ear normal. Left Ear: Ear canal and external ear normal. Ears: Comments: bilat TMs bulging with air-fluid bubbles Nose: Congestion present. Mouth/Throat: Mouth: Mucous membranes are moist. Pharynx: No oropharyngeal exudate or posterior oropharyngeal erythema. Eyes: General: No scleral icterus. Extraocular Movements: Extraocular movements intact. Conjunctiva/sclera: Conjunctivae normal. Pupils: Pupils are equal, round, and reactive to light. Cardiovascular: Rate and Rhythm: Normal rate and regular rhythm. Heart sounds: No murmur heard. No friction rub. No gallop. Pulmonary: Effort: Pulmonary effort is normal. Breath sounds: Normal breath sounds. No stridor. No wheezing, rhonchi or rales. Musculoskeletal: Cervical back: Neck supple. Lymphadenopathy: Cervical: No cervical adenopathy. Skin: General: Skin is warm and dry. Findings: No rash. Neurological: General: No focal deficit present. Mental Status: She is alert and oriented to person, place, and time. Psychiatric: Mood and Affect: Mood normal. Behavior: Behavior normal. Assessment and plan 1. Exacerbation of asthma, unspecified asthma severity, unspecified whether persistent - Mometasone Furo-Formoterol Fum 100-5 MCG/ACT Inhalation Aerosol (Dulera); Inhale 2 Puffs by mouthin the morning and 2 Puffs before bedtime. Dispense: 13 g; Refill: 1 - RETURN TO WORK OR SCHOOL 2. Dysfunction of both eustachian tubes - Levocetirizine Dihydrochloride 5 MG Oral Tablet (Xyzal Allergy 24HR); Take 1 Tablet by mouth every evening. Dispense: 30 Tablet; Refill: 5 - Triamcinolone Acetonide 55 MCG/ACT Nasal Aerosol (Nasacort Allergy 24HR); Administer 2 Sprays into each nostril in the morning. Dispense: 6.8 mL; Refill: 5 - RETURN TO WORK OR SCHOOL -stop Sudafed PE -OK to use Mucinex, Delsym, benadryl or doxylamine -start dulera inhaler to help with lungs -continue albuterol PRN -xyzal and nasocort to help with ETD -if no improvement by the end of this week can consider adding antibiotic -to ER with acute worsening symptoms Follow up Follow Up: Return if symptoms worsen or fail to improve. Total time today including reviewing chart before the visit, pertinent labs, imaging reports, face to face time, and documentation time was 20 minutes. The above was discussed and understanding was expressed. Latasha Angulo PA-C documented in this encounter Nursing Notes * Daniel Trujillo LPN - 12/13/2022 8:50 AM EDT Chief Complaint Patient presents with Acute The pt stated she has had a sore throat and sinus congestion since last 12/09/2022. documented in this encounter Plan of Treatment Upcoming Encounters Date Type Specialty Care Team Description 12/31/2022 Imaging Radiology 12/31/2022 Office Visit Gynecology Obstetrics Kiya Crocker CRNP [address] [place] [id number] Health Maintenance Due Date Last Done Comments [...] as of this encounter Visit Diagnoses Diagnosis Exacerbation of asthma, unspecified asthma severity, unspecified whether persistent- Primary Dysfunction of both eustachian tubes Dysfunction of Eustachian tube documented in this encounter"
--- OUTSIDE RECORDS SUMMARY | 2023-05-16 19:49 | External Medical Summary | Summary of Care ---
Author Name Unknown Organization [facility] Address [address] [place] [address] Phone [phone] Care Team Providers Care Otm Consultant Name Role Phone Unavailable Primary Care Provider Unavailabl e Reason for Visit * Reason Comments Return Visit Encounter Details Date Type Department Care Team Description 12/31/2022 Office Visit Gynecology/Obstetrics [facility] [address] [place] [address] Kiya Crocker CRNP [address] [place] [address] Supervision of other normal , antepartum*; Encounter for follow-up ultrasound of anatomy Allergies Active Allergy Reactions Severity Noted Date Comments Clonazepam Other (Please comment) 12/12/2014 Patient has syncopey from medication Morphine Other (Please comment) 12/12/2014 Patient state she Hallucinates when taking the medication Tramadol Other (Please comment) 12/12/2014 Migrans documented as of this encounter (statuses as of 12/31/2022) Medications Medication Sig Dispensed Refills Start Date [...] as of this encounter (statuses as of 12/31/2022) Active Problems Problem Noted Date Supervision of other normal , a ntepartum 10/05/2022 Asthma with severity to be determined Overview: ICD-10 update of inactive term ADVANCE DIRECTIVE INFORMATION 04/23/2005 Overview: Not applicable (under age of 18) Estimated Date of Delivery Comme nts Yes 05/17/2023 Based on last me nstrual period of 08/10/2022 documented as of this encounter (statuses as of 12/31/2022) Immunizations Name Administration Dates Next Due HPV [...] Reading Time Taken Comments Blood Pressure 100/60 12/31/2022 1:57 PM EDT Pulse - - Temperature - - Respiratory Rate - - Oxygen Saturation - - Inhaled Oxygen Concentration - - Weight 71.9 kg (158 lb 9.6 oz) 12/31/2022 1:57 P M EDT Height 167.6 cm (5' 6") 12/31/2022 1:57 PM EDT Body Mass Index 25.6 12/31/2022 1:57 PM EDT documented in this encounter Progress Notes * RAMONA Brannon - 12/31/2022 2:31 PM EDT 20w3d No concerns. Feeling great. Feeling a little bit of FM, has anterior placenta. No bleeding or LOF. Anatomy u/s today, needs missed anatomy views in 2 weeks, order placed. Starting a new job on Tuesday, excited for this. RAMONA Brannon documented in this encounter Nursing Notes * GERARDO Lee - 12/31/2022 2:05 PM EDT 20w3d Pt denies any concerns documented in this encounter Plan of Treatment Upcoming Encounters Date Type Specialty Care Team Description 01/14/2023 Imaging Radiology 02/01/2023 Office Visit Gynecology Obstetrics Kiya Crocker CRNP [address] [place] [address] 03/01/2023 Office Visit Gynecology Obstetrics Vanessa Barbosa, [facility] [address] [place] [address] Scheduled Orders Name Type Priority Associated Diagnoses Orde r Schedule US PREG FOLLOW-UP EACH FETUS Medical Imaging Routine Encounter for follow-up ultrasound of anatomy Expected: 01/14/2023 (Approximate), Expires: 02/01/2024 Health Maintenance Due Date Last Done Comments [...] Supervision of other normal , antepartum- Primary Encounter for follow-up ultrasound of anatomy documented in this encounter
[2023-05-16] MEDS ORDERED: fentaNYL citrate PF 100 MCG/2 ML VIAL ONE (20:22)
[2023-05-16] MEDS ORDERED: LIDOCAINE 2%/EPINEPHRINE 1:200,000 20 ML PF ONE (20:23)
[2023-05-16] MEDS ORDERED: SODIUM CHLORIDE 0.9% PF INJ 10 ML VIAL ONE (20:23)
[2023-05-16] MEDS ORDERED: fentANYL 2 MCG/ML BUPIVacaine 0.125%-NSS 100ML BAG ONE (20:23)
[2023-05-16] MEDS ORDERED: BUPIVACAINE 0.25% PF 30 ML VIAL ONE (20:23)
[2023-05-16] MEDS ORDERED: ePHEDrine sulfate 50 MG/ML AMP ONE (20:23)
[2023-05-16] MEDS ORDERED: ePHEDrine sulfate 50 MG/ML AMP IV PRN (21:03)
[2023-05-16] MEDS ORDERED: BUPIVACAINE 0.25% PF 30 ML VIAL EPI STA (21:03)
[2023-05-16] MEDS ORDERED: fentaNYL citrate PF 100 MCG/2 ML VIAL EPI STA (21:03)
[2023-05-16] MEDS ORDERED: LIDOCAINE 2%/EPINEPHRINE 1:200,000 20 ML PF EPI STA (21:03)
[2023-05-16] MEDS ORDERED: NALBUPHINE HCL 5 MG in SYRINGE 0 ML IV PRN (21:03)
[2023-05-16] MEDS ORDERED: NALOXONE HCL 0.4 MG/1 ML VIAL/CARP IV PRN (21:03)
[2023-05-16] MEDS ORDERED: SODIUM CHLORIDE 0.9% PF INJ 10 ML VIAL EPI PRN (21:03)
[2023-05-16] MEDS ORDERED: fentaNYL citrate PF 100 MCG/2 ML VIAL EPI PRN (21:03)
[2023-05-16] MEDS ORDERED: SODIUM CHLORIDE 0.9% PF INJ 10 ML VIAL EPI STA (21:03)
[2023-05-16] MEDS ORDERED: ROPIVACAINE 0.5% PF 5 MG/ML 20 ML VIAL EPI PRN (21:03)
[2023-05-16] MEDS ORDERED: BUPIVACAINE 0.25% PF 30 ML VIAL EPI PRN (21:03)
[2023-05-16] MEDS ORDERED: ONDANSETRON INJ 2 MG/ML 2 ML VIAL IV PRN (21:03)
[2023-05-16] MEDS ORDERED: diphenhydrAMINE 50 MG/ML VIAL IV PRN (21:03)
[2023-05-16] MEDS ORDERED: NALOXONE HCL 1 MG in SODIUM CHLORIDE 0.9% 1,000 ML IV PRN (21:03)
[2023-05-16] MEDS ORDERED: LIDOCAINE 2% MPF LOCAL 5 ML VIAL EPI PRN (21:03)
--- NOTE | 2023-05-16 21:03 | Anesthesiology Consultation ---
Date of Service May 16, 2023 Assessment & Plan Chart Review Chart Review: Patient NOT seen in Pre Admission Testing and Acceptable Risk for Labor Epidural Consults Requested none ASA ASA2 Proposed Anesthesia Anesthesia Type: Labor Epidural Risk / Benefits Reviewed With: PT / POA / Parent / Guardian, Accepts Plan and Informed Consent Obtained History Height/Weight Height: 5 ft 6 in Weight: 89.358 kg Allergies Allergy/AdvReac Type Severity Reaction Status Date / Time morphine AdvReac Severe pt reports Verified 12/03/22 14:50 halluncinations clonazepam AdvReac Intermediate BLACK OUTS Verified 12/03/22 14:50 tramadol AdvReac Intermediate SEVERE ROSENBERG Verified 12/03/22 14:50 Medications Home Medications Medication Instructions Recorded Confirmed Last Taken albuterol sulfate 90 mcg/actuation 2 puff inhalation QID PRN 06/29/22 05/16/23 1 Month Ago aerosol inhaler shortness of breath or wheezing ~12/22/22 #8.5 grams PNV 153-FA 400 mcg-om3 35 mg-dha 2 tab PO DAILY 01/21/23 05/16/23 03/27/23 06:30 25 mg-epa 5 mg-fish oil chew tablet ( Gummies) Active Medications Generic Name Dose Route Start Last Admin Trade Name Freq PRN Reason Stop Dose Admin Lactated Ringer's 1,000 mls @ 125 mls/hr 05/16/23 14:34 05/16/23 20:41 Lr IV 05/18/23 14:33 125 mls/hr .Q8H PRN Administration L&D Protocol Protocol Past Medical History Medical History history Asthma Bronchitis Elective Herpes genitalia Ovarian cyst PID (acute pelvic inflammatory disease) Exercise / Class Metabolic Activity II 4-5 Yardwork/Stairs/Walk up hill Past Family History Family History Sister Diabetes Tachycardia Father Hypertension Stroke Hyperlipidemia Myocardial infarction Mother Alcoholism Grandmother (Paternal) Breast cancer Other Colorectal cancer Endometriosis Kidney disease Ovarian cancer Uterine cancer Denies family history of Prostate cancer Past Surgical History Surgical History History of mandibular surgery [place] teeth removed Past Anesthesia History No Hx of Anesthesia Complications and No Family Hx of Anesthesia Complications History of PONV No Hx of PONV and No Hx of Motion Sickness Social History Smoking Status: Never smoker tobacco type: cigarettes and e-cigarettes Smoking cigarettes per day: vapes 3 times per month Do You Dip or Chew Tobacco: No Hx Alcohol Use: No Hx Substance Use: Yes (medical marijuana card) substance use type: marijuana 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 Last Used Substance Other:: 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
[2023-05-17] MEDS: LACTATED RINGER'S 1,000 ML IV PRN ×2 (04:25→13:00)
[2023-05-17] MEDS: fentANYL 2 MCG/ML BUPIVacaine 0.125%-NSS 100ML BAG EPI PRN ×3 (05:43→15:18)
--- NOTE | 2023-05-17 07:42 | Obstetrical Progress Note ---
Date of Service May 17, 2023 Assessment & Plan (1) PROM (premature rupture of membranes): Plan: FHR; CAT1 CTx; 2-3mins PIt; 16mu VE; 5-6//-1 with bulging membrane AROM with amniohook- clear fluid Anticipate VD Admission and Anticipated Discharge Date Admission Date: May 16, 2023 Results & Data Vital Signs (Past 12 Hours) Vital Signs Temp Pulse Resp BP Pulse Ox 05/17/23 07:36 82 87 L 05/17/23 07:35 83 100 05/17/23 07:30 77 100 05/17/23 07:26 76 121/74 05/17/23 07:25 73 100 05/17/23 07:20 62 100 05/17/23 07:15 71 100 05/17/23 07:10 16 05/17/23 07:10 36.7 C 16 05/17/23 07:10 73 05/17/23 07:10 73 103/63 100 05/17/23 07:05 80 100 05/17/23 07:00 75 99 05/17/23 06:57 71 112/63 05/17/23 06:55 78 99 05/17/23 06:50 69 98 05/17/23 06:45 78 100 05/17/23 06:40 75 05/17/23 06:40 79 121/66 100 05/17/23 06:35 77 99 05/17/23 06:30 74 100 05/17/23 06:27 71 122/77 05/17/23 06:25 69 99 05/17/23 06:20 82 99 05/17/23 06:15 74 98 05/17/23 06:10 76 05/17/23 06:10 75 114/69 99 05/17/23 06:05 77 99 05/17/23 06:00 82 100 05/17/23 05:56 80 122/78 05/17/23 05:55 86 100 05/17/23 05:50 84 100 05/17/23 05:45 81 99 05/17/23 05:40 73 111/73 99 05/17/23 05:35 73 99 05/17/23 05:30 74 99 05/17/23 05:25 74 114/73 99 05/17/23 05:20 76 100 05/17/23 05:15 73 100 11/21/23 05:14 18 05/17/23 05:14 36.6 C 18 05/17/23 05:12 71 130/74 05/17/23 05:10 76 99 05/17/23 05:05 75 99 05/17/23 05:00 86 99 05/17/23 04:57 71 87/58 L 05/17/23 04:55 71 98 05/17/23 04:50 68 98 05/17/23 04:45 71 99 05/17/23 04:42 71 104/58 L 05/17/23 04:40 76 99 05/17/23 04:35 65 99 05/17/23 04:30 64 99 05/17/23 04:26 69 97/57 L 05/17/23 04:25 74 99 05/17/23 04:20 68 99 05/17/23 04:15 74 99 05/17/23 04:12 74 115/76 05/17/23 04:10 79 98 05/17/23 04:05 74 99 05/17/23 04:00 84 99 05/17/23 03:55 75 05/17/23 03:55 74 116/74 99 05/17/23 03:50 78 100 05/17/23 03:45 77 99 05/17/23 03:40 76 100 05/17/23 03:35 73 98 05/17/23 03:30 36.6 C 70 18 99 05/17/23 03:26 68 98/60 L 05/17/23 03:25 68 99 05/17/23 03:20 67 99 05/17/23 03:15 68 99 05/17/23 03:10 69 99 05/17/23 03:05 71 100 05/17/23 03:00 67 99 05/17/23 02:56 71 104/57 L 05/17/23 02:55 84 100 05/17/23 02:50 77 99 05/17/23 02:45 79 99 05/17/23 02:40 70 105/57 L 98 05/17/23 02:35 72 100 05/17/23 02:30 76 99 05/17/23 02:25 73 102/59 L 99 05/17/23 02:20 74 99 05/17/23 02:15 63 99 05/17/23 02:12 68 110/62 05/17/23 02:10 67 99 05/17/23 02:05 80 100 05/17/23 02:00 69 99 05/17/23 01:55 66 99/65 L 99 05/17/23 01:50 90 99 05/17/23 01:45 75 100 05/17/23 01:44 67 114/57 L 05/17/23 01:40 83 99 05/17/23 01:35 91 H 98 05/17/23 01:30 74 99 05/17/23 01:25 74 121/72 100 05/17/23 01:20 77 99 05/17/23 01:15 81 99 05/17/23 01:10 83 05/17/23 01:10 86 123/77 100 05/17/23 01:05 91 H 99 05/17/23 01:00 36.6 C 82 18 100 05/17/23 00:55 69 121/84 99 05/17/23 00:50 71 100 05/17/23 00:45 72 100 05/17/23 00:40 80 05/17/23 00:40 86 125/82 99 05/17/23 00:35 77 99 05/17/23 00:30 73 99 05/17/23 00:27 88 120/71 05/17/23 00:25 116 H 100 05/17/23 00:20 78 100 05/17/23 00:15 66 99 05/17/23 00:10 68 05/17/23 00:10 75 111/58 L 98 05/17/23 00:05 68 97 05/17/23 00:00 69 98 05/16/23 23:55 58 L 109/58 L 98 05/16/23 23:50 64 98 05/16/23 23:45 69 95 05/16/23 23:40 68 05/16/23 23:40 72 104/57 L 98 05/16/23 23:35 74 99 05/16/23 23:30 72 98 05/16/23 23:25 67 107/56 L 98 05/16/23 23:20 63 99 05/16/23 23:15 74 99 05/16/23 23:10 72 05/16/23 23:10 82 119/53 L 99 05/16/23 23:09 18 05/16/23 23:09 36.7 C 18 05/16/23 23:05 84 99 05/16/23 23:00 73 18 99 05/16/23 22:55 75 05/16/23 22:55 79 118/79 98 05/16/23 22:50 83 98 05/16/23 22:45 78 98 05/16/23 22:40 75 119/75 98 05/16/23 22:35 74 98 05/16/23 22:30 74 20 98 05/16/23 22:25 86 05/16/23 22:25 85 124/75 98 05/16/23 22:20 70 97 05/16/23 22:15 75 98 05/16/23 22:10 75 121/74 98 05/16/23 22:05 70 98 05/16/23 22:00 89 20 98 05/16/23 21:57 85 120/66 05/16/23 21:55 99 H 99 05/16/23 21:50 79 99 05/16/23 21:45 76 98 05/16/23 21:40 82 100 05/16/23 21:38 75 127/81 05/16/23 21:35 77 98 05/16/23 21:33 85 128/81 05/16/23 21:30 79 18 98 05/16/23 21:28 76 130/81 05/16/23 21:25 82 98 05/16/23 21:23 75 126/80 05/16/23 21:20 73 97 05/16/23 21:18 84 116/71 05/16/23 21:15 81 98 05/16/23 21:14 78 132/83 05/16/23 21:10 20 05/16/23 21:10 20 05/16/23 21:10 98 05/16/23 21:10 81 05/16/23 21:10 81 129/76 05/16/23 21:05 81 20 99 05/16/23 21:02 78 129/71 05/16/23 21:00 88 20 141/74 H 99 05/16/23 20:58 78 130/72 05/16/23 20:56 80 136/88 05/16/23 20:55 82 05/16/23 20:55 87 166/79 H 100 05/16/23 20:52 76 137/76 05/16/23 20:50 80 05/16/23 20:50 85 138/78 99 05/16/23 20:45 91 H 97 05/16/23 20:44 36.6 C 05/16/23 20:40 78 99 05/16/23 20:39 71 117/71 05/16/23 20:29 20 05/16/23 20:29 20 05/16/23 20:00 20 05/16/23 20:00 20
[2023-05-17] MEDS ORDERED: LACTATED RINGER'S 1,000 ML IV SCH ×2 (17:00→19:01)
[2023-05-17] MEDS ORDERED: AZITHROMYCIN 500 MG in DEXTROSE 5% 250 ML IV STA (17:04)
--- NOTE | 2023-05-17 17:04 | Labor Progress Brief Note ---
Date of Service May 17, 2023 Assessment & Plan Admission and Anticipated Discharge Date Admission Date: May 16, 2023 Physical Exam Genitourinary: Manual OB Exam: + cervical dilation 5 cm and 6 cm, + cervical effacement 90% and + station -2 OB Exam Monitor Tracing: + external FHT monitor used, + external uterine monitor used and + normal FHT variability no further progress. Arrest of progress in labor with possible CPD. Caput forming. Will proceed with . Option given to patient to continue labor but she prefers to have . Results & Data Vital Signs (Past 12 Hours) Vital Signs Temp Pulse Resp BP Pulse Ox O2 Del Method 05/17/23 17:00 79 100 05/17/23 16:55 105 H 122/78 99 05/17/23 16:50 83 100 05/17/23 16:45 85 100 05/17/23 16:41 85 127/83 05/17/23 16:40 80 100 05/17/23 16:35 88 99 05/17/23 16:30 95 H 100 05/17/23 16:26 91 H 129/86 05/17/23 16:25 97 H 100 05/17/23 16:23 89 81 L 05/17/23 16:20 87 100 05/17/23 16:15 90 100 05/17/23 16:11 90 133/83 05/17/23 16:10 88 100 05/17/23 16:05 87 100 05/17/23 16:00 86 100 05/17/23 15:58 93 H 85 L 05/17/23 15:55 94 H 05/17/23 15:55 90 137/70 99 05/17/23 15:50 36.9 C 89 20 98 05/17/23 15:49 95 H 83 L 05/17/23 15:46 90 128/80 05/17/23 15:45 95 H 97 05/17/23 15:44 91 H 89 L 05/17/23 15:40 105 H 82 L 05/17/23 15:39 89 82 L 05/17/23 15:35 83 100 05/17/23 15:33 87 87 L 05/17/23 15:30 85 100 05/17/23 15:25 80 98 05/17/23 15:20 79 56 L 05/17/23 15:18 79 87 L 05/17/23 15:15 82 95 05/17/23 15:11 115/89 05/17/23 15:10 83 100 05/17/23 15:05 97 H 94 05/17/23 15:00 37.3 C 89 16 100 05/17/23 14:55 82 05/17/23 14:55 79 128/77 100 05/17/23 14:50 84 100 05/17/23 14:45 83 100 05/17/23 14:41 83 127/71 05/17/23 14:40 89 100 05/17/23 14:35 84 100 05/17/23 14:30 92 H 100 05/17/23 14:26 86 127/78 05/17/23 14:25 90 98 05/17/23 14:20 89 100 05/17/23 14:15 79 100 05/17/23 14:10 94 H 130/81 99 05/17/23 14:05 84 100 05/17/23 14:00 86 100 05/17/23 13:57 88 136/82 05/17/23 13:55 93 H 100 05/17/23 13:50 85 L 05/17/23 13:50 88 05/17/23 13:50 93 H 97 05/17/23 13:45 36.7 C 96 H 16 99 05/17/23 13:41 83 139/76 05/17/23 13:40 101 H 96 05/17/23 13:37 99 H 83 L 05/17/23 13:35 85 98 05/17/23 13:30 76 99 05/17/23 13:26 79 121/75 05/17/23 13:25 80 99 05/17/23 13:20 80 100 05/17/23 13:15 78 100 05/17/23 13:12 79 120/76 05/17/23 13:10 81 100 05/17/23 13:05 93 H 95 05/17/23 13:00 100 H 97 05/17/23 12:55 97 H 100 05/17/23 12:50 86 98 05/17/23 12:45 77 100 05/17/23 12:41 78 115/65 05/17/23 12:40 74 100 05/17/23 12:36 85 85 L 05/17/23 12:35 88 100 05/17/23 12:30 95 H 100 05/17/23 12:26 77 119/72 05/17/23 12:25 81 99 05/17/23 12:20 87 100 05/17/23 12:15 85 100 05/17/23 12:13 86 87 L 05/17/23 12:10 85 05/17/23 12:10 86 121/77 96 05/17/23 12:05 79 100 05/17/23 12:00 73 100 05/17/23 11:56 75 119/77 05/17/23 11:55 75 100 05/17/23 11:50 76 100 05/17/23 11:47 81 88 L 05/17/23 11:45 82 100 05/17/23 11:42 81 136/75 05/17/23 11:40 74 100 05/17/23 11:38 90 86 L 05/17/23 11:35 83 97 05/17/23 11:33 81 88 L 05/17/23 11:30 80 99 05/17/23 11:29 16 05/17/23 11:29 36.6 C 16 05/17/23 11:25 80 113/65 99 05/17/23 11:20 74 100 05/17/23 11:15 79 100 05/17/23 11:11 80 118/72 89 L 05/17/23 11:10 83 97 05/17/23 11:05 82 83 L 05/17/23 11:04 82 87 L 05/17/23 11:00 80 100 05/17/23 10:57 82 115/61 05/17/23 10:55 87 100 05/17/23 10:50 85 97 05/17/23 10:45 80 94 05/17/23 10:41 72 105/63 05/17/23 10:40 71 100 05/17/23 10:35 82 99 05/17/23 10:30 83 97 05/17/23 10:26 85 153/64 H 05/17/23 10:25 102 H 100 05/17/23 10:20 90 100 05/17/23 10:15 83 100 05/17/23 10:12 77 129/84 05/17/23 10:10 85 100 05/17/23 10:05 85 100 05/17/23 10:00 74 99 05/17/23 09:55 77 05/17/23 09:55 74 104/58 L 99 05/17/23 09:50 68 100 05/17/23 09:45 93 H 100 05/17/23 09:41 67 106/63 05/17/23 09:40 75 100 05/17/23 09:35 74 99 05/17/23 09:30 84 100 05/17/23 09:26 88 119/68 05/17/23 09:25 80 99 05/17/23 09:20 74 100 05/17/23 09:15 81 97 05/17/23 09:11 77 112/74 05/17/23 09:10 79 99 05/17/23 09:05 79 99 05/17/23 09:00 86 100 05/17/23 08:55 71 05/17/23 08:55 72 112/68 100 05/17/23 08:50 72 100 05/17/23 08:45 74 100 05/17/23 08:41 78 106/63 05/17/23 08:40 72 100 05/17/23 08:37 97 H 85 L 05/17/23 08:35 70 100 05/17/23 08:30 65 100 05/17/23 08:26 69 105/63 05/17/23 08:25 67 100 05/17/23 08:20 80 100 05/17/23 08:15 66 100 05/17/23 08:11 71 110/63 05/17/23 08:10 71 100 05/17/23 08:05 71 100 05/17/23 08:00 66 100 05/17/23 07:55 75 100 05/17/23 07:50 64 100 05/17/23 07:45 87 100 05/17/23 07:41 84 120/69 05/17/23 07:40 82 100 05/17/23 07:36 82 87 L 05/17/23 07:35 83 100 05/17/23 07:30 77 100 05/17/23 07:26 76 121/74 05/17/23 07:25 73 100 05/17/23 07:20 62 100 05/17/23 07:15 Room Air 05/17/23 07:15 71 100 05/17/23 07:10 16 11/21/23 07:10 36.7 C 16 05/17/23 07:10 73 05/17/23 07:10 73 103/63 100 05/17/23 07:05 80 100 05/17/23 07:00 75 99 05/17/23 06:57 71 112/63 05/17/23 06:55 78 99 05/17/23 06:50 69 98 05/17/23 06:45 78 100 05/17/23 06:40 75 05/17/23 06:40 79 121/66 100 05/17/23 06:35 77 99 05/17/23 06:30 74 100 05/17/23 06:27 71 122/77 05/17/23 06:25 69 99 05/17/23 06:20 82 99 05/17/23 06:15 74 98 05/17/23 06:10 76 05/17/23 06:10 75 114/69 99 05/17/23 06:05 77 99 05/17/23 06:00 82 100 05/17/23 05:56 80 122/78 05/17/23 05:55 86 100 05/17/23 05:50 84 100 05/17/23 05:45 81 99 05/17/23 05:40 73 111/73 99 05/17/23 05:35 73 99 05/17/23 05:30 74 99 05/17/23 05:25 74 114/73 99 05/17/23 05:20 76 100 05/17/23 05:15 73 100 05/17/23 05:14 18 05/17/23 05:14 36.6 C 18 05/17/23 05:12 71 130/74 05/17/23 05:10 76 99 05/17/23 05:05 75 99
[2023-05-17] MEDS ORDERED: CITRIC ACID/SODIUM CITRATE 15 ML UDC PO SCH (17:05)
[2023-05-17] MEDS ORDERED: MoRPHine SULFATE PF 1 MG/ML 10 ML AMP/VIAL ONE (17:07)
[2023-05-17] MEDS ORDERED: ceFAZolin 2000MG 2,000 MG/15 ML SYR IV SCH (17:15)
[2023-05-17] MEDS ORDERED: OXYTOCIN 10 UNITS/ML VIAL ONE (17:44)
[2023-05-17] MEDS ORDERED: ONDANSETRON INJ 2 MG/ML 2 ML VIAL ONE (17:44)
[2023-05-17] MEDS ORDERED: ePHEDrine sulfate 50 MG/5 ML SYR ONE (17:44)
[2023-05-17] MEDS ORDERED: PROPOFOL IV EMULSION 10 MG/ML 20 ML VIAL IV ONE (17:44)
[2023-05-17] MEDS ORDERED: PHENYLEPHRINE 100MCG/ML 10ML SYR IV ONE (17:44)
[2023-05-17] MEDS ORDERED: METOCLOPRAMIDE HCL INJ 5 MG/ML 2 ML VIAL ONE (17:44)
[2023-05-17] MEDS ORDERED: LIDOCAINE 2% MPF LOCAL 5 ML VIAL ONE (17:44)
[2023-05-17] MEDS ORDERED: LIDOCAINE 2%/EPINEPHRINE 1:200,000 20 ML PF ONE (17:44)
[2023-05-17] MEDS ORDERED: MEPERIDINE HCL 25 MG/ML CARP/VIAL ONE (17:59)
[2023-05-17] MEDS ORDERED: MoRPHine SULFATE PF 1 MG/ML 10 ML AMP/VIAL EPI ONE (18:04)
[2023-05-17] MEDS ORDERED: MoRPHine SULFATE 2 MG/ML CARP IV PRN (18:04)
[2023-05-17] MEDS ORDERED: NALOXONE HCL 1 MG in SODIUM CHLORIDE 0.9% 1,000 ML IV PRN (18:04)
[2023-05-17] MEDS ORDERED: NALBUPHINE HCL 5 MG in SYRINGE 0 ML IV PRN (18:04)
[2023-05-17] MEDS ORDERED: ePHEDrine sulfate 50 MG/ML AMP IV PRN (18:04)
[2023-05-17] MEDS ORDERED: diphenhydrAMINE 50 MG/ML VIAL IV PRN (18:04)
[2023-05-17] MEDS ORDERED: PROMETHAZINE HCL 12.5 MG in SODIUM CHLORIDE 0.9% 50 ML IV PRN (18:04)
[2023-05-17] MEDS ORDERED: LACTATED RINGER'S 500 ML IV PRN (18:04)
[2023-05-17] MEDS ORDERED: ONDANSETRON INJ 2 MG/ML 2 ML VIAL IV PRN (18:04)
[2023-05-17] MEDS ORDERED: NALOXONE HCL 0.08 MG in SYRINGE 1.8 ML IV PRN (18:04)
[2023-05-17] MEDS ORDERED: NALOXONE HCL 0.4 MG/1 ML VIAL/CARP IV PRN (18:04)
[2023-05-17] MEDS ORDERED: DC INTRASPINAL MORPHINE SCH (18:15)
[2023-05-17] MEDS ORDERED: SODIUM CHLORIDE 0.9% 1,000 ML IV SCH (18:15)
[2023-05-17] MEDS ORDERED: NO NARCOTICS OR SEDATIVES SCH (18:15)
--- NOTE | 2023-05-17 18:59 | Post Operative Brief Note ---
Immediate Post Op Note v1 Date of Surgery May 17, 2023 Pre & Post Diagnosis Operation Date: 05/17/23 17:20 <No data on this case meets the specified criteria> I identified the patient and participated in the time-out.: Yes Procedure Operation Date: 05/17/23 17:20 <No data on this case meets the specified criteria> Surgeon George Lui MD Chief Sales Officer Yvonne Munoz, MS 3 Estimated Blood Loss 500 Findings Consistent with Post-Op Diagnosis Live female Apgars 8/9 birthweight 7#0.8 Fluids LR 1300 ml. Specimens placenta Drains Meade Catheter Anesthesia Type Labor Epidural Complications none none Disposition Accompanied Patient To Recovery: Yes Overlapping Procedure I was present for: the critical portions of procedure. I was immediately available: during the entire case. Back up surgeon: was not required during procedure.
[2023-05-17] MEDS ORDERED: SENNA 8.6 MG TAB PO PRN (19:01)
[2023-05-17] MEDS ORDERED: MAGNESIUM HYDROXIDE SUSP 30 ML UDC PO PRN (19:01)
[2023-05-17] MEDS ORDERED: DIPHTHERIA/TETANUS/PERTUSSIS Vaccine (Tdap, Age 7+yrs) 0.5mL SYR/VL IM ONE (19:01)
[2023-05-17] MEDS ORDERED: HYDROCORTISONE ACETATE 25 MG SUPP PR PRN (19:01)
[2023-05-17] MEDS ORDERED: ALBUTEROL HFA 8 GM INHALER INH PRN (19:01)
[2023-05-17] MEDS ORDERED: BENZOCAINE 20% SPRY 85 APPLN/85 GM CAN EXT PRN (19:01)
--- NOTE | 2023-05-17 19:25 | Anesthesia Procedure Note ---
Date of Service May 17, 2023 Anesthesia Post Epidural Note Vital Signs Vital Signs: Temp Pulse Resp BP Pulse Ox O2 Del Method 38.0 C H 117 H 20 173/65 H 96 Room Air 05/17/23 18:50 05/17/23 19:23 05/17/23 18:50 05/17/23 19:21 05/17/23 19:23 05/17/23 07:15 Pain Intensity Bilateral Lower Abdomen: Pain Intensity: 0 Notes Mental Status: alert / awake / arousable and participated in evaluation Nausea / Vomiting: adequately controlled Pain: adequately controlled Airway Patency, RR, SpO2: stable & adequate BP & HR: stable & adequate Hydration State: stable & adequate Neuraxial Anesthesia: was administered and sensory block is resolving Anesthetic Complications: no major complications apparent Epidural: Removed without complications and With tip intact
--- NOTE | 2023-05-17 19:29 | Post Operative Brief Note ---
Immediate Post Op Note v1 Date of Surgery May 17, 2023 Pre & Post Diagnosis Operation Date: 05/17/23 17:20 Pre-Op Diagnosis: arrest of progress CPD Post-Op Diagnosis: arrest of progress CPD I identified the patient and participated in the time-out.: Yes Procedure Operation Date: 05/17/23 17:20 Actual Procedures p Section in LD: Live Female Child @ 1756(Bilateral) - George Lui MD Surgeon George Lui MD Audio Tape Librarian Yvonne Munoz MS 3 Estimated Blood Loss 500 Findings Consistent with Post-Op Diagnosis Live female Apgars 8/9 weight 7#0.8 Fluids LR 1300 ml. Specimens placenta Drains Meade Catheter Anesthesia Type Labor Epidural Complications none Disposition Accompanied Patient To Recovery: Yes Overlapping Procedure I was present for: the critical portions of procedure. I was immediately available: during the entire case. Back up surgeon: was not required during procedure.
[2023-05-17] MEDS: OXYTOCIN 20 UNITS/LR 1,002 ML IV SCH (19:31)
--- NOTE | 2023-05-17 19:36 | Operative Report ---
Post Operative Report Pre & Post Diagnosis Operation Date: 05/17/23 17:20 Pre-Op Diagnosis: arrest of progress CPD Post-Op Diagnosis: arrest of progress CPD I identified the patient and participated in the time-out.: Yes Procedure Operation Date: 05/17/23 17:20 Actual Procedures p Section in LD: Live Female Child @ 1756(Bilateral) - George Lui MD Surgeon George Lui MD Dry Food Products Mixer Yvonne Munoz MS 3 Estimated Blood Loss 500 Findings Consistent with Post-Op Diagnosis live female Apgars 8/9 7#0.8 oz Fluids LR 1300 ml Specimens placenta Drains Meade Anesthesia Type Labor Epidural Complications none Disposition Accompanied Patient To Recovery: Yes Indications arrest of progress Description of Procedure Satisfactory epidural anesthesia the patient was prepped draped usual sterile fashion. A timeout was called prior to the start of the case and antibiotics were given preop. Pfannenstiel incision was made carried the incision down through the layers of the abdominal cavity in successive layers without difficulty. After entering into the peritoneal cavity the bladder flap was then made using Metzenbaum scissors bladder blade was entered a low segment transverse incision over the lower uterine segment was made the amniotic sac was nicked clear fluid was noted incision was widened in the AP diameter the infant was then delivered. The infant was noted to be with the aid of aid of fundal pressure. The infant was then noted to be the occiput anterior position with caput noted. The baby was warmed and suctioned and then there was a 1 minute cord delay and the baby was handed to the ham boner the Apgars were 8 and 9. Live female. After the cord was clamped the baby was handed to the ham boner present for the delivery. Cord blood was obtained and the placenta was then delivered spontaneously and intact the uterus was then exteriorized ring forceps were then placed on both angles and the inferior margin of the uterine incision the uterus was closed in double layer closure using 0 Vicryl suture in a continuous interlocking fashion followed by a second imbricating layer of 0 Vicryl suture. The initial sponge needle instrument count were found to be correct the lower uterine segment was inspected no active bleeding was noted the incision was then uterus was then placed back into the normal anatomical position tubes ovaries bilaterally were found to be within normal limits. The muscle layer was not reapproximated the fascia was then reapproximated from both ends using 0 Vicryl suture in a continuous interlocking fashion the subcuticular layer was then closed with interrupted 3-0 plain suture after irrigation. No active bleeding was noted. The skin was then reapproximated with 4-0 Monocryl suture. Steri-Strips and Telfa and ABD dressing were then applied. The final sponge needle instrument count were found to be correct estimated blood loss was 500 mL the patient was then placed supine on stretcher taken to recovery room in stable condition. I attest to the content of the Intraoperative Record and any orders documented therein. Any exceptions are noted below.
--- NOTE | 2023-05-17 20:11 | Anesthesiology Progress Note ---
Date of Service May 17, 2023 Anesthesia Post Procedure Vital Signs Vital Signs: Temp Pulse Resp BP Pulse Ox O2 Del Method 05/17/23 20:08 113 H 97 05/17/23 20:03 135 H 97 05/17/23 20:01 114 H 124/59 L 05/17/23 19:58 114 H 97 05/17/23 19:53 131 H 96 05/17/23 19:48 124 H 97 05/17/23 19:43 126 H 97 05/17/23 19:41 131 H 126/74 05/17/23 19:40 18 05/17/23 19:38 106 H 97 05/17/23 19:33 132 H 97 05/17/23 19:32 113 H 121/59 L 05/17/23 19:30 37.2 C 18 05/17/23 19:28 122 H 97 05/17/23 19:23 117 H 96 05/17/23 19:21 120 H 173/65 H 05/17/23 19:20 18 05/17/23 19:19 142 H 92 05/17/23 19:18 135 H 100 05/17/23 19:13 124 H 94 05/17/23 19:11 123 H 155/59 H 05/17/23 19:10 18 05/17/23 19:10 Room Air 05/17/23 19:08 136 H 90 05/17/23 19:05 130 H 93 05/17/23 19:03 147 H 96 05/17/23 19:00 22 05/17/23 19:00 136 H 91 05/17/23 18:58 135 H 90 05/17/23 18:55 127 H 91 05/17/23 18:53 123 H 100 05/17/23 18:50 38.0 C H 20 05/17/23 18:50 118 H 124/63 05/17/23 18:48 133 H 96 05/17/23 17:26 89 135/82 05/17/23 17:25 95 H 83 L 05/17/23 17:20 85 100 05/17/23 17:15 84 99 05/17/23 17:10 86 05/17/23 17:10 91 H 125/78 97 05/17/23 17:05 85 99 05/17/23 17:00 79 100 05/17/23 16:55 105 H 122/78 99 05/17/23 16:50 83 100 05/17/23 16:45 85 100 05/17/23 16:41 85 127/83 05/17/23 16:40 80 100 05/17/23 16:35 88 99 05/17/23 16:30 95 H 100 05/17/23 16:26 91 H 129/86 05/17/23 16:25 97 H 100 05/17/23 16:23 89 81 L 05/17/23 16:20 87 100 05/17/23 16:15 90 100 05/17/23 16:11 90 133/83 05/17/23 16:10 88 100 05/17/23 16:05 87 100 05/17/23 16:00 86 100 05/17/23 15:58 93 H 85 L 05/17/23 15:55 94 H 05/17/23 15:55 90 137/70 99 05/17/23 15:50 36.9 C 89 20 98 05/17/23 15:49 95 H 83 L 05/17/23 15:46 90 128/80 05/17/23 15:45 95 H 97 05/17/23 15:44 91 H 89 L 05/17/23 15:40 105 H 82 L 05/17/23 15:39 89 82 L 05/17/23 15:35 83 100 05/17/23 15:33 87 87 L 05/17/23 15:30 85 100 05/17/23 15:25 80 98 05/17/23 15:20 79 56 L 05/17/23 15:18 79 87 L 05/17/23 15:15 82 95 05/17/23 15:11 115/89 05/17/23 15:10 83 100 05/17/23 15:05 97 H 94 05/17/23 15:00 37.3 C 89 16 100 05/17/23 14:55 82 05/17/23 14:55 79 128/77 100 05/17/23 14:50 84 100 05/17/23 14:45 83 100 05/17/23 14:41 83 127/71 05/17/23 14:40 89 100 05/17/23 14:35 84 100 05/17/23 14:30 92 H 100 05/17/23 14:26 86 127/78 05/17/23 14:25 90 98 05/17/23 14:20 89 100 05/17/23 14:15 79 100 05/17/23 14:10 94 H 130/81 99 05/17/23 14:05 84 100 05/17/23 14:00 86 100 05/17/23 13:57 88 136/82 05/17/23 13:55 93 H 100 05/17/23 13:50 85 L 05/17/23 13:50 88 05/17/23 13:50 93 H 97 05/17/23 13:45 36.7 C 96 H 16 99 05/17/23 13:41 83 139/76 05/17/23 13:40 101 H 96 05/17/23 13:37 99 H 83 L 05/17/23 13:35 85 98 05/17/23 13:30 76 99 05/17/23 13:26 79 121/75 05/17/23 13:25 80 99 05/17/23 13:20 80 100 05/17/23 13:15 78 100 05/17/23 13:12 79 120/76 05/17/23 13:10 81 100 05/17/23 13:05 93 H 95 05/17/23 13:00 100 H 97 05/17/23 12:55 97 H 100 05/17/23 12:50 86 98 05/17/23 12:45 77 100 05/17/23 12:41 78 115/65 05/17/23 12:40 74 100 05/17/23 12:36 85 85 L 05/17/23 12:35 88 100 05/17/23 12:30 95 H 100 05/17/23 12:26 77 119/72 05/17/23 12:25 81 99 05/17/23 12:20 87 100 05/17/23 12:15 85 100 05/17/23 12:13 86 87 L 05/17/23 12:10 85 05/17/23 12:10 86 121/77 96 05/17/23 12:05 79 100 05/17/23 12:00 73 100 05/17/23 11:56 75 119/77 05/17/23 11:55 75 100 05/17/23 11:50 76 100 05/17/23 11:47 81 88 L 05/17/23 11:45 82 100 05/17/23 11:42 81 136/75 05/17/23 11:40 74 100 05/17/23 11:38 90 86 L 05/17/23 11:35 83 97 05/17/23 11:33 81 88 L 05/17/23 11:30 80 99 05/17/23 11:29 16 05/17/23 11:29 36.6 C 16 05/17/23 11:25 80 113/65 99 05/17/23 11:20 74 100 05/17/23 11:15 79 100 05/17/23 11:11 80 118/72 89 L 05/17/23 11:10 83 97 05/17/23 11:05 82 83 L 05/17/23 11:04 82 87 L 05/17/23 11:00 80 100 05/17/23 10:57 82 115/61 05/17/23 10:55 87 100 05/17/23 10:50 85 97 05/17/23 10:45 80 94 05/17/23 10:41 72 105/63 05/17/23 10:40 71 100 05/17/23 10:35 82 99 05/17/23 10:30 83 97 05/17/23 10:26 85 153/64 H 05/17/23 10:25 102 H 100 05/17/23 10:20 90 100 05/17/23 10:15 83 100 05/17/23 10:12 77 129/84 05/17/23 10:10 85 100 05/17/23 10:05 85 100 05/17/23 10:00 74 99 05/17/23 09:55 77 05/17/23 09:55 74 104/58 L 99 05/17/23 09:50 68 100 05/17/23 09:45 93 H 100 05/17/23 09:41 67 106/63 05/17/23 09:40 75 100 05/17/23 09:35 74 99 05/17/23 09:30 84 100 05/17/23 09:26 88 119/68 05/17/23 09:25 80 99 05/17/23 09:20 74 100 05/17/23 09:15 81 97 05/17/23 09:11 77 112/74 05/17/23 09:10 79 99 05/17/23 09:05 79 99 05/17/23 09:00 86 100 05/17/23 08:55 71 05/17/23 08:55 72 112/68 100 05/17/23 08:50 72 100 05/17/23 08:45 74 100 05/17/23 08:41 78 106/63 05/17/23 08:40 72 100 05/17/23 08:37 97 H 85 L 05/17/23 08:35 70 100 05/17/23 08:30 65 100 05/17/23 08:26 69 105/63 05/17/23 08:25 67 100 05/17/23 08:20 80 100 05/17/23 08:15 66 100 05/17/23 08:11 71 110/63 05/17/23 08:10 71 100 05/17/23 08:05 71 100 05/17/23 08:00 66 100 05/17/23 07:55 75 100 05/17/23 07:50 64 100 05/17/23 07:45 87 100 05/17/23 07:41 84 120/69 05/17/23 07:40 82 100 05/17/23 07:36 82 87 L 05/17/23 07:35 83 100 05/17/23 07:30 77 100 05/17/23 07:26 76 121/74 05/17/23 07:25 73 100 05/17/23 07:20 62 100 05/17/23 07:15 Room Air 05/17/23 07:15 71 100 05/17/23 07:10 16 05/17/23 07:10 36.7 C 16 05/17/23 07:10 73 05/17/23 07:10 73 103/63 100 05/17/23 07:05 80 100 05/17/23 07:00 75 99 05/17/23 06:57 71 112/63 05/17/23 06:55 78 99 05/17/23 06:50 69 98 05/17/23 06:45 78 100 05/17/23 06:40 75 05/17/23 06:40 79 121/66 100 05/17/23 06:35 77 99 05/17/23 06:30 74 100 05/17/23 06:27 71 122/77 05/17/23 06:25 69 99 05/17/23 06:20 82 99 05/17/23 06:15 74 98 05/17/23 06:10 76 05/17/23 06:10 75 114/69 99 05/17/23 06:05 77 99 05/17/23 06:00 82 100 05/17/23 05:56 80 122/78 05/17/23 05:55 86 100 05/17/23 05:50 84 100 05/17/23 05:45 81 99 05/17/23 05:40 73 111/73 99 05/17/23 05:35 73 99 05/17/23 05:30 74 99 05/17/23 05:25 74 114/73 99 05/17/23 05:20 76 100 05/17/23 05:15 73 100 05/17/23 05:14 18 05/17/23 05:14 36.6 C 18 05/17/23 05:12 71 130/74 05/17/23 05:10 76 99 05/17/23 05:05 75 99 05/17/23 05:00 86 99 05/17/23 04:57 71 87/58 L 05/17/23 04:55 71 98 05/17/23 04:50 68 98 05/17/23 04:45 71 99 05/17/23 04:42 71 104/58 L 05/17/23 04:40 76 99 05/17/23 04:35 65 99 05/17/23 04:30 64 99 05/17/23 04:26 69 97/57 L 05/17/23 04:25 74 99 05/17/23 04:20 68 99 05/17/23 04:15 74 99 05/17/23 04:12 74 115/76 05/17/23 04:10 79 98 05/17/23 04:05 74 99 05/17/23 04:00 84 99 05/17/23 03:55 75 05/17/23 03:55 74 116/74 99 05/17/23 03:50 78 100 05/17/23 03:45 77 99 05/17/23 03:40 76 100 05/17/23 03:35 73 98 05/17/23 03:30 36.6 C 70 18 99 05/17/23 03:26 68 98/60 L 05/17/23 03:25 68 99 05/17/23 03:20 67 99 05/17/23 03:15 68 99 05/17/23 03:10 69 99 05/17/23 03:05 71 100 05/17/23 03:00 67 99 05/17/23 02:56 71 104/57 L 05/17/23 02:55 84 100 05/17/23 02:50 77 99 05/17/23 02:45 79 99 05/17/23 02:40 70 105/57 L 98 05/17/23 02:35 72 100 05/17/23 02:30 76 99 05/17/23 02:25 73 102/59 L 99 05/17/23 02:20 74 99 05/17/23 02:15 63 99 05/17/23 02:12 68 110/62 05/17/23 02:10 67 99 05/17/23 02:05 80 100 05/17/23 02:00 69 99 05/17/23 01:55 66 99/65 L 99 05/17/23 01:50 90 99 05/17/23 01:45 75 100 05/17/23 01:44 67 114/57 L 05/17/23 01:40 83 99 05/17/23 01:35 91 H 98 05/17/23 01:30 74 99 05/17/23 01:25 74 121/72 100 05/17/23 01:20 77 99 05/17/23 01:15 81 99 05/17/23 01:10 83 05/17/23 01:10 86 123/77 100 05/17/23 01:05 91 H 99 05/17/23 01:00 36.6 C 82 18 100 05/17/23 00:55 69 121/84 99 05/17/23 00:50 71 100 05/17/23 00:45 72 100 05/17/23 00:40 80 05/17/23 00:40 86 125/82 99 05/17/23 00:35 77 99 05/17/23 00:30 73 99 05/17/23 00:27 88 120/71 05/17/23 00:25 116 H 100 05/17/23 00:20 78 100 05/17/23 00:15 66 99 05/17/23 00:10 68 05/17/23 00:10 75 111/58 L 98 05/17/23 00:05 68 97 05/17/23 00:00 69 98 05/16/23 23:55 58 L 109/58 L 98 05/16/23 23:50 64 98 05/16/23 23:45 69 95 05/16/23 23:40 68 05/16/23 23:40 72 104/57 L 98 05/16/23 23:35 74 99 05/16/23 23:30 72 98 05/16/23 23:25 67 107/56 L 98 05/16/23 23:20 63 99 05/16/23 23:15 74 99 05/16/23 23:10 72 05/16/23 23:10 82 119/53 L 99 05/16/23 23:09 18 05/16/23 23:09 36.7 C 18 05/16/23 23:05 84 99 05/16/23 23:00 73 18 99 05/16/23 22:55 75 05/16/23 22:55 79 118/79 98 05/16/23 22:50 83 98 05/16/23 22:45 78 98 05/16/23 22:40 75 119/75 98 05/16/23 22:35 74 98 05/16/23 22:30 74 20 98 05/16/23 22:25 86 05/16/23 22:25 85 124/75 98 05/16/23 22:20 70 97 05/16/23 22:15 75 98 05/16/23 22:10 75 121/74 98 05/16/23 22:05 70 98 05/16/23 22:00 89 20 98 05/16/23 21:57 85 120/66 05/16/23 21:55 99 H 99 05/16/23 21:50 79 99 05/16/23 21:45 76 98 05/16/23 21:40 82 100 05/16/23 21:38 75 127/81 05/16/23 21:35 77 98 05/16/23 21:33 85 128/81 05/16/23 21:30 79 18 98 05/16/23 21:28 76 130/81 05/16/23 21:25 82 98 05/16/23 21:23 75 126/80 05/16/23 21:20 73 97 05/16/23 21:18 84 116/71 05/16/23 21:15 81 98 05/16/23 21:14 78 132/83 05/16/23 21:10 20 05/16/23 21:10 20 05/16/23 21:10 98 05/16/23 21:10 81 05/16/23 21:10 81 129/76 05/16/23 21:05 81 20 99 05/16/23 21:02 78 129/71 05/16/23 21:00 88 20 141/74 H 99 05/16/23 20:58 78 130/72 05/16/23 20:56 80 136/88 05/16/23 20:55 82 05/16/23 20:55 87 166/79 H 100 05/16/23 20:52 76 137/76 05/16/23 20:50 80 05/16/23 20:50 85 138/78 99 05/16/23 20:45 91 H 97 05/16/23 20:44 36.6 C 05/16/23 20:40 78 99 05/16/23 20:39 71 117/71 05/16/23 20:29 20 05/16/23 20:29 20 Pain Intensity Bilateral Lower Abdomen: Pain Intensity: 0 Transfer of Care Handoff Completed per policy Notes Mental Status: alert / awake / arousable Patient Amnestic to Procedure: Yes Nausea / Vomiting: adequately controlled Pain: adequately controlled Airway Patency, RR, SpO2: stable & adequate BP & HR: stable & adequate Hydration State: stable & adequate Anesthetic Complications: no major complications apparent
[2023-05-17] MEDS: KETOROLAC 30 MG/ML VIAL IV PRN (20:27)
[2023-05-17] MEDS: SIMETHICONE 80 MG CHEW PO SCH (23:15)
[2023-05-17] MEDS: DOCUSATE SODIUM 100 MG CAP PO SCH (23:15)
[2023-05-18] MEDS: KETOROLAC 30 MG/ML VIAL IV PRN ×2 (04:03→10:05)
[2023-05-18] MEDS: OXYTOCIN 20 UNITS/LR 1,002 ML IV SCH (04:26)
[2023-05-18] MEDS ORDERED: FERROUS SULFATE 325 MG TAB PO SCH (08:00)
[2023-05-18] MEDS: PRENATAL VITAMIN 1 TAB PO SCH (08:31)
[2023-05-18] MEDS: SIMETHICONE 80 MG CHEW PO SCH ×4 (08:31→20:03)
[2023-05-18] MEDS: DOCUSATE SODIUM 100 MG CAP PO SCH ×2 (08:31→20:03)
[2023-05-18 08:46] LABS: Hematocrit (blood only) 22.1 % (37.0-47.0); Hemoglobin 7.1 g/dl (12.0-16.0); Mean Corpuscular Hemoglobin 34.5 pg (25.0-34.0); Mean Corpuscular Hgb Conc 32.1 g/dL (32.0-36.0); Mean Corpuscular Volume 107.3 fL (80.0-100.0); Platelet Count 184 K/uL (130-400); RDW Coefficient of Variation 14.6 % (11.5-14.5); RDW Standard Deviation 56.5 fL (36.4-46.3); Red Blood Count 2.06 M/uL (4.20-5.40); White Blood Count 12.85 K/ul (4.8-10.8)
[2023-05-18 08:51] LABS: Basophils # (auto) 0.03 K/uL (0.00-0.20); Basophils % (auto) 0.2 %; Eosinophils # (auto) 0.11 K/uL (0.00-0.50); Eosinophils % (auto) 0.9 %; Immature Granulocytes # (auto) 0.06 K/uL (0.01-0.20); Immature Granulocytes % (auto) 0.5 %; Lymphocytes # (auto) 1.54 K/uL (1.20-3.40); Monocytes # (auto) 0.77 K/uL (0.11-0.59); Neutrophils # (auto) 10.34 K/uL (1.40-6.50); Neutrophils % (auto) 80.4 %; Polychromasia 1+
[2023-05-18] MEDS ORDERED: NON-FORMULARY MEDICATION (Pnv No.153-Fa-Om3-Dha-Epa-Fish [Prenatal Gummies] 400 mcg-35 mg- PO SCH (09:00)
--- NOTE | 2023-05-18 10:30 | Obstetrical Progress Note ---
Date of Service May 18, 2023 Assessment & Plan (1) delivery delivered: POD #1 Pt dong well No complaints Dressing and [place] d/c at PM today Results & Data Vital Signs (Past 12 Hours) Vital Signs Temp Pulse Resp BP Pulse Ox O2 Del Method 05/18/23 10:00 16 98 05/18/23 08:25 16 98 05/18/23 08:25 36.5 C 84 16 116/70 98 Room Air 05/18/23 08:13 16 98 05/18/23 07:45 16 97 05/18/23 07:15 16 98 05/18/23 06:00 18 96 05/18/23 05:15 18 98 05/18/23 04:10 18 98 05/18/23 04:10 36.8 C 85 18 99/68 L 98 Room Air 05/18/23 03:35 17 95 05/18/23 02:20 17 96 05/18/23 01:15 18 97 05/18/23 00:05 17 95 05/17/23 23:05 18 97 05/17/23 23:05 36.7 C 86 18 104/64 97 Room Air
[2023-05-18] MEDS ORDERED: ONDANSETRON INJ 2 MG/ML 2 ML VIAL IV PRN (12:04)
[2023-05-18] MEDS ORDERED: KETOROLAC 30 MG/ML VIAL IV PRN (12:04)
[2023-05-18] MEDS ORDERED: PROMETHAZINE HCL 25 MG in SODIUM CHLORIDE 0.9% 50 ML IV PRN (12:04)
[2023-05-18] MEDS ORDERED: MEPERIDINE HCL 50 MG/ML CARP IV PRN (12:04)
[2023-05-18] MEDS ORDERED: diphenhydrAMINE 50 MG/ML VIAL IV PRN (12:04)
[2023-05-18] MEDS ORDERED: diphenhydrAMINE Capsule 25 MG CAP PO PRN (12:04)
[2023-05-18] MEDS: oxyCODONE/ACETAMINOPHEN 5mg/325mg TAB PO PRN ×2 (15:17→20:03)
[2023-05-18] MEDS: IBUPROFEN 600 MG TAB PO PRN ×2 (15:17→20:04)
[2023-05-18] MEDS ORDERED: bisacodyL 5 MG TABEC PO SCH (20:00)
[2023-05-19] MEDS: oxyCODONE/ACETAMINOPHEN 5mg/325mg TAB PO PRN ×4 (01:52→17:48)
[2023-05-19] MEDS: IBUPROFEN 600 MG TAB PO PRN ×4 (01:52→17:49)
[2023-05-19] MEDS ORDERED: ONDANSETRON INJ 2 MG/ML 2 ML VIAL IM PRN (03:20)
[2023-05-19 07:36] LABS: Hematocrit (blood only) 23.2 % (37.0-47.0); Hemoglobin 7.3 g/dl (12.0-16.0)
--- NOTE | 2023-05-19 08:39 | Obstetrical Progress Note ---
Date of Service May 19, 2023 Assessment & Plan Admission and Anticipated Discharge Date Admission Date: May 16, 2023 Subjective Patient is seen and examined. She feels well, no complaints. Pain is under control with oral meds. Ambulating without dizzinesss Voiding without difficulty Tolerating regular diet with out N&V Flatus + BM none Bleeding is minimal No fever/ chills/ CP/ SOB/ N&V/ Leg pain Breast and bottle feeding without problems Vital Signs Temp Pulse Resp BP Pulse Ox O2 Del Method 05/19/23 00:12 36.5 C 86 18 112/67 98 Room Air Vital Signs Temp Pulse Resp BP Pulse Ox O2 Del Method 05/19/23 00:12 36.5 C 86 18 112/67 98 Room Air 05/18/23 18:59 36.5 C 87 18 112/73 98 Room Air 05/18/23 15:20 36.6 C 87 16 109/68 98 Room Air 05/18/23 13:10 36.6 C 90 16 118/74 99 Room Air 05/18/23 12:30 16 98 05/18/23 11:30 14 95 05/18/23 10:00 16 98 Lab Results 05/16/23 05/18/23 05/19/23 Range/Units 15:02 07:14 07:25 WBC 11.58 H 12.85 H (4.8-10.8) K/ul RBC 2.83 L 2.06 L (4.20-5.40) M/uL Hgb 10.1 L 7.1 L D 7.3 L (12.0-16.0) g/dl Hct 30.4 L 22.1 L 23.2 L (37.0-47.0) % MCV 107.4 H 107.3 H (80.0-100.0) fL MCH 35.7 H 34.5 H (25.0-34.0) pg MCHC 33.2 32.1 (32.0-36.0) g/dL RDW Std Deviation 55.7 H 56.5 H (36.4-46.3) fL RDW Coeff of Fadia 14.3 14.6 H (11.5-14.5) % Plt Count 264 184 (130-400) K/uL MPV 11.8 12.0 (9.4-12.4) fL Immature Gran % (Auto) 0.5 % Neut % (Auto) 80.4 % Lymph % (Auto) 12.0 % [place] % (Auto) 6.0 % Eos % (Auto) 0.9 % Baso % (Auto) 0.2 % Neut # (Auto) 10.34 H (1.40-6.50) K/uL Lymph # (Auto) 1.54 (1.20-3.40) K/uL [place] # (Auto) 0.77 H (0.11-0.59) K/uL Eos # (Auto) 0.11 (0.00-0.50) K/uL Baso # (Auto) 0.03 (0.00-0.20) K/uL Immature Gran # (Auto) 0.06 (0.01-0.20) K/uL Polychromasia 1+ PE: General: Alert, orientedx3, NAD CVS: S1S2 RRR Lungs; CTAB Abd: soft, NT, ND, BS+, fundus firm, below Umbilicus Incision: Clean, dry, intact Perineum intact, Lochia rubra minimal Ext; NT, no edema AP: 32 yo s/p C Section, pod# 2 VSS Afebrile doing well Hb 7.3, asymptomatic, h/o macrocytic anemia, elevated iron levels per hematology, would hold IV iron Continue routine postop care Encourage ambulation, PO intake All questions were answered D/C home after 48 hours Results & Data Vital Signs (Past 12 Hours) Vital Signs Temp Pulse Resp BP Pulse Ox O2 Del Method 05/19/23 00:12 36.5 C 86 18 112/67 98 Room Air
[2023-05-19] MEDS ORDERED: IRON SUCROSE 200 MG in 0.9 % SODIUM CHLORIDE 100 ML IV ONE (09:00)
[2023-05-19] MEDS: PRENATAL VITAMIN 1 TAB PO SCH (09:12)
[2023-05-19] MEDS: DOCUSATE SODIUM 100 MG CAP PO SCH ×2 (09:12→21:30)
[2023-05-19] MEDS: SIMETHICONE 80 MG CHEW PO SCH ×4 (09:12→21:30)
[2023-05-19] MEDS: FERROUS SULFATE 325 MG TAB PO SCH ×2 (09:12→21:30)
[2023-05-19] MEDS ORDERED: bisacodyL 10 MG SUPP PR PRN (18:53)
[2023-05-20] MEDS: oxyCODONE/ACETAMINOPHEN 5mg/325mg TAB PO PRN ×2 (06:15→10:22)
[2023-05-20] MEDS: IBUPROFEN 600 MG TAB PO PRN ×2 (06:15→10:21)
--- NOTE | 2023-05-20 08:32 | Obstetrical Progress Note ---
Date of Service May 20, 2023 Assessment & Plan Admission and Anticipated Discharge Date Admission Date: May 16, 2023 Subjective Patient is seen and examined. She feels well, no complaints. Pain is under control with oral meds. Ambulating without dizziness Voiding without difficulty Tolerating regular diet with out N&V Flatus + BM + Bleeding is minimal No fever/ chills/ CP/ SOB/ N&V/ Leg pain Breast and bottle feeding without problems Vital Signs Temp Pulse Resp BP Pulse Ox O2 Del Method 05/20/23 07:30 36.6 C 82 18 111/73 99 Room Air 05/19/23 23:59 36.5 C 83 16 107/72 98 Room Air 05/19/23 19:48 36.7 C 86 16 112/65 99 Room Air 05/19/23 16:14 36.6 C 105 H 125/79 Lab Results 05/16/23 05/18/23 05/19/23 Range/Units 15:02 07:14 07:25 WBC 11.58 H 12.85 H (4.8-10.8) K/ul RBC 2.83 L 2.06 L (4.20-5.40) M/uL Hgb 10.1 L 7.1 L D 7.3 L (12.0-16.0) g/dl Hct 30.4 L 22.1 L 23.2 L (37.0-47.0) % MCV 107.4 H 107.3 H (80.0-100.0) fL MCH 35.7 H 34.5 H (25.0-34.0) pg MCHC 33.2 32.1 (32.0-36.0) g/dL RDW Std Deviation 55.7 H 56.5 H (36.4-46.3) fL RDW Coeff of Fadia 14.3 14.6 H (11.5-14.5) % Plt Count 264 184 (130-400) K/uL MPV 11.8 12.0 (9.4-12.4) fL Immature Gran % (Auto) 0.5 % Neut % (Auto) 80.4 % Lymph % (Auto) 12.0 % [place] % (Auto) 6.0 % Eos % (Auto) 0.9 % Baso % (Auto) 0.2 % Neut # (Auto) 10.34 H (1.40-6.50) K/uL Lymph # (Auto) 1.54 (1.20-3.40) K/uL [place] # (Auto) 0.77 H (0.11-0.59) K/uL Eos # (Auto) 0.11 (0.00-0.50) K/uL Baso # (Auto) 0.03 (0.00-0.20) K/uL Immature Gran # (Auto) 0.06 (0.01-0.20) K/uL Polychromasia 1+ PE: General: Alert, orientedx3, NAD CVS: S1S2 RRR Lungs; CTAB Abd: soft, NT, ND, BS+, fundus firm, below Umbilicus Incision: Clean, dry, intact Perineum intact, Lochia rubra minimal Ext; NT, no edema AP: 32 yo s/p C Section, pod# 3 VSS Afebrile doing well Continue routine postop care Encourage ambulation, PO intake All questions were answered D/C home , f/u in office Results & Data Vital Signs (Past 12 Hours) Vital Signs Temp Pulse Resp BP Pulse Ox O2 Del Method 05/20/23 07:30 36.6 C 82 18 111/73 99 Room Air 05/19/23 23:59 36.5 C 83 16 107/72 98 Room Air
[2023-05-20] MEDS: PRENATAL VITAMIN 1 TAB PO SCH (09:23)
[2023-05-20] MEDS: FERROUS SULFATE 325 MG TAB PO SCH (09:23)
[2023-05-20] MEDS: SIMETHICONE 80 MG CHEW PO SCH (09:23)
[2023-05-20] MEDS: DOCUSATE SODIUM 100 MG CAP PO SCH (09:23)
--- NOTE | 2023-05-24 10:14 | Coding Query ---
PATHOLOGY To promote full compliance with coding requirements relating to patient care, physician participation is requested in all cases of zinc plate cutter uncertainty. Please assist us with the question(s) below: Please review the Pathology report and please document any relevant diagnosis(es) below: Diagnosis(es): Arrest of descent CPD Thank you Tracy TROY
--- NOTE | 2023-05-24 10:17 | Coding Query ---
CODING QUERY To promote full compliance with coding requirements relating to patient care, provider participation is requested in all cases of router operator radial uncertainty. Please assist us with the question(s) below: Coding Question(s): The Anesthesia Consultation on 05/16 documents under Past Medical History/Medical History, "Herpes genitalia". There is no other documentation of this. Please specify below: ( x ) History of Herpes Genitalia ( ) No History of Herpes Genitalia ( ) Other: Please Specify Physician's Response(s): Thank you Tracy Rogers Principal Diagnosis: "that condition established after study, to be chiefly responsible for occasioning the admission of the patient to the hospital for care." Co-Existing Principal Diagnosis: "when two or more diagnoses equally meet the criteria for principal diagnosis as determined by the circumstances of admission, diagnostic work up, and/or therapy provided, and the Alphabetic Index, Tabular List, or another coding guideline does not provide sequencing direction, any one of the diagnoses may be sequenced first." "When the physician has documented what appears to be a current diagnosis in the body of the record, but has not included the diagnosis in the final diagnostic statement, the physician should be asked whether the diagnosis should be added." (Source Coding [facility] 2 QTR90. p3-4) SYDNI
--- NOTE | 2023-05-26 17:49 | Discharge Summary ---
Date of Service May 26, 2023 Discharge Data Procedures Performed Operation Date: 05/17/23 17:20 Actual Procedures p Section in LD: Live Female Child @ 1756(Bilateral) - George Lui MD Hospital Course (1) delivery delivered:
== END 2023-05-20 10:30 | disposition home or self-care (01) | DRG 787 ==
LOC: OPB 13:25 → 4S1 13:27 → 4E2 05-17 21:00

== ENCOUNTER 2025-01-23 05:26 | Inpatient (IN) ==
--- NOTE | 2025-01-15 09:48 | Anesthesiology Consultation ---
Date of Service January 15, 2025 Assessment & Plan (1) Encounter for pre-operative examination: - Per manager of selection and assessment on 01/15/25: No known infectious disease contacts, current infectious disease symptoms in past 10 days or COVID positive test result in the past 30 days. Chart Review Chart Review: entry level assistant manager initiated History Surgery Operation Date: 01/23/25 07:30 Proposed Procedures p Section in LD - George Lui MD s with Tubal - George Lui MD Height/Weight Height: 5 ft 6 in Weight: 77.564 kg Allergies Allergy/AdvReac Type Severity Reaction Status Date / Time morphine AdvReac Severe pt reports Verified 01/15/25 07:35 halluncinations clonazepam AdvReac Intermediate BLACK OUTS Verified 01/15/25 07:35 tramadol AdvReac Intermediate SEVERE ROSENBERG Verified 01/15/25 07:35 Medications Home Medications Medication Instructions Recorded Confirmed Last Taken albuterol sulfate 90 mcg/actuation 2 puff inhalation QID PRN 06/29/22 01/15/25 01/28/24 aerosol inhaler shortness of breath or wheezing #8.5 grams paroxetine HCl 10 mg tablet (Paxil) 10 mg PO QAM 01/15/25 01/15/25 Unknown vit no.95-ferrous 1 tab PO QAM 01/15/25 01/15/25 Unknown fumarate 28 mg-folic acid 800 mcg tablet () valacyclovir 500 mg tablet 500 mg PO BID 01/15/25 01/15/25 Unknown (Valtrex) Past Medical History Medical History Allergic rhinitis Asthma inh prn (last used ~09/2024) Depression with anxiety Elective remote hx Family history of Crohn's disease Sister Family history of ulcerative colitis Oldest Brother GERD (gastroesophageal reflux disease) History of anemia "only while " History of chicken pox History of herpes simplex infection no current outbreak History of PID remote history Hx of bronchitis last episode with spring allergies ~09/2024. no current issues IBS (irritable bowel syndrome) Medical cannabis use anxiety with last in PTSD (post-traumatic stress disorder) Vitamin D deficiency Past Family History Family History Sister Diabetes Tachycardia Father Hypertension Stroke Hyperlipidemia Myocardial infarction Mother Alcoholism Grandmother (Paternal) Breast cancer Brother Ulcerative colitis Other Colorectal cancer Endometriosis Kidney disease Ovarian cancer Uterine cancer Denies family history of Prostate cancer Past Surgical History Surgical History H/O section 04/2023 History of mandibular surgery bone graft surgery S/P colonoscopy S/P dilatation and curettage 2019 [place] teeth removed Social History Smoking Status: Former smoker tobacco type: cigarettes and e-cigarettes Smoking cigarettes per day: quit cigarettes @31 yo, continues to vape occasionally (advised on policy) Do You Dip or Chew Tobacco: No Hx Alcohol Use: No Hx Substance Use: Yes (medical card) substance use type: marijuana Substance Use Type Other:: has medical marijuana Last Used Substance Other:: end June 2024
[2025-01-23] MEDS: LACTATED RINGER'S 1,000 ML IV SCH ×2 (05:55→07:00)
[2025-01-23 06:16] LABS: Hematocrit (blood only) 30.6 % (37.0-47.0); Hemoglobin 10.2 g/dl (12.0-16.0); Immature Granulocytes # (auto) 0.05 K/uL (0.01-0.20); Immature Granulocytes % (auto) 0.5 %; Mean Corpuscular Hemoglobin 33.7 pg (25.0-34.0); Mean Corpuscular Volume 101.0 fL (80.0-100.0); Platelet Count 276 K/uL (130-400); RDW Standard Deviation 53.6 fL (36.4-46.3); Red Blood Count 3.03 M/uL (4.20-5.40); White Blood Count 9.45 K/ul (4.8-10.8)
[2025-01-23] MEDS: ACETAMINOPHEN 500 MG TAB PO SCH (06:30)
[2025-01-23] MEDS ORDERED: MoRPHine SULFATE PF 1 MG/ML 10 ML AMP/VIAL ONE (06:42)
[2025-01-23] MEDS ORDERED: OXYTOCIN 10 UNITS/ML VIAL ONE ×3 (06:42)
[2025-01-23] MEDS ORDERED: PHENYLEPHRINE HCL 10 MG/ML VIAL ONE (06:43)
[2025-01-23] MEDS ORDERED: PHENYLEPHRINE HCL 25 MG/250 ML NSS IV ONE (06:43)
[2025-01-23] MEDS: CITRIC ACID/SODIUM CITRATE 15 ML UDC PO SCH (07:28)
--- NOTE | 2025-01-23 07:37 | History & Physical Report ---
Date of Service January 23, 2025 Assessment & Plan (1) Previous delivery affecting , antepartum: Plan: Repeat with bilateral salpingectomy risks benefits and alternatives presented to patient and spouse consent signed (2) S/P repeat low transverse : (3) Encounter for sterilization: Admission and Anticipated Discharge Date Admission Date: January 23, 2025 History of Present Illness Chief Complaint: elective repeat with tubal ligation Primary Care Provider: Cheikh Barrett, 34 F [id number] admitted at 39 weeks for elective and tubal ligation. Allergies Allergy/AdvReac Type Severity Reaction Status Date / Time morphine AdvReac Severe pt reports Verified 01/15/25 07:35 halluncinations clonazepam AdvReac Intermediate BLACK OUTS Verified 01/15/25 07:35 tramadol AdvReac Intermediate SEVERE ROSENBERG Verified 01/15/25 07:35 Home Medications Medication Instructions Recorded Confirmed Type albuterol sulfate 90 mcg/actuation 2 puff inhalation QID PRN 06/29/22 01/23/25 Rx aerosol inhaler shortness of breath or wheezing #8.5 grams paroxetine HCl 10 mg tablet (Paxil) 10 mg PO QAM 01/15/25 01/23/25 History vit no.95-ferrous 1 tab PO QAM 01/15/25 01/23/25 History fumarate 28 mg-folic acid 800 mcg tablet () valacyclovir 500 mg tablet 500 mg PO BID 01/15/25 01/23/25 History (Valtrex) Patient History Medical History History of herpes simplex infection no current outbreak anxiety with last in Medical cannabis use History of PID remote history Hx of bronchitis last episode with spring allergies ~09/2024. no current issues History of chicken pox GERD (gastroesophageal reflux disease) Allergic rhinitis IBS (irritable bowel syndrome) Vitamin D deficiency Family history of ulcerative colitis Oldest Brother Family history of Crohn's disease Sister Depression with anxiety PTSD (post-traumatic stress disorder) History of anemia "only while " Elective remote hx Asthma inh prn (last used ~09/2024) Surgical History S/P dilatation and curettage 2019 S/P colonoscopy [place] teeth removed H/O section 04/2023 History of mandibular surgery bone graft surgery Family History Sister Diabetes Tachycardia Father Hypertension Stroke Hyperlipidemia Myocardial infarction Mother Alcoholism Grandmother (Paternal) Breast cancer Brother Ulcerative colitis Other Colorectal cancer Endometriosis Kidney disease Ovarian cancer Uterine cancer Denies family history of Prostate cancer Social History Smoking Status: Current every day smoker Tobacco Type: E-cigarettes / Vaping Age Started Using Tobacco: 23; Age Quit Using Tobacco: 31; packs per day: 0.5; Cigarettes Per Day: quit cigarettes @31 yo, continues to vape occasionally (advised on policy); Second Hand Exposure: Yes ( smokes); Do You Dip or Chew Tobacco: No; Tobacco Cessation Education Requested by Patient: No Hx Alcohol Use: No Hx Substance Use: Yes Prescribed Medications: Marijuana Last Used Substance: Unknown Last Used Substance Other:: end June 2024 Substance Use Type Other:: medical marijuana Preferred Language: Sami Communication Ability: Effective Visual Impairment: No Limitations Hearing Ability: Normal Escort Patients Required: No Beliefs That Will Affect Care: None marital status: marital status details: Brandon Fall (33) [phone] Current Living Situation: Spouse and Family Current Living Situation Comment: spouse and daughter current occupational status: unemployed current occupation: [employer] How many Children do You have: 1 Other Information That Helps Us Care for You: No Feels Safe at Home: Yes Safety Concerns: Feels Safe At This Time Childhood Exposure to Second-Hand Smoke: Yes Diet: regular Diet Comment: regular caffeine: Yes during the past year weight has: remained stable Dental Care, Regularly: Yes Physical Activity Frequency: 5-6 Times per Week Seatbelt Use: always Sunscreen Use: No Assistive Devices: Denture - Upper Assistive Devices Comment: upper partial denture 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 Review of Systems All systems reviewed & are unremarkable except as noted in HPI & below Physical Exam Constitutional: WD/WN, vitals as above Eyes: PERRL, conjunctivae normal, anicteric sclerae Respiratory: normal respiratory effort, lungs clear to auscultation Cardiovascular: Rate/Rhythm: regular rate and regular rhythm Gastrointestinal (Abdomen): Inspection/Auscultation: abdomen normal to inspection Musculoskeletal: Extremities: extremities normal to inspection Skin: no rashes, warm and dry Neurologic: patellar DTR's 2+ bilat, sensation intact Psychiatric: A+Ox3, euthymic affect Genitourinary: no vaginal lesions, no adnexal mass OB Exam Monitor Tracing: + external FHT monitor used, + external uterine monitor used, + category I and + normal FHT variability Results & Data Vital Signs (Past 12 Hours) Vital Signs Temp Pulse Resp BP Pulse Ox 01/23/25 07:28 62 100 01/23/25 07:23 66 100 01/23/25 07:18 66 100 01/23/25 07:13 64 100 01/23/25 07:08 65 100 01/23/25 07:03 65 100 01/23/25 06:58 70 100 01/23/25 06:52 55 L 100 01/23/25 06:47 61 100 01/23/25 06:42 68 100 01/23/25 06:37 67 100 01/23/25 06:32 70 100 01/23/25 06:27 74 100 01/23/25 06:22 64 100 01/23/25 06:17 72 100 01/23/25 06:13 95 H 93 01/23/25 06:12 93 H 95 01/23/25 06:04 73 100 01/23/25 05:59 70 100 01/23/25 05:54 71 99 01/23/25 05:46 36.5 C 16 01/23/25 05:44 79 133/69 01/23/25 05:39 16 01/23/25 05:39 36.5 C 16 Laboratory Results Laboratory Results - last 48 hr 01/23/25 06:01 WBC 9.45 RBC 3.03 L Hgb 10.2 L Hct 30.6 L MCV 101.0 H MCH 33.7 MCHC 33.3 RDW Std Deviation 53.6 H RDW Coeff of Fadia 15.1 H Plt Count 276 MPV 10.3 Immature Gran % (Auto) 0.5 Neut % (Auto) 70.2 Lymph % (Auto) 18.6 [place] % (Auto) 9.0 Eos % (Auto) 1.5 Baso % (Auto) 0.2 Neut # (Auto) 6.63 H Lymph # (Auto) 1.76 [place] # (Auto) 0.85 H Eos # (Auto) 0.14 Baso # (Auto) 0.02 Immature Gran # (Auto) 0.05 Blood Type B Positive Antibody Screen NEGATIVE Monitoring External Monitor Cat 1
[2025-01-23 07:49] LABS: Amphetamines+Metham, Urine Neg (Neg); MDMA (Ecstacy), Urine Neg (Neg); Marijuana, Urine Pos (Neg)
[2025-01-23] MEDS ORDERED: DROPERIDOL 5 MG/2 ML VIAL IV PRN (08:03)
[2025-01-23] MEDS ORDERED: NALBUPHINE HCL INJ 10 MG/ML AMP IV PRN (08:03)
[2025-01-23] MEDS ORDERED: MoRPHine SULFATE PF 1 MG/ML 10 ML AMP/VIAL INT SPINAL ONE (08:03)
[2025-01-23] MEDS ORDERED: LACTATED RINGER'S 500 ML IV PRN (08:03)
[2025-01-23] MEDS ORDERED: NALOXONE HCL 1 MG in SODIUM CHLORIDE 0.9% 1,000 ML IV PRN (08:03)
[2025-01-23] MEDS ORDERED: HYDROmorphone INJ 0.5 MG/0.5 ML SYR IV PRN (08:03)
[2025-01-23] MEDS ORDERED: NALOXONE HCL 0.08 MG in SYRINGE 1.8 ML IV PRN (08:03)
[2025-01-23] MEDS ORDERED: diphenhydrAMINE 50 MG/ML VIAL IV PRN (08:03)
[2025-01-23] MEDS ORDERED: NALOXONE HCL 0.4 MG/1 ML VIAL/CARP IV PRN (08:03)
[2025-01-23] MEDS ORDERED: SODIUM CHLORIDE 0.9% 1,000 ML IV SCH (08:15)
[2025-01-23] MEDS ORDERED: NO NARCOTICS OR SEDATIVES SCH (08:15)
[2025-01-23] MEDS ORDERED: DC INTRASPINAL MORPHINE SCH (08:15)
[2025-01-23] MEDS ORDERED: ONDANSETRON INJ 2 MG/ML 2 ML VIAL ONE (08:19)
[2025-01-23] MEDS ORDERED: SENNA 8.6 MG TAB PO PRN (09:20)
[2025-01-23] MEDS ORDERED: CALCIUM CARBONATE 500 MG CHEWABLE TAB PO PRN (09:20)
[2025-01-23] MEDS ORDERED: MAGNESIUM HYDROXIDE SUSP 30 ML UDC PO PRN (09:20)
[2025-01-23] MEDS ORDERED: BENZOCAINE 20% SPRY 85 APPLN/85 GM CAN EXT PRN (09:20)
[2025-01-23] MEDS ORDERED: ALBUTEROL HFA 8 GM INHALER INH PRN (09:20)
[2025-01-23] MEDS ORDERED: DIPHTHER/TETAN/PERTUS Vaccine (Tdap, Adol/Adult) 0.5mL IM ONE (09:20)
[2025-01-23] MEDS ORDERED: HYDROCORTISONE ACETATE 25 MG SUPP PR PRN (09:20)
--- NOTE | 2025-01-23 09:22 | Post Operative Brief Note ---
Immediate Post Op Note Date of Surgery January 23, 2025 Pre & Post Diagnosis Operation Date: 01/23/25 07:30 Pre-Op Diagnosis: 1. Elective Repeat Section 2. Long-term Sterilization Procedure Post-Op Diagnosis: Same I identified the patient and participated in the time-out.: Yes Procedure Operation Date: 01/23/25 07:30 Actual Procedures p Section in LD; Repeat Lower Uterine Transverse Section for the of a live boy at 0816; Bilateral Tubal Ligation. (Bilateral) - George Lui MD Surgeon George Lui MD Correctional Supervisor Francesca BROWN Estimated Blood Loss 376 (QBL ) Findings Consistent with Post-Op Diagnosis live male nuchal cord x2 Apgars 8/9 weight 7 lbs. 5 oz. Fluids LR Specimens placenta fallopian tubes Drains Meade Catheter (Meade catheter inserted without difficulty. Patent and draining clear yellow urine. ) Anesthesia Type Spinal Complications none Disposition Accompanied Patient To Recovery: Yes Overlapping Procedure I was present for: the critical portions of procedure. I was immediately available: during the entire case. Back up surgeon: was not required during procedure.
[2025-01-23] MEDS ORDERED: LACTATED RINGER'S 1,000 ML IV SCH (09:30)
[2025-01-23] MEDS: KETOROLAC 30 MG/ML VIAL IV SCH (09:38)
--- NOTE | 2025-01-23 10:22 | Operative Report ---
Post Operative Report Pre & Post Diagnosis Operation Date: 01/23/25 07:30 Pre-Op Diagnosis: 1. Elective Repeat Section 2. Long-term Sterilization Procedure Post-Op Diagnosis: Same I identified the patient and participated in the time-out.: Yes Procedure Operation Date: 01/23/25 07:30 Actual Procedures p Section in LD; Repeat Lower Uterine Transverse Section for the of a live boy infant at 0816; Bilateral Tubal Ligation. (Bilateral) - George Lui MD Surgeon George Lui MD Linux Systems Analyst Francesca BROWN Quantitative Blood Loss (QBL) 376 ml. Findings Consistent with Post-Op Diagnosis live male Apgars 8/9 weight 7 lbs. 5 oz. Fluids LR Specimens Placenta Bilateral tubes Drains None Anesthesia Type Spinal Complications None Disposition Accompanied Patient To Recovery: Yes Indications Elective term repeat section Voluntary sterilization procedure Description of Procedure Patient was prepped and draped in usual sterile fashion a timeout was called antibiotics were given preop the patient was identified. A low Pfannenstiel incision through her prior scar was elevated into the abdominal cavity as successive layers without difficulty upon entering into the abdominal cavity the bladder flap was then made and pushed down bladder blade was entered a low segment transverse incision over the lower uterine segment was made incision was widened in the AP diameter delivery was accomplished with fundal pressure there was a nuchal cord x 2 that was reduced at time of delivery of the head the cord was doubly clamped and cut the baby was handed to the hat finishing materials preparer present for the delivery Apgars were 8/9 weight was 7 pounds 5 ounces. Cord blood was obtained and the placenta was then delivered spontaneously and intact. The uterus was then exteriorized. Ring forceps were placed on both angles the inferior margin and the uterus was cleaned of all clots debris with a clean lap pad bladder blade was then reentered uterus was then closed in double layer and a single layer closure rather in a continuous interlocking fashion. The initials as 5 units of Were found to be correct patient desired voluntary sterilization she was consented for this prior and asked once more the Mindy clamp was then used to grasp the fallopian tube on the right and left and the Ligasure device was then used to remove both the right and the left tubes serially. The ovaries were both normal. These were then submitted to pathology and no active bleeding on the site surgical site was noted. The uterus was then placed back into the normal anatomical position. The fascia was then reapproximated with 0 Vicryl suture in a continuous fashion and the muscle layer was then closed with 0 Vicryl suture in an interrupted manner. The subcuticular layer was closed with 3-0 plain suture. The keloid scar was then removed with sharp dissection and the skin was then reapproximated with 4/0 Monocryl suture. Steri-Strips were then applied. Clear urine was noted from the Meade. QBL was 376 mL and the final sponge, needle and instrument count being correct the patient was then placed supine on stretcher and she was taken to recovery room in stable condition. I attest to the content of the Intraoperative Record and any orders documented therein. Any exceptions are noted below. Please note Francesca Louie was needed to provide retraction and assistance with delivery of head closure of the uterus and closure of the abdomen
[2025-01-23] MEDS: OXYTOCIN 20 UNITS/LR 1,002 ML IV SCH (11:26)
[2025-01-23] MEDS: ONDANSETRON INJ 2 MG/ML 2 ML VIAL IV PRN (11:45)
--- NOTE | 2025-01-23 13:24 | Anesthesiology Progress Note ---
Date of Service January 23, 2025 Anesthesia Post Procedure Vital Signs Vital Signs: Temp Pulse Resp BP Pulse Ox 01/23/25 11:20 63 100 01/23/25 11:16 36.4 C L 18 01/23/25 11:15 70 99 01/23/25 11:13 52 L 99/56 L 01/23/25 11:10 58 L 97 01/23/25 11:05 62 99 01/23/25 11:03 71 112/62 01/23/25 11:00 54 L 98 01/23/25 10:55 60 98 01/23/25 10:53 62 111/63 01/23/25 10:50 90 100 01/23/25 10:45 54 L 99 01/23/25 10:43 18 01/23/25 10:43 64 111/70 01/23/25 10:40 63 99 01/23/25 10:35 66 99 01/23/25 10:34 76 125/85 01/23/25 10:30 62 99 01/23/25 10:25 80 99 01/23/25 10:23 100 H 123/56 L 01/23/25 10:20 78 96 01/23/25 10:15 70 98 01/23/25 10:14 71 109/64 01/23/25 10:13 18 01/23/25 10:10 59 L 98 01/23/25 10:07 60 114/52 L 01/23/25 10:05 63 98 01/23/25 10:03 18 01/23/25 10:00 64 99 01/23/25 09:55 62 99 01/23/25 09:53 18 01/23/25 09:50 66 100 01/23/25 09:45 60 100 01/23/25 09:43 18 01/23/25 09:43 75 115/69 01/23/25 09:40 64 100 01/23/25 09:35 56 L 100 01/23/25 09:33 18 01/23/25 09:33 71 110/60 01/23/25 09:30 59 L 100 01/23/25 09:25 58 L 100 01/23/25 09:23 61 102/53 L 01/23/25 09:20 69 100 01/23/25 09:17 36.4 C L 18 01/23/25 09:17 64 108/54 L 01/23/25 09:15 64 100 01/23/25 09:10 64 100 01/23/25 09:06 56 L 118/58 L 01/23/25 09:05 67 100 01/23/25 07:38 69 100 01/23/25 07:33 66 100 01/23/25 07:30 18 01/23/25 07:30 18 01/23/25 07:28 62 100 01/23/25 07:23 66 100 01/23/25 07:18 66 100 01/23/25 07:13 64 100 01/23/25 07:08 65 100 01/23/25 07:03 65 100 01/23/25 06:58 70 100 01/23/25 06:52 55 L 100 01/23/25 06:47 61 100 01/23/25 06:42 68 100 01/23/25 06:37 67 100 01/23/25 06:32 70 100 01/23/25 06:27 74 100 01/23/25 06:22 64 100 01/23/25 06:17 72 100 01/23/25 06:13 95 H 93 01/23/25 06:12 93 H 95 01/23/25 06:04 73 100 01/23/25 05:59 70 100 01/23/25 05:54 71 99 01/23/25 05:46 36.5 C 16 01/23/25 05:44 79 133/69 01/23/25 05:39 16 01/23/25 05:39 36.5 C 16 Pain Intensity Abdomen: Pain Intensity: 5 Notes Mental Status: alert / awake / arousable Patient Amnestic to Procedure: Yes Nausea / Vomiting: adequately controlled Pain: adequately controlled Airway Patency, RR, SpO2: stable & adequate BP & HR: stable & adequate Hydration State: stable & adequate Neuraxial Anesthesia: was administered and sensory block is resolving Anesthetic Complications: no major complications apparent
[2025-01-23] MEDS: PROMETHAZINE 6.25 MG/50.25 ML BAG IV STA (13:56)
[2025-01-23] MEDS: SIMETHICONE 80 MG CHEW PO SCH (14:58)
[2025-01-23] MEDS: ACETAMINOPHEN 325 MG TAB PO SCH (15:22)
[2025-01-23] MEDS: DOCUSATE SODIUM 100 MG CAP PO SCH (21:25)
[2025-01-24] MEDS ORDERED: ONDANSETRON INJ 2 MG/ML 2 ML VIAL IV PRN (02:04)
[2025-01-24] MEDS ORDERED: PROMETHAZINE 12.5 MG/50.5 ML BAG IV PRN (02:04)
[2025-01-24] MEDS ORDERED: HYDROmorphone INJ 0.5 MG/0.5 ML SYR IV PRN (02:04)
[2025-01-24] MEDS ORDERED: diphenhydrAMINE Capsule 25 MG CAP PO PRN (02:04)
[2025-01-24] MEDS ORDERED: diphenhydrAMINE 50 MG/ML VIAL IV PRN (02:04)
[2025-01-24 06:35] LABS: Hematocrit (blood only) 29.3 % (37.0-47.0); Hemoglobin 9.7 g/dl (12.0-16.0); Immature Granulocytes # (auto) 0.05 K/uL (0.01-0.20); Immature Granulocytes % (auto) 0.6 %; Mean Corpuscular Hemoglobin 34.4 pg (25.0-34.0); Mean Corpuscular Volume 103.9 fL (80.0-100.0); Platelet Count 216 K/uL (130-400); RDW Standard Deviation 56.2 fL (36.4-46.3); Red Blood Count 2.82 M/uL (4.20-5.40); White Blood Count 8.81 K/ul (4.8-10.8)
[2025-01-24] MEDS: PRENATAL VITAMIN 1 TAB PO SCH (08:27)
[2025-01-24] MEDS ORDERED: NON-FORMULARY MEDICATION (Pnv No.95-Ferrous Fumarate-Fa [Prenatal] 28 mg iron- 800 mcg Tab PO SCH (09:00)
[2025-01-24] MEDS: IBUPROFEN 600 MG TAB PO SCH (09:34)
--- NOTE | 2025-01-24 09:38 | Obstetrical Progress Note ---
Date of Service January 24, 2025 Assessment & Plan Admission and Anticipated Discharge Date Admission Date: January 23, 2025 Subjective Patient is seen and examined. She feels well, no complaints. Pain is under control with oral meds. Ambulating without dizziness Voiding without difficulty Tolerating regular diet with out N&V Flatus + Bleeding is minimal No fever/ chills/ CP/ SOB/ N&V/ Leg pain Bottle feeding without problems Vital Signs Temp Pulse Pulse Pulse Resp BP Pulse Ox 01/24/25 07:30 36.5 C 65 18 101/63 99 01/24/25 04:00 36.6 C 63 16 105/67 100 01/23/25 23:58 16 100 01/23/25 23:56 36.6 C 68 18 111/70 100 O2 Del Method 01/24/25 07:30 Room Air 01/24/25 04:00 Room Air 01/23/25 23:58 01/23/25 23:56 Room Air Lab Results 01/23/25 01/23/25 01/24/25 Range/Units 06:01 Unknown 06:20 WBC 9.45 8.81 (4.8-10.8) K/ul RBC 3.03 L 2.82 L (4.20-5.40) M/uL Hgb 10.2 L 9.7 L (12.0-16.0) g/dl Hct 30.6 L 29.3 L (37.0-47.0) % MCV 101.0 H 103.9 H (80.0-100.0) fL MCH 33.7 34.4 H (25.0-34.0) pg MCHC 33.3 33.1 (32.0-36.0) g/dL RDW Std Deviation 53.6 H 56.2 H (36.4-46.3) fL RDW Coeff of Fadia 15.1 H 15.1 H (11.5-14.5) % Plt Count 276 216 (130-400) K/uL MPV 10.3 10.3 (9.4-12.4) fL Immature Gran % (Auto) 0.5 0.6 % Neut % (Auto) 70.2 71.9 % Lymph % (Auto) 18.6 17.6 % Union % (Auto) 9.0 7.5 % Eos % (Auto) 1.5 1.9 % Baso % (Auto) 0.2 0.5 % Neut # (Auto) 6.63 H 6.34 (1.40-6.50) K/uL Lymph # (Auto) 1.76 1.55 (1.20-3.40) K/uL Union # (Auto) 0.85 H 0.66 H (0.11-0.59) K/uL Eos # (Auto) 0.14 0.17 (0.00-0.50) K/uL Baso # (Auto) 0.02 0.04 (0.00-0.20) K/uL Immature Gran # (Auto) 0.05 0.05 (0.01-0.20) K/uL Urine Opiates Screen Neg (Neg) Ur Methadone, Qual Neg (Neg) Urine Fentanyl Screen Neg (Neg) Urine Barbiturates Neg (Neg) Ur Phencyclidine (PCP) Neg (Neg) U Amphetamin/Meth Scrn Neg (Neg) MDMA (Ecstasy) Screen Neg (Neg) U Benzodiazepines Scrn Neg (Neg) Ur Cocaine Metabolite Neg (Neg) U Marijuana (THC) Screen Pos H (Neg) Treponema pallidum Ab Negative (Negative) Blood Type B Positive Antibody Screen NEGATIVE PE: General: Alert, orientedx3, NAD CVS: S1S2 RRR Lungs; CTAB Abd: soft, NT, ND, BS+, fundus firm, below Umbilicus Incision: Clean, dry, intact Perineum intact, Lochia rubra minimal Ext; NT, no edema AP: 34 yo s/p RC Section, pod# 1 VSS Afebrile doing well Continue routine postop care Anemic, ordered IV iron Encourage ambulation, PO intake All questions were answered D/C home tomorrow Results & Data Vital Signs (Past 12 Hours) Vital Signs Temp Pulse Pulse Pulse Resp BP Pulse Ox 01/24/25 07:30 36.5 C 65 18 101/63 99 01/24/25 04:00 36.6 C 63 16 105/67 100 01/23/25 23:58 16 100 01/23/25 23:56 36.6 C 68 18 111/70 100 O2 Del Method 01/24/25 07:30 Room Air 01/24/25 04:00 Room Air 01/23/25 23:58 01/23/25 23:56 Room Air
[2025-01-24] MEDS: IRON SUCROSE 200 MG in SODIUM CHLORIDE 0.9% 100 ML IV ONE (10:58)
[2025-01-24] MEDS: KETOROLAC 30 MG/ML VIAL IV PRN (12:34)
[2025-01-24] MEDS: FERROUS SULFATE 325 MG TAB PO SCH (14:18)
[2025-01-25 07:11] LABS: Hematocrit (blood only) 31.6 % (37.0-47.0); Hemoglobin 10.4 g/dl (12.0-16.0)
--- NOTE | 2025-01-25 08:45 | Discharge Summary ---
Date of Service January 25, 2025 Admission HPI Per Admitting Provider 34 F [id number] admitted at 39 weeks for elective and tubal ligation. Admission Exam (Per Admitting) Constitutional WD/WN, vitals as above well developed Respiratory normal respiratory effort Cardiovascular RRR, no murmur, no edema Gastrointestinal (Abdomen) normal bowel sounds, soft, nontender, no hepatosplenomegaly Skin no rashes, warm and dry Psychiatric A+Ox3, euthymic affect Genitourinary deferred Discharge Data Consultations 01/23/25 05:25 Consult Anesthesiology Stat Procedures Performed Operation Date: 01/23/25 07:30 Actual Procedures p Section in LD; Repeat Lower Uterine Transverse Section for the of a live boy infant at 0816; Bilateral Tubal Ligation. (Bilateral) - George Lui MD Discharge Instructions ACTIVITY RECOMMENDATIONS: * Gradual return to full activity over the next 2-3 weeks. * No lifting - nothing heavier than baby over the next 2-3 weeks. * Do not engage in vigorous exercise, sexual activity or sports until cleared by your physician. * Do not drive or operate any motorized equipment until cleared by your physician. * You may shower/bathe daily. BREAST CARE: If you are not breast feeding: * Wear a supportive bra 24 hours a day for one to two weeks. * Avoid stimulating your breasts and nipples as much as possible during the first few weeks after delivery. * When taking a shower, have the warm water hit your back, not breasts. * When your breasts feel full, apply ice packs. Usually three to four times a day helps ease the discomfort. * Take a mild pain medication (Tylenol/Motrin) when you are uncomfortable. If breast feeding: * Use breast milk to lubricate nipples. Lansinoh cream may be used for sore nipples. You do not need to remove cream prior to breast feeding. If using a different brand of cream, check the label for directions regarding removal of cream prior to nursing. * Wear a supportive bra. * If having problems with breasts or breast feeding, call a b2b sales consultant or your health care provider. EPISIOTOMY CARE: After delivery, if you have an episiotomy (stitches), the following steps will ease discomfort and aid healing. * For the first 24 hours after delivery, place ice packs next to your episiotomy to help reduce swelling. * After the first 24 hour-period, sitz baths, either portable or in the tub, are suggested. A shower with a shower arm sprayed over the episiotomy may be comforting. * Claudia care should be done after each voiding and bowel movement. Squirt warm water from a plastic bottle over the perineum (region of the body between the anus and urinary opening) and pat dry. * Use Dermoplast to ease discomfort. Shake container. [place]ag directly over the episiotomy. * Place a Tucks on a clean sanitary pad next to your episiotomy. OVER THE COUNTER MEDICATION: * For discomfort or pain, you may use Acetaminophen (Tylenol), Ibuprofen (Advil), or Naproxen (Aleve) following the package directions. * For constipation you may use Colace following the package directions. SPECIAL CARE INSTRUCTIONS: When you are discharged from the hospital, it is important for you to follow the instructions listed below: * During the first week at home, you should be able to care for yourself and your baby. In addition, the usual light household activities are encouraged. * Limit your activities to the way you feel. Do not try to clean the house or move furniture. Be sensible. * If you actively engage in sports and have done so up until the time of your delivery, you may resume these activities as soon as you feel able. This may take up to one month or even longer. Use good judgment. * Continue to take your vitamins for at least six weeks after the of your baby. * Your diet need not be limited unless you were on a special diet before your delivery. Breast-feeding mothers need around 2500 calories per day and at least 64-80 ounces of fluid per day (8 to 10 glasses). * You should eat foods from the four major food groups. Crash diets or fad diets are to be avoided. Eating lean meats, fresh fruits and vegetables, low-fat dairy products, high fiber foods and a regular exercise program, will help you get back to your pre- weight without putting your health at risk. * Constipation is sometimes a problem after delivery. Take a mild laxative as needed. If breast feeding, Milk of Magnesia is acceptable to use. You may use a suppository or Fleets enema if no episiotomy. * A daily shower or tub bath is suggested. Be sure to thoroughly and gently dry the perineum. * A bloody vaginal discharge will usually continue until around four weeks post . A small amount of bleeding may continue for as long as six weeks. Vaginal discharge changes from the bright red bleeding after delivery to pink then brownish and finally yellowish-pink before becoming white and disappearing. * Bleeding may increase with activity. Your first period may come in 4-8 weeks. If you are breast feeding, your period may be delayed even longer. * [place] (sex) can begin whenever both you and your partner feel comfortable and do not have any form of genital infection. It is recommended that you wait until after your return appointment and discuss with your physician. If you have questions, please talk to your health care practitioner. A condom should be used to prevent infection and . * Foreplay, gentle intercourse and lubrication is very important the first sev eral times to prevent pain. A water-based lubricant such as K-Y jelly or Astroglide may be used. * Tampons may be used six weeks after delivery. * Douching should be avoided for 6 weeks after delivery. * If you have RH negative blood and your baby is RH positive, you will receive RHOGAM by injection prior to discharge. The nurse will give you a card to keep with you that has the date and place that you received RHOGAM after delivery. * During your care, you had a Rubella screen done to check for the presence of rubella antibodies in your blood. If your test was negative, you will receive a Rubella vaccine prior to discharge. This vaccine may cause a fever, soreness at the injection site and flu-like symptoms. If these symptoms persist, notify your health care practitioner. is not advised for three months after a Rubella vaccine. There is a higher chance of having a baby with defects if conceived within three months of getting the vaccine. * If you were discharged 24 hours from delivery or before 48 hours: Visiting nurses will come to your home 48 hours after discharge to assess you and your baby. The visiting nurse will meet with you while you are in the hospital to arrange a time and get directions to your home. * Verbalizes understanding of car seat law as reviewed with patient nursing. * Car Seat hand-out given and reviewed with patient by nursing. * Shaken baby information reviewed with patient by nursing. Call you doctor if: * Heavy bleeding (saturating several pads an hour) or passing clots the size of your fist. * A fever >101 degrees F (38.3 degrees C) on two occasions four hours apart and/or chills. * Unusual pain in the pelvic or vaginal areas. * "Baby Blues" lasting longer than two weeks. If you have any questions or concerns, call your health care practitioner at . FOLLOW-UP VISIT: * Please call the office at to schedule 3 and 6 week examination. It is important you keep this appointment. * It is important for you to make arrangements for either yearly or twice yearly check-ups thereafter.
[2025-01-25] MEDS: IBUPROFEN 600 MG TAB PO PRN (09:46)
[2025-01-25] MEDS: MEASLES, MUMPS & RUBELLA VIRUS VACCINE (MMR) 0.5ML VIAL SQ ONE (09:49)
[2025-01-25 10:25] VITALS: RESP 18; TEMP 98.2; O2SAT 100
[2025-01-25 10:47] LABS: Marijuana Quant, GCMS Urine 13 ng/mL (<5)
[2025-01-25 11:16] VITALS: BP 117/76; PULSE 70
[2025-01-25] MEDS ORDERED: ACETAMINOPHEN 325 MG TAB PO PRN (15:18)
== END 2025-01-25 13:10 | disposition home or self-care (01) | DRG 785 ==
LOC: 4S1 05:26 → EDSTATUS 07:30 → 4E2 11:53